=== PATIENT | female | born 1980 | race Caucasian/White ===

== ENCOUNTER → 2018-06-27 14:09 | Outpatient (CLI) | payer OTHER, SELFPAY ==
--- NOTE | 2018-06-27 14:17 | CA_ITS ---
PROCEDURE: 2-D M-mode and color Doppler study. INDICATIONS FOR THE TEST: Chest pain COPD Heart Murmur Tobacco Smoking Palpitations Fatigue Syncope Edema+ Hypertension Diabetes Mellitus Rheumatic Fever SOB GALICIA Obesity+Hyperlipidemia Family History HD Additional History BREAST LIFT 2015 PATIENT INFORMATION HEIGHT: 64 WEIGHT:250 GENDER: Female B/P: 2-D/M-MODE INTERPRETATION: 2-D MEASUREMENTS OBSERVED VALUES IN CMS Right Ventricular Dimension (RVDd) 2.8 Interventricular Septum (Thickness)(IVsd) 1.2 Left Ventricular Posterior Wall (Thickness)(LVPWd) 1.1 Aortic Root 3.1 Aortic Cusp Separation 1.9 Left Atrial Dimensions (LAD) 3.8 2D 1. Left atrium is mildly enlarged, left ventricle is normal size, mild concentric left ventricular hypertrophy, visually estimated ejection fraction 55%. 2. The right atrium and right ventricle is mildly enlarged with normal contractility. 3. The aortic valve is minimally thickened and fibrosed. 4. The mitral and tricuspid valve is normal. 5. Pulmonic valve is poorly visualized. 6. No significant pericardial effusion noted. DOPPLER INTERROGATION: Doppler interrogation of the aortic, mitral and tricuspid valve reveals presence of mild mitral and tricuspid regurgitation, tricuspid regurgitation jet velocity is inadequate for calculation of the right ventricle systolic pressure, Doppler evidence of impaired relaxation seen. CONCLUSION: 1. Mildly enlarged left atrium, normal left ventricular size, mild concentric left ventricular hypertrophy, visually estimated ejection fraction 55% wall motion abnormality. Doppler evidence of impaired relaxation seen. 2. Mildly enlarged right ventricle normal contractility. 3. Mild mitral and tricuspid regurgitation 4. No significant pericardial effusion noted.
== END ==
PROVIDERS: PCP Family Medicine; Visit Provider Family Medicine
DX: R60.0 Localized edema (principal)
CPT/HCPCS: 93306

== ENCOUNTER → 2018-07-24 15:15 | Outpatient (CLI) | payer OTHER, SELFPAY | PROVIDERS: PCP Family Medicine; Visit Provider Internal Medicine Cardiovascular Disease | DX: G47.9 Sleep disorder, unspecified (principal); R06.83 Snoring; R40.0 Somnolence; R93.1 Abnormal findings on diagnostic imaging of heart and coronary circulation | CPT/HCPCS: 95806 ==

== ENCOUNTER → 2018-08-31 11:43 | Outpatient (CLI) | payer OTHER, SELFPAY ==
[2018-08-31 12:14] LABS: Anion Gap 10.7 mEq/L (5-15); Blood Urea Nitrogen 9 mg/dL (7-18); Calcium 8.6 mg/dL (8.5-10.1); Carbon Dioxide 29 mmol/L (21.0-32.0); Chloride 99 mmol/L (98-107); Creatinine,Serum 0.77 mg/dL (0.55-1.02); Estimated Glomerular Filt Rate 83 ml/min (>60); GFR (African American) 101 ML/MIN (>60); Glucose 101 mg/dL (74-106); Potassium 3.7 mmoL/L (3.5-5.1); Sodium 135 mmol/L (136-145)
== END ==
PROVIDERS: Visit Provider Internal Medicine Cardiovascular Disease
DX: R07.9 Chest pain, unspecified (principal); R42 Dizziness and giddiness; R60.9 Edema, unspecified
CPT/HCPCS: 36415; 80048; 83880

== ENCOUNTER → 2018-10-03 11:53 | Outpatient (CLI) | payer OTHER, SELFPAY ==
--- NOTE | 2018-10-03 11:57 | XR_ITS ---
XR ankle wt bearing RT min 3V HISTORY: ITS.REASON: right ankle pain ORDERING PHYSICIAN: Zuly Williamson MD PATIENT AGE: 38 years Comparison: None FINDINGS: No fracture or dislocation. No lytic or blastic change. There is normal mineralization.. The joint spaces are well-preserved. Minimal spurring present involving the anterior distal tibia. IMPRESSION: Minimal spurring of the anterior distal tibia otherwise negative
--- NOTE | 2018-10-03 11:57 | XR_ITS ---
XR ankle wt bearing LT min 3V HISTORY: ITS.REASON: lt ankle pain ORDERING PHYSICIAN: Zuly Williamson MD PATIENT AGE: 38 years Comparison: None FINDINGS: No fracture or dislocation. No lytic or blastic change. There is normal mineralization.. The joint spaces are well-preserved. No significant degenerative/arthritic changes. No erosive changes evident. IMPRESSION: Negative ankle, no acute finding
== END ==
PROVIDERS: PCP Family Medicine; Visit Provider Orthopaedic Surgery
DX: M25.572 Pain in left ankle and joints of left foot (principal); M25.571 Pain in right ankle and joints of right foot
CPT/HCPCS: 73610

== ENCOUNTER 2018-12-31 11:48 | Inpatient (IN) ==
[2018-12-31 12:37] LABS: Microscopic, Urine URINE MICROSCOPIC (MICROSCOPIC)
[2018-12-31 12:42] LABS: Appearance,Urine CLEAR (Clear); Bilirubin,Urine Negative (Negative); Blood, Urine TRACE-I (Negative); Color,Urine YELLOW (Yellow); Glucose,Urine (UA) Negative (Negative); Ketones,Urine Negative (Negative); Leukocyte Esterase,Urine Negative (Negative); Protein,Urine Negative (Negative); Urobilinogen,Urine 0.2 EU/dl (0.2)
[2018-12-31 12:46] LABS: Basophils # 0.1 K/mm3 (0-0.2); Basophils % 0.7 % (0.1-2.0); Eosinophils # 0.3 K/mm3 (0.0-0.4); Hematocrit 41.9 % (37.0-47.0); Hemoglobin 12.9 g/dL (12.2-16.2); Lymphocytes # 1.8 K/mm3 (0.7-4.5); Mean Corpuscular HGB Conc 30.8 g/dL (31.8-35.4); Mean Corpuscular Volume 72.7 fl (81-99); Mean Platelet Volume 6.9 fl (7.4-10.4); Monocytes # 0.5 K/mm3 (0.1-1.0); Monocytes % 4.2 % (1.7-9.3); Neutrophils # 8.6 K/mm3 (1.8-7.8); Platelet Count 335 K/mm3 (142-424); Red Blood Count 5.76 M/mm3 (4.20-5.40); White Blood Count 11.4 K/mm3 (4.8-10.8)
[2018-12-31 12:49] LABS: Amphetamine/Metha Screen,Urine Positive ng/mL (<1000); Barbiturates Screen,Urine Negative ng/mL (<200); Benzodiazepines Screen,Urine Negative ng/mL (<200); Cannabinoid Screen,Urine Negative ng/mL (<50); Cocaine Screen,Urine Negative ng/mL (<300); Methadone Screen,Urine Negative ng/mL (<300); Opiate Screen,Urine Negative ng/mL (<300); Phencyclidine Screen,Urine Negative ng/mL (<25)
[2018-12-31 12:54] LABS: Bacteria,Urine 3+ /lpf; RBC,Urine Occasional #/hpf (0-3)
[2018-12-31 13:23] LABS: Albumin Level 3.8 gm/dL (3.4-5.0); Albumin/Globulin Ratio 0.8 (1.1-1.8); Bilirubin,Total 0.5 mg/dL (0.2-1.0); Calcium 9.9 mg/dL (8.5-10.1); Total Protein,Serum 8.8 gm/dL (6.4-8.2)
--- NOTE | 2018-12-31 13:48 | Emergency Department Note ---
ED Disposition Clinical Impression: Hypokalemia, Prolonged Q-T interval on ECG Disposition: Admitted as Observation Condition on Discharge: Fair Referrals: Alfonso Mai MD [Primary Care Provider] - Time of Disposition: 17:02 - Critical Care Critical Care Time: No Attestation: On 12/31/18, the high probability of a clinically significant, sudden or life threatening deterioration of the following system(s) required my full and direct attention, intervention and personal management. The time I documented below is in addition to time spent performing reported procedures but includes the following listed in this critical care notation. Medical Decision Making - Medical Records Medical records reviewed: Yes: I reviewed the patient's medical records. - Harry Inquiry Pt receiving controlled substance: No Harry was queried for this patient: No Vital Signs: 12/31/18 11:49 12/31/18 12:02 12/31/18 14:19 Temperature 98.3 F 98.5 F Temperature Source Oral Oral Pulse Rate [Right Brachial] 97 H 103 H 93 H Respiratory Rate 14 20 Blood Pressure [Right Arm] 112/62 103/73 L 110/75 Blood Pressure Mean [Right Arm] 78 83 86 Blood Pressure Source [Right Arm] Automatic Cuff Automatic Cuff Blood Pressure Position [Right Arm] Sitting Sitting 02 Sat by Pulse Oximetry 96 92 L 95 Oxygen Delivery Method Room Air 12/31/18 14:30 12/31/18 15:00 12/31/18 16:50 Temperature Temperature Source Pulse Rate [Right Brachial] 65 87 87 Respiratory Rate Blood Pressure [Right Arm] 99/59 L 105/72 L 112/84 Blood Pressure Mean [Right Arm] 72 83 93 Blood Pressure Source [Right Arm] Blood Pressure Position [Right Arm] 02 Sat by Pulse Oximetry 97 92 L 96 Oxygen Delivery Method - Lab Data Lab results reviewed: Yes: I reviewed the patient's lab results. Lab Results 12/31/18 12:24: Urine Color Yellow, Urine Appearance Clear, Urine pH 7.0, Ur Specific [place] 1.010, Urine Protein Negative, Urine Glucose (UA) Negative, Urine Ketones Negative, Urine Blood Trace-i, Urine Nitrate Negative, Urine Bilirubin Negative, Urine Urobilinogen 0.2, Ur Leukocyte Esterase Negative, Urine RBC Occasional, Urine WBC 3-5, Ur Squamous Epith Cells 5-10, Urine Bacteria 3+ 12/31/18 12:24: Urine Opiates Screen Negative, Urine Methadone Screen Negative, Ur Barbituates Screen Negative, Ur Phencyclidine Scrn Negative, Ur Amphetamines Screen Positive H, U Benzodiazepines Scrn Negative, Urine Cocaine Screen Negative, U Marijuana (THC) Screen Negative 12/31/18 12:38: WBC 11.4 H, RBC 5.76 H, Hgb 12.9, Hct 41.9, MCV 72.7 L, MCH 22.4 L, MCHC 30.8 L, RDW 14.0, Plt Count 335, MPV 6.9 L, Neut % (Auto) 76.0, Lymph % (Auto) 16.0, [place] % (Auto) 4.2, Eos % (Auto) 3.0, Baso % (Auto) 0.7, Neut # (A uto) 8.6 H, Lymph # (Auto) 1.8, [place] # (Auto) 0.5, Eos # (Auto) 0.3, Baso # (Auto) 0.1 12/31/18 12:38: Sodium 135 L, Potassium 2.0 L*, Chloride 88 L, Carbon Dioxide 38 H, Anion Gap 11.0, BUN 18, Creatinine 1.00, Estimated Creat Clear 76, Estimated GFR 62, Est GFR ( Amer) 75, Glucose 124 H, Calcium 9.9, Magnesium 2.2, Total Bilirubin 0.5, AST 27, ALT 28, Alkaline Phosphatase 169 H, Total Protein 8.8 H, Albumin 3.8, Globulin 5.0 H, Albumin/Globulin Ratio 0.8 L 12/31/18 12:38: TSH 3.08 D, Free T4 0.96 Result diagrams: 12/31/18 12:38 12/31/18 12:38 Orders (Tests/Meds): ED MEDICATIONS Generic Name Dose Route Start Last Admin Trade Name Freq PRN Reason Stop Dose Admin Potassium Chloride/Water 100 mls @ 50 mls/hr 12/31/18 14:09 12/31/18 16:47 Potassium Chloride 20meq/100ml Ivpb IV 12/31/18 18:08 50 mls/hr Q2H ADAN Administration Discontinued Medications Generic Name Dose Route Start Last Admin Trade Name Freq PRN Reason Stop Dose Admin Potassium Chloride 20 meq 12/31/18 14:40 12/31/18 14:58 Klor-Con 20meq Tablet PO 12/31/18 14:41 20 meq ONCE ONE Administration ORDERS Category Date Time Status Urine Culture Stat Micro 12/31/18 12:24 Received General Adult HPI - General Chief complaint: Altered Mental Status Stated complaint: Headache and vision problems Time Seen by Provider: 12/31/18 13:41 Mode of Arrival: Family Vehicle Source of Information: Patient Limitations: No Limitations Description of Symptoms (Recalled from ER Triage Doc. by RN): C/O JERKING AND TWITCHING X 2 DAYS. HAS PAST HISTORY OF THIS BUT NOT FOR THIS LENGTH OF TIME AND HAS NEVER BEEN TO DR FOR THIS. ALSO C/O HEAD AND NECK PAIN WITH VISUAL PROBLEMS. HISTORY OF PRECRIPTION DRUG DEPENDENCY BUT STATES HAS BEEN CLEAN X 1 YEAR. APPEARS TO BE UNDER INFLUENCE OF SOMETHING BUT DENIES - History of Present Illness HPI narrative: complains of musculalr twitching, headache last night. Is on antipsychotics, has pos urine drug screen for meth, and severe hypokalemia. Is on diuretics for peripheral edema - Related Data Home Medications Medication Instructions Recorded Confirmed Citalopram Hydrobromide [Celexa 40 mg PO DAILY 10/23/17 12/31/18 20mg Tablet] Gabapentin [Gabapentin 800mg Tab] 800 mg PO TID 10/23/17 12/31/18 Levothyroxine Sodium 50 mcg PO DAILY 10/23/17 12/31/18 [Levothyroxine 50mcg (0.05mg) Tab] Potassium Chloride [Pot Chlor 20 20 meq PO DAILY 10/23/17 12/31/18 mEq Tab] Ziprasidone HCl 20 mg PO HS 10/23/17 12/31/18 amitriptyline 25 mg tablet 100 mg PO HS tab 08/31/18 12/31/18 Buprenorphine HCl/Naloxone HCl 1 dose PO HS 12/31/18 12/31/18 [Zubsolv 5.7-1.4 mg Tablet Sl] Furosemide [Furosemide 40MG tAB] 40 mg PO DAILY 12/31/18 12/31/18 Methocarbamol [Methocarbamol 750mg 1 tab PO BID 12/31/18 12/31/18 Tab] Perphenazine 4 mg PO HS 12/31/18 12/31/18 Allergies Allergy/AdvReac Type Severity Reaction Status Date / Time No Known Allergies Allergy Verified 11/30/18 10:42 [facility] History - Hepatitis A Screen Drug use history?: Yes High risk sexual behaviors?: No History of sexually transmitted infection?: No Currently employed?: No Childcare worker?: No Do you have indoor plumbing?: Yes Do you have electricity?: Yes Attestation statement:: This patient has been screened for Hepatitis A risk factors. I have reviewed the patient's past medical history: Yes Medical History: Reports:: Anxiety, Depression Denies:: Cancer, Diabetes Mellitus Type 1, Diabetes Mellitus Type 2, MRSA Other Medical History: Reports: Fibromyalgia, Hypothyroidism Other Surgeries: Yes: Cholecystectomy, Hysterectomy-Total, Tubal Ligation, Other (plastic sx,(Breast, Stomach)) Amputation: No Fractures: No - Social History Smoking Status: Never smoker Alcohol Intake: never Substance Use Type: opiates Occupational Status: unemployed Housing: house Household Members: family - Psychiatric History Expresses thoughts of harming self/others: None Suicide Plan Description: No Plan Pschychiatric History:: Reports:: Anxiety, Depression Family Hx:: Coronary Artery Disease, Diabetes Comment: Maternal Grandmother ROS Obtained: Yes All systems reviewed & no additional complaints - Constitutional Constitutional: Denies chills, Denies fever(s) - Eyes Eyes: Denies blurry vision, Denies change in vision - Cardiovascular Cardiovascular: Denies chest pain, Denies chest pain at rest, Denies diaphoresis, Denies dyspnea - Respiratory Respiratory: No chest congestion, No cough, No dyspnea on exertion - Musculoskeletal Musculoskeletal: Denies joint stiffness, Denies joint swelling, Denies limited range of motion, Reports muscle weakness - Integumentary/Breasts Skin/Breast: Reports wounds - Neurologic Neurologic: Reports tingling/numbness/burning sensations, Reports other (muscular twitching, widespread) - Hematologic/Lymphatic Henatologic/Lymphatic: Denies easy bleeding, Denies easy bruising Physical Exam - General General appearance: alert, in no apparent distress, other (unkempt) - Head Head exam: atraumatic, normocephalic, normal inspection - Eye Eye exam: Present: normal appearance, PERRL, EOMI - ENT ENT exam: Present: normal exam, normal oropharynx, mucous membranes moist, TM's normal bilaterally, normal external ear exam - Neck Neck exam: Present: normal inspection, full ROM, trachea midline. Absent: meningismus, lymphadenopathy - Respiratory Respiratory exam: Present: normal lung sounds bilaterally - Cardiovascular Cardiovascular exam: Present: regular rate, normal rhythm. Absent: JVD - Abdominal Exam Abdominal exam: Present: soft, normal bowel sounds. Absent: distention, tenderness, guarding - Extremities Exam Extremities exam: Present: normal inspection, full ROM, normal capillary refill. Absent: calf tenderness - Neurological Exam Neurological exam: Present: alert, oriented X3, CN II-XII intact, other - Psychiatric Psychiatric exam: Present: normal affect, normal mood - Skin Skin exam: Present: warm, dry, intact, normal color
[2018-12-31 15:33] LABS: Free T4 (Free Thyroxine) 0.96 ng/dl (0.76-1.46); Thyroid Stimulating Hormone 3.08 uIU/ml (0.358-3.740)
[2018-12-31 21:29] LABS: Anion Gap 19.3 mEq/L (5-15); Calcium 9.2 mg/dL (8.5-10.1)
--- NOTE | 2019-01-01 07:34 | Pharmacy Consult Notes ---
[facility] Pharmacy VTE Monitoring - Patient Demographics Admission date: 12/31/18 Report Date: 01/01/19 Time: 07:33 Allergies/Adverse Reactions: Patient Allergies No Known Allergies Allergy (Verified 11/30/18 10:42) Height: 1.65 m Weight: 113.653 kg Patient Problems: Current Active Problems (Updated 12/31/18 @ 17:02 by Joel Rodriguez MD) Hypokalemia (Acute) Prolonged Q-T interval on ECG (Acute) - VTE Risk Labs: VTE Related Lab Results Hgb 12.9 g/dL (12.2-16.2) 12/31/18 12:38 Hct 41.9 % (37.0-47.0) 12/31/18 12:38 Plt Count 335 K/mm3 (142-424) 12/31/18 12:38 BUN 17 mg/dL (7-18) 12/31/18 21:10 Creatinine 1.00 mg/dL (0.55-1.02) 12/31/18 21:10 Estimated Creat Clear 68 mL/min (50-200) 12/31/18 21:10 VTE Score: 1 - Prophylaxis VTE Prophylaxis Ordered?: Yes Types of VTE Prophylaxis: TEDS Knee High Location of Applied Device: Bilateral Lower Extremeties - VTE Diagnosis Confirmed Treatment or plan recommended: Continue Current Treatment
[2019-01-01 08:56] LABS: Anion Gap 6.8 mEq/L (5-15); Calcium 8.9 mg/dL (8.5-10.1)
--- NOTE | 2019-01-01 09:21 | History & Physical Report ---
*Admission Date: 12/31/18 <Eli Smith 01/01/19 09:36> *Chief complaint: Jerking; muscle weakness <Eli Smith 01/01/19 09:36> *History of present illness: Ms. Sutton is a 38-year-old female with a history of irritable bowel syndrome, fibromyalgia, degenerative disc disease of the neck, depression with anxiety, FORD on CPAP, and drug abuse on Suboxone who was brought to the emergency room by her family with 2 days duration of head and neck pain, dizziness, legs wobbling and giving away, with muscle jerking of the arms and the legs. With evaluation in the emergency room she was found to have QT prolongation and was hypokalemic she was started on IV potassium and admitted for further evaluation and treatment. This a.m. patient is not feeling much better. Her daughter is at bedside and did state throughout the night and noticed ongoing muscle jerking. Patient is very lethargic this a.m. She denies chest pain and shortness of breath. She ate this morning without difficulties. <Eli Smith 01/01/19 09:36> [facility] History Medical History: Reports:: Anxiety, Depression Denies:: Cancer, Diabetes Mellitus Type 1, Diabetes Mellitus Type 2, MRSA <Eli Smith 01/01/19 09:36> *Have you ever received a pneumonia vaccine?: No <Eli Smith 01/01/19 09:36> *Have you received a flu vaccine this season?: No <Eli Smith 01/01/19 09:36> Other Medical History: Reports: Arthritis, Fibromyalgia, Hypothyroidism <Eli Smith 01/01/19 09:36> Comment:: Obstructive sleep apnea <Eli Smith 01/01/19 09:36> Other Surgeries: Yes: Cholecystectomy, Hysterectomy-Total, Tubal Ligation, Other (plastic sx,(Breast, Stomach)) <Eli Smith 01/01/19 09:36> Amputation: No <Eli Smith 01/01/19 09:36> Fractures: No <Eli Smith 01/01/19 09:36> Comment: [place] teeth extraction <Eli Smith 01/01/19 09:36> - *Social History Educational Level: Completed High School <Eli Smith 01/01/19 09:36> Smoking Status: Never smoker <Eli Smith 01/01/19 09:36> Alcohol Intake: never <Eli Smith 01/01/19 09:36> Substance Use Type: opiates <Eli Smith 01/01/19 09:36> *Occupational Status:: unemployed <SarahEli 01/01/19 09:36> Housing: house <SarahEli 01/01/19 09:36> Household Members: spouse, children <Eli Smith 01/01/19 09:36> *Travel in the last 8 weeks: None <SarahEli 01/01/19 09:36> - Psychiatric History Expresses thoughts of harming self/others: None <SarahEli 01/01/19 09:36> Suicide Plan Description: No Plan <SarahEli 01/01/19 09:36> Pschychiatric History:: Reports:: Anxiety, Depression <Eli Smith 01/01/19 09:36> Family Hx:: Coronary Artery Disease, Diabetes <Eli Smith 01/01/19 09:36> Review of Systems - Constitutional Denies fever(s) <SarahEli 01/01/19 09:36> - Eyes Denies change in vision <SmithEli 01/01/19 09:36> - ENT Denies ear pain, Denies sore throat <SmithEli 01/01/19 09:36> - *Cardiovascular Denies chest pain <SmithEli 01/01/19 09:36> - *Respiratory Denies shortness of breath <SmithEli 01/01/19 09:36> - *Gastrointestinal Denies abdominal pain, Denies change in bowel habits, Denies change in stools, Denies nausea, Denies vomiting <Smith,Eli 01/01/19 09:36> - *Genitourinary Denies difficulty urinating <Smith,Eli 01/01/19 09:36> - *Musculoskeletal Reports joint pain, Reports muscle weakness <SmithEli 01/01/19 09:36> - *Neurologic Reports abnormal walking, Reports dizziness, Reports lack of coordination, Reports tingling/numbness/burning sensations, Reports weakness, Reports other (muscular twitching, widespread), Denies seizure-like activity <Eli Smith - 01/01/19 09:36> - Psychiatric Reports anxiety, Reports confusion, Reports depression <Eli Smith - 01/01/19 09:36> Meds Home Medications Medication Instructions Recorded Confirmed Type Citalopram Hydrobromide [Celexa 40 mg PO DAILY 10/23/17 12/31/18 History 20mg Tablet] Levothyroxine Sodium 50 mcg PO DAILY 10/23/17 12/31/18 History [Levothyroxine 50mcg (0.05mg) Tab] Ziprasidone HCl 40 mg PO HS 10/23/17 01/01/19 History amitriptyline 25 mg tablet 100 mg PO HS tab 08/31/18 12/31/18 History Buprenorphine HCl/Naloxone HCl 2 each PO DAILY 12/31/18 01/01/19 History [Zubsolv 5.7-1.4 mg Tablet Sl] Furosemide [Furosemide 40MG tAB] 40 mg PO DAILY 12/31/18 12/31/18 History Methocarbamol [Methocarbamol 750mg 750 mg PO BID 12/31/18 01/01/19 History Tab] Perphenazine 4 mg PO TIDP PRN 12/31/18 01/01/19 History Gabapentin 800 mg PO TID 01/01/19 01/01/19 History Potassium Chloride [Klor-con 20 20 meq PO DAILY 01/01/19 01/01/19 History mEq tablet] Spironolactone 25 mg PO DAILY 01/01/19 01/01/19 History <Alfonso Mai - 01/01/19 17:45> Allergies Allergy/AdvReac Type Severity Reaction Status Date / Time No Known Allergies Allergy Verified 11/30/18 10:42 <Alfonso Mai - 01/01/19 17:45> Exam Vital signs and Labs for Last 24 Hours: Temp Pulse Resp BP Pulse Ox 97.9 F 85 18 111/76 99 01/01/19 16:00 01/01/19 16:00 01/01/19 16:00 01/01/19 16:00 01/01/19 16:00 Laboratory Results - last 24 hr 12/31/18 21:10: Sodium 135 L, Potassium 3.3 L D, Chloride 92 L, Carbon Dioxide 27 D, Anion Gap 19.3 H, BUN 17, Creatinine 1.00, Estimated Creat Clear 68, Estimated GFR 62, Est GFR ( Amer) 75, Glucose 143 H, Calcium 9.2 01/01/19 08:40: Sodium 136, Potassium 1.8 L* D, Chloride 92 L, Carbon Dioxide 39 H D, Anion Gap 6.8, BUN 15, Creatinine 0.94, Estimated Creat Clear 72, Estimated GFR 66, Est GFR ( Amer) 80, Glucose 163 H, Calcium 8.9 01/01/19 16:03: Potassium 2.4 L* D <Alfonso Mai - 01/01/19 17:45> Temp Pulse Resp BP Pulse Ox 98.3 F 83 18 103/53 L 99 01/01/19 08:00 01/01/19 08:00 01/01/19 08:00 01/01/19 08:00 01/01/19 08:00 Laboratory Results - last 24 hr 12/31/18 12:24: Urine Color Yellow, Urine Appearance Clear, Urine pH 7.0, Ur Specific [place] 1.010, Urine Protein Negative, Urine Glucose (UA) Negative, Urine Ketones Negative, Urine Blood Trace-i, Urine Nitrate Negative, Urine Bilirubin Negative, Urine Urobilinogen 0.2, Ur Leukocyte Esterase Negative, Urine RBC Occasional, Urine WBC 3-5, Ur Squamous Epith Cells 5-10, Urine Bacteria 3+ 12/31/18 12:24: Urine Opiates Screen Negative, Urine Methadone Screen Negative, Ur Barbituates Screen Negative, Ur Phencyclidine Scrn Negative, Ur Amphetamines Screen Positive H, U Benzodiazepines Scrn Negative, Urine Cocaine Screen Negative, U Marijuana (THC) Screen Negative 12/31/18 12:38: WBC 11.4 H, RBC 5.76 H, Hgb 12.9, Hct 41.9, MCV 72.7 L, MCH 22.4 L, MCHC 30.8 L, RDW 14.0, Plt Count 335, MPV 6.9 L, Neut % (Auto) 76.0, Lymph % (Auto) 16.0, [place] % (Auto) 4.2, Eos % (Auto) 3.0, Baso % (Auto) 0.7, Neut # (Auto) 8.6 H, Lymph # (Auto) 1.8, [place] # (Auto) 0.5, Eos # (Auto) 0.3, Baso # (Auto) 0.1 12/31/18 12:38: Sodium 135 L, Potassium 2.0 L*, Chloride 88 L, Carbon Dioxide 38 H, Anion Gap 11.0, BUN 18, Creatinine 1.00, Estimated Creat Clear 76, Estimated GFR 62, Est GFR ( Amer) 75, Glucose 124 H, Calcium 9.9, Magnesium 2.2, Total Bilirubin 0.5, AST 27, ALT 28, Alkaline Phosphatase 169 H, Total Protein 8.8 H, Albumin 3.8, Globulin 5.0 H, Albumin/Globulin Ratio 0.8 L 12/31/18 12:38: TSH 3.08 D, Free T4 0.96 12/31/18 21:10: Sodium 135 L, Potassium 3.3 L D, Chloride 92 L, Carbon Dioxide 27 D, Anion Gap 19.3 H, BUN 17, Creatinine 1.00, Estimated Creat Clear 68, Estimated GFR 62, Est GFR ( Amer) 75, Glucose 143 H, Calcium 9.2 01/01/19 08:40: Sodium 136, Potassium 1.8 L* D, Chloride 92 L, Carbon Dioxide 39 H D, Anion Gap 6.8, BUN 15, Creatinine 0.94, Estimated Creat Clear 72, Estimated GFR 66, Est GFR ( Amer) 80, Glucose 163 H, Calcium 8.9 <Eli Smith - 01/01/19 09:36> I & O for Last 24 hours: Intake & Output 12/30/18 12/31/18 01/01/19 01/02/19 11:59 11:59 11:59 11:59 Intake Total 791.667 / 791.667 780 / 780 Output Total 950 / 950 Balance 791.667 / 791.667 -170 / -170 Weight 258 lb 250 lb 9 oz 250 lb 8.991 oz <Alfonso Mai - 01/01/19 17:45> Intake & Output 12/29/18 12/30/18 12/31/18 01/01/19 11:59 11:59 11:59 11:59 Intake Total 691.667 / 691.667 Balance 691.667 / 691.667 Weight 258 lb 250 lb 9 oz <Eli Smith 01/01/19 09:36> Microbiology Reports for the Last 24 Hours: Microbiology 12/31/18 12:24 Urine,Clean Catch Urine Culture - Final Multiple organisms, suggests contamination. <SergeiAlfonso Xavier - 01/01/19 17:45> Microbiology 12/31/18 12:24 Urine,Clean Catch Urine Culture - Final Multiple organisms, suggests contamination. <Eli Smith 01/01/19 09:36> Radiology Reports for the Last 24 Hours: 12/31/2018 CT of the cervical spine Is 100 iMPRESSION: Reversal of lordosis which may be due to patient positioning or muscle spasm otherwise negative. 12/31/2018 CT of the head IMPRESSION: No acute intracranial findings <Eli Smith 01/01/19 09:36> - Constitutional no acute distress, cooperative <Eli Smith 01/01/19 09:36> Comments: Lethargic <Eli Smith 01/01/19 09:36> - *Routine HEENT Exam Head: Present: normocephalic, atraumatic <Eli Smith 01/01/19 09:36> Eye: Present: EOMI, PERRL. Absent: conjunctival icterus, scleral injection <Eli Smith 01/01/19 09:36> ENT: Present: mucous membranes moist, oropharynx clear <Eli Smith 01/01 09:36> - *Routine Neck Exam Present: supple, full ROM. Absent: carotid bruit, lymphadenopathy, thyromegaly <Eli Smiht 01/01/19 09:36> - *Routine Respiratory Exam Present: CTA bilaterally (Anteriorly and posteriorly) <Eli Smith 01/01/19 09:36> - *Routine Cardiovascular Exam Present: RRR <Eli Smith 01/01/19 09:36> - *Routine Abdominal Exam Present: soft, normoactive bowel sounds. Absent: tenderness, distended <Eli Smith 01/01/19 09:36> - *Routine Extremities Exam Absent: edema, calf tenderness <Eli Smith - 01/01/19 09:36> - *Routine Skin Exam Comments: Rash for which she was being treated has resolved beneath her breast and her abdominal folds <Eli Smith - 01/01/19 09:36> - *Routine Neurological Exam Present: alert, oriented X3, CN II-XII intact. Absent: tremors <Eli Smith - 01/01/19 09:36> Lethargic <Eli Smith - 01/01/19 09:36> Assessment and Plan (1) Depression Current visit: Yes Status: Chronic Category: Medical Code(s): F32.9 - Major depressive disorder, single episode, unspecified (2) Hypothyroidism Current visit: Yes Status: Acute Category: Medical Code(s): E03.9 - Hypothyroidism, unspecified (3) Fibromyalgia Current visit: Yes Status: Chronic Category: Medical Code(s): M79.7 - Fibromyalgia (4) Hypokalemia Current visit: Yes Status: Acute Category: Medical Code(s): E87.6 - Hypokalemia (5) Prolonged Q-T interval on ECG Current visit: Yes Status: Acute Category: Medical Code(s): R94.31 - Abnormal electrocardiogram [ECG] [EKG] (6) Edema Current visit: No Status: Chronic Qualifiers: Edema type: localized Qualified Code(s): R60.0 - Localized edema Category: Medical Code(s): R60.9 - Edema, unspecified (7) SOB (shortness of breath) Current visit: No Status: Acute Category: Medical Code(s): R06.02 - Shortness of breath (8) FORD (obstructive sleep apnea) Current visit: No Status: Chronic Category: Medical Code(s): G47.33 - Obstructive sleep apnea (adult) (pediatric) <SergeiAlfonso Xavier - 01/01/19 17:45> (1) Depression Current visit: Yes Status: Chronic Category: Medical Code(s): F32.9 - Major depressive disorder, single episode, unspecified (2) Hypothyroidism Current visit: Yes Status: Acute Category: Medical Code(s): E03.9 - Hypothyroidism, unspecified (3) Fibromyalgia Current visit: Yes Status: Chronic Category: Medical Code(s): M79.7 - Fibr omyalgia (4) Hypokalemia Current visit: Yes Status: Acute Category: Medical Code(s): E87.6 - Hypokalemia (5) Prolonged Q-T interval on ECG Current visit: Yes Status: Acute Category: Medical Code(s): R94.31 - Abnormal electrocardiogram [ECG] [EKG] (6) Edema Current visit: No Status: Chronic Qualifiers: Edema type: localized Qualified Code(s): R60.0 - Localized edema Category: Medical Code(s): R60.9 - Edema, unspecified (7) SOB (shortness of breath) Current visit: No Status: Acute Category: Medical Code(s): R06.02 - Shortness of breath (8) FORD (obstructive sleep apnea) Current visit: No Status: Chronic Category: Medical Code(s): G47.33 - Obstructive sleep apnea (adult) (pediatric) <Eli Smith - 01/01/19 09:17> - Assessment and plan all Dx Assessment and Plan for all problems:: Patient seen and examined. SHe is somnolent, ? due to multiple psych meds. Potassium has again dropped to 1.8 after improving to 3.3. Diuretics have been stopped. Will repeat serum K+ this afternoon. <Alfonso Mai - 01/01/19 17:45> Patient has been admitted to acute care for further evaluation and treatment. Potassium did improve after p.o. and IV potassium in the emergency room. Potassium is again low at 1.8 this a.m. and will repeat potassium runs in addition to p.o. potassium. Most of home meds have been reordered and adjusted accordingly. <Eli Smith - 01/01/19 09:36>
[2019-01-02 07:48] VITALS: BP 104/56
[2019-01-02 07:48] LABS: Albumin Level 3.2 gm/dL (3.4-5.0); Anion Gap 6.8 mEq/L (5-15); Bilirubin,Total 0.2 mg/dL (0.2-1.0); Calcium 8.7 mg/dL (8.5-10.1); Total Protein,Serum 7.5 gm/dL (6.4-8.2)
[2019-01-02 07:49] LABS: Albumin/Globulin Ratio 0.7 (1.1-1.8); Globulin 4.3 gm/dl (1.3-3.2)
--- NOTE | 2019-01-02 08:54 | Progress Note ---
<Eli Smith - Last Filed: 01/02/19 08:50> Internal Medicine - PN: Subj *Date: 01/02/19 *Time: 08:50 Interval history: Patient states less jerking this a.m. She did sleep during the night. She denies chest pain and shortness of breath. She is eating without problems. She is taking 40 mEq of p.o. potassium 3 times daily and potassium this morning is 2.8. Exam Vital signs and Labs for Last 24 Hours: Temp Pulse Resp BP Pulse Ox 97.8 F 80 17 104/56 L 100 01/02/19 07:47 01/02/19 07:47 01/02/19 07:47 01/02/19 07:47 01/02/19 07:47 Laboratory Results - last 24 hr 01/01/19 08:40: Sodium 136, Potassium 1.8 L* D, Chloride 92 L, Carbon Dioxide 39 H D, Anion Gap 6.8, BUN 15, Creatinine 0.94, Estimated Creat Clear 72, Estimated GFR 66, Est GFR ( Amer) 80, Glucose 163 H, Calcium 8.9 01/01/19 16:03: Potassium 2.4 L* D 01/02/19 06:31: Sodium 139, Potassium 2.8 L*, Chloride 95 L, Carbon Dioxide 40 H , Anion Gap 6.8, BUN 14, Creatinine 0.76, Estimated Creat Clear 86, Estimated GFR 85, Est GFR ( Amer) 103 D, Glucose 104 D, Calcium 8.7, Total Bilirubin 0.2, AST 15 D, ALT 26, Alkaline Phosphatase 141 H, Total Protein 7.5, Albumin 3.2 L, Globulin 4.3 H, Albumin/Globulin Ratio 0.7 L I & O for Last 24 hours: Intake & Output 12/30/18 12/31/18 01/01/19 01/02/19 11:59 11:59 11:59 11:59 Intake Total 791.667 / 152.289 9285 / 1981 Output Total 950 / 950 Balance 791.667 / 343.198 7842 / 1031 Weight 258 lb 250 lb 9 oz 254 lb 2 oz Microbiology Reports for the Last 24 Hours: Microbiology 12/31/18 12:24 Urine,Clean Catch Urine Culture - Final Multiple organisms, suggests contamination. - Constitutional no acute distress Comments: Sitting up in the bed and seems more alert this morning. - *Routine Respiratory Exam Present: CTA bilaterally (Anteriorly and posteriorly) - *Routine Cardiovascular Exam Present: RRR - *Routine Abdominal Exam Present: soft, normoactive bowel sounds. Absent: tenderness - *Routine Extremities Exam Absent: edema, calf tenderness Assessment and Plan (1) Depression Current visit: Yes Status: Chronic Category: Medical Code(s): F32.9 - Major depressive disorder, single episode, unspecified (2) Hypothyroidism Current visit: Yes Status: Acute Category: Medical Code(s): E03.9 - Hypothyroidism, unspecified (3) Fibromyalgia Current visit: Yes Status: Chronic Category: Medical Code(s): M79.7 - Fibromyalgia (4) Hypokalemia Current visit: Yes Status: Acute Category: Medical Code(s): E87.6 - Hypokalemia (5) Prolonged Q-T interval on ECG Current visit: Yes Status: Acute Category: Medical Code(s): R94.31 - Abnormal electrocardiogram [ECG] [EKG] (6) Edema Current visit: No Status: Chronic Qualifiers: Edema type: localized Qualified Code(s): R60.0 - Localized edema Category: Medical Code(s): R60.9 - Edema, unspecified (7) SOB (shortness of breath) Current visit: No Status: Acute Category: Medical Code(s): R06.02 - Shortness of breath (8) FORD (obstructive sleep apnea) Current visit: No Status: Chronic Category: Medical Code(s): G47.33 - Obstructive sleep apnea (adult) (pediatric) (9) Lethargy Current visit: Yes Status: Acute Category: Medical Code(s): R53.83 - Other fatigue - Assessment and plan all Dx Assessment and Plan for all problems:: Potassium has been increased to 40 mEq 3 times a day. We will recheck potassium at about 12 noon. Possibly home later today. <Alfonso Mai - Last Filed: 01/02/19 12:41> Internal Medicine - PN: Subj *Date: 01/02/19 *Time: 12:39 Exam Vital signs and Labs for Last 24 Hours: Temp Pulse Resp BP Pulse Ox 97.8 F 80 17 104/56 L 97 01/02/19 07:47 01/02/19 07:47 01/02/19 07:47 01/02/19 07:47 01/02/19 08:11 Laboratory Results - last 24 hr 01/01/19 16:03: Potassium 2.4 L* D 01/02/19 06:31: Sodium 139, Potassium 2.8 L*, Chloride 95 L, Carbon Dioxide 40 H , Anion Gap 6.8, BUN 14, Creatinine 0.76, Estimated Creat Clear 86, Estimated GFR 85, Est GFR ( Amer) 103 D, Glucose 104 D, Calcium 8.7, Total Bilirubin 0.2, AST 15 D, ALT 26, Alkaline Phosphatase 141 H, Total Protein 7.5, Albumin 3.2 L, Globulin 4.3 H, Albumin/Globulin Ratio 0.7 L I & O for Last 24 hours: Intake & Output 12/31/18 01/01/19 01/02/19 01/03/19 11:59 11:59 11:59 11:59 Intake Total 791.667 / 567.069 6948 / 1981 Output Total 950 / 950 Balance 791.667 / 055.386 7151 / 1031 Weight 258 lb 250 lb 9 oz 254 lb 2 oz Assessment and Plan (1) Depression Current visit: Yes Status: Chronic Category: Medical Code(s): F32.9 - Major depressive disorder, single episode, unspecified (2) Hypothyroidism Current visit: Yes Status: Acute Category: Medical Code(s): E03.9 - Hypothyroidism, unspecified (3) Fibromyalgia Current visit: Yes Status: Chronic Category: Medical Code(s): M79.7 - Fibromyalgia (4) Hypokalemia Current visit: Yes Status: Acute Category: Medical Code(s): E87.6 - Hypokalemia (5) Prolonged Q-T interval on ECG Current visit: Yes Status: Acute Category: Medical Code(s): R94.31 - Abnormal electrocardiogram [ECG] [EKG] (6) Edema Current visit: No Status: Chronic Qualifiers: Edema type: localized Qualified Code(s): R60.0 - Localized edema Category: Medical Code(s): R60.9 - Edema, unspecified (7) SOB (shortness of breath) Current visit: No Status: Acute Category: Medical Code(s): R06.02 - Shortness of breath (8) FORD (obstructive sleep apnea) Current visit: No Status: Chronic Category: Medical Code(s): G47.33 - Obstructive sleep apnea (adult) (pediatric) (9) Lethargy Current visit: Yes Status: Acute Category: Medical Code(s): R53.83 - Other fatigue - Assessment and plan all Dx Assessment and Plan for all problems:: Patient seen and examined this AM. Note that her leg edema has resolved. She looks and feels better. Will repeat K+ at noon and if still improving, will discharge home.
--- NOTE | 2019-01-02 22:21 | Discharge Summary ---
General - General Admission date:: 12/31/18 <Alfonso Mai - 01/16/19 08:08> 12/31/18 <Fabiana Monet - 01/02/19 22:22> Discharge date: 01/02/19 <Fabiana Monet - 01/02/19 22:22> HPI HPI: Ms. Sutton is a 38-year-old female with a history of irritable bowel syndrome, fibromyalgia, degenerative disc disease of the neck, depression with anxiety, FORD on CPAP, and drug abuse on Suboxone who was brought to the emergency room by her family with 2 days duration of head and neck pain, dizziness, legs wobbling and giving away, with muscle jerking of the arms and the legs. With evaluation in the emergency room she was found to have QT prolongation and was hypokalemic. She was started on IV potassium and admitted for further evaluation and treatment. <Fabiana Monet - 01/02/19 22:22> Hospital Course Hospital Course: The patient's cervical spine CT showed reversal of lordosis due to possible muscle spasm. Her head CT showed nothing acute. She was started on IV potassium as well as p.o. potassium and was admitted. By the next day she was feeling better and her potassium improved from 1.8-3.3. It then dropped again to 1.8, therefore her diuretics were stopped and she was continued on p.o. and IV potassium. She had less jerking and was able to sleep. She was taking 40 mEq of potassium 3 times daily and it improved to 2.8. Her leg edema resolved. Her potassium was repeated again and was stable at 2.8, therefore she was discharged home on p.o. potassium. She will follow-up in the office [facility] to recheck her potassium levels. <Fabiana Monet - 01/02/19 22:22> Objective Vital signs: Temp Pulse Resp BP Pulse Ox 97.8 F 80 17 104/56 L 97 01/02/19 07:47 01/02/19 07:47 01/02/19 07:47 01/02/19 07:47 01/02/19 08:11 <Alfonso Mai - 01/16/19 08:08> Temp Pulse Resp BP Pulse Ox 97.8 F 80 17 104/56 L 97 01/02/19 07:47 01/02/19 07:47 01/02/19 07:47 01/02/19 07:47 01/02/19 08:11 <Fabiana Monet - 01/02/19 22:22> Narrative: - Constitutional no acute distress Comments: Sitting up in the bed and seems more alert this morning. - *Routine Respiratory Exam Present: CTA bilaterally (Anteriorly and posteriorly) - *Routine Cardiovascular Exam Present: RRR - *Routine Abdominal Exam Present: soft, normoactive bowel sounds. Absent: tenderness - *Routine Extremities Exam Absent: edema, calf tenderness <Fabiana Monet - 01/02/19 22:22> Results Labs on day of discharge: Labs from last 24 hours 01/02/19 01/02/19 12:20 06:31 Sodium 139 Potassium 2.8 L* 2.8 L* Chloride 95 L Carbon Dioxide 40 H Anion Gap 6.8 BUN 14 Creatinine 0.76 Estimated Creat Clear 86 Estimated GFR 85 Est GFR ( Amer) 103 D Glucose 104 D Calcium 8.7 Total Bilirubin 0.2 AST 15 D ALT 26 Alkaline Phosphatase 141 H Total Protein 7.5 Albumin 3.2 L Globulin 4.3 H Albumin/Globulin Ratio 0.7 L <Fabiana Monet - 01/02/19 22:22> DS: Diagnosis - Discharge Diagnosis (1) Depression Status: Chronic (2) Hypothyroidism Status: Acute (3) Fibromyalgia Status: Chronic (4) Hypokalemia Status: Acute (5) Prolonged Q-T interval on ECG Status: Acute (6) Edema Status: Chronic (7) SOB (shortness of breath) Status: Acute (8) FORD (obstructive sleep apnea) Status: Chronic (9) Lethargy Status: Acute <Fabiana Monet - 01/02/19 22:17> (1) Depression Status: Chronic (2) Hypothyroidism Status: Acute (3) Fibromyalgia Status: Chronic (4) Hypokalemia Status: Acute (5) Prolonged Q-T interval on ECG Status: Acute (6) Edema Status: Chronic (7) SOB (shortness of breath) Status: Acute (8) FORD (obstructive sleep apnea) Status: Chronic (9) Lethargy Status: Acute <Alfonso Mai - 01/16/19 08:08> Discharge Plan - Patient Discharge Instructions ACTIVITY: Continue current activity <Fabiana Monet 01/02/19 22:22> DIET: low salt diet <Fabiana Monet - 01/02/19 22:22> Patient Instructions: DI for Hypokalemia, High-Potassium Diet <Alfonso Mai - 01/16/19 08:08> Forms: <Alfonso Mai - 01/16/19 08:08> - Follow up Plan Follow up with: Yaneli Javier APRN [Nurse Practitioner] - 01/09/19 10:00 am (in [facility]) <Alfonso Mai - 01/16/19 08:08> Disposition: Home, Self-Care <Alfonso Mai - 01/16/19 08:08> Home Medications: Home Medications Medication Instructions Recorded Confirmed Type Citalopram Hydrobromide [Celexa 40 mg PO DAILY 10/23/17 12/31/18 History 20mg Tablet] Levothyroxine Sodium 50 mcg PO DAILY 10/23/17 12/31/18 History [Levothyroxine 50mcg (0.05mg) Tab] Ziprasidone HCl 40 mg PO HS 10/23/17 01/01/19 History amitriptyline 25 mg tablet 100 mg PO HS tab 08/31/18 12/31/18 History Buprenorphine HCl/Naloxone HCl 2 each PO DAILY 12/31/18 01/01/19 History [Zubsolv 5.7-1.4 mg Tablet Sl] Methocarbamol [Methocarbamol 750mg 750 mg PO BID 12/31/18 01/01/19 History Tab] Perphenazine 4 mg PO TIDP PRN 12/31/18 01/01/19 History Gabapentin 800 mg PO TID 01/01/19 01/01/19 History Spironolactone 25 mg PO DAILY 01/01/19 01/01/19 History Potassium Chloride [Klor-con 20 20 meq PO TID #60 tab 01/02/19 Rx mEq tablet] <Alfonso Mai - 01/16/19 08:08> Prescriptions/Medication Reconciliation: Continued amitriptyline 25 mg tablet 100 mg PO HS tab Ziprasidone HCl 40 mg PO HS Levothyroxine Sodium [Levothyroxine 50mcg (0.05mg) Tab] 50 mcg PO DAILY Citalopram Hydrobromide [Celexa 20mg Tablet] 40 mg PO DAILY Methocarbamol [Methocarbamol 750mg Tab] 750 mg PO BID Perphenazine 4 mg PO TIDP PRN PRN Reason: Anxiety Buprenorphine HCl/Naloxone HCl [Zubsolv 5.7-1.4 mg Tablet Sl] 2 each PO DAILY Gabapentin 800 mg PO TID Spironolactone 25 mg PO DAILY Changed Potassium Chloride [Klor-con 20 mEq tablet] 20 meq PO TID #60 tab Discontinued Furosemide [Furosemide 40MG tAB] 40 mg PO DAILY <Alfonso Mai - 01/16/19 08:08> - Additional Information Additional Information: Concur with plan for discharge as outlined above. <Alfonso Mai - 01/16/19 08:08>
== END 2019-01-02 14:00 | disposition home or self-care (01) | DRG 641 ==
LOC: 2ND 11:48 → ER 11:48 → OBSVTOIN 17:46 → 2ND 17:46
PROVIDERS: ADMIT Emergency Medicine; ATTEND Family Medicine
CPT/HCPCS: 36415; 70450; 72125; 80048; 80053; 80305; 81001; 83735; 84132; 84439; 84443; 85025; 87086; 93005; 99285; J0571

== ENCOUNTER → 2019-02-07 10:28 | Outpatient (CLI) | payer OTHER, SELFPAY ==
--- NOTE | 2019-02-07 10:29 | NVE_ITS ---
Venous Exam Indications: 729.81 Swelling of limb. IMPRESSIONS 1. No evidence of deep or superficial vein thrombosis involving the right lower extremity 2. No evidence of deep or superficial vein thrombosis involving the left lower extremity 3. Reflux seen left GSV, CFV and SFV. History: Risk factors: Obese. Complete lower extremity venous duplex evaluation. Doppler flow study including spectral analysis, color and gomes scale imaging. Location: Vascular laboratory. Patient status: Outpatient. Tables: Venous flow and imaging: + +-------+ + Location Overall Flow properties + +-------+ + Right common femoral Patent Normal phasicity; spontaneous; normal augmentation; compressible + +-------+ + Right saphenofemoral junction Patent Compressible + +-------+ + Right profunda femoral Patent Compressible + +-------+ + Right femoral Patent Normal phasicity; spontaneous; normal augmentation; compressible; no reflux + +-------+ + Right greater saphenous Patent Normal phasicity; spontaneous; normal augmentation; compressible + +-------+ + Right popliteal Patent Normal phasicity; spontaneous; normal augmentation; compressible + +-------+ + Right posterior tibial Patent Compressible + +-------+ + Right peroneal Patent Compressible + +-------+ + Right gastrocnemius Patent Compressible + +-------+ + Right soleal Patent Compressible + +-------+ + Left common femoral Patent Normal phasicity; spontaneous; normal augmentation; compressible + +-------+ + Left saphenofemoral junction Patent Compressible + +-------+ + Left profunda femoral Patent Compressible + +-------+ + Left femoral Patent Normal phasicity; spontaneous; normal augmentation; compressible + +-------+ + Left greater saphenous Patent Normal phasicity; spontaneous; normal augmentation; compressible + +-------+ + Left p
== END ==
PROVIDERS: PCP Family Medicine; Visit Provider Internal Medicine Cardiovascular Disease
DX: R60.9 Edema, unspecified (principal)
CPT/HCPCS: 93970

== ENCOUNTER 2020-04-10 20:00 | Emergency (ER) | payer OTHER, SELFPAY ==
--- NOTE | 2020-04-10 20:07 | XR_ITS ---
PROCEDURE: XR FOOT LT MIN 3V CLINICAL INDICATION: FALL Posttraumatic pain COMPARISON: CR FTL3 FOOT-LT-3 VIEWS from 10/02/2013 CR Foot R from 01/11/2019 FINDINGS: There is a comminuted fracture involving the base of the great toe extending into the proximal articular surface. There is some minimal widening of the 1st intermetatarsal space. The relationship of the 2nd metatarsal tarsal joint however does appear to be intact. Osteoarthritic changes are present at the talonavicular and calcaneal cuneiform joint. IMPRESSION: Comminuted fracture at the base of the 1st metatarsal with intra-articular involvement. There may be some minimal widening of the 1st intermetatarsal space. Consider CT for more for evaluation. Dictated by: Iglesia Mirza MD 04/11/2020 06:32 Iglesia Mirza MD in [place] 04/11/2020 06:32
[2020-04-10 20:30] VITALS: BP 116/64; PULSE 81; RESP 19; TEMP 36.6; O2SAT 98; BMI 46.5
--- NOTE | 2020-04-10 20:46 | HMH.EDUTC ---
[facility] [place] Clinical Impression: Metatarsal fracture Qualifiers: Encounter type: initial encounter Metatarsal bone: first Fracture type: closed Fracture alignment: nondisplaced Laterality: left Qualified Code(s): S92.315A - Nondisplaced fracture of first metatarsal bone, left foot, initial encounter for closed fracture Disposition: Home, Self-Care Condition on Discharge: Good Instructions: How to Choose and Use a Walker, How to Use a Walking Boot Additional Instructions: *Use walker to ambulate to help prevent falls *RICE, Rest the extremity, Ice 15-20 minutes 3-4 times daily, Compress- wear the rob wrap/walking boot as discussed as much as possible to help reduce swelling and pain, Elevate the extremity when at rest *Rob wrap/Walking boot is for support and help control swelling, use it except in the shower. Be sure that is not to tight but not to loose either *Elevate when resting *Ibuprofen every 6-8 hours as needed for pain an inflammation if your doctor has told you that you can take it, If need something more can take Tylenol in between doses of Ibuprofen to help Immediately follow up with your family doctor for new or worsening of symptoms, or no noticeable improvement over the next 3-[address] Wilson office tomorrow for appointment Return if needed Straight to ER if any life threatening symptoms Prescriptions: Walker [Walker, Standard] 1 each MISCELLANEOUS DIRECTED #1 each Prescription Printed Referrals: Alfonso Mai MD [Primary Care Provider] - As needed Rosario Wilson DPM [Staff Physician] - As needed (Call office tomorrow Apr 11 for appoinment) Time of Disposition: 20:55 Medical Decision Making - Harry Inquiry Pt receiving controlled substance: No Harry was queried for this patient: No Vital Signs: 04/10/20 20:30 04/10/20 21:01 Temperature 97.9 F 97.9 F Temperature Source Oral Pulse Rate 81 Pulse Rate [Right Brachial] 81 Respiratory Rate 19 19 Blood Pressure 116/64 Blood Pressure [Right Arm] 116/64 Blood Pressure Mean [Right Arm] 81 Blood Pressure Source [Right Arm] Automatic Cuff Blood Pressure Position [Right Arm] Sitting 02 Sat by Pulse Oximetry 98 Oxygen Delivery Method Room Air Orders (Tests/Meds): ORDERS Category Date Time Status XR foot LT min 3V Stat Exams 04/10/20 20:07 Taken [facility] [place] HPI - General Stated complaint: possible left foot fracture Time Seen by Provider: 04/10/20 20:46 Mode of Arrival: Ambulatory Source of Information: Patient Limitations: No Limitations Description of Symptoms (Recalled from Triage Doc. by RN): PATIENT C/O POSSIBLE LEFT FOOT FRACTURE AFTER FALLING YESTERDAY HEENT Symptoms (Recalled from RN notes): No Resp Symptoms (Recalled from RN notes): No Skin Symptoms (Recalled from RN notes): No MS Symptoms (Recalled from RN notes): Yes Functional Status (Recalled from RN notes): WNL - History of Present Illness Provider Complaint: Patient states that she was walking in the house when her legs give out and she fell and landed on her left foot States that ever since she has been having pain in her left foot on the top of her foot around her great toe States that she has been having swelling and pain ever since - Related Data Home Medications Medication Instructions Recorded Confirmed Citalopram Hydrobromide 40 mg PO DAILY 10/23/17 12/31/18 [Citalopram 20mg Tablet] Levothyroxine Sodium 50 mcg PO DAILY 10/23/17 12/31/18 [Levothyroxine 50mcg (0.05mg) Tab] Ziprasidone HCl 40 mg PO HS 10/23/17 01/01/19 amitriptyline 25 mg tablet 100 mg PO HS tab 08/31/18 12/31/18 Buprenorphine HCl/Naloxone HCl 2 each PO DAILY 12/31/18 01/01/19 [Zubsolv 5.7-1.4 mg Tablet Sl] Perphenazine 4 mg PO TIDP PRN 12/31/18 01/01/19 methocarbamoL [Methocarbamol 750mg 750 mg PO BID 12/31/18 01/01/19 Tab] Gabapentin 800 mg PO TID 01/01/19 01/01/19 Previous Rx's Medication Instructions Recorded Potassium Chloride [Klor-con
[2020-04-10 21:01] VITALS: BP 116/64; PULSE 81; RESP 19; TEMP 36.6; O2SAT 98
== END 2020-04-10 21:02 | disposition home or self-care (01) ==
PROVIDERS: Emergency Provider Nurse Practitioner; PCP Family Medicine
DX: S92.315A Nondisplaced fracture of first metatarsal bone, left foot, initial encounter for closed fracture (principal); W01.0XXA Fall on same level from slipping, tripping and stumbling without subsequent striking against object, initial encounter; Y92.019 Unspecified place in single-family (private) house as the place of occurrence of the external cause; F41.8 Other specified anxiety disorders; M79.7 Fibromyalgia; E03.9 Hypothyroidism, unspecified; Z90.49 Acquired absence of other specified parts of digestive tract; Z90.710 Acquired absence of both cervix and uterus
CPT/HCPCS: 73630; 99201

== ENCOUNTER → 2020-04-15 15:40 | Outpatient (CLI) | payer OTHER, SELFPAY ==
--- NOTE | 2020-04-15 15:53 | CT_ITS ---
PROCEDURE: CT FOOT LT WO CON CLINICAL HISTORY: fracture evaluation, surgical planning FX EVALUATION LEFT FOOT, SURGICAL PLANNING. COMPARISON: CR XR FOOT LT MIN 3V from 04/10/2020 TECHNIQUE: Axial images obtained with sagittal and coronal reformats. All CT scans at the facility use one or more dose reduction, viz: automated exposure control, ma/kV adjustment per patient size (including targeted exams where dose is matched to indication, i.e. head), or iterative reconstruction technique. FINDINGS: There is an avulsion fracture involving the lateral aspect of the distal tibia at the tibiofibular junction. There is a small fracture fragment at this area measuring approximately 6 mm. In addition, there is an avulsion fracture involving the anterior aspect of the distal fibula near the same area. These fractures were not evident on the foot films 04/10/2020. The ankle mortise appears intact. The talar dome has an unremarkable appearance. The calcaneus and subtalar joints and calcaneocuboid joint has an unremarkable appearance. There are mild osteoarthritic changes of the talonavicular joint. Bony fragment is present medial to the talonavicular joint measuring approximately 11 mm consistent with an avulsion injury age indeterminate. Well-circumscribed cystic areas present in the middle cuneiform measuring 12 mm and may be due to a geode. There is an oblique fracture at the base of the lateral aspect of the 1st metatarsal which extends into the articular surface at the tarsometatarsal junction. There is approximately 4 mm medial displacement of the 1st metatarsal. The lateral fragment appears to be in alignment with the medial cuneiform. No acute fractures evident at the base of the 2nd metatarsal. The 2nd metatarsal tarsal junction alignment is maintained. No other fractures are evident. There is overlying soft tissue swelling at the lateral aspect of the ankle, at the dorsal lateral aspect of the foot. IMPRESSION: Multiple foot/ankle fractures as described above including lateral aspect of the distal tibia, anterior aspect of the distal fibula, avulsion fracture of the lateral aspect of the talonavicular joint and intra-articular fracture at the base of the 1st metatarsal. Please see above for detailed description at these areas Dictated by: Iglesia Mirza MD 04/16/2020 08:31 Igleisa Mirza MD in [place] 04/16/2020 08:31
== END ==
PROVIDERS: PCP Family Medicine; Visit Provider Podiatrist
DX: S92.315A Nondisplaced fracture of first metatarsal bone, left foot, initial encounter for closed fracture (principal)
CPT/HCPCS: 73700

== ENCOUNTER 2020-05-09 04:23 | Emergency (ER) | payer OTHER, SELFPAY ==
[2020-05-09 04:35] VITALS: BP 152/94; PULSE 107; RESP 18; TEMP 37; O2SAT 96; BMI 46.5
--- NOTE | 2020-05-09 04:42 | HMH.EDGENADL ---
ED Disposition Clinical Impression: Foot fracture, left Qualifiers: Encounter type: initial encounter Fracture type: closed Qualified Code(s): S92.902A - Unspecified fracture of left foot, initial encounter for closed fracture Disposition: Home, Self-Care Condition on Discharge: Fair Instructions: DI for Foot Fracture Additional Instructions: Very limited weightbearing. DO NOT bear weight without having your orthopedic boot on and ALWAYS use your walker when bearing weight. Tramadol as needed for pain. Call Dr. Wilson's office today to arrange an appointment to be seen as soon as possible for follow-up. Referrals: Alfonso Mai MD [Primary Care Provider] - - Critical Care Critical Care Time: No Attestation: On 05/09/20, the high probability of a clinically significant, sudden or life threatening deterioration of the following system(s) required my full and direct attention, intervention and personal management. The time I documented below is in addition to time spent performing reported procedures but includes the following listed in this critical care notation. Medical Decision Making - Medical Records Medical records reviewed: Yes: I reviewed the patient's medical records. - Harry Inquiry Pt receiving controlled substance: No Harry was queried for this patient: Yes Reference #:: [id number] Comment: 29 rxs. last opiate zubsolv 29 d supply 04/10/20 Vital Signs: 05/09/20 04:35 Temperature 98.6 F Temperature Source Oral Pulse Rate [Right] 107 H Respiratory Rate 18 Blood Pressure [Left Arm] 152/94 H Blood Pressure Mean [Left Arm] 113 Blood Pressure Source [Left Arm] Automatic Cuff Blood Pressure Position [Left Arm] Sitting 02 Sat by Pulse Oximetry 96 Oxygen Delivery Method Room Air - Lab Data Lab results reviewed: Yes: I reviewed the patient's lab results. Lab Results 05/09/20 04:55: Sodium 137, Potassium 4.4, Chloride 95 L, Carbon Dioxide 30, Anion Gap 16.4 H, BUN 8, Creatinine 0.70, Estimated Creat Clear 96, Estimated GFR 93, Est GFR ( Amer) 112, Glucose 133 H, Calcium 9.5 Result diagrams: 05/09/20 04:55 Orders (Tests/Meds): ED MEDICATIONS Discontinued Medications Generic Name Dose Route Start Last Admin Trade Name Freq PRN Reason Stop Dose Admin Ketorolac Tromethamine 60 mg 05/09/20 05:39 05/09/20 05:43 Ketorolac 60mg/2ml Vial IM 05/09/20 05:40 60 mg ONCE ONE Administration - Radiology Data #1 Image(s): Foot/Toes Image Reviewed: Yes I have reviewed radiologist's interpretation PROCEDURE: XR FOOT LT MIN 3V CLINICAL INDICATION: fall with left foot pain Posttraumatic pain COMPARISON: CR FTL3 FOOT-LT-3 VIEWS from 10/02/2013 CR Foot R from 01/11/2019 CR XR FOOT LT MIN 3V from 04/10/[address] FOOT LT WO CON from 04/15/2020 FINDINGS: Comminuted healing fractures present at the base of the 1st metatarsal with developing callus formation. The fracture is nondisplaced. There is mild widening of the 1st intermetatarsal space with suggestion of some minimal lateral displacement of the base of the 2nd metatarsal. Injury to the Lisfranc ligaments is a consideration. Please correlate with physical exam. There may be a nondisplaced fracture involving the lateral and distal aspect of the medial cuneiform which was not evident on the previous CT scan. Follow-up is suggested. IMPRESSION: 1. Healing fracture at the base of the 1st metatarsal. 2. Mild widening of the 1st intermetatarsal space suggesting Lisfranc ligamentous injury. MRI may provide further evaluation. 3. Questionable new area of fracture at the lateral distal aspect of the medial cuneiform. Dictated by: Iglesia Mirza MD 05/09/2020 05:18 Iglesia Mirza MD in [place] 05/09/2020 05:18 - Reevaluation(s) Time: 05:35 Reevaluation #1: Sitting in wheelchair, sleeping with head slumped back, face is facing the ceiling and mouth wide open. I
--- NOTE | 2020-05-09 04:46 | XR_ITS ---
PROCEDURE: XR FOOT LT MIN 3V CLINICAL INDICATION: fall with left foot pain Posttraumatic pain COMPARISON: CR FTL3 FOOT-LT-3 VIEWS from 10/02/2013 CR Foot R from 01/11/2019 CR XR FOOT LT MIN 3V from 04/10/[address] FOOT LT WO CON from 04/15/2020 FINDINGS: Comminuted healing fractures present at the base of the 1st metatarsal with developing callus formation. The fracture is nondisplaced. There is mild widening of the 1st intermetatarsal space with suggestion of some minimal lateral displacement of the base of the 2nd metatarsal. Injury to the Lisfranc ligaments is a consideration. Please correlate with physical exam. There may be a nondisplaced fracture involving the lateral and distal aspect of the medial cuneiform which was not evident on the previous CT scan. Follow-up is suggested. IMPRESSION: 1. Healing fracture at the base of the 1st metatarsal. 2. Mild widening of the 1st intermetatarsal space suggesting Lisfranc ligamentous injury. MRI may provide further evaluation. 3. Questionable new area of fracture at the lateral distal aspect of the medial cuneiform. Dictated by: Iglesia Mirza MD 05/09/2020 05:18 Iglesia Mirza MD in [place] 05/09/2020 05:18
[2020-05-09 05:12] LABS: Chloride 95 mmol/L (98-107); Potassium 4.4 mmoL/L (3.5-5.1); Sodium 137 mmol/L (136-145)
[2020-05-09 05:15] LABS: Anion Gap 16.4 mEq/L (5-15); Blood Urea Nitrogen 8 mg/dl (7-17); Calcium 9.5 mg/dl (8.4-10.2); Carbon Dioxide 30 mmol/L (22.0-30.0); Creatinine Clearance Estimated 96 mL/min (50-200); Estimated Glomerular Filt Rate 93 ml/min (>60); GFR (African American) 112 ML/MIN (>60); Glucose 133 mg/dl (74-100)
[2020-05-09 05:47] VITALS: BP 136/98; PULSE 96; RESP 14; TEMP 37; O2SAT 94
== END 2020-05-09 05:55 | disposition home or self-care (01) ==
PROVIDERS: Emergency Provider Emergency Medicine; PCP Family Medicine
DX: S92.902A Unspecified fracture of left foot, initial encounter for closed fracture (principal); M79.7 Fibromyalgia; E03.9 Hypothyroidism, unspecified; F41.9 Anxiety disorder, unspecified; W01.0XXA Fall on same level from slipping, tripping and stumbling without subsequent striking against object, initial encounter; Y92.019 Unspecified place in single-family (private) house as the place of occurrence of the external cause
CPT/HCPCS: 73630; 80048; 96372; 99282

== ENCOUNTER → 2020-06-13 11:48 | Outpatient (CLI) | payer OTHER, SELFPAY ==
[2020-06-13 12:56] LABS: Basophils # 0.1 K/mm3 (0-0.2); Basophils % 0.6 % (0.1-2.0); Eosinophils # 0.3 K/mm3 (0.0-0.4); Hematocrit 41.1 % (37.0-47.0); Hemoglobin 13.2 g/dL (12.2-16.2); Lymphocytes % 13.7 % (10-50); Mean Corpuscular Hemoglobin 23.5 pg (27.0-31.2); Mean Corpuscular Volume 73.4 fl (81-99); Mean Platelet Volume 9.2 fl (7.4-10.4); Monocytes # 0.5 K/mm3 (0.1-1.0); Monocytes % 3.4 % (1.7-9.3); Neutrophils # 11.6 K/mm3 (1.8-7.8); Neutrophils % 80.3 % (37.0-80.0); Platelet Count 373 K/mm3 (142-424); Red Cell Distribution Width 14.8 % (11.5-17.5); White Blood Count 14.4 K/mm3 (4.8-10.8)
== END ==
PROVIDERS: PCP Nurse Practitioner; Visit Provider Nurse Practitioner
DX: Z03.818 Encounter for observation for suspected exposure to other biological agents ruled out (principal)
CPT/HCPCS: 36415; 85025; 87275; 87276; U0003

== ENCOUNTER → 2020-06-26 13:10 | Outpatient (CLI) | payer OTHER, SELFPAY ==
--- NOTE | 2020-06-26 13:15 | XR_ITS ---
PROCEDURE: XR FOOT WT BEARING RT 3V CLINICAL INDICATION: foot pain COMPARISON: CR FTL3 FOOT-LT-3 VIEWS from 10/02/2013 CR Foot R from 01/11/2019 CR XR FOOT LT MIN 3V from 04/10/2020 CR XR FOOT LT MIN 3V from 05/09/2020 FINDINGS: There are severe osteoarthritic changes which have developed at the 1st metatarsophalangeal joint with bony hypertrophy. Hammertoe deformity involves the 2nd toe. No acute fracture or dislocation. . There is mild pes planus Other findings:None. IMPRESSION: Pes planus with severe osteoarthritis of the 1st MTP joint Dictated by: Iglesia Mirza MD 06/26/2020 15:48 Iglesia Mirza MD in [place] 06/26/2020 15:48
--- NOTE | 2020-06-26 13:15 | XR_ITS ---
PROCEDURE: XR FOOT WT BEARING LT 3V CLINICAL INDICATION: foot pain COMPARISON: CR FTL3 FOOT-LT-3 VIEWS from 10/02/2013 CR Foot R from 01/11/2019 CR XR FOOT LT MIN 3V from 04/10/[address] FOOT LT WO CON from 04/15/2020 CR XR FOOT LT MIN 3V from 05/09/2020 FINDINGS: Healing fractures present involving the proximal aspect of the 1st metatarsal. Osteoarthritic changes are present at the 1st metatarsal tarsal joint. There is widening the 1st intermetatarsal space with lateral subluxation the 2nd metatarsal by approximately 9 mm. There is pes planus. Other findings:None. IMPRESSION: Old 1st metatarsal fracture. Widening of the 1st intermetatarsal space with lateral subluxation the 2nd and possibly 3rd metatarsal consistent with Lisfranc injury. Dictated by: Iglesia Mirza MD 06/26/2020 15:52 Iglesia Mirza MD in [place] 06/26/2020 15:52
== END ==
PROVIDERS: PCP Family Medicine; Visit Provider Podiatrist
DX: M79.673 Pain in unspecified foot (principal); T14.8XXA Other injury of unspecified body region, initial encounter
CPT/HCPCS: 73630

== ENCOUNTER 2020-06-27 11:18 | Emergency (ER) | payer OTHER, SELFPAY ==
--- NOTE | 2020-06-27 11:17 | ECG_ITS ---
APPROVED REPORT Exam: Resting ECG HR:104 bpm ECG Measurements Heart Rate 104 AXES OR 178 P 46 QRSd 74 QRS -2 QT 354 T 17 QTc 465 Conclusion Sinus tachycardia Left atrial abnormality Poor R wave progression, unchanged since 2018 tracing Abnormal ECG Electronically signed by : Jerrell Salmeron, 06/28/2020 10:33:43
[2020-06-27 11:20] VITALS: BP 135/95; PULSE 104; RESP 20; TEMP 36.9; O2SAT 99; BMI 47.5
--- NOTE | 2020-06-27 11:24 | HMH.EDFALL ---
ED Disposition Clinical Impression: Subluxation of tooth Facial contusion Qualifiers: Encounter type: initial encounter Qualified Code(s): S00.83XA - Contusion of other part of head, initial encounter Disposition: Home, Self-Care Condition on Discharge: Good Additional Instructions: Follow soft liquid diet over the next several days and avoid excessive scrubbing of the left central incisor. Please follow-up with dentistry next week. He may return if any recurrent or new issues prior to that time. Referrals: PCP,No [Primary Care Provider] - - Critical Care Critical Care Time: No Attestation: On , the high probability of a clinically significant, sudden or life threatening deterioration of the following system(s) required my full and direct attention, intervention and personal management. The time I documented below is in addition to time spent performing reported procedures but includes the following listed in this critical care notation. Medical Decision Making - Medical Records Medical records reviewed: Yes: I reviewed the patient's medical records. - Harry Inquiry Pt receiving controlled substance: No Vital Signs: 06/27/20 11:20 06/27/20 12:24 06/27/20 12:39 Temperature 98.5 F Temperature Source Oral Pulse Rate [Left Radial] 104 H 108 H 105 H Respiratory Rate 20 18 20 Blood Pressure [Right Arm] 135/95 H 129/71 126/88 Blood Pressure Mean [Right Arm] 108 90 100 Blood Pressure Source [Right Arm] Automatic Cuff Automatic Cuff Automatic Cuff Blood Pressure Position [Right Arm] Sitting Sitting Sitting 02 Sat by Pulse Oximetry 99 96 94 L Oxygen Delivery Method Room Air 06/27/20 13:17 Temperature Temperature Source Pulse Rate [Left Radial] 99 H Respiratory Rate 20 Blood Pressure [Right Arm] 99/63 L Blood Pressure Mean [Right Arm] 75 Blood Pressure Source [Right Arm] Automatic Cuff Blood Pressure Position [Right Arm] Sitting 02 Sat by Pulse Oximetry 99 Oxygen Delivery Method Medical Decision Narrative: Patient 40-year-old female presenting after mechanical fall. She suffered head/facial trauma. Differential diagnosis does include fracture of alveolar ridge versus nasal bone fracture. Patient without any septal hematomas noted on exam. Midface stable. At this time she also does have a mildly subluxed left central incisor which will require dental follow-up with no need for emergent treatment here in the emergency department as no aspiration risk with only mild subluxation. CT head and facial bones without contrast will be obtained patient did have a headache to ensure no acute intracranial abnormality or any facial bone fractures. No pain on palpation of any other long bones in upper or lower extremities or indication for other imaging test at this time. No nasal bone fracture. No alveolar ridge fracture. No acute intracranial abnormality. Patient with normal vital signs and now is alert and oriented x3. Again she has a subluxed tooth but again there is no aspiration risk I do believe is appropriate for patient to follow-up with dentistry within 48 to 72 hours. She agrees. She does have a dentist in town she can see. She will follow-up in the emergency department if any recurrent issues. She will follow a soft liquid diet over the next several days. She will immediate return to our emergency department if any recurrent issues with left central incisor, any other new concerning issues. Assessment: Mechanical fall with facial contusion Subluxed left central incisor Disposition: Home with dentistry follow-up Fall HPI - General Stated Complaint: fall Time Seen by Provider: 06/27/20 11:25 - History of Present Illness HPI Narrative: Patient is a 40-year-old female currently taking amitriptyline and tramadol presenting with mechanical fall. Patient states about 1 to 2 hours prior to her arrival she was getting up to walk and all of a sudden suffered from mechanical fall and fell
--- NOTE | 2020-06-27 11:25 | CT_ITS ---
PROCEDURE: CT FACIAL BONES WO CON CLINICAL HISTORY: fall with L maxilla pain COMPARISON: No exams were available for comparison TECHNIQUE: Axial images obtained with sagittal and coronal reformats. All CT scans at the facility use one or more dose reduction, viz: automated exposure control, ma/kV adjustment per patient size (including targeted exams where dose is matched to indication, i.e. head), or iterative reconstruction technique. FINDINGS: Bones: Unremarkable. No fracture, lytic, or blastic changes evident. Mandible appears intact. The temporomandibular joints appear normal bilaterally. Both zygomatic arches are intact. Extracranial soft tissues: Unremarkable. Sinuses: There is mild mucoperiosteal thickening of floors of the maxillary sinuses laterally. There are mild inflammatory changes of the ethmoid sinuses the frontal sinuses and sphenoid sinuses are clear Orbits: Unremarkable. Other: No other pertinent findings. IMPRESSION: Maxillary and ethmoid sinus disease likely chronic, no acute maxillofacial bony pathology identified Dictated by: Dr. Vaibhav Hanna MD 06/27/2020 12:41 Dr. Vaibhav Hanna MD in [facility] 06/27/2020 12:41
--- NOTE | 2020-06-27 11:31 | CT_ITS ---
PROCEDURE: CT HEAD/BRAIN WO CON CLINICAL INDICATION: head injury with facial trauma COMPARISON: CT HEADWO CT head/brain wo con from 12/31/2018 TECHNIQUE: Axial images obtained. All CT scans at the facility use one or more dose reduction, viz: automated exposure control, ma/kV adjustment per patient size (including targeted exams where dose is matched to indication, i.e. head), or iterative reconstruction technique. FINDINGS: No midline shift, mass effect, intracranial hemorrhage, hydrocephalus, or extra-axial fluid collection is evident. The calvarium has an unremarkable appearance. No mastoid effusion. The internal auditory canals appear normal bilaterally inflammatory changes of the ethmoid sinuses the frontal sinuses and sphenoid sinuses are clear, the visualized portions of the maxillary sinuses are clear. IMPRESSION: No acute intracranial finding mild ethmoid sinusitis as Dictated by: Dr. Vaibhav Hanna MD 06/27/2020 12:37 Dr. Vaibhav Hanna MD in [facility] 06/27/2020 12:37
--- NOTE | 2020-06-27 12:16 | PC.NURSE ---
pt in ct
[2020-06-27 12:24] VITALS: BP 129/71; PULSE 108; RESP 18; O2SAT 96
--- NOTE | 2020-06-27 12:38 | PC.NURSE ---
pt returned from Ct @ approx 12:30
[2020-06-27 12:39] VITALS: BP 126/88; PULSE 105; RESP 20; O2SAT 94
[2020-06-27 13:17] VITALS: BP 99/63; PULSE 99; RESP 20; O2SAT 99
[2020-06-27 13:50] VITALS: BP 114/69; PULSE 60; RESP 20; TEMP 36.9; O2SAT 98
[2020-06-27 13:56] VITALS: BP 114/69; PULSE 60; RESP 20; O2SAT 89
== END 2020-06-27 13:55 | disposition home or self-care (01) ==
PROVIDERS: Emergency Provider Emergency Medicine
DX: S00.83XA Contusion of other part of head, initial encounter (principal); S03.2XXA Dislocation of tooth, initial encounter; W01.0XXA Fall on same level from slipping, tripping and stumbling without subsequent striking against object, initial encounter; Y92.019 Unspecified place in single-family (private) house as the place of occurrence of the external cause; M79.7 Fibromyalgia; E03.9 Hypothyroidism, unspecified; F41.8 Other specified anxiety disorders; Z79.899 Other long term (current) drug therapy; Z90.49 Acquired absence of other specified parts of digestive tract; Z90.710 Acquired absence of both cervix and uterus
CPT/HCPCS: 70450; 70486; 93005; 99283

== ENCOUNTER 2020-07-12 14:17 | Emergency (ER) | payer OTHER, SELFPAY ==
[2020-07-12 14:29] VITALS: BP 117/69; PULSE 75; RESP 16; TEMP 36.3; O2SAT 97; BMI 44.9
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
[2020-07-12 15:08] VITALS: BP 117/69; PULSE 75; RESP 16; TEMP 36.3; O2SAT 97
== END 2020-07-12 15:09 | disposition home or self-care (01) ==
PROVIDERS: Emergency Provider Emergency Medicine; PCP Family Medicine
DX: K00.6 Disturbances in tooth eruption (principal); S09.93XA Unspecified injury of face, initial encounter; W01.0XXA Fall on same level from slipping, tripping and stumbling without subsequent striking against object, initial encounter; Y92.9 Unspecified place or not applicable; F41.8 Other specified anxiety disorders
CPT/HCPCS: 99281

== ENCOUNTER → 2020-10-07 11:25 | Outpatient (CLI) | payer OTHER, SELFPAY ==
--- NOTE | 2020-10-07 11:34 | XR_ITS ---
PROCEDURE: XR CERVICAL SPINE 5V CLINICAL INDICATION: G54.2 Neck pain and arm pain, no trauma COMPARISON: No exams were available for comparison FINDINGS: There is straightening and actually slight reversal of the normal cervical lordosis suggesting muscle spasm. C1 through C7 appear intact. Disc spaces are normal throughout. Oblique films show normal neural foramina bilaterally. The prevertebral soft tissues are normal and the odontoid is normal. IMPRESSION: Findings consistent with muscle spasm, no bony abnormality seen Dictated by: Dr. Vaibhav Hanna MD 10/07/2020 12:20 Dr. Vaibhav Hanna MD in [place] 10/07/2020 12:20
== END ==
PROVIDERS: PCP Family Medicine; Visit Provider Family Medicine
DX: G54.2 Cervical root disorders, not elsewhere classified (principal)
CPT/HCPCS: 72050

== ENCOUNTER 2022-05-22 15:25 | Emergency (ER) | payer OTHER, SELFPAY ==
--- NOTE | 2022-05-22 16:14 | EXP.UTC ---
Discharge Plan Disposition Patient Disposition: Home, Self-Care Condition: Good Prescriptions Prescriptions: New sulfamethoxazole-trimethoprim [Bactrim DS] 800-160 mg Tablet 1 tab PO BID Qty: 20 0RF cephalexin 500 mg capsule 500 mg PO QID Qty: 40 0RF No Action hydroxyzine pamoate 25 mg capsule 25 mg PO DAILY ciclopirox 8 % solution 1 applic TOPICAL DAILY 90 Days Qty: 6.6 3RF Rx Instructions: apply over previous coat; remove with alcohol every 7 days and file down nail spironolactone 25 mg tablet 25 mg PO DAILY Qty: 30 0RF Rx Instructions: Needs to follow up with clinic for additional refills. quetiapine [Seroquel] 50 mg tablet 50 mg PO BID Qty: 30 0RF ondansetron 4 mg tablet,disintegrating 4 mg PO Q6H PRN (Reason: nausea and vomiting) Qty: 30 0RF (DME) Cameron [Cameron, Ayla] 1 EACH Each 1 each miscellaneous DIRECTED Qty: 1 0RF tramadol 50 MG tablet 50 mg PO Q6 PRN (Reason: Moderate Pain) citalopram 20 MG tablet 40 mg PO DAILY Label Comments: TAKE 1 TABLET BY MOUTH EVERY DAY ziprasidone HCl 20 MG capsule 40 mg PO HS Label Comments: TAKE ONE CAPSULE AT BEDTIME levothyroxine 50 MCG tablet 50 mcg PO DAILY Label Comments: TAKE 1 TABLET BY MOUTH EVERY DAY amitriptyline 25 mg tablet 100 mg PO HS Label Comments: TAKE 1 TO 2 TABLETS BY MOUTH AT BEDTIME methocarbamol 750 MG tablet 750 mg PO BID perphenazine 4 MG tablet 4 mg PO TIDP PRN (Reason: Anxiety) Label Comments: TAKE 1 TABLET BY MOUTH THREE TIMES A DAY NEEDED FOR ANXIETY buprenorphine-naloxone 1 EACH tablet, sublingual 2 each PO DAILY Label Comments: PLACE TWO TABLETS UNDER THE TONGUE ONCE DAILY. gabapentin 800 MG tablet 800 mg PO TID Label Comments: TAKE 1 TABLET BY MOUTH THREE TIMES A DAY potassium chloride 20 MEQ tablet 20 meq PO TID Qty: 60 0RF Referrals Follow up/Referrals: Alfonso Mai MD [Primary Care Provider] - See instructions Activity Restrictions/Add. Instructions Additional Instructions/Restrictions: Drink plenty of fluids. Take tylenol or ibuprofen for pain or fever. Take the medications as directed. Follow up with your regular doctor. GO TO THE ER FOR ANY WORSENING SYMPTOMS Clinical Impressions Clinical Impression: Bilateral cellulitis of lower leg Instructions Patient Instructions: Cellulitis Discharge ED Provider: Valente Hodgson [facility] [place] General Stated complaint: swelling and redness in both legs Time Seen by Provider: 05/22/22 16:14 History of Present Illness Provider Complaint: She states that she has bilateral lower leg redness. This started 3 days ago. She has had cellulitis like this before. She denies any fever or chills. She denies being a diabetic. Related Data Home Medications Medication Instructions Recorded Confirmed citalopram 20 mg tablet 40 mg PO DAILY Depression 10/23/17 06/26/20 levothyroxine 50 mcg tablet 50 mcg PO DAILY tyhroid 10/23/17 06/26/20 ziprasidone HCl 20 mg capsule 40 mg PO HS Insomnia 10/23/17 06/26/20 amitriptyline 25 mg tablet 100 mg PO HS sleep 08/31/18 06/26/20 buprenorphine 5.7 mg-naloxone 1.4 2 each PO DAILY addiction 12/31/18 06/26/20 mg sublingual tablet methocarbamol 750 mg tablet 750 mg PO BID MUSCLE RELAXER 12/31/18 06/26/20 perphenazine 4 mg tablet 4 mg PO TIDP PRN Anxiety 12/31/18 06/26/20 gabapentin 800 mg tablet 800 mg PO TID NEUROPATHY 01/01/19 06/26/20 hydroxyzine pamoate 25 mg capsule 25 mg PO DAILY . 04/21/20 06/26/20 tramadol 50 mg tablet 50 mg PO Q6 PRN Moderate Pain 05/09/20 06/26/20 Previous Rx's Medication Instructions Recorded potassium chloride 20 mEq 20 meq PO TID Supplement #60 tabs 01/02/19 tablet,extended release(part/cryst) spironolactone 25 mg tablet 25 mg PO DAILY #30 tabs 03/25/20 Cameron [Cameron, Standard] #1 ea 04/10/20 ciclopirox 8 % topical solution 1
[2022-05-22 16:30] VITALS: BP 149/96; PULSE 79; RESP 19; TEMP 36.6; O2SAT 99; BMI 36.3
[2022-05-22 17:04] VITALS: BP 149/96; PULSE 79; RESP 19; TEMP 36.6
== END 2022-05-22 17:12 | disposition home or self-care (01) ==
PROVIDERS: Emergency Provider Nurse Practitioner Family; PCP Family Medicine
DX: L03.116 Cellulitis of left lower limb (principal); L03.115 Cellulitis of right lower limb
CPT/HCPCS: 96372; 99212; G0463; J0696

== ENCOUNTER 2022-06-09 12:55 | Emergency (ER) | payer OTHER, SELFPAY ==
--- NOTE | 2022-06-09 13:35 | EXP.UTC ---
Discharge Plan Disposition Patient Disposition: Home, Self-Care Condition: Good Prescriptions Prescriptions: New doxycycline hyclate [doxycycline hyclate] 100 mg capsule 100 mg PO Q12 10 Days Qty: 20 0RF methylprednisolone 4 mg Tablets,Dose Pack 4 mg PO DIRECTED Qty: 21 0RF No Action hydroxyzine pamoate 25 mg capsule 25 mg PO DAILY ciclopirox 8 % solution 1 applic TOPICAL DAILY 90 Days Qty: 6.6 3RF Rx Instructions: apply over previous coat; remove with alcohol every 7 days and file down nail spironolactone 25 mg tablet 25 mg PO DAILY Qty: 30 0RF Rx Instructions: Needs to follow up with clinic for additional refills. quetiapine [Seroquel] 50 mg tablet 50 mg PO BID Qty: 30 0RF ondansetron 4 mg tablet,disintegrating 4 mg PO Q6H PRN (Reason: nausea and vomiting) Qty: 30 0RF (DME) Walker [Cameron, Standard] 1 EACH Each 1 each miscellaneous DIRECTED Qty: 1 0RF tramadol 50 MG tablet 50 mg PO Q6 PRN (Reason: Moderate Pain) sulfamethoxazole-trimethoprim [Bactrim DS] 800-160 mg Tablet 1 tab PO BID Qty: 20 0RF cephalexin 500 mg capsule 500 mg PO QID Qty: 40 0RF citalopram 20 MG tablet 40 mg PO DAILY Label Comments: TAKE 1 TABLET BY MOUTH EVERY DAY ziprasidone HCl 20 MG capsule 40 mg PO HS Label Comments: TAKE ONE CAPSULE AT BEDTIME levothyroxine 50 MCG tablet 50 mcg PO DAILY Label Comments: TAKE 1 TABLET BY MOUTH EVERY DAY amitriptyline 25 mg tablet 100 mg PO HS Label Comments: TAKE 1 TO 2 TABLETS BY MOUTH AT BEDTIME methocarbamol 750 MG tablet 750 mg PO BID perphenazine 4 MG tablet 4 mg PO TIDP PRN (Reason: Anxiety) Label Comments: TAKE 1 TABLET BY MOUTH THREE TIMES A DAY NEEDED FOR ANXIETY buprenorphine-naloxone 1 EACH tablet, sublingual 2 each PO DAILY Label Comments: PLACE TWO TABLETS UNDER THE TONGUE ONCE DAILY. gabapentin 800 MG tablet 800 mg PO TID Label Comments: TAKE 1 TABLET BY MOUTH THREE TIMES A DAY potassium chloride 20 MEQ tablet 20 meq PO TID Qty: 60 0RF Referrals Follow up/Referrals: Alfonso Mai MD [Primary Care Provider] - See instructions Activity Restrictions/Add. Instructions Additional Instructions/Restrictions: Drink plenty of fluids. Take tylenol or ibuprofen for pain or fever. Take the medications as directed. Follow up with your regular doctor. GO TO THE ER FOR ANY WORSENING SYMPTOMS Clinical Impressions Clinical Impression: Cellulitis Instructions Patient Instructions: Cellulitis Discharge ED Provider: Valente Hodgson [facility] [place] HPI General Stated complaint: Inflammation both legs w/pain Time Seen by Provider: 06/09/22 13:35 History of Present Illness Provider Complaint: She states that over the past 2 days she has had redness of both her lower legs. She has a history of getting cellulitis in her lower legs. She denies any fever or chills. Related Data Home Medications Medication Instructions Recorded Confirmed citalopram 20 mg tablet 40 mg PO DAILY Depression 10/23/17 06/26/20 levothyroxine 50 mcg tablet 50 mcg PO DAILY tyhroid 10/23/17 06/26/20 ziprasidone HCl 20 mg capsule 40 mg PO HS Insomnia 10/23/17 06/26/20 amitriptyline 25 mg tablet 100 mg PO HS sleep 08/31/18 06/26/20 buprenorphine 5.7 mg-naloxone 1.4 2 each PO DAILY addiction 12/31/18 06/26/20 mg sublingual tablet methocarbamol 750 mg tablet 750 mg PO BID MUSCLE RELAXER 12/31/18 06/26/20 perphenazine 4 mg tablet 4 mg PO TIDP PRN Anxiety 12/31/18 06/26/20 gabapentin 800 mg tablet 800 mg PO TID NEUROPATHY 01/01/19 06/26/20 hydroxyzine pamoate 25 mg capsule 25 mg PO DAILY . 04/21/20 06/26/20 tramadol 50 mg tablet 50 mg PO Q6 PRN Moderate Pain 05/09/20 06/26/20 Previous Rx's Medication Instructions Recorded potassium chloride 20 mEq 20 meq PO TID Supplement #60 tabs 01/02/19 tablet,extended release(par
[2022-06-09 13:40] VITALS: BP 121/67; PULSE 81; RESP 16; TEMP 36.7; O2SAT 96; BMI 49.9
[2022-06-09 14:31] VITALS: BP 121/67; PULSE 81; RESP 16; TEMP 36.7
== END 2022-06-09 14:32 | disposition home or self-care (01) ==
PROVIDERS: Emergency Provider Nurse Practitioner Family; PCP Family Medicine
DX: L03.116 Cellulitis of left lower limb (principal); L03.115 Cellulitis of right lower limb
CPT/HCPCS: 99212; G0463

== ENCOUNTER 2022-07-22 15:24 | Emergency (ER) | payer OTHER, SELFPAY ==
--- NOTE | 2022-07-22 15:54 | ECG_ITS ---
APPROVED REPORT Exam: Resting ECG HR:90 bpm ECG Measurements Heart Rate 90 AXES AZ 189 P 53 QRSd 93 QRS 66 QT 384 T 33 QTc 432 Conclusion SINUS RHYTHM POSSIBLE RIGHT VENTRICULAR CONDUCTION DELAY [RSR (QR) IN V1/V2] BORDERLINE ECG UNCONFIRMED REPORT Electronically signed by : Jerrell Salmeron MD 07/23/2022 21:15:42
--- NOTE | 2022-07-22 15:58 | HMH.EDGENADL ---
Discharge Plan Disposition Patient Disposition: Home, Self-Care Condition: Good Chief Complaint: Chest Pain Prescriptions Prescriptions: No Action hydroxyzine pamoate 25 mg capsule 25 mg PO DAILY ciclopirox 8 % solution 1 applic TOPICAL DAILY 90 Days Qty: 6.6 3RF Rx Instructions: apply over previous coat; remove with alcohol every 7 days and file down nail spironolactone 25 mg tablet 25 mg PO DAILY Qty: 30 0RF Rx Instructions: Needs to follow up with clinic for additional refills. quetiapine [Seroquel] 50 mg tablet 50 mg PO BID Qty: 30 0RF ondansetron 4 mg tablet,disintegrating 4 mg PO Q6H PRN (Reason: nausea and vomiting) Qty: 30 0RF (DME) Walker [Cameron, Ayla] 1 EACH Each 1 each miscellaneous DIRECTED Qty: 1 0RF tramadol 50 MG tablet 50 mg PO Q6 PRN (Reason: Moderate Pain) sulfamethoxazole-trimethoprim [Bactrim DS] 800-160 mg Tablet 1 tab PO BID Qty: 20 0RF cephalexin 500 mg capsule 500 mg PO QID Qty: 40 0RF citalopram 20 MG tablet 40 mg PO DAILY Label Comments: TAKE 1 TABLET BY MOUTH EVERY DAY ziprasidone HCl 20 MG capsule 40 mg PO HS Label Comments: TAKE ONE CAPSULE AT BEDTIME levothyroxine 50 MCG tablet 50 mcg PO DAILY Label Comments: TAKE 1 TABLET BY MOUTH EVERY DAY amitriptyline 25 mg tablet 100 mg PO HS Label Comments: TAKE 1 TO 2 TABLETS BY MOUTH AT BEDTIME methocarbamol 750 MG tablet 750 mg PO BID perphenazine 4 MG tablet 4 mg PO TIDP PRN (Reason: Anxiety) Label Comments: TAKE 1 TABLET BY MOUTH THREE TIMES A DAY NEEDED FOR ANXIETY buprenorphine-naloxone 1 EACH tablet, sublingual 2 each PO DAILY Label Comments: PLACE TWO TABLETS UNDER THE TONGUE ONCE DAILY. gabapentin 800 MG tablet 800 mg PO TID Label Comments: TAKE 1 TABLET BY MOUTH THREE TIMES A DAY potassium chloride 20 MEQ tablet 20 meq PO TID Qty: 60 0RF doxycycline hyclate [doxycycline hyclate] 100 mg capsule 100 mg PO Q12 10 Days Qty: 20 0RF methylprednisolone 4 mg Tablets,Dose Pack 4 mg PO DIRECTED Qty: 21 0RF Referrals Follow up/Referrals: Alfonso Mai MD [Primary Care Provider] - See instructions Clinical Impressions Clinical Impression: Bilateral edema of lower extremity, Acute bilateral venous stasis dermatitis Instructions Patient Instructions: DI for Dependent Edema, DI for Peripheral Edema -- Bilateral, DI for Edema Due to Venous Stasis, How to Use an Elastic Bandage -- Edema Discharge ED Provider: Gunner Mcbride General Adult HPI General Chief complaint: Chest Pain Stated complaint: diagnosed with cellulitis in both legs Time Seen by Provider: 07/22/22 15:34 Mode of Arrival: Ambulatory History of Present Illness HPI narrative: 42-year-old female with past medical history of hypothyroidism, morbid obesity, who had previously been diagnosed and seen twice here for possible cellulitis of bilateral lower extremities. She was seen in the urgent treatment center on 05 20, prescribed Bactrim and Keflex, seen again towards the end of May around the , started on doxycycline and given Solu-Medrol. She presents back today with 2 complaints #1 was central chest pain nonradiating nonexertional which she states has been ongoing for approximately 5 days, not associated with shortness of breath, nonpleuritic in nature, nonpositional reproducible rated as mild to moderate and fairly constant. She has not had any prior known cardiac history. She also is complaining of presumed cellulitis of the lower extremities bilaterally due to swelling and skin discoloration. She denies warmth of the area, denies any fever, nausea vomiting or other symptoms at this time. She has not received any treatments prior to this visit for either of these issues. Related Data Home Medications Medication Instructions Recorded Confirmed citalopram 20 mg
--- NOTE | 2022-07-22 15:59 | XR_ITS ---
FINAL REPORT CLINICAL HISTORY: SOB/CP COMPARISON: 08/22/2019 FINDINGS: A single view of the chest was obtained. The heart is normal in size. The mediastinum is unremarkable. The lungs are clear. There is no pleural effusion. There is no pneumothorax. There is no acute osseous abnormality. IMPRESSION: No acute cardiopulmonary process. Reviewed, Interpreted and Dictated by Annamarie Barbour MD Transcribed by Natty Duncan Authenticated and [facility]
[2022-07-22 16:14] VITALS: BP 152/79; PULSE 99; RESP 16; TEMP 36.7; O2SAT 98; BMI 48.2
[2022-07-22 16:19] VITALS: BMI 48.2
[2022-07-22 16:27] LABS: Chloride 94 mmol/L (98-107)
[2022-07-22 16:28] LABS: Potassium 3.8 mmoL/L (3.5-5.1); Sodium 139 mmol/L (136-145)
[2022-07-22 16:29] LABS: Basophils # 0.1 K/mm3 (0-0.2); Basophils % 1.1 % (0.1-2.0); Eosinophils # 0.6 K/mm3 (0.0-0.4); Eosinophils % 5.5 % (0.1-12.0); Hematocrit 34.6 % (37.0-47.0); Hemoglobin 10.7 g/dL (12.2-16.2); Lymphocytes # 2.4 K/mm3 (0.7-4.5); Lymphocytes % 23.8 % (10-50); Mean Corpuscular HGB Conc 31.1 g/dL (31.8-35.4); Mean Corpuscular Volume 64.4 fl (81-99); Mean Platelet Volume 7.2 fl (7.4-10.4); Monocytes # 0.4 K/mm3 (0.1-1.0); Neutrophils # 6.7 K/mm3 (1.8-7.8); Neutrophils % 65.6 % (37.0-80.0); Platelet Count 336 K/mm3 (142-424); Red Blood Count 5.36 M/mm3 (4.20-5.40); Red Cell Distribution Width 17.9 % (11.5-17.5); White Blood Count 10.2 K/mm3 (4.8-10.8)
[2022-07-22 16:30] VITALS: BP 140/92; PULSE 89; RESP 15; O2SAT 99
[2022-07-22 16:30] LABS: Alanine Aminotransferase 20 U/L (12-78); Alkaline Phosphatase 145 U/L (38-126); Aspartate Amino Transferase 24 U/L (14-36); Bilirubin,Total 0.4 mg/dl (0.2-1.3); Blood Urea Nitrogen 18 mg/dl (7-17); Creatinine Clearance Estimated 82 mL/min (50-200); Estimated Glomerular Filt Rate 78 ml/min (>60); GFR (African American) 95 ML/MIN (>60)
[2022-07-22 16:31] LABS: Albumin Level 4.7 g/dl (3.5-5.0); Albumin/Globulin Ratio 1.2 (1.1-1.8); Anion Gap 11.8 mEq/L (5-15); Calcium 8.6 mg/dl (8.4-10.2); Carbon Dioxide 37 mmol/L (22.0-30.0); Globulin 3.9 g/dL (1.3-3.2); Glucose 128 mg/dl (74-100); Total Protein,Serum 8.6 g/dl (6.3-8.2)
[2022-07-22 16:40] LABS: NT Pro Brain Natriuretic Pep. 181 pg/mL (0-125)
[2022-07-22 16:48] LABS: HCG Qualitative, Serum Negative (Negative); Troponin I < 0.01 ng/ml (0.00-0.034)
[2022-07-22 17:33] VITALS: BP 140/92; PULSE 89; RESP 18; TEMP 36.7
== END 2022-07-22 17:36 | disposition home or self-care (01) ==
PROVIDERS: Emergency Provider Emergency Medicine; PCP Family Medicine
DX: L03.115 Cellulitis of right lower limb (principal); I87.333 Chronic venous hypertension (idiopathic) with ulcer and inflammation of bilateral lower extremity; L03.116 Cellulitis of left lower limb; R60.9 Edema, unspecified; E03.9 Hypothyroidism, unspecified; F41.9 Anxiety disorder, unspecified; F32.A Depression, unspecified; K21.9 Gastro-esophageal reflux disease without esophagitis; M79.7 Fibromyalgia; E55.9 Vitamin D deficiency, unspecified
CPT/HCPCS: 71045; 80053; 83735; 83880; 84484; 84703; 85025; 93005; 99285

== ENCOUNTER → 2022-08-10 13:53 | Outpatient (CLI) | payer OTHER, SELFPAY ==
--- NOTE | 2022-08-10 13:59 | XR_ITS ---
FINAL REPORT CLINICAL HISTORY: RT KNEE PAIN FINDINGS: 4 views of the right knee were obtained. There is no acute fracture or dislocation. Moderate degenerative change of the medial compartment. Moderate patellofemoral joint disease. There is no soft tissue abnormality. IMPRESSION: Moderate degenerative change. Reviewed, Interpreted and Dictated by Annamarie Barbour MD Transcribed by Ben Magaña Authenticated and [facility]
== END ==
LOC: RAD 13:55
PROVIDERS: PCP Family Medicine; Visit Provider Family Medicine
DX: M25.561 Pain in right knee (principal)
CPT/HCPCS: 73562

== ENCOUNTER 2022-08-18 20:02 | Emergency (ER) | payer OTHER, SELFPAY ==
[2022-08-18] VITALS (8 sets, daily range): BP systolic 103–134; BP diastolic 46–72; PULSE 65–117; RESP 20–189; TEMP 36.8–37.5; O2SAT 85–93; BMI 46.5
--- NOTE | 2022-08-18 20:36 | XR_ITS ---
PROCEDURE INFORMATION: Exam: XR Chest Exam date and time: 08/18/2022 8:45 PM Age: 42 years old Clinical indication: Other: Le swelling TECHNIQUE: Imaging protocol: Radiologic exam of the chest. Views: 2 views. COMPARISON: CR XR CHEST PORTABLE 07/22/2022 4:24 PM FINDINGS: Lungs: Unremarkable. No consolidation. Pleural spaces: Unremarkable. No pleural effusion. No pneumothorax. Heart/Mediastinum: Unremarkable. No cardiomegaly. Bones/joints: Unremarkable. IMPRESSION: No acute findings.
[2022-08-18 21:02] LABS: Basophils # 0.1 K/mm3 (0-0.2); Basophils % 0.8 % (0.1-2.0); Eosinophils # 0.3 K/mm3 (0.0-0.4); Eosinophils % 2.2 % (0.1-12.0); Hematocrit 32.9 % (37.0-47.0); Hemoglobin 9.8 g/dL (12.2-16.2); Lymphocytes # 1.6 K/mm3 (0.7-4.5); Lymphocytes % 12.5 % (10-50); Mean Corpuscular HGB Conc 29.9 g/dL (31.8-35.4); Mean Corpuscular Hemoglobin 19.8 pg (27.0-31.2); Mean Corpuscular Volume 66.2 fl (81-99); Mean Platelet Volume 7.4 fl (7.4-10.4); Monocytes # 0.5 K/mm3 (0.1-1.0); Monocytes % 4.1 % (1.7-9.3); Neutrophils # 10.2 K/mm3 (1.8-7.8); Neutrophils % 80.3 % (37.0-80.0); Platelet Count 276 K/mm3 (142-424); Red Blood Count 4.96 M/mm3 (4.20-5.40); Red Cell Distribution Width 17.6 % (11.5-17.5); White Blood Count 12.7 K/mm3 (4.8-10.8)
--- NOTE | 2022-08-18 21:03 | ECG_ITS ---
APPROVED REPORT Exam: Resting ECG HR:100 bpm ECG Measurements Heart Rate 100 AXES ND 185 P 49 QRSd 92 QRS 69 QT 340 T 37 QTc 397 Conclusion SINUS TACHYCARDIA LOW QRS VOLTAGE IN PRECORDIAL LEADS [QRS DEFLECTION < 1.0 mV IN CHEST LEADS] ABNORMAL RHYTHM ECG UNCONFIRMED REPORT Electronically signed by : Jerrell Salmeron MD 08/19/2022 21:51:49
--- NOTE | 2022-08-18 21:04 | HMH.EDEXTP ---
Discharge Plan Disposition Patient Disposition: Home, Self-Care Prescriptions Prescriptions: New levofloxacin 500 mg tablet 500 mg PO DAILY 5 Days Qty: 5 0RF No Action hydroxyzine pamoate 25 mg capsule 25 mg PO DAILY ciclopirox 8 % solution 1 applic TOPICAL DAILY 90 Days Qty: 6.6 3RF Rx Instructions: apply over previous coat; remove with alcohol every 7 days and file down nail spironolactone 25 mg tablet 25 mg PO DAILY Qty: 30 0RF Rx Instructions: Needs to follow up with clinic for additional refills. quetiapine [Seroquel] 50 mg tablet 50 mg PO BID Qty: 30 0RF ondansetron 4 mg tablet,disintegrating 4 mg PO Q6H PRN (Reason: nausea and vomiting) Qty: 30 0RF (DME) Cameron [Cameron, Ayla] 1 EACH Each 1 each miscellaneous DIRECTED Qty: 1 0RF tramadol 50 MG tablet 50 mg PO Q6 PRN (Reason: Moderate Pain) sulfamethoxazole-trimethoprim [Bactrim DS] 800-160 mg Tablet 1 tab PO BID Qty: 20 0RF cephalexin 500 mg capsule 500 mg PO QID Qty: 40 0RF citalopram 20 MG tablet 40 mg PO DAILY Label Comments: TAKE 1 TABLET BY MOUTH EVERY DAY ziprasidone HCl 20 MG capsule 40 mg PO HS Label Comments: TAKE ONE CAPSULE AT BEDTIME levothyroxine 50 MCG tablet 50 mcg PO DAILY Label Comments: TAKE 1 TABLET BY MOUTH EVERY DAY amitriptyline 25 mg tablet 100 mg PO HS Label Comments: TAKE 1 TO 2 TABLETS BY MOUTH AT BEDTIME methocarbamol 750 MG tablet 750 mg PO BID perphenazine 4 MG tablet 4 mg PO TIDP PRN (Reason: Anxiety) Label Comments: TAKE 1 TABLET BY MOUTH THREE TIMES A DAY NEEDED FOR ANXIETY buprenorphine-naloxone 1 EACH tablet, sublingual 2 each PO DAILY Label Comments: PLACE TWO TABLETS UNDER THE TONGUE ONCE DAILY. gabapentin 800 MG tablet 800 mg PO TID Label Comments: TAKE 1 TABLET BY MOUTH THREE TIMES A DAY potassium chloride 20 MEQ tablet 20 meq PO TID Qty: 60 0RF doxycycline hyclate [doxycycline hyclate] 100 mg capsule 100 mg PO Q12 10 Days Qty: 20 0RF methylprednisolone 4 mg Tablets,Dose Pack 4 mg PO DIRECTED Qty: 21 0RF Referrals Follow up/Referrals: Alfonso Mai MD [Primary Care Provider] - See instructions Clinical Impressions Clinical Impression: CHF (congestive heart failure), UTI (urinary tract infection) Instructions Patient Instructions: Heart Failure Discharge ED Provider: Dianne (ED)Joel Extremity Problem HPI General Chief complaint: Extremity Problem,Nontraumatic Stated complaint: swelling im legs, feet, L[place]S nausea Time Seen by Provider: 08/18/22 20:40 Mode of Arrival: Ambulatory Source of Information: Patient and Medical Record Limitations: No Limitations Description of Symptoms (Recalled from ER Triage Doc. by RN): pt states that she has had bilateral swelling in her feet and legs for a couple of months and has missed multiple appts this week then today the cancled on her so she is here to see whats going on. the pt states the swelling had started years ago then went away and is now back. pt also reports headache low grade fever and nausea History of Present Illness HPI Narrative: pt with increased lower ext swelling over the last few days with hx of same - pt with fever and not feeling well- no chest pain Complaint: extremity swelling Onset (ago): day(s) Consistency: constant Location: lower extremity Associated symptoms: fever Related Data Home Medications Medication Instructions Recorded Confirmed citalopram 20 mg tablet 40 mg PO DAILY Depression 10/23/17 06/26/20 levothyroxine 50 mcg tablet 50 mcg PO DAILY tyhroid 10/23/17 06/26/20 ziprasidone HCl 20 mg capsule 40 mg PO HS Insomnia 10/23/17 06/26/20 amitriptyline 25 mg tablet 100 mg PO HS sleep 08/31/18 06/26/20 buprenorphine 5.7 mg-naloxone 1.4 2 each PO DAILY addiction 12/31/18 06/26/20 mg sublingual tablet methocarbamol 750 m
[2022-08-18 21:26] LABS: Alanine Aminotransferase 22 U/L (12-78); Albumin Level 4.4 g/dl (3.5-5.0); Albumin/Globulin Ratio 1.3 (1.1-1.8); Alkaline Phosphatase 147 U/L (38-126); Anion Gap 8.4 mEq/L (5-15); Aspartate Amino Transferase 27 U/L (14-36); Bilirubin,Total 0.4 mg/dl (0.2-1.3); Blood Urea Nitrogen 13 mg/dl (7-17); Calcium 8.3 mg/dl (8.4-10.2); Carbon Dioxide 35 mmol/L (22.0-30.0); Chloride 98 mmol/L (98-107); Creatinine Clearance Estimated 82 mL/min (50-200); Estimated Glomerular Filt Rate 78 ml/min (>60); GFR (African American) 95 ML/MIN (>60); Globulin 3.4 g/dL (1.3-3.2); Glucose 116 mg/dl (74-100); Potassium 4.4 mmoL/L (3.5-5.1); Sodium 137 mmol/L (136-145); Total Protein,Serum 7.8 g/dl (6.3-8.2)
[2022-08-18 21:31] LABS: C-Reactive Protein 41.1 mg/L (0-4)
[2022-08-18 21:37] LABS: Microscopic, Urine URINE MICROSCOPIC (MICROSCOPIC)
[2022-08-18 21:40] LABS: NT Pro Brain Natriuretic Pep. 649 pg/mL (0-125)
[2022-08-18 21:42] LABS: Appearance,Urine CLEAR (Clear); Bilirubin,Urine Negative (Negative); Blood, Urine Negative (Negative); Color,Urine YELLOW (Yellow); Glucose,Urine (UA) Negative (Negative); Ketones,Urine Negative (Negative); Leukocyte Esterase,Urine 1+ (Negative); Nitrate,Urine Negative (Negative); PH,Urine 7.5 (5.0-8.5); Protein,Urine Negative (Negative); Urobilinogen,Urine 0.2 EU/dl (0.2)
[2022-08-18 21:43] LABS: Troponin I < 0.01 ng/ml (0.00-0.034)
[2022-08-18 21:46] LABS: Erythrocyte Sedimentation Rate 20 mm/hr (0-20); Procalcitonin 0.053 ng/mL (0.0-2.0); T4 (Thyroxine) 8.6 ug/dl (5.53-11.0)
[2022-08-18 21:55] LABS: Amphetamine/Metha Screen,Urine Negative ng/ml (<1000)
[2022-08-18 21:56] LABS: Barbiturates Screen,Urine Negative ng/ml (<200)
[2022-08-18 21:57] LABS: Benzodiazepines Screen,Urine Negative ng/ml (<200)
[2022-08-18 21:58] LABS: Cannabinoid Screen,Urine Negative ng/ml (<50); Cocaine Screen,Urine Negative ng/ml (<300)
[2022-08-18 21:59] LABS: Methadone Screen,Urine Negative ng/ml (<300)
[2022-08-18 22:00] LABS: Opiate Screen,Urine Negative ng/ml (<300); Phencyclidine Screen,Urine Negative ng/ml (<25); Thyroid Stimulating Hormone 1.55 uIU/mL (0.465-4.68)
[2022-08-18 22:09] LABS: Bacteria,Urine 1+ /lpf
[2022-08-18 23:11] LABS: Coronavirus 19, PCR Not Detected (NotDetected); Influenza A, PCR Not Detected (NotDetected); Influenza B, PCR Not Detected (NotDetected)
== END 2022-08-18 23:51 | disposition home or self-care (01) ==
PROVIDERS: Emergency Provider Emergency Medicine; PCP Family Medicine
DX: I50.9 Heart failure, unspecified (principal); N39.0 Urinary tract infection, site not specified; E03.9 Hypothyroidism, unspecified; F41.9 Anxiety disorder, unspecified; M79.7 Fibromyalgia; M54.12 Radiculopathy, cervical region; E55.9 Vitamin D deficiency, unspecified; G47.00 Insomnia, unspecified; K58.9 Irritable bowel syndrome, unspecified; Z20.822 Contact with and (suspected) exposure to COVID-19
CPT/HCPCS: 71046; 80053; 80305; 81001; 83880; 84145; 84436; 84443; 84484; 85025; 85651; 86140; 87086; 93005; 96361; 96374; 96375; 99285; C9803; J0131; J2405; U0003; U0005

== ENCOUNTER 2023-06-23 20:25 | Observation (INO) | payer OTHER, SELFPAY ==
[2023-06-23] VITALS (10 sets, daily range): BP systolic 106–139; BP diastolic 63–84; PULSE 87–114; RESP 13–42; TEMP 36.7–36.8; O2SAT 85–97; BMI 45.2
--- NOTE | 2023-06-23 20:26 | PC.NURSE ---
in room talking with patient at this time.
--- NOTE | 2023-06-23 20:28 | PC.NURSE ---
Patient became hypoxic on room air- see vital signs charting. Placed on 2L/NC
--- NOTE | 2023-06-23 20:33 | ECG_ITS ---
APPROVED REPORT Exam: Resting ECG HR:109 bpm ECG Measurements Heart Rate 109 AXES MT 182 P 52 QRSd 102 QRS 43 QT 353 T 23 QTc 417 Conclusion SINUS TACHYCARDIA ABNORMAL RHYTHM ECG UNCONFIRMED REPORT Electronically signed by : Jerrell Salmeron MD 06/24/2023 08:27:24
--- NOTE | 2023-06-23 20:38 | HMH.EDGENADL ---
Discharge Plan Disposition Patient Disposition: Admitted Chief Complaint: Overdose Prescriptions Prescriptions: No Action methocarbamol 750 MG tablet 750 mg PO BID buprenorphine-naloxone 1 EACH tablet, sublingual 2 each PO DAILY Patient Comments: PLACE TWO TABLETS UNDER THE TONGUE ONCE DAILY. gabapentin 800 MG tablet 800 mg PO TID Patient Comments: TAKE 1 TABLET BY MOUTH THREE TIMES A DAY amitriptyline 150 mg tablet 150 mg PO HS Patient Comments: TAKE 1 TABLET BY MOUTH EVERY DAY AT BEDTIME FOR 90 DAYS chlorthalidone 25 mg tablet 25 mg PO DAILY levothyroxine 100 mcg tablet 100 mcg PO DAILY indomethacin 25 mg capsule 25 mg PO TID Patient Comments: TAKE 1 CAPSULE BY MOUTH THREE TIMES A DAY Zubsolv 5.7-1.4 mg tablet, sublingual 1 tab SUBLINGUAL DAILY Patient Comments: DISSOLVE 2 TABLETS SUBLINGUALLY ONCE DAILY ondansetron 4 mg tablet,disintegrating 4 mg PO Q8H PRN (Reason: nausea and vomiting) hydroxyzine pamoate 25 mg capsule 25 mg PO TID Patient Comments: TAKE 1 TO 2 CAPS BY MOUTH 3 TIMES A DAY Referrals Follow up/Referrals: Jerrell Salmeron MD [Primary Care Provider] - See instructions Clinical Impressions Clinical Impression: TCA (tricyclic antidepressant) overdose of undetermined intent, Accidental overdose of gabapentin, Encephalopathy acute Discharge ED Provider: Dom Mancia General Adult HPI General Chief complaint: Overdose Stated complaint: Accidental Overdose Time Seen by Provider: 06/23/23 20:32 History of Present Illness HPI narrative: Is a 43-year-old female here after an accidental overdose of amitriptyline and gabapentin. States she has 150 mg amitriptyline tablets as well as 800 mg gabapentin tablets she was having a headache earlier today and took medications and she states she was not pain attention to what medication she was taking and states she accidentally took 4 of her amitriptyline tablets and 3 of her gabapentin tablets. She denies any symptoms at the moment. Specifically she denies any intentional attempt to harm herself. She has no suicidal ideation this was not a suicide attempt she is adamant about. She states if I would have tried to hurt myself I want to call 911 immediately. No charcoal or any other medications were given around. 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 12/31/18 06/23/23 mg sublingual tablet methocarbamol 750 mg tablet 750 mg PO BID MUSCLE RELAXER 12/31/18 06/23/23 gabapentin 800 mg tablet 800 mg PO TID NEUROPATHY 01/01/19 06/23/23 amitriptyline 150 mg tablet 150 mg PO HS 06/23/23 06/23/23 buprenorphine 5.7 mg-naloxone 1.4 1 tab sublingual DAILY 06/23/23 06/23/23 mg sublingual tablet (Zubsolv) chlorthalidone 25 mg tablet 25 mg PO DAILY 06/23/23 06/23/23 hydroxyzine pamoate 25 mg capsule 25 mg PO TID 06/23/23 06/23/23 indomethacin 25 mg capsule 25 mg PO TID 06/23/23 06/23/23 levothyroxine 100 mcg tablet 100 mcg PO DAILY 06/23/23 06/23/23 ondansetron 4 mg disintegrating 4 mg PO Q8H PRN nausea and vomiting 06/23/23 06/23/23 tablet Allergies Allergy/AdvReac Type Severity Reaction Status Date / Time No Known Allergies Allergy Verified 06/09/22 13:42 [facility] Disclaimer: The information contained in this section may have been updated after the patient was seen, as this information can be updated by other users. Medical History Acquired hypothyroidism Anxiety with depression Cervical neuropathy Fibromyalgia Gastroesophageal reflux disease History of IBS Insomnia FORD on CPAP Vitamin D deficiency Surgical History History of bladder suspension procedure (~2012) History of vaginal hysterectomy (~2012) History of wisdom tooth extraction (~
[2023-06-23 20:40] LABS: Basophils # 0.1 K/mm3 (0-0.2); Basophils % 0.4 % (0.1-2.0); Eosinophils # 0.6 K/mm3 (0.0-0.4); Eosinophils % 4.7 % (0.1-12.0); Hematocrit 32.3 % (37.0-47.0); Hemoglobin 10.3 g/dL (12.2-16.2); Lymphocytes # 2.4 K/mm3 (0.7-4.5); Lymphocytes % 18.3 % (10-50); Mean Corpuscular HGB Conc 31.8 g/dL (31.8-35.4); Mean Corpuscular Hemoglobin 21.2 pg (27.0-31.2); Mean Corpuscular Volume 66.5 fl (81-99); Mean Platelet Volume 7.8 fl (7.4-10.4); Monocytes # 0.5 K/mm3 (0.1-1.0); Neutrophils # 9.4 K/mm3 (1.8-7.8); Neutrophils % 72.6 % (37.0-80.0); Platelet Count 235 K/mm3 (142-424); Red Blood Count 4.86 M/mm3 (4.20-5.40); Red Cell Distribution Width 17.6 % (11.5-17.5)
--- NOTE | 2023-06-23 20:40 | PC.NURSE ---
Spoke to Bria with poison control who advised patient needed 25g-50g PO Charcoal, IV fluids, and serial EKG's to assess for prolonged QT intervals. If her QT interval were to widen then we would need to start NA/HCO3 gtt for the cardiax toxicity.
[2023-06-23 20:46] LABS: Chloride 93 mmol/L (98-107)
[2023-06-23 20:47] LABS: Potassium 3.4 mmoL/L (3.5-5.1); Sodium 135 mmol/L (136-145)
--- OUTSIDE RECORDS SUMMARY | 2023-06-23 20:48 | XMS_ITS | Continuity of Care Document ---
Author Name Unknown Organization [facility] Address [address] [place] [address] Phone Care Team Providers Care Building Trades Instructor Name Role Phone Hari Saenz MD Unavailable Unavailable Allergies, Adverse Reactions, Alerts Substance Reaction Status Criticality No Known Allergies Active No Inform ation Medications Medication Instructions Dosage Effective Dates (start - stop) Status Comments ziprasidone 20 mg capsule take 1 capsule by oral route 2 times every day with food 20 MG - Active Adipex-P 37.5 mg tablet take 1 tablet by oral route every day before breakfast 37.5 MG - Active NAPROXEN 500 MG TABLET TAKE 1 TABLET BY ORAL ROUTE EVERY DAY WITH FOOD 500 MG - Active iron 325 mg (65 mg iron) tablet - Active Lunesta 3 mg tablet take 1 tablet by ora l route every day at bedtime 3 MG - Active Procedures Procedure Date OFFICE/OUTPATIENT VISIT, EST Presumptive EIA INJECTION TREATMENT OF NERVE Definitive, UDS Panel 15-21 Drugs Presumptive EIA Sima TRAVIS IN
[2023-06-23 20:49] LABS: Alanine Aminotransferase 28 U/L (12-78); Albumin Level 4.5 g/dl (3.5-5.0); Albumin/Globulin Ratio 1.1 (1.1-1.8); Alkaline Phosphatase 100 U/L (38-126); Anion Gap 12.4 mEq/L (5-15); Aspartate Amino Transferase 31 U/L (14-36); Bilirubin,Total 0.4 mg/dl (0.2-1.3); Blood Urea Nitrogen 17 mg/dl (7-17); Carbon Dioxide 33 mmol/L (22.0-30.0); Estimated Glomerular Filt Rate 91 ml/min (>60); GFR (African American) 110 ML/MIN (>60); Globulin 4.1 g/dL (1.3-3.2); Total Protein,Serum 8.6 g/dl (6.3-8.2)
[2023-06-23 20:50] LABS: Calcium 8.7 mg/dl (8.4-10.2); Glucose 168 mg/dl (74-100)
[2023-06-23 20:51] LABS: Acetaminophen < 10 ug/ml (10-30); Salicylate < 1.0 mg/dL (2.0-20.0)
[2023-06-23 21:01] LABS: Ethyl Alcohol < 10 mg/dl (0-10)
--- NOTE | 2023-06-23 21:03 | PC.NURSE ---
in room talking with patient at this time.
[2023-06-23 21:05] LABS: Troponin I < 0.01 ng/ml (0.00-0.034)
--- NOTE | 2023-06-23 21:29 | ECG_ITS ---
APPROVED REPORT Exam: Resting ECG HR:102 bpm ECG Measurements Heart Rate 102 AXES AK 189 P 61 QRSd 101 QRS 39 QT 367 T 19 QTc 426 Conclusion SINUS TACHYCARDIA ABNORMAL RHYTHM ECG UNCONFIRMED REPORT Electronically signed by : Jerrell Salmeron MD 06/24/2023 08:27:07
--- NOTE | 2023-06-23 21:55 | EXP.HP ---
History of Present Illness *Admission Date: 06/23/23 *Reason for visit:: accidental overdose *History of present illness: This is a 43-year-old female obese with PMHx of FORD, CHF, fibromyalgia, GERD, anxiety with depression, recently undergone to right toe distal falange amputation due to OM that is here after an accidental overdose of amitriptyline and gabapentin. History obtained from ER documentation since patient mental status underwent to deeply somnolent after arrival Er reported that she took 150 mg of amitriptyline, as well as 800 mg gabapentin she was having a headache earlier today and took medications and she states she was not pain attention to what medication she was taking and states she accidentally took 4 of her amitriptyline tablets and 3 of her gabapentin tablets. She denied any intentional attempt to harm herself. She has no suicidal ideation. Admitted for treatment [facility] Disclaimer: The information contained in this section may have been updated after the patient was seen, as this information can be updated by other users. Medical History Acquired hypothyroidism Anxiety with depression Cervical neuropathy Fibromyalgia Gastroesophageal reflux disease History of IBS Insomnia FORD on CPAP Vitamin D deficiency Surgical History History of bladder suspension procedure (~2012) History of vaginal hysterectomy (~2012) History of wisdom tooth extraction (~2009) Tubal ligation status Social History (Updated 06/23/23 @ 23:20 by Asuncion Rubio RN) Smoking Status: Never smoker alcohol intake: never substance use type: opiates current occupational status: unemployed Travel in the last 8 weeks: None household members: spouse and children housing: house caffeine: Yes Review of Systems Review of Systems Review of systems:: unable to obtain Meds Home Medications and Allergies Home Medications Medication Instructions Recorded Confirmed Type methocarbamol 750 mg tablet 750 mg PO QID Pain 12/31/18 06/24/23 History gabapentin 800 mg tablet 800 mg PO TID Pain 01/01/19 06/24/23 History amitriptyline 150 mg tablet 150 mg PO HS Mood 06/23/23 06/24/23 History chlorthalidone 25 mg tablet 25 mg PO DAILY Fluid 06/23/23 06/24/23 History hydroxyzine pamoate 25 mg capsule 25 mg PO TID Anxiety 06/23/23 06/24/23 History levothyroxine 100 mcg tablet 100 mcg PO DAILY Thyroid 06/23/23 06/24/23 History ondansetron 4 mg disintegrating 4 mg PO Q8HP PRN nausea and 06/23/23 06/24/23 History tablet vomiting buprenorphine 8 mg-naloxone 2 mg 2 tab sublingual DAILY Withdrawal 06/24/23 06/24/23 History sublingual tablet cholecalciferol (vitamin D3) 125 125 mcg PO DAILY Supplement 06/24/23 06/24/23 History mcg (5,000 unit) capsule doxycycline hyclate 100 mg tablet 100 mg PO BID Infection 06/24/23 06/24/23 History folic acid 1 mg tablet 1 mg PO DAILY Supplement 06/24/23 06/24/23 History potassium chloride 20 mEq 20 meq PO DAILY Supplement 06/24/23 06/24/23 History tablet,extended release(part/cryst) (Klor-Con M) New Prescriptions to Start Prescriptions: Allergies Allergy/AdvReac Type Severity Reaction Status Date / Time No Known Allergies Allergy Verified 06/09/22 13:42 Exam Data for Last 24 hours Vital signs and Labs for Last 24 Hours: Temp Pulse Resp BP Pulse Ox O2 Del Method O2 Flow Rate 98.1 F 111 H 20 110/69 95 Nasal Cannula 2 06/23/23 20:25 06/23/23 21:15 06/23/23 21:15 06/23/23 21:00 06/23/23 21:15 06/23/23 21:15 06/23/23 21:15 Laboratory Results - last 24 hr 06/23/23 20:30: WBC 13.0 H, RBC 4.86, Hgb 10.3 L, Hct 32.3 L, MCV 66.5 L, MCH 21.2 L, MCHC 31.8, RDW 17.6 H, Plt Count 235, MPV 7.8, Neut % (Auto) 72.6, Lymph % (Auto) 18.3, [place] % (Auto) 4.0, Eos % (Auto) 4.7, Baso % (Auto) 0.4, Neut # (Auto) 9.4 H, Lymph # (Auto) 2.4, [place] # (Auto) 0.5, Eos # (Aut
--- NOTE | 2023-06-23 21:57 | PC.NURSE ---
House notified for admission
--- NOTE | 2023-06-23 22:01 | PC.NURSE ---
OBSERVATION ADMIT TO 209 WITH DX OF POLYSUBSTANCE OVERDOSE TO SERVICE OF THE HOSPITALIST.
--- NOTE | 2023-06-23 22:14 | PC.NURSE ---
Report called to [facility] Lucio
--- NOTE | 2023-06-23 22:33 | PC.NURSE ---
PT ARRIVED TO FLOOR AT THIS TIME
--- NOTE | 2023-06-23 22:50 | PC.NURSE ---
Patient arrived to unit at 2233 in ED bed. Patient is unresponsive, laying with eyes closed, senior medical writer performed sternum rub with no response. During transfer from ED bed to room bed, patient did open her eyes for a second and then closed them. Patient's daughter arrived and was able to answer questions. Assessment to follow.
[2023-06-24] VITALS (9 sets, daily range): BP systolic 99–127; BP diastolic 59–70; PULSE 83–119; RESP 12–20; TEMP 36.4–37.2; O2SAT 93–100; BMI 45.3
--- NOTE | 2023-06-24 00:15 | PC.NURSE ---
Electronic Industrial Controls Mechanic returned call to Poison Control and gave update on patient.
[2023-06-24 00:22] LABS: Troponin I < 0.01 ng/ml (0.00-0.034)
--- NOTE | 2023-06-24 00:37 | ECG_ITS ---
APPROVED REPORT Exam: Resting ECG HR:107 bpm ECG Measurements Heart Rate 107 AXES MO 218 P 44 QRSd 100 QRS 33 QT 424 T 25 QTc 487 Conclusion SINUS TACHYCARDIA WITH FIRST DEGREE AV BLOCK ABNORMAL ECG UNCONFIRMED REPORT Electronically signed by : Jerrell Salmeron MD 06/24/2023 08:26:47
--- NOTE | 2023-06-24 02:02 | ECG_ITS ---
APPROVED REPORT Exam: Resting ECG HR:110 bpm ECG Measurements Heart Rate 110 AXES DE 231 P 54 QRSd 99 QRS 30 QT 415 T 24 QTc 480 Conclusion SINUS TACHYCARDIA WITH FIRST DEGREE AV BLOCK ABNORMAL ECG UNCONFIRMED REPORT Electronically signed by : Jerrell Salmeron MD 06/24/2023 08:24:20
--- NOTE | 2023-06-24 03:04 | ECG_ITS ---
APPROVED REPORT Exam: Resting ECG HR:108 bpm ECG Measurements Heart Rate 108 AXES UT 209 P 48 QRSd 97 QRS 39 QT 421 T 25 QTc 484 Conclusion SINUS TACHYCARDIA NONSPECIFIC T-WAVE ABNORMALITY ABNORMAL RHYTHM ECG UNCONFIRMED REPORT Electronically signed by : Jerrell Salmeron MD 06/24/2023 08:23:49
--- NOTE | 2023-06-24 03:24 | PC.NURSE ---
Spoke with poison control regarding pt condition. Answered all questions at this time.
[2023-06-24 03:26] LABS: Troponin I < 0.01 ng/ml (0.00-0.034)
--- NOTE | 2023-06-24 04:04 | ECG_ITS ---
APPROVED REPORT Exam: Resting ECG HR:106 bpm ECG Measurements Heart Rate 106 AXES HI 176 P 36 QRSd 93 QRS 25 QT 315 T 14 QTc 377 Conclusion SINUS TACHYCARDIA LOW QRS VOLTAGE IN PRECORDIAL LEADS [QRS DEFLECTION < 1.0 mV IN CHEST LEADS] POSSIBLE ANTERIOR MYOCARDIAL INFARCTION , OF INDETERMINATE AGE [30 ms Q WAVE IN V3/V4, OR R < 0.2 mV IN V4] ABNORMAL ECG UNCONFIRMED REPORT Electronically signed by : Jerrell Salmeron MD 06/24/2023 08:23:16
--- NOTE | 2023-06-24 04:24 | PC.WOUNDNOTE ---
Skin assessment performed: Generalized various sized scabs on bilateral breasts; no open areas at this time. Generalized small scabs on RLE. LLE redness with generalized scratches and scabs. R 2nd toe surgical incision: sutures present, minimal drainage; covered with gauze and VANCE wrap, elevated with pillow. Pt's daughter stated she often scratches to the point of opening up skin and scabbing over. When pt's alert, reminded pt multiple times to stop scratching.
--- NOTE | 2023-06-24 05:07 | ECG_ITS ---
APPROVED REPORT Exam: Resting ECG HR:105 bpm ECG Measurements Heart Rate 105 AXES DE 184 P 40 QRSd 98 QRS 23 QT 336 T 12 QTc 397 Conclusion SINUS TACHYCARDIA POSSIBLE ANTERIOR MYOCARDIAL INFARCTION , PROBABLY OLD [30 ms Q WAVE IN V3/V4, OR R < 0.2 mV IN V4] ABNORMAL RHYTHM ECG UNCONFIRMED REPORT Electronically signed by : Jerrell Salmeron MD 06/24/2023 08:22:40
--- NOTE | 2023-06-24 05:26 | PC.NURSE ---
Shift Summary: Pt transferred to 218, able to wake up to voice. Pt AOx4, drowsy, able to follow commands, only required one dose of PRN tylenol for R foot pain. VSS, slightly tachycardic, tolerating 3 L NC for sleep apnea. Hourly EKGs performed by respiratory: QRS duration 98-100, QTc 377-487. Denies chest pain or SOB at this time. External catheter in place, but pt too drowsy for clean catch UDS. R foot wrapped in gauze and VANCE wrap, elevated on pillow. Poison control in communication with nursing team. No other acute events or issues at this time.
--- NOTE | 2023-06-24 06:18 | ECG_ITS ---
APPROVED REPORT Exam: Resting ECG HR:104 bpm ECG Measurements Heart Rate 104 AXES OK 192 P 41 QRSd 96 QRS 29 QT 345 T 18 QTc 406 Conclusion SINUS TACHYCARDIA POSSIBLE ANTERIOR MYOCARDIAL INFARCTION , OF INDETERMINATE AGE [30 ms Q WAVE IN V3/V4, OR R < 0.2 mV IN V4] ABNORMAL ECG UNCONFIRMED REPORT Electronically signed by : Jerrell Salmeron MD 06/24/2023 08:22:18
--- NOTE | 2023-06-24 07:04 | ECG_ITS ---
APPROVED REPORT Exam: Resting ECG HR:101 bpm ECG Measurements Heart Rate 101 AXES TX 215 P 35 QRSd 107 QRS 47 QT 342 T 19 QTc 400 Conclusion SINUS TACHYCARDIA WITH FIRST DEGREE AV BLOCK NONSPECIFIC T-WAVE ABNORMALITY ABNORMAL ECG UNCONFIRMED REPORT Electronically signed by : Jerrell Salmeron MD 06/25/2023 09:59:16
[2023-06-24 07:32] LABS: Chloride 97 mmol/L (98-107); Potassium 3.3 mmoL/L (3.5-5.1); Sodium 135 mmol/L (136-145)
[2023-06-24 07:35] LABS: Alanine Aminotransferase 20 U/L (12-78); Albumin Level 3.8 g/dl (3.5-5.0); Albumin/Globulin Ratio 1.1 (1.1-1.8); Alkaline Phosphatase 93 U/L (38-126); Anion Gap 5.3 mEq/L (5-15); Aspartate Amino Transferase 26 U/L (14-36); Bilirubin,Total 0.3 mg/dl (0.2-1.3); Blood Urea Nitrogen 13 mg/dl (7-17); Carbon Dioxide 36 mmol/L (22.0-30.0); Cholesterol 159 mg/dl (140-200); Creatinine Clearance Estimated 103 mL/min (50-200); Estimated Glomerular Filt Rate 109 ml/min (>60); GFR (African American) 131 ML/MIN (>60); Globulin 3.5 g/dL (1.3-3.2); Total Protein,Serum 7.3 g/dl (6.3-8.2); Triglycerides 152 mg/dl (30-150); VLDL Cholesterol 30 mg/dL (0-40)
[2023-06-24 07:36] LABS: Chol/HDL Ratio 4.5 (1-3.5); Glucose 100 mg/dl (74-100); HDL Cholesterol 35 mg/dl (40-60)
[2023-06-24 07:44] LABS: Basophils # 0.1 K/mm3 (0-0.2); Basophils % 0.5 % (0.1-2.0); Eosinophils # 0.6 K/mm3 (0.0-0.4); Eosinophils % 5.3 % (0.1-12.0); Hematocrit 32.1 % (37.0-47.0); Hemoglobin 9.8 g/dL (12.2-16.2); Lymphocytes # 2.8 K/mm3 (0.7-4.5); Lymphocytes % 26.9 % (10-50); Mean Corpuscular HGB Conc 30.5 g/dL (31.8-35.4); Mean Corpuscular Hemoglobin 20.3 pg (27.0-31.2); Mean Corpuscular Volume 66.7 fl (81-99); Mean Platelet Volume 7.8 fl (7.4-10.4); Monocytes # 0.5 K/mm3 (0.1-1.0); Monocytes % 5.3 % (1.7-9.3); Neutrophils # 6.4 K/mm3 (1.8-7.8); Platelet Count 219 K/mm3 (142-424); Red Blood Count 4.82 M/mm3 (4.20-5.40); Red Cell Distribution Width 17.5 % (11.5-17.5); White Blood Count 10.3 K/mm3 (4.8-10.8)
[2023-06-24 07:47] LABS: Direct LDL Cholesterol 89.03 mg/dL (100-129)
--- NOTE | 2023-06-24 08:04 | ECG_ITS ---
APPROVED REPORT Exam: Resting ECG HR:104 bpm ECG Measurements Heart Rate 104 AXES SC 227 P 50 QRSd 104 QRS 44 QT 432 T 38 QTc 492 Conclusion SINUS TACHYCARDIA WITH FIRST DEGREE AV BLOCK ABNORMAL ECG UNCONFIRMED REPORT Electronically signed by : Jerrell Salmeron MD 06/25/2023 09:59:13
--- NOTE | 2023-06-24 08:42 | PC.NURSE ---
Spoke with dietary and ordered patient breakfast tray.
--- NOTE | 2023-06-24 08:57 | ECG_ITS ---
APPROVED REPORT Exam: Resting ECG HR:120 bpm ECG Measurements Heart Rate 120 AXES HI 173 P 39 QRSd 81 QRS 57 QT 423 T 30 QTc 494 Conclusion SINUS TACHYCARDIA POSSIBLE ANTERIOR MYOCARDIAL INFARCTION , PROBABLY OLD [30 ms Q WAVE IN V3/V4, OR R < 0.2 mV IN V4] ABNORMAL RHYTHM ECG UNCONFIRMED REPORT Electronically signed by : Jerrell Salmeron MD 06/25/2023 09:59:09
--- NOTE | 2023-06-24 10:07 | ECG_ITS ---
APPROVED REPORT Exam: Resting ECG HR:109 bpm ECG Measurements Heart Rate 109 AXES ND 194 P 42 QRSd 98 QRS 30 QT 395 T 16 QTc 459 Conclusion SINUS TACHYCARDIA NONSPECIFIC T-WAVE ABNORMALITY ABNORMAL RHYTHM ECG UNCONFIRMED REPORT Electronically signed by : Jerrell Salmeron MD 06/25/2023 09:58:40
--- NOTE | 2023-06-24 10:09 | HMH.PHAINT1 ---
Pharmacy Intervention Comments: MEDICATION RECONCILIATION COMPLETED ON PATIENT USING EXTERNAL FILL HISTORY FROM PHARMACY. -ZHENG SEVILLA, GENEVAD
--- NOTE | 2023-06-24 12:46 | PC.NURSE ---
Spoke with Leana at poison control. After providing patient most recent lab work and vitals poison control suggests to dc hourly EKG but to continue fluids. Spoke with Dr. Nathan who still would like one more EKG at this time, and reevaluate after obtaining.
--- NOTE | 2023-06-24 13:06 | ECG_ITS ---
APPROVED REPORT Exam: Resting ECG HR:82 bpm ECG Measurements Heart Rate 82 AXES TN 193 P 24 QRSd 97 QRS 57 QT 404 T 29 QTc 442 Conclusion SINUS RHYTHM NONSPECIFIC T-WAVE ABNORMALITY BORDERLINE ECG UNCONFIRMED REPORT Electronically signed by : Jerrell Salmeron MD 06/25/2023 09:57:09
--- NOTE | 2023-06-24 13:29 | EXP.DC.SUM ---
General Admission date:: 06/23/23 Discharge date: 06/24/23 HPI HPI HPI: This is a 43-year-old female obese with PMHx of FORD, CHF, fibromyalgia, GERD, anxiety with depression, recently undergone to right toe distal falange amputation due to OM that is here after an accidental overdose of amitriptyline and gabapentin. History obtained from ER documentation since patient mental status underwent to deeply somnolent after arrival Er reported that she took 150 mg of amitriptyline, as well as 800 mg gabapentin she was having a headache earlier today and took medications and she states she was not pain attention to what medication she was taking and states she accidentally took 4 of her amitriptyline tablets and 3 of her gabapentin tablets. She denied any intentional attempt to harm herself. She has no suicidal ideation. Admitted for treatment Hospital Course Hospital Course Hospital Course: 43-year-old female obese with PMHx of FORD, CHF, fibromyalgia, GERD, anxiety with depression, recently undergone to right toe distal phalange amputation due to OM that is here after an accidental overdose of amitriptyline and gabapentin.On ER patient underwent IV resuscitation. EKG was obtained. Negative for QT prolongation, or any other sign of sodium channel dejan. Charcoal activated was given. Poison control was contacted. Per recommendation EKG every hour will be monitoring until patient mentation improved. Indication to start sodium bicarb if had any sign of QT prolongation, or QRS widening. Findings discussed with the ER doctor admitted for further treatment and management. Patient remained stable during admission. Serial EKG showed no QRS widening or clinically significant QT prolongation. Stable to discharge home. Counseled on having pill principal planner to decrease risk for accidental overdose/over administration of medication. Problems addressed as follows: Acute encephalopathy secondary to accidental overdose of amitriptyline and gabapentin: Patient admits to taking too much of her amitriptyline and gabapentin accidentally. Was not paying attention while taking her pills per her report and took 4 times her normal dose. Since she realized what she did she called d her daughter for help. Was brought to the ER for evaluation. Poison control contacted in the ER, recommend admission with serial EKGs. Monitored for QT prolongation and QRS widening. Initiated on normal saline maintenance fluids to assist with flushing medication from patient's system. Monitored with serial EKG showing no concerning findings. Stable to discharge home. Counseled on methods to decrease risk for taking too many pills accidentally. Patient states understanding. Follow-up with PCP in the coming weeks for further management. Mentation at baseline on discharge on Room air. Status post recent toe distal phalange secondary to osteomyelitis due to fracture: Surgical wound intact. Dressing changed during admission. Follow-up with podiatry at [place]. Continued home medications for chronic conditions. Held amitriptyline and gabapentin during admission. Exam Data for Last 24 hours Vital signs and Labs for Last 24 Hours: Temp Pulse Resp BP Pulse Ox O2 Del Method O2 Flow Rate 97.9 F 83 16 111/60 94 L Room Air 3 06/24/23 12:00 06/24/23 12:00 06/24/23 12:00 06/24/23 12:00 06/24/23 12:00 06/24/23 13:00 06/24/23 06:46 Laboratory Results - last 24 hr 06/23/23 20:30: WBC 13.0 H, RBC 4.86, Hgb 10.3 L, Hct 32.3 L, MCV 66.5 L, MCH 21.2 L, MCHC 31.8, RDW 17.6 H, Plt Count 235, MPV 7.8, Neut % (Auto) 72.6, Lymph % (Auto) 18.3, [place] % (Auto) 4.0, Eos % (Auto) 4.7, Baso % (Auto) 0.4, Neut # (Auto) 9.4 H, Lymph # (Auto) 2.4, [place] # (Auto) 0.5, Eos # (Auto) 0.6 H, Baso # (Auto) 0.1, Sodium 135 L, Potassium 3.4 L, Chloride 93 L, Carbon Dioxide 33 H, Anion Gap 12.4, BUN 17, Creatinine 0.70, Estimated GFR 91, Est GFR ( Amer) 110, Glucose 168 H, Calcium 8.7, Total
--- NOTE | 2023-06-24 13:59 | HMH.PHAINT1 ---
Pharmacy Intervention Comments: DISCHARGE MEDICATION COUNSELING PROVIDED. DISCUSSED HOLDING THE GABAPENTIN AND AMITRIPTYLINE UNTIL TOMORROW. PATIENT VERBALIZED NO QUESTIONS AT THIS TIME.
--- NOTE | 2023-06-27 16:26 | CARE MANAGER ---
Spoke with patient related to hospital discharge. She states she is doing fine. She did not start any new medications and is aware of follow up appointment. NYASIA Soni
== END 2023-06-24 15:17 | disposition home or self-care (01) ==
LOC: ER 21:58 → 2ND 22:59
PROVIDERS: Nurse Practitioner Family; Admitting Provider Internal Medicine Adolescent Medicine; Emergency Provider Student in an Organized Health Care Education/Training Program; PCP Internal Medicine Adolescent Medicine; Visit Provider Internal Medicine Adolescent Medicine
DX: T43.011A Poisoning by tricyclic antidepressants, accidental (unintentional), initial encounter (principal); T42.6X1A Poisoning by other antiepileptic and sedative-hypnotic drugs, accidental (unintentional), initial encounter; G92.8 Other toxic encephalopathy; G47.33 Obstructive sleep apnea (adult) (pediatric); K21.9 Gastro-esophageal reflux disease without esophagitis; Z79.899 Other long term (current) drug therapy; E66.01 Morbid (severe) obesity due to excess calories; Z68.42 Body mass index [BMI] 45.0-49.9, adult; E55.9 Vitamin D deficiency, unspecified
CPT/HCPCS: 36415; 80053; 80061; 80329; 84484; 85025; 93005; 99291; G0378

== ENCOUNTER 2023-07-30 01:42 | Observation (INO) | payer OTHER, SELFPAY ==
[2023-07-30] VITALS (8 sets, daily range): BP systolic 103–134; BP diastolic 49–97; PULSE 73–91; RESP 16–20; TEMP 36.5–36.9; O2SAT 91–100; BMI 53.2; BMI 44.4
--- NOTE | 2023-07-30 01:59 | ECG_ITS ---
APPROVED REPORT Exam: Resting ECG HR:82 bpm ECG Measurements Heart Rate 82 AXES TN 171 P 49 QRSd 99 QRS 26 QT 390 T 16 QTc 429 Conclusion SINUS RHYTHM Late R wave progression with NSSTTW changes - seen previously ABNORMAL ECG UNCONFIRMED REPORT Electronically signed by : Jerrell Salmeron MD 07/30/2023 08:51:09
[2023-07-30 02:08] LABS: Basophils # 0.1 K/mm3 (0-0.2); Basophils % 0.4 % (0.1-2.0); Eosinophils # 0.1 K/mm3 (0.0-0.4); Eosinophils % 0.3 % (0.1-12.0); Hematocrit 32.9 % (37.0-47.0); Hemoglobin 10.3 g/dL (12.2-16.2); Lymphocytes # 1.9 K/mm3 (0.7-4.5); Lymphocytes % 12.2 % (10-50); Mean Corpuscular HGB Conc 31.4 g/dL (31.8-35.4); Mean Corpuscular Hemoglobin 21.7 pg (27.0-31.2); Mean Corpuscular Volume 69.1 fl (81-99); Mean Platelet Volume 7.9 fl (7.4-10.4); Monocytes # 0.4 K/mm3 (0.1-1.0); Monocytes % 2.4 % (1.7-9.3); Neutrophils # 12.9 K/mm3 (1.8-7.8); Neutrophils % 84.7 % (37.0-80.0); Platelet Count 279 K/mm3 (142-424); Red Blood Count 4.76 M/mm3 (4.20-5.40); Red Cell Distribution Width 18.2 % (11.5-17.5); White Blood Count 15.2 K/mm3 (4.8-10.8)
[2023-07-30 02:11] LABS: VBG Base Excess 2.8 mmol/L (-2.4-2.3); VBG Oxygen Saturation 76.2 % (50-70); VBG PH 7.31 mmol/L (7.31-7.41); VBG PO2 44.5 mmol/L (28-40); VBG Total CO2 30.8 mmol/L (23-27)
--- NOTE | 2023-07-30 02:11 | XR_ITS ---
PROCEDURE INFORMATION: Exam: XR Chest Exam date and time: 07/30/2023 2:40 AM Age: 43 years old Clinical indication: Condition or disease; Lung condition and disease; Hypoxia TECHNIQUE: Imaging protocol: Radiologic exam of the chest. Views: 1 view. COMPARISON: CR XR CHEST 2V 08/18/2022 8:45 PM FINDINGS: Limitations: Radiographic technique - mild. Lungs: No definite consolidation. Pleural spaces: No significant pleural effusion. No pneumothorax. Heart/Mediastinum: Borderline cardiomegaly. Bones/joints: Healed RIGHT rib fracture. Soft tissues: Unremarkable. IMPRESSION: Borderline cardiomegaly.
--- NOTE | 2023-07-30 02:11 | HMH.EDGENADL ---
Discharge Plan Disposition Patient Disposition: Home, Self-Care Condition: Good Prescriptions Prescriptions: No Action methocarbamol 750 MG tablet 750 mg PO QID gabapentin 800 MG tablet 800 mg PO TID Hold Instructions: Resume on 06/25/23. Patient Comments: TAKE 1 TABLET BY MOUTH THREE TIMES A DAY amitriptyline 150 mg tablet 150 mg PO HS Hold Instructions: Resume on 06/25/23. Patient Comments: TAKE 1 TABLET BY MOUTH EVERY DAY AT BEDTIME FOR 90 DAYS chlorthalidone 25 mg tablet 25 mg PO DAILY levothyroxine 100 mcg tablet 100 mcg PO DAILY ondansetron 4 mg tablet,disintegrating 4 mg PO Q8HP PRN (Reason: nausea and vomiting) hydroxyzine pamoate 25 mg capsule 25 mg PO TID Patient Comments: TAKE 1 TO 2 CAPS BY MOUTH 3 TIMES A DAY potassium chloride [Klor-Con M20] 20 mEq tablet,ER particles/crystals 20 meq PO DAILY Patient Comments: TAKE 1 TABLET BY MOUTH EVERY DAY FOR 30 DAYS folic acid 1 mg tablet 1 mg PO DAILY Patient Comments: TAKE 1 TABLET BY MOUTH EVERY DAY cholecalciferol (vitamin D3) 125 mcg (5,000 unit) capsule 125 mcg PO DAILY Patient Comments: TAKE 1 CAPSULE BY MOUTH EVERY DAY doxycycline hyclate 100 mg tablet 100 mg PO BID buprenorphine-naloxone 8-2 mg tablet, sublingual 2 tab sublingual DAILY Patient Comments: PLACE 2 TABLETS UNDER THE TONGUE DAILY Referrals Follow up/Referrals: Alfonso Mai MD [Primary Care Provider] - See instructions Activity Restrictions/Add. Instructions Additional Instructions/Restrictions: You were evaluated in the emergency department today. Please follow-up closely with your primary care provider. Take your medications as prescribed and do not double up on any doses. Return to the emergency department for new or worsening symptoms. Clinical Impressions Clinical Impression: Accidental medication overdose, FORD (obstructive sleep apnea), Somnolence, Respiratory failure Instructions Patient Instructions: DI for Safely Taking and Storing Medications -- Adults, DI for Drug Overdose in Adults Discharge ED Provider: Corie Anderson General Adult HPI General Chief complaint: Headache Stated complaint: NAUSEA/[place]S/NECK,ARM,BACK PAIN Time Seen by Provider: 07/30/23 01:43 Mode of Arrival: EMS Source of Information: Patient and EMS Limitations: No Limitations Description of Symptoms (Recalled from ER Triage Doc. by RN): per EMS, daughter called EMS due to unable to wake mother, when ems arrive, pts O2 sat was in the 50's, here pt reports headache and normal bacj pain, reports taking a extra dose of her muscle relaxer before bed because of her bach and meck pain, pt reports she is suppose to also use cpap at night but is missing parts right now History of Present Illness HPI narrative: This patient is a 43-year-old female with a history of obesity, hypothyroidism, fibromyalgia, FORD with CPAP noncompliance, and chronic pain presenting via EMS for evaluation. According to EMS, daughter called because she was unable to wake her mother. When EMS got there, the patient was noted to be somnolent with an O2 saturation in the 50s. They woke the patient up, and she denies any concerns or complaints. She states that she has chronic neck and back pain for which she took an extra muscle relaxer prior to bed. She also is supposed to be using a CPAP at night, but she has missing parts that she is waiting on. She feels sleepy as a result of the extra muscle relaxer. She denies any intent to harm herself and denies any other concerns or complaints at this time. Related Data Home Medications Medication Instructions Recorded Confirmed methocarbamol 750 mg tablet 750 mg PO QID Pain 12/31/18 06/24/23 gabapentin 800 mg tablet 800 mg PO TID Pain 01/01/19 06/24/23 amitriptyline 150 mg tablet 150 mg PO HS Mood 06/23/23 06/24/23 chlorthalidone 25 mg tablet 25 mg PO DAILY Fluid 06/23/23 06/24/23 hydroxyzine pamoate 25 mg capsule 25 mg PO TID Anxiety 06/23/23 06/24/23 levothyroxine 100 mcg tablet 100 mcg PO DAILY Thyroid 06/23/23 06/24/23 ondansetron 4 mg disintegrating 4 mg PO Q8HP PRN nausea and 06/23/23 06/24/23 tablet vomiting buprenorphine 8 mg-naloxone 2 mg 2 tab sublingual DAILY Withdrawal 06/24/23 06/24/23 sublingual tablet cholecalciferol (vitamin D3) 125 125 mcg PO DAILY Supplement 06/24/23 06/24/23 mcg (5,000 unit) capsule doxycycline hyclate 100 mg tablet 100 mg PO BID Infection 06/24/23 06/24/23 folic acid 1 mg tablet 1 mg PO DAILY Supplement 06/24/23 06/24/23 potassium chloride 20 mEq 20 meq PO DAILY Supplement 06/24/23 06/24/23 tablet,extended release(part/cryst) (Klor-Con M) Allergies Allergy/AdvReac Type Severity Reaction Status Date / Time No Known Allergies Allergy Verified 06/09/22 13:42 [facility] Disclaimer: The information contained in this section may have been updated after the patient was seen, as this information can be updated by other users. Medical History Acquired hypothyroidism Anxiety with depression Cervical neuropathy Fibromyalgia Gastroesophageal reflux disease History of IBS Insomnia FORD on CPAP Prolonged Q-T interval on ECG Vitamin D deficiency Surgical History History of bladder suspension procedure (~2012) History of vaginal hysterectomy (~2012) History of wisdom tooth extraction (~2009) Tubal ligation status Social History Smoking Status: Never smoker alcohol intake: never substance use type: opiates current occupational status: unemployed Travel in the last 8 weeks: None household members: spouse and children housing: house caffeine: Yes ROS Obtained: Yes All systems reviewed & no additional complaints except as documented Physical Exam General General appearance: alert Comment: Falls asleep easily, but arouses easily with verbal stimulation. Head Head exam: atraumatic and normocephalic Eye Eye exam: Present normal appearance, PERRL and EOMI ENT ENT exam: Present normal exam, normal oropharynx, mucous membranes moist and normal external ear exam Neck Neck exam: Present normal inspection, full ROM and trachea midline; Absent tenderness Chest Chest inspection: Present normal inspection and symmetric chest wall rise; Absent tenderness Respiratory Respiratory exam: Present normal lung sounds bilaterally; Absent respiratory distress, wheezes, stridor or accessory muscle use Cardiovascular Cardiovascular exam: Present regular rate and normal rhythm Abdominal Exam Abdominal exam: Present soft; Absent distention, tenderness or guarding Extremities Exam Extremities exam: Present normal inspection, full ROM and normal capillary refill; Absent tenderness or edema Back Exam Back exam: Present normal inspection and full ROM; Absent tenderness Neurological Exam Neurological exam: Present alert, oriented X3, CN II-XII intact and normal gait; Absent motor sensory deficit Psychiatric Psychiatric exam: Present normal affect and normal mood Skin Skin exam: Present warm and dry Medical Decision Making Medical Records Medical records reviewed: Yes I reviewed the patient's medical records. Harry Inquiry Pt receiving controlled substance: No Vital Signs: 07/30/23 01:42 Temperature 97.9 F Temperature Source Oral Pulse Rate [Right] 83 Respiratory Rate 18 Blood Pressure [Right Arm] 130/97 H Blood Pressure Mean [Right Arm] 108 Blood Pressure Source [Right Arm] Automatic Cuff Blood Pressure Position [Right Arm] Sitting 02 Sat by Pulse Oximetry 96 Oxygen Delivery Method Room Air Lab Data Lab results reviewed: Yes I reviewed the patient's lab results. Lab Results 07/30/23 01:44: VBG pH 7.31, VBG pCO2 58.7 H, VBG pO2 44.5 H, VBG HCO3 29.0, VBG Total CO2 30.8 H, VBG O2 Saturation 76.2 H, VBG Base Excess 2.8 H 07/30/23 01:50: WBC 15.2 H, RBC 4.76, Hgb 10.3 L, Hct 32.9 L, MCV 69.1 L, MCH 21.7 L, MCHC 31.4 L, RDW 18.2 H, Plt Count 279, MPV 7.9, Neut % (Auto) 84.7 H, Lymph % (Auto) 12.2, [place] % (Auto) 2.4, Eos % (Auto) 0.3, Baso % (Auto) 0.4, Neut # (Auto) 12.9 H, Lymph # (Auto) 1.9, [place] # (Auto) 0.4, Eos # (Auto) 0.1, Baso # (Auto) 0.1, Total Counted 100, Neutrophils % (Manual) 84 H, Lymphocytes % (Manual) 14, Monocytes % (Manual) 2, Platelet Estimate Normal, Anisocytosis 1+, Microcytosis 1+, Ovalocytes 1+, Stomatocytes 1+, Sodium 136, Potassium 4.2, Chloride 92 L, Carbon Dioxide 34 H, Anion Gap 14.2, BUN 16, Creatinine 0.80, Estimated Creat Clear 81, Estimated GFR 78, Est GFR ( Amer) 94, Glucose 157 H, Calcium 8.7, Total Bilirubin 0.5, AST 33, ALT 32, Alkaline Phosphatase 133 H, Total Protein 8.8 H, Albumin 4.6, Globulin 4.2 H, Albumin/Globulin Ratio 1.1, Salicylates < 1.0 L, Acetaminophen < 10 L 07/30/23 02:55: Urine Color Yellow, Urine Appearance Clear, Urine pH 6.0, Ur Specific [place] 1.025, Urine Protein Negative, Urine Glucose (UA) Negative, Urine Ketones Negative, Urine Blood Negative, Urine Nitrate Positive, Urine Bilirubin Negative, Urine Urobilinogen 0.2, Ur Leukocyte Esterase Negative, Urine RBC None, Urine WBC 5-10, Ur Squamous Epith Cells Occasional, Urine Bacteria 3+, Urine Opiates Screen Negative, Urine Methadone Screen Negative, Ur Barbituates Screen Negative, Ur Phencyclidine Scrn Negative, Ur Amphetamines Screen Negative, U Benzodiazepines Scrn Negative, Urine Cocaine Screen Negative, U Marijuana (THC) Screen Negative 07/30/23 01:50 07/30/23 01:50 Orders (Tests/Meds): ED MEDICATIONS Discontinued Medications Generic Name Dose Route Start Last Admin Trade Name Freq PRN Reason Stop Dose Admin Acetaminophen 1,000 mg 07/30/23 04:29 07/30/23 05:01 Acetaminophen 500mg Tab PO 07/30/23 04:30 1,000 mg ONCE ONE Administration Acetaminophen 650 mg 07/30/23 05:19 Acetaminophen 325mg Tab PO 08/29/23 05:18 Q4HP PRN Fever or Mild Pain (1-3) Enoxaparin Sodium 40 mg 07/30/23 09:00 Enoxaparin 40mg/0.4ml Syringe SQ 08/29/23 08:59 DAILY ADAN Sodium Chloride 1,000 mls @ 50 mls/hr 07/30/23 05:30 Sod Chlor 0.9% 1000ml Bag IV 08/29/23 05:29 .Q20H ADAN Pantoprazole Sodium 40 mg 07/30/23 09:00 Pantoprazole 40mg Tablet PO 08/29/23 08:59 DAILY ADAN ORDERS Category Date Time Status CT head/brain wo con Stat Cat Scan 07/30/23 04:29 Completed XR chest portable Stat Exams 07/30/23 02:11 Completed Acetaminophen Stat Lab 07/30/23 01:50 Completed Complete Blood Count Auto Diff Stat Lab 07/30/23 01:50 Completed Comprehensive Metabolic Panel Stat Lab 07/30/23 01:50 Completed Drug Screen,Urine Stat Lab 07/30/23 02:55 Completed Salicylate Stat Lab 07/30/23 01:50 Completed Urinalysis and Microscopic Stat Lab 07/30/23 02:55 Completed Urine Culture Stat Micro 07/30/23 02:55 Received Venous Blood Gas Stat RT 07/30/23 01:44 Completed ECG initial Besson Routine Y 07/30/23 01:59 Completed ECG Data Tracing #1: I reviewed this ECG and interpreted as documented below: Sinus rhythm with a ventricular rate of [address] changes concerning for ischemia. Normal axis and intervals. ECG initial impression date: 07/30/23 ECG initial impression time: 02:01 Medical Decision Narrative: In summary, this patient is a 43-year-old female presenting to the Emergency Department for evaluation of somnolence after taking an extra muscle relaxer before bed and not wearing her CPAP. Differential diagnoses considered include but are not limited to accidental overdose, intentional overdose, FORD, respiratory failure. Ruling out the most morbid conditions drove assessment. I reviewed patient's past medical records and noted previous evaluation here just over a month ago for similar concern. On exam, the patient is tired and falls asleep easily, but she is easily arousable with no concerns or complaints and no focal deficits on exam. She does have hypoxia, especially when she falls asleep. She is supposed to wear CPAP but is noncompliant. I feel this is as result of her FORD as well as her taking extra muscle relaxers. Workup included CBC, CMP, VBG, chest x-ray, and EKG as well as serum acetaminophen, serum salicylate, urinalysis, urine drug screen. Patient remains on cardiac monitoring at this time.. I independently interpreted x-ray prior to the radiologist read and noted no obvious acute findings. Please see their read for final interpretation. Labs were obtained that demonstrated no acutely concerning abnormalities. On reassessment, patient continues to desaturate when sleeping to the 70s. She improved with supplemental oxygenation. She also improved with stimulation. We were unable to definitively wean her from oxygen given multiple recurrent desaturations, as she still remains somnolent. She does complain of headache at this time. She was given oral Tylenol for this, and CT scan of the head without contrast was obtained. And apparently interpreted CT scan prior to radiology read and noted no acute findings. Please see radiology read for final interpretation. At this time given patient's continued somnolence in the setting of unintentional medication overdose, I feel she would benefit from admission for continued monitoring. I had an interactive discussion with Dr. Betancourt who graciously excepted the patient for admission. She was admitted in stable condition. Critical Care Critical Care Time Critical Care Time: No
--- NOTE | 2023-07-30 02:12 | PC.NURSE ---
Pulse oximeter reading 60% with poor pleth, attempted to readjust pulse oximeter. Placed pulse oximeter on ear. Oxygen saturation reading 70% with good pleth waveform. Notified provider and placed on nasal cannula. Titrated to 3LNC with spo2 reading of 94%
[2023-07-30 02:13] LABS: MANUAL DIFFERENTIAL MANUAL DIFFERENTIAL (MANUAL DIFF)
[2023-07-30 02:13] LABS: VBG PCO2 58.7 mmol/L (35-51)
[2023-07-30 02:14] LABS: Chloride 92 mmol/L (98-107); Potassium 4.2 mmoL/L (3.5-5.1); Sodium 136 mmol/L (136-145)
[2023-07-30 02:16] LABS: Blood Urea Nitrogen 16 mg/dl (7-17); Creatinine Clearance Estimated 81 mL/min (50-200); Estimated Glomerular Filt Rate 78 ml/min (>60); GFR (African American) 94 ML/MIN (>60)
[2023-07-30 02:17] LABS: Alanine Aminotransferase 32 U/L (12-78); Albumin Level 4.6 g/dl (3.5-5.0); Albumin/Globulin Ratio 1.1 (1.1-1.8); Alkaline Phosphatase 133 U/L (38-126); Anion Gap 14.2 mEq/L (5-15); Aspartate Amino Transferase 33 U/L (14-36); Bilirubin,Total 0.5 mg/dl (0.2-1.3); Calcium 8.7 mg/dl (8.4-10.2); Carbon Dioxide 34 mmol/L (22.0-30.0); Globulin 4.2 g/dL (1.3-3.2); Glucose 157 mg/dl (74-100); Total Protein,Serum 8.8 g/dl (6.3-8.2)
[2023-07-30 02:27] LABS: Acetaminophen < 10 ug/ml (10-30); Salicylate < 1.0 mg/dL (2.0-20.0)
[2023-07-30 02:37] LABS: Anisocytosis 1+; Lymphocytes % 14 % (10-50); Microcytosis 1+; Monocytes % 2 % (2-9); Neutrophils % 84 % (42-76); Platelet Estimate Normal; Total Cells Counted 100
[2023-07-30 02:38] LABS: Ovalocytes 1+; Stomatocytes 1+
[2023-07-30 03:03] LABS: Microscopic, Urine URINE MICROSCOPIC (MICROSCOPIC)
[2023-07-30 03:04] LABS: Appearance,Urine CLEAR (Clear); Bilirubin,Urine Negative (Negative); Blood, Urine Negative (Negative); Color,Urine YELLOW (Yellow); Glucose,Urine (UA) Negative (Negative); Ketones,Urine Negative (Negative); Leukocyte Esterase,Urine Negative (Negative); Nitrate,Urine POSITIVE (Negative); Protein,Urine Negative (Negative); Specific Gravity, Urine 1.025 (1.005-1.030); Urobilinogen,Urine 0.2 EU/dl (0.2)
[2023-07-30 03:14] LABS: Amphetamine/Metha Screen,Urine Negative ng/ml (<1000)
[2023-07-30 03:15] LABS: Barbiturates Screen,Urine Negative ng/ml (<200)
[2023-07-30 03:16] LABS: Bacteria,Urine 3+ /lpf; Benzodiazepines Screen,Urine Negative ng/ml (<200); Cannabinoid Screen,Urine Negative ng/ml (<50); Squamous Epithelial Cell,Urine Occasional #/hpf (0-5)
[2023-07-30 03:17] LABS: Cocaine Screen,Urine Negative ng/ml (<300)
[2023-07-30 03:18] LABS: Methadone Screen,Urine Negative ng/ml (<300)
[2023-07-30 03:22] LABS: Phencyclidine Screen,Urine Negative ng/ml (<25)
--- NOTE | 2023-07-30 03:23 | PC.NURSE ---
Titrated o2 to 1LNC at this time. Currently oxygen saturation 97% on 2LNC
[2023-07-30 03:26] LABS: Opiate Screen,Urine Negative ng/ml (<300)
--- NOTE | 2023-07-30 04:23 | PC.NURSE ---
Patient now on room air.
--- NOTE | 2023-07-30 04:29 | CT_ITS ---
PROCEDURE INFORMATION: Exam: CT Head Without Contrast Exam date and time: 07/30/2023 4:42 AM Age: 43 years old Clinical indication: Pain; Headache TECHNIQUE: Imaging protocol: Computed tomography of the head without contrast. Radiation optimization: All CT scans at this facility use at least one of these dose optimization techniques: automated exposure control; mA and/or kV adjustment per patient size (includes targeted exams where dose is matched to clinical indication); or iterative reconstruction. COMPARISON: CT HEAD/BRAIN WO CON 06/27/2020 12:06 PM FINDINGS: Brain: No intracranial hemorrhage. No mass. No definite edema. Cerebral ventricles: No hydrocephalus. Paranasal sinuses: Scattered minimal to mild mucosal thickening. Mastoid air cells: No significant effusion. Orbital cavities: Unremarkable as visualized. Bones/joints: No acute fracture. Soft tissues: Unremarkable. IMPRESSION: No definite acute intracranial abnormality. If symptoms persist, consider MRI.
--- NOTE | 2023-07-30 04:31 | PC.NURSE ---
Patient oxygen saturation trended back into the 70s, patient sleeping. Provider notified, provider to bedside. Placed patient back on 2LNC at this time per provider.
[2023-07-30] MEDS: ACETAMINOPHEN 500MG TAB 1000 MG PO ×3 (05:01→16:05)
--- NOTE | 2023-07-30 06:11 | PC.NURSE ---
PT ARRIVED TO FLOOR AT THIS TIME
[2023-07-30] MEDS: ONDANSETRON 4MG/2ML VIAL 4 MG IV (09:44)
--- NOTE | 2023-07-30 12:23 | P.HPDS_ITS ---
General Admission date:: 07/30/23 Discharge date: 07/30/23 *Admission Date: 07/30/23 *Chief complaint: Somnolence *History of present illness: Patient is a 43 year old female patient of [facility] who see Dr. Mai for her primary care. She was found to be minimally responsive by a family member at home last night. When EMS arrived her oxygen saturation was low and she was very somnolent. Patient was brought to the ER for further evaluation. Upon further questioning of family member and patient, the patient apparently took extra doses of Suboxone, Gabapentin and a muscle relaxer yesterday evening because she thought she missed some doses through out the day.. She also has sleep apnea and has not been using CPAP. [facility] Disclaimer: The information contained in this section may have been updated after the patient was seen, as this information can be updated by other users. Medical History (Updated 07/30/23 @ 12:37 by Galen Betancourt MD) Acquired hypothyroidism Anxiety with depression Cervical neuropathy Fibromyalgia Gastroesophageal reflux disease History of IBS Insomnia Morbid obesity with body mass index (BMI) of 40.0 to 49.9 Narcotic addiction Non compliance w medication regimen FORD on CPAP Prolonged Q-T interval on ECG Vitamin D deficiency Surgical History History of bladder suspension procedure (~2012) History of vaginal hysterectomy (~2012) History of wisdom tooth extraction (~2009) Tubal ligation status Social History Smoking Status: Never smoker alcohol intake: never substance use type: opiates current occupational status: unemployed Travel in the last 8 weeks: None household members: spouse and children housing: house caffeine: Yes Review of Systems Constitutional Constitutional: Denies chills, Denies fever(s) and Reports headache(s) Eyes Eyes: Denies blurry vision ENT Ears, Nose, Mouth, and Throat: Denies epistaxis and Reports headache(s) *Cardiovascular Cardiovascular: Denies chest pain and Denies dyspnea *Respiratory Respiratory: Denies dyspnea *Gastrointestinal Gastrointestinal: Denies abdominal pain *Genitourinary Genitourinary: Denies difficulty voiding *Musculoskeletal Musculoskeletal: Reports back pain Integumentary/Breasts Skin/Breast: Denies rash *Neurologic Neurologic: Reports headache(s) Exam Data for Last 24 hours Vital signs and Labs for Last 24 Hours: Temp Pulse Resp BP Pulse Ox O2 Del Method O2 Flow Rate 98.4 F 76 18 134/74 100 Nasal Cannula 2 07/30/23 08:00 07/30/23 08:00 07/30/23 08:00 07/30/23 08:00 07/30/23 08:00 07/30/23 10:31 07/30/23 10:31 Laboratory Results - last 24 hr 07/30/23 01:44: VBG pH 7.31, VBG pCO2 58.7 H, VBG pO2 44.5 H, VBG HCO3 29.0, VBG Total CO2 30.8 H, VBG O2 Saturation 76.2 H, VBG Base Excess 2.8 H 07/30/23 01:50: WBC 15.2 H, RBC 4.76, Hgb 10.3 L, Hct 32.9 L, MCV 69.1 L, MCH 21.7 L, MCHC 31.4 L, RDW 18.2 H, Plt Count 279, MPV 7.9, Neut % (Auto) 84.7 H, Lymph % (Auto) 12.2, [place] % (Auto) 2.4, Eos % (Auto) 0.3, Baso % (Auto) 0.4, Neut # (Auto) 12.9 H, Lymph # (Auto) 1.9, [place] # (Auto) 0.4, Eos # (Auto) 0.1, Baso # (Auto) 0.1, Total Counted 100, Neutrophils % (Manual) 84 H, Lymphocytes % (Manual) 14, Monocytes % (Manual) 2, Platelet Estimate Normal, Anisocytosis 1+, Microcytosis 1+, Ovalocytes 1+, Stomatocytes 1+, Sodium 136, Potassium 4.2, Chloride 92 L, Carbon Dioxide 34 H, Anion Gap 14.2, BUN 16, Creatinine 0.80, Estimated Creat Clear 81, Estimated GFR 78, Est GFR ( Amer) 94, Glucose 157 H, Calcium 8.7, Total Bilirubin 0.5, AST 33, ALT 32, Alkaline Phosphatase 133 H, Total Protein 8.8 H, Albumin 4.6, Globulin 4.2 H, Albumin/Globulin Ratio 1.1, Salicylates < 1.0 L, Acetaminophen < 10 L 07/30/23 02:55: Urine Color Yellow, Urine Appearance Clear, Urine pH 6.0, Ur Specific [place] 1.025, Urine Protein Negative, Urine Glucose (UA) Negative, Urine Ketones Negative, Urine Blood Negative, Urine Nitrate Positive, Urine Bilirubin Negative, Urine Urobilinogen 0.2, Ur Leukocyte Esterase Negative, U rine RBC None, Urine WBC 5-10, Ur Squamous Epith Cells Occasional, Urine Bacteria 3+, Urine Opiates Screen Negative, Urine Methadone Screen Negative, Ur Barbituates Screen Negative, Ur Phencyclidine Scrn Negative, Ur Amphetamines Screen Negative, U Benzodiazepines Scrn Negative, Urine Cocaine Screen Negative, U Marijuana (THC) Screen Negative I & O for Last 24 hours: Intake & Output 07/27/23 07/28/23 07/29/23 07/30/23 23:59 23:59 23:59 23:59 Output Total 0 / 0 Balance 0 / 0 Weight 267 lb 1.6 oz Constitutional Constitutional: no acute distress *Routine HEENT Exam Head: Present normocephalic Eye: Present EOMI and PERRL ENT: Present mucous membranes moist *Routine Neck Exam Neck: Present supple; Absent lymphadenopathy *Routine Respiratory Exam Respiratory: Present CTA bilaterally *Routine Cardiovascular Exam Cardiovascular: Present RRR *Routine Abdominal Exam Abdominal: Present soft and normoactive bowel sounds; Absent tenderness *Routine Rectal Exam Rectal:: deferred *Routine Genitalia Exam Genitalia:: deferred *Routine Extremities Exam Extremities: Absent cyanosis, clubbing or edema *Routine Skin Exam Skin: Present warm; Absent rash *Routine Neurological Exam Neurological: Present alert and oriented X3 Meds Home Medications and Allergies Home Medications Medication Instructions Recorded Confirmed Type methocarbamol 750 mg tablet 750 mg PO QID Muscle spasms 12/31/18 07/30/23 History gabapentin 800 mg tablet 800 mg PO TID Pain 01/01/19 07/30/23 History amitriptyline 150 mg tablet 150 mg PO HS Mood 06/23/23 07/30/23 History chlorthalidone 25 mg tablet 25 mg PO DAILY Fluid 06/23/23 07/30/23 History hydroxyzine pamoate 25 mg capsule 25 - 50 mg PO TID Anxiety 06/23/23 07/30/23 History levothyroxine 100 mcg tablet 100 mcg PO DAILY Thyroid 06/23/23 07/30/23 History ondansetron 4 mg disintegrating 4 mg PO Q8HP PRN nausea and 06/23/23 07/30/23 History tablet vomiting buprenorphine 8 mg-naloxone 2 mg 2 tab sublingual DAILY Withdrawal 06/24/23 07/30/23 History sublingual tablet cholecalciferol (vitamin D3) 125 125 mcg PO DAILY Supplement 06/24/23 07/30/23 History mcg (5,000 unit) capsule folic acid 1 mg tablet 1 mg PO DAILY Supplement 06/24/23 07/30/23 History potassium chloride 20 mEq 20 meq PO DAILY Supplement 06/24/23 07/30/23 History tablet,extended release(part/cryst) (Klor-Con M) nitrofurantoin 100 mg PO Q12H 5 days #10 caps 07/30/23 Rx monohydrate/macrocrystals 100 mg capsule (Macrobid) quetiapine 50 mg tablet 50 mg PO BID Mood 07/30/23 07/30/23 History New Prescriptions to Start Prescriptions: nitrofurantoin monohyd/m-cryst [Macrobid] VolgaGalen thomas Allergies Allergy/AdvReac Type Severity Reaction Status Date / Time adhesive tape AdvReac Rash Verified 07/30/23 06:26 Hospital Course Hospital Course Hospital Course: Patient was admitted due to hypoxemia and somnolence in the ER. She is currently awake and alert and tolerating a clear liquid diet. She has been weaned off of supplemental oxygen. She is anxious to go home. Plan outpatient treatment of UTI. Stressed importance of compliance with treatment plan. Results Data Completed and Pending Labs on day of discharge: Labs from last 24 hours 07/30/23 07/30/23 07/30/23 02:55 01:50 01:44 WBC 15.2 H RBC 4.76 Hgb 10.3 L Hct 32.9 L MCV 69.1 L MCH 21.7 L MCHC 31.4 L RDW 18.2 H Plt Count 279 MPV 7.9 Neut % (Auto) 84.7 H Lymph % (Auto) 12.2 [place] % (Auto) 2.4 Eos % (Auto) 0.3 Baso % (Auto) 0.4 Neut # (Auto) 12.9 H Lymph # (Auto) 1.9 [place] # (Auto) 0.4 Eos # (Auto) 0.1 Baso # (Auto) 0.1 Total Counted 100 Neutrophils % (Manual) 84 H Lymphocytes % (Manual) 14 Monocytes % (Manual) 2 Platelet Estimate Normal Anisocytosis 1+ Microcytosis 1+ Ovalocytes 1+ Stomatocytes 1+ VBG pH 7.31 VBG pCO2 58.7 H VBG pO2 44.5 H VBG HCO3 29.0 VBG Total CO2 30.8 H VBG O2 Saturation 76.2 H VBG Base Excess 2.8 H Sodium 136 Potassium 4.2 Chloride 92 L Carbon Dioxide 34 H Anion Gap 14.2 BUN 16 Creatinine 0.80 Estimated Creat Clear 81 Estimated GFR 78 Est GFR ( Amer) 94 Glucose 157 H Calcium 8.7 Total Bilirubin 0.5 AST 33 ALT 32 Alkaline Phosphatase 133 H Total Protein 8.8 H Albumin 4.6 Globulin 4.2 H Albumin/Globulin Ratio 1.1 Urine Color Yellow Urine Appearance Clear Urine pH 6.0 Ur Specific [place] 1.025 Urine Protein Negative Urine Glucose (UA) Negative Urine Ketones Negative Urine Blood Negative Urine Nitrate Positive Urine Bilirubin Negative Urine Urobilinogen 0.2 Ur Leukocyte Esterase Negative Urine RBC None Urine WBC 5-10 Ur Squamous Epith Cells Occasional Urine Bacteria 3+ Salicylates < 1.0 L Urine Opiates Screen Negative Urine Methadone Screen Negative Acetaminophen < 10 L Ur Barbituates Screen Negative Ur Phencyclidine Scrn Negative Ur Amphetamines Screen Negative U Benzodiazepines Scrn Negative Urine Cocaine Screen Negative U Marijuana (THC) Screen Negative DS: Diagnosis Discharge Diagnosis (1) Accidental medication overdose: Status: Acute Code(s): T50.901A - Poisoning by unspecified drugs, medicaments and biological substances, accidental (unintentional), initial encounter (2) FORD (obstructive sleep apnea): Status: Acute Code(s): G47.33 - Obstructive sleep apnea (adult) (pediatric) (3) Somnolence: Status: Acute Code(s): R40.0 - Somnolence (4) Respiratory failure: Status: Acute Code(s): J96.90 - Respiratory failure, unspecified, unspecified whether with hypoxia or hypercapnia (5) Morbid obesity with body mass index (BMI) of 40.0 to 49.9: Status: Chronic Code(s): E66.01 - Morbid (severe) obesity due to excess calories (6) Non compliance w medication regimen: Status: Acute Code(s): Z91.148 - Patient's other noncompliance with medication regimen for other reason (7) Hypoxia: Status: Acute Code(s): R09.02 - Hypoxemia (8) UTI (urinary tract infection): Status: Resolved Code(s): N39.0 - Urinary tract infection, site not specified Qualifiers: Hematuria presence: without hematuria Urinary tract infection type: site unspecified Qualified Code(s): N39.0 - Urinary tract infection, site not specified Discharge Plan Disposition Patient Disposition: Home, Self-Care Condition: Fair Follow up Plan Follow up with: Alfonso Mai MD [Primary Care Provider] - 08/04/23 Prescriptions/Medication Reconciliation: New nitrofurantoin monohyd/m-cryst [Macrobid] 100 mg capsule 100 mg PO Q12H 5 Days Qty: 10 0RF Rx Instructions: must administer with a meal/food Continued quetiapine 50 mg tablet 50 mg PO BID Patient Comments: TAKE 1 TABLET BY MOUTH TWICE A DAY methocarbamol 750 MG tablet 750 mg PO QID gabapentin 800 MG tablet 800 mg PO TID Hold Instructions: Resume on 06/25/23. Patient Comments: TAKE 1 TABLET BY MOUTH THREE TIMES A DAY amitriptyline 150 mg tablet 150 mg PO HS Hold Instructions: Resume on 06/25/23. Patient Comments: TAKE 1 TABLET BY MOUTH EVERY DAY AT BEDTIME FOR 90 DAYS chlorthalidone 25 mg tablet 25 mg PO DAILY levothyroxine 100 mcg tablet 100 mcg PO DAILY ondansetron 4 mg tablet,disintegrating 4 mg PO Q8HP PRN (Reason: nausea and vomiting) hydroxyzine pamoate 25 mg capsule 25 - 50 mg PO TID Patient Comments: TAKE 1 TO 2 CAPS BY MOUTH 3 TIMES A DAY potassium chloride [Klor-Con M20] 20 mEq tablet,ER particles/crystals 20 meq PO DAILY Patient Comments: TAKE 1 TABLET BY MOUTH EVERY DAY FOR 30 DAYS folic acid 1 mg tablet 1 mg PO DAILY Patient Comments: TAKE 1 TABLET BY MOUTH EVERY DAY cholecalciferol (vitamin D3) 125 mcg (5,000 unit) capsule 125 mcg PO DAILY Patient Comments: TAKE 1 CAPSULE BY MOUTH EVERY DAY buprenorphine-naloxone 8-2 mg tablet, sublingual 2 tab sublingual DAILY Patient Comments: PLACE 2 TABLETS UNDER THE TONGUE DAILY Problem Reconciliation Problems Reviewed?: Yes Patient Discharge Instructions ACTIVITY: Continue current activity DIET: advance to your usual diet Patient Instructions: DI for Drug Overdose in Adults, Urinary Tract Infection Providers Primary Care Provider: Alfonso Mai Admit Provider: Galen Betancourt Attending Provider: Galen Betancourt
--- NOTE | 2023-07-30 13:00 | PC.NURSE ---
Pt was educated on medication administration and on other techniques for relieving pain such as: heating pads, warm baths & relaxation techniques. Pt verbalized understanding.
[2023-07-30] MEDS: NITROFURANTOIN 100MG CAPSULE 100 MG PO (15:55)
[2023-07-30] MEDS: PHENAZOPYRIDINE 200MG TABLET 200 MG PO (15:55)
--- NOTE | 2023-08-01 14:56 | CARE MANAGER ---
Contacted patient related to hospital discharge. She states that she picked up her antibiotic and has not called to make her follow up appointment, but will. Denies questions or concerns. NYASIA Soni
--- NOTE | 2023-08-04 08:22 | PC.NURSE ---
URINE CULTURE DISCUSSED WITH DR WELLINGTON, PT ADMITTED TO 2ND FLOOR AND TREATED WITH MACROBID, NO NEW ORDERS
== END 2023-07-30 17:41 | disposition home or self-care (01) ==
LOC: ER 03:03 → 2ND 05:36
PROVIDERS: Admitting Provider Family Medicine; Emergency Provider Emergency Medicine; PCP Family Medicine; Visit Provider Family Medicine
DX: T48.201A Poisoning by unspecified drugs acting on muscles, accidental (unintentional), initial encounter (principal); R40.0 Somnolence; G47.33 Obstructive sleep apnea (adult) (pediatric); J96.90 Respiratory failure, unspecified, unspecified whether with hypoxia or hypercapnia; E66.01 Morbid (severe) obesity due to excess calories; Z68.41 Body mass index [BMI] 40.0-44.9, adult; Z91.199 Patient's noncompliance with other medical treatment and regimen due to unspecified reason; F41.9 Anxiety disorder, unspecified; N39.0 Urinary tract infection, site not specified
CPT/HCPCS: 70450; 71045; 80053; 80307; 80329; 81001; 82803; 85007; 85025; 87086; 93005; G0378; J2405

== ENCOUNTER 2025-03-03 07:30 | Emergency (ER) | payer OTHER, SELFPAY ==
--- OUTSIDE RECORDS SUMMARY | 2025-02-12 15:38 | XMS_ITS | Encounter Summary ---
Author Organization [place] [address] Care Team Providers Care Validation Consultant Name Role Phone Mervin Toribio MD Primary Care Provider Reason for Visit * Reason Comments Edema bilateral leg edema, nausea weakness fever off and on 100.0 1300 IBU at that time I also just noticed I am developing a rash Encounter Details Date Type Department Care Team (Late st Contact Info) Description 02/12/2025 3:38 PM EDT - 02/12/2025 5:11 PM EDT [facility] [address] [place] [address] Harriet Quinn MD [address] [place] [id number] Rash (Primary Dx); Acute urinary tract infection; Hypokalemia Discharge Disposition: Home or Self Care Social History Tobacco Use Types Packs/Day Years Used Date Smoking Tobacco: Never Smokeless Tobacco: Never Alcohol Use Standard Drinks/Week Comments Yes 0 (1 standard drink = 0.6 oz pur e alcohol) occasionally C Utilities Answer Date Recorded In the past 12 months has [employer] electric, gas, oil, or water company threatened to shut off services in your home? Patient declined 12/08/2023 Social Connection and Isolation Panel [NHANES] A nswer Date Recorded Frequency of Communication with Friends and Fami ly Not on file 12/13/2023 Frequency of Social Gatherings with Friends and Family Not on file 12/13/2023 Attends [employer] Services Not on file 12/12 Active Member of Clubs or Organizations Not on f ile 12/13/2023 Attends Club or Organization Meetings Not on darien e 12/13/2023 Are you , , di vorced, , never , or living with a partner? 12/13/2023 AUDIT-C Answer Date Recorded Q1: How often do you have a drink containing alc ohol? Never 11/15/2020 Average Number of Drinks Not on file 021 Frequency of Binge Drinking Not on file 07/2020 Overall Financial Resource Strain (CARDIA) Answe r Date Recorded How hard is it for you to pa y for the very basics like food, housing, medical care, and heating? Not hard at all 12/13/2023 PHQ-2 Answer Date Recorded PHQ-2 Total Score 0 11/20/2024 [facility] - Occupational Stress Questionnaire Answer Date Recorded Do you feel stress - tense, restless, nervous, or anxious, or unable to sleep at night because your mind is troubled all the time - these days? Not at all 12/13/2023 Exercise Vital Sign Answer Date Recorde d On average, how many days pe r week do you engage in moderate to strenuous exercise (like a brisk walk)? 0 days 12/13/2023 On average, how many minutes do you engage in exercise at this level? 0 min 12/13/2023 Hunger Vital Sign Answer Date Recorded Within the past 12 months, y ou worried that your food would run out before you got the money to buy more. Never true 12/13/19 24 Within the past 12 months, t he food you bought just didn't last and you didn't have money to get more. Never true 12/13/2023 PRAPARE - Transportation Answer Date Re corded In the past 12 months, has l ack of transportation kept you from medical appointments or from getting medications? No 11/16 In the past 12 months, has l ack of transportation kept you from meetings, work, or from getting things needed for daily living? No 12/13/2023 [facility] IP Transportation Answer D ate Recorded In the past 12 months, has l ack of reliable transportation kept you from medical appointments, meetings, work or from getting things needed for daily living? Patient declined 12/08/2023 Comments No Sex and Gender Information Value Date Recorded Sex Assigned at Not on file Legal Sex Female 5:10 PM EDT Gender Identity Not on file Sexual Orientation Not on file documented as of this encounter Last Filed Vital Signs Vital Sign Reading Time Taken Comments Blood Pressure 127/52 02/12/2025 3:43 PM EDT Pulse 83 02/12/2025 3:22 PM EDT Temperature 36.5 C (97.7 F) 02/12/2025 3:43 PM EDT Respiratory Rate 16 02/12/2025 3:22 PM EDT Oxygen Saturation 95% 02/12/2025 3:22 PM EDT Inhaled Oxygen Concentration - - Weight - - Height - - Body Mass Index - - documented in this encounter Functional Status * Is the person deaf or does he/she have serious difficulty hearing? Answer Date of Assessment Author No 06/22/2023 11:12 AM Rohit Jeong RN * Is the person blind or does he/she have serious difficulty seeing even when wearing glasses? Answer Date of Assessment Author No 06/22/2023 11:12 AM Rohit Jeong RN * Does this person have serious difficulty walking or climbing stairs? Answer Date of Assessment Author No 06/22/2023 11:12 AM Rohit Jeong RN * Does this person have difficulty dressing or bathing? Answer Date of Assessment Author No 06/22/2023 11:12 AM Rohit Jeong RN * Because of a physical, mental or emotional condition, does this person have difficulty doing errands alone such as visiting a doctor's office or shopping? Answer Date of Assessment Author No 06/22/2023 11:12 AM Rohit Jeong RN documented as of this encounter Mental Status * Because of a physical, mental or emotional condition, does this person have serious difficulty concentrating, remembering or making decisions? Answer Entry Date Author No 06/22/2023 11:12 AM Rohit Jeong RN documented in this encounter Discharge Instructions * Discharge Instructions* Harriet Quinn MD - 02/12/2025 4:58 PM EDT Take all of your antibiotics even if you are feeling better Use lotion on your rash, you can also try some topical [id number] hydrocortisone cream Zofran is also called in for you as needed for nausea documented in this encounter Medications at Time of Discharge Cholecalciferol, Vitamin D3, 50 mcg (2,000 unit) Oral Capsule Take 5,000 Units by mouth daily. 1 capsule every day for 30 days folic acid (FOLVITE) 1 mg Oral Tablet Take 1 mg by mouth daily. gabapentin (NEURONTIN) 800 mg Oral TabletIndications:F ibromyalgia TAKE 1 TABLET BY MOUTH THREE TIMES A DAY 90 Tablet 1 12/20/2024 hydroCHLOROthiazide 50 mg Oral TabletIndications:L eg swelling Take 2 Tablets by mouth daily. 180 Tablet 2 09/05/2024 hydrOXYzine (ATARAX) 25 mg Oral TabletIndications:M ood disorder TAKE 1 TO 2 TABLETS EVERY 8 HOURS NEEDED FOR ANXIETY 180 Tablet 02/11/2025 LEVOthyroxine (SYNTHROID) 100 mcg Oral TabletIndications:A cquired hypothyroidism Take 1 Tablet by mouth daily. 30 Tablet 5 11/20/2024 linaCLOtide (LINZESS) 290 mcg Oral Capsule Take 1 Capsule by mouth daily. 60 Capsule 1 11/22/2024 methocarbamoL (ROBAXIN) 750 mg Oral TabletIndications:A rthritis Take 1 Tablet by mouth 3 times daily as needed. 90 Tablet 1 01/30/2025 naloxegoL (MOVANTIK) 25 mg Oral TabletIndications:T herapeutic opioid induced constipation Take 1 Tablet by mouth daily. 30 Tablet 2 09/06/2024 nalOXone (NARCAN) 4 mg/actuation Nasl [place], Non-AerosolIndicati ons:Opioid dependence, continuous (HCC),Opioid dependence on agonist therapy (HCC),At risk for substance overdose 0.1 mL by INTRANASAL route as needed. 1 Each 11/29/2023 ondansetron (ZOFRAN-ODT) 4 mg Oral Tablet, Rapid DissolveIndications :Nausea Take 1 Tablet by mouth every 8 hours as needed for Nausea. 15 Tablet 09/06/2024 [id number]-C (PLENVU) 140-9-5.2 gram Oral Powder in Packet, SequentialIndicatio ns:Iron deficiency anemia, unspecified iron deficiency anemia type,Chronic idiopathic constipation Take 1 'box' by mouth See Admin Instructions. 3 Packet 11/22/2024 propranoloL (INDERAL) 10 mg Oral Tablet Take 1 Tablet by mouth every 12 hours as needed for Other (anxiety). 14 Tablet 10/15/2024 triamcinolone (KENALOG) 0.1 % Top CreamIndications:Ir ritant dermatitis Apply topically 2 times daily. 80 g 2 11/20/2024 triamcinolone (KENALOG) 0.1 % Top CreamIndications:Pe rioral dermatitis Apply topically 2 times daily. 80 g 2 02/28/2024 cephALEXin (KEFLEX) 500 mg Oral Capsule Take 1 Capsule by mouth 2 times daily for 5 days. 10 Capsule 02/13/2025 5 fUROsemide (LASIX) 20 mg Oral TabletIndications:L eg swelling TAKE 1 TABLET BY MOUTH EVERY DAY NEEDED 90 Tablet 12/18/2024 5 potassium chloride (KLOR-CON M) 20 mEq Oral Tab Sust.Rel. Particle/Crystal Take 1 Tablet by mouth daily. 30 Tablet 2 09/12/2024 5 documented as of this encounter Ordered Prescriptions Prescription Sig Dispense Quantity Refills Last Filled Start Date End Date ondansetron (ZOFRAN-ODT) 4 mg Oral Tablet, Rapid Dissolve Dissolve 1 Tablet by mouth every 6 hours as needed for Nausea for up to 30 days. 12 Tablet 02/12/2025 5 cephALEXin (KEFLEX) 500 mg Oral Capsule Take 1 Capsule by mouth 2 times daily for 5 days. 10 Capsule 02/13/2025 5 documented in this encounter Discharge Disposition Disposition Code Departure Means Destination Comment s Home or Self Alf documented in this encounter ED Notes * Harriet Quinn MD - 02/12/2025 3:19 PM EDT Images from the original note were not included. CC: Chief Complaint Patient presents with Edema bilateral leg edema, nausea weakness fever off and on 100.0 1300 IBU at that time I also just noticed I am developing a rash HPI: Keisha Sutton is a 44 y.o. female with a past medical history significant for chronic leg edema who presents to the emergency department for leg edema, fever. Weakness for about 6-7 days Rash on abodmen, chest, arms for a week, itchy, denies new contact with anything Legs are more swollen than they usually are, denies chest pain or soa No abd pain, no vomiting or diarrhea Reports pain in the back of her legs if she sits on something hard Temp off and on this week, has had some nasal congestion but that is better Mild dysuria ROS: All Pertinent ROS Negative Unless otherwise stated within HPI. VITALS: Vitals: 02/12/25 1522 02/12/25 1543 BP: 127/52 Pulse: 83 Resp: 16 Temp: 97.7 ??F (36.5 ??C) SpO2: 95% PHYSICAL EXAM: General: Appears nontoxic HEENT: Atraumatic. EOMI. Neck: ROM normal, supple. Chest: Equal Chest Rise. Cardiovascular: Well-perfused. Lungs: Respiratory effort normal. Abdomen: Nondistended. /Anorectal: Deferred. Musculoskeletal: Moving all four extremities without deformity. Chronic leg edema, no cellulitis, no pitting edema Skin: Warm and dry. Contact dermatitis appearing rash on chest, wrist and hands, abdomen Psych: Appropriate. Neurologic: Awake & Alert, Nonfocal. LABS/IMAGING: Reviewed (See Orders) No orders to display Abnormal Labs Reviewed CBC WITH DIFF - Abnormal; Notable for the following components: Result Value WBC 3.0 (*) Hgb 10.5 (*) MCV 71.2 (*) MCH 20.5 (*) MCHC 28.8 (*) RDW 16.9 (*) Neut # 1.1 (*) All other components within normal limits COMPREHENSIVE METABOLIC PANEL - Abnormal; Notable for the following components: Potassium 3.1 (*) Alk Phos 129 (*) All other components within normal limits URINALYSIS REFLEX - Abnormal; Notable for the following components: UA Protein 30 (*) UA Nitrite Positive (*) UA Leuk Est Moderate (*) UA WBC >100 (*) UA Bacteria 4+ (*) All other components within normal limits MEDICATIONS ADMINISTERED: Medications ondansetron (ZOFRAN-ODT) disintegrating tablet 4 mg (4 mg Oral Given 02/12/25 1607) potassium chloride (KLOR-CON) tablet 40 mEq (40 mEq Oral Given 02/12/25 1639) cephALEXin (KEFLEX) capsule 500 mg (500 mg Oral Given 02/12/25 1711) MEDICAL DECISION MAKING: Keisha Sutton is a 44 y.o. female who presents with the above, Acute. Concerning for possible viral infection, UTI, electrolyte abnormality, dehydration Patient presents as above, I have seen her before, legs appear chronic in nature. They are nonpitting, she is not having chest pain or shortness of breath. Her rash to me looks like a contact dermatitis, she says it is itchy, denies any new contacts. I recommend using a Free and gentle detergent, mild soaps, try to use some lotion Patient's urine is consistent with a UTI, she has no fever now, her white count is actually a little bit suppressed, I think more from a viral infection as she has been having congestion Will start Keflex after review of her previous urine cultures. Her potassium was repleted as it wasmildly low overall however patient is well-appearing, able to tolerate oral medications. Will send her home with Sylvia as well and she can follow-up as an outpatient. Care of patient discussed with nursing team and nursing documentation reviewed. Prescriptions Written: ED Current Prescriptions Medication Dispense Auth. Provider cephALEXin (KEFLEX) 500 mg Oral Capsule 10 Capsule Harriet Quinn MD ondansetron (ZOFRAN-ODT) 4 mg Oral Tablet, Rapid Dissolve 12 Tablet Harriet Quinn MD IMPRESSION: 1. Rash 2. Acute urinary tract infection 3. Hypokalemia DISPOSITION: home Condition at Discharge/Transfer from Department: Stable 02/12/25 Harriet Quinn MD 02/12/25 0228 documented in this encounter Plan of Treatment Upcoming Encounters Date Type Department Care Team (Late st Contact Info) Description 03/11/2025 9:15 AM EDT Office Visit [facility] [place] [facility] [address] [place] [id number] Max Gifford, DPVannesa [address] [facility] [address] [place], [place] [id number] 05/02/2025 1:00 PM EDT Appointment [facility] [address] [place] [phone] Preet Palomares MD [address] [place] [address] documented as of this encounter Goals Goal Patient Goal Type Associated Problems Recent Progress Patient-Stated? Author Blood Pressure < 140/90 Blood Pressure 130/62(02/27 9:54 AM EDT) No Jenna Mckeon RMA Maintain a healthy diet, exercise regularly and maintain an ideal body weight General No Tien Tellez MA BMI (Calculated) < 30 General 45.9( 9:54 AM EDT) No Jenna Mckeon RMA HEMOGLOBIN A1C < 7.0 Result Component 6.1(11/21/19 2:49 PM EDT) No Jenna Mckeon RMA In patient's own words, Keisha states that her goal is: Not having problems with my addiction . Care Plan In patient's own words, Keisha states that her most pressing problem is that: It has ruined my life and I don't recognize who I am anymore . New goal( 9:21 AM EDT) No Magalys Arnold LCSW Note: Strengths: family support, patient Barriers: Transportation, consistency with medication In patient s own words, Keisha's goal for treatment is T o have better coping skills. Care Plan Moderate on C-SSRS assessment. New goal( 9:25 AM EDT) No Magalys Arnold LCSW Note: Current Barriers to Treatment: Transportation List Strengths/Abilities: Supportive Family/Friends, Insight into illness, Seeking Help, Communication Skills, and General fund of knowledge. TCM/ Referrals for additional services: Involved in Services. Medical Concerns: No immediate bio-medical services are needed at this time. Family Involvement: Family involvement was encouraged, and the patient was not interested in family therapeutic services at this time. Patient Preferences Identified: Current Supports: family Legal Requirements: None identified. documented as of this encounter Procedures Procedure Name Priority Date/Time Associated Diagnosis Comments URINALYSIS REFLEX STAT 02/12/2025 4:3 3 PM EDT UA W/REFLEX TO CULTURE STAT 4:33 PM EDT EXTRA HALL URINE CX STAT 02/12/2025 4 :33 PM EDT URINE CULTURE (NO STAIN) STAT 02/12/2025 4:33 PM EDT CBC WITH DIFF STAT 02/12/2025 4:05 PM EDT COMPREHENSIVE METABOLIC PANEL STAT 02/12/2025 4:05 PM EDT documented in this encounter Results * URINE CULTURE (NO STAIN) (02/12/2025 4:33 PM EDT) Culture Multiple bacterial species isolated from urine consistent with urogenital commensal organisms. 02/14/2025 2:05 AM EDT PREFERRED [employer] Urine STRUCTURE OF URINARY TRACT PROPER / Unknown 02/12/2025 4:33 PM EDT 02/12/2025 4:45 PM EDT Harriet Quinn MD MICROBIOLOGY - GENERAL LINDA HALLMAN Final Result Performing Organization Address City/[facility] Co de Phone Number [facility] [email or web address] [address] [place] [address] , [place] [address] * EXTRA HALL URINE CX (02/12/2025 4:33 PM EDT) Urine STRUCTURE OF URINARY TRACT PROPER / Unknown 02/12/2025 4:33 PM EDT 02/12/2025 4:39 PM EDT Harriet Quinn MD MICROBIOLOGY - GENERAL LINDA HALLMAN Final Result Performing Organization Address City/[facility]/ZIP Co de Phone Number [address] [address] * (ABNORMAL) URINALYSIS REFLEX (02/12/2025 4:33 PM EDT) UA Color Yellow 02/12/2025 4:45 PM EDT [facility] UA Appear Clear Clear 02/12/2025 4:45 PM EDT [facility] UA Glucose Negative Negative mg/dL 02/12/2025 4:45 PM EDT [facility] UA Ketones Negative Negative mg/dL 02/12/2025 4:45 PM EDT [facility] UA Blood Negative Negative 02/12/2025 4:45 PM EDT [facility] UA pH 6.5 5.0 - 8.0 pH 02/12/2025 4:45 PM EDT [facility] UA Protein 30(A) Negative mg/dL 02/12/2025 4:45 PM EDT [facility] UA Urobilinogen 0.2 <=1 mg/dL 4:45 PM EDT [facility] UA Bili Negative Negative 02/12/2025 4:45 PM EDT [facility] UA Nitrite Positive(A) Negative 02/12/2025 4:45 PM EDT [facility] UA Leuk Est Moderate(A) Negative 02/12/2025 4:45 PM EDT [facility] UA Spec Grav 1.025 1.001 - 1.035 no units 02/12/2025 4:45 PM T [facility] Comment:Reference range tigre d for random specimens only. UA WBC >100(H) 0 - 4 /HPF 02/12/2025 4:45 PM EDT [facility] UA RBC 2 0 - 3 /HPF 02/12/2025 4:45 PM EDT [facility] UA Squam Epi Rare /LPF 02/12/2025 4:45 PM EDT [facility] UA Mucus 1+ /LPF 02/12/2025 4:45 PM EDT [facility] UA Amorph 2+ /HPF 02/12/2025 4:45 PM EDT [facility] UA Bacteria 4+(A) Negative /HPF 02/12[facility]2025 [facility] Urine STRUCTURE OF URINARY TRACT PROPER / Unknown 02/12/2025 4:33 PM EDT 02/12/2025 4:39 PM EDT us Harriet Quinn MD URINE ORDERABLES Final Resu lt [facility] [address] [place] [address] * (ABNORMAL) COMPREHENSIVE METABOLIC PANEL (02/12/2025 4:05 PM EDT) Sodium 139 136 - 145 mmol/L 02/12/2025 4:22 PM EDT [facility] Potassium 3.1(L) 3.5 - 5.0 mmol/L 02/12/2025 4:22 PM EDT [facility] Chloride 101 98 - 107 mmol/L 02/12/2025 4:22 PM EDT [facility] Total CO2 27 22 - 29 mmol/L 02/12/2025 4:22 PM EDT [facility] Anion Gap 11 7 - 16 mmol/L 02/12/2025 4:22 PM EDT [facility] Calcium 8.6 8.6 - 10.4 mg/dL 02/12/2025 4:22 PM EDT [facility] Glucose Lvl 98 70 - 99 mg/dL 02/12/2025 4:22 PM EDT [facility] BUN 13 6 - 20 mg/dL 02/12/2025 4:22 PM EDT [facility] Creatinine 0.60 0.51 - 1.30 mg/dL 02/12/2025 4:22 PM EDT [facility] Albumin 4.0 3.5 - 5.2 gm/dL 02/12/2025 4:22 PM EDT [facility] Total Protein 7.7 6.4 - 8.3 gm/dL 02/12/2025 4:22 PM EDT [facility] Bili Total 0.2 0.2 - 1.3 mg/dL 02/12/2025 4:22 PM EDT [facility] ALT 22 <=41 U/L 02/12/2025 4:22 PM EDT [facility] AST 25 <=40 U/L 02/12/2025 4:22 PM EDT [facility] Alk Phos 129(H) 36 - 123 U/L 02/12/2025 4:22 PM EDT [facility] eGFR (CKD-EPIcr 2020) 112 >=60 mL/min/1.7 3 m2 02/12/2025 4:22 PM EDT [facility] Comment:Estimated GFR was ca lculated using the CKD-EPIcr (2020) equation refit without race. The equation is recommended by the National Kid[employer] - [place] [employer] Neph[employer] Task Force. Blood VENOUS BLOOD / Unknown Venipuncture / Unknown 02/12/2025 4:05 PM EDT 02/12/2025 4:07 PM EDT us Harriet Quinn MD CHEMISTRY ORDERABLES Final Result [facility] [address] [place] [address] * (ABNORMAL) CBC WITH DIFF (02/12/2025 4:05 PM EDT) WBC 3.0(L) 3.7 - 10.3 x10(3)/mcL 02/12/2025 4:17 PM EDT [facility] RBC 5.13 3.90 - 5.20 x10(6)/mcL 02/12/2025 4:17 PM EDT [facility] Hgb 10.5(L) 11.2 - 15.7 g/dL 02/12/2025 4:17 PM EDT [facility] Hct 36.5 34.0 - 45.0 % 02/12/2025 4:17 PM EDT [facility] MCV 71.2(L) 80.0 - 100.0 fL 02/12/2025 4:17 PM EDT [facility] MCH 20.5(L) 26.0 - 34.0 pg 02/12/2025 4:17 PM EDT [facility] MCHC 28.8(L) 30.7 - 35.5 g/dL 02/12/2025 4:17 PM EDT [facility] RDW 16.9(H) <=14.9 % 02/12/2025 4:17 PM [facility] Platelet 210 155 - 369 x10(3)/Health system 02/12/2025 4:17 PM [facility] MPV 9.9 8.8 - 12.5 fL 02/12/2025 4:17 PM [facility] Neut Percent 35.0 % 02/12/2025 4:17 PM [facility] Comment:Neutrophils equals s egs plus bands Imm Gran% 0.0 % 02/12/2025 4:17 PM [facility] Comment:Automated count of m etamyelocytes, myelocytes and promyelocytes. Lymph Percent 52.3 % 02/12/2025 4:17 PM [facility] [place] Percent 9.7 % 02/12/2025 4:17 PM [facility] Eos Percent 2.7 % 02/12/2025 4:17 PM [facility] Baso Percent 0.3 % 02/12/2025 4:17 PM [facility] Neut # 1.1(L) 1.6 - 6.1 x10(3)/Health system 02/12/2025 4:17 PM [facility] Comment:Neutrophils equals s egs plus bands IMMGRAN# 0.0 0.0 - 0.1 x10(3)/Health system 02/12/2025 4:17 PM [facility] Comment:Automated count of m etamyelocytes, myelocytes and promyelocytes. An absolute IG <0.1 is reported as 0.0. Lymph # 1.6 1.2 - 3.9 x10(3)/Health system 02/12/2025 4:17 PM [facility] [place] # 0.3 0.3 - 0.9 x10(3)/Health system 02/12/2025 4:17 PM [facility] Eos# 0.1 0.0 - 0.5 x10(3)/Health system 02/12/2025 4:17 PM [facility] Baso # 0.0 0.0 - 0.1 x10(3)/Health system 02/12/2025 4:17 PM [facility] Blood VENOUS BLOOD / Unknown Venipuncture / Unknown 02/12/2025 4:05 PM EDT 02/12/2025 4:07 PM EDT us Harriet Quinn MD HEMATOLOGY ORDERABLES Final Result [facility] [address] [id number] documented in this encounter Visit Diagnoses Diagnosis Rash- Primary Rash and other nonspecific skin eruption Acute urinary tract infection Urinary tract infection, site not specified Hypokalemia Hypopotassemia documented in this encounter Administered Medications Inactive Administered Medications - up to 1 most recent administrations Medication Order MAR Action Action Date Dose Rate Site cephALEXin (KEFLEX) capsule 500 mg 500 mg, Oral, ONCE, 1 dose, On Tue02/12/25 at 1700, Reason for Therapy: Infection Documented, Indication: Urinary Tract Infection Given 02/12/2025 5:11 PM EDT 500 mg ondansetron (ZOFRAN-ODT) disintegrating tablet 4 mg 4 mg, Oral, ONCE, 1 dose, On Tue02/12/25 at 1600, Dissolve in mouth Given 02/12/2025 4:07 PM EDT 4 mg potassium chloride (KLOR-CON) tablet 40 mEq 40 mEq, Oral, ONCE, 1 dose, On Tue02/12/25 at 1630 Given 02/12/2025 4:39 PM EDT 40 mEq documented in this encounter Active and Recently Administered Medications Times are shown in EDT. Scheduled Medication Order 02/10/2025 02/11/2025 02/12/2025 cephALEXin (KEFLEX) capsule 500 mg (COMPLETED) 500 mg, Oral, ONCE, 1 dose, On Tue02/12/25 at 1700, Reason for Therapy: Infection Documented, Indication: Urinary Tract Infection 1711 (Given - Provid er: Sydnie Chaudhry RN) ondansetron (ZOFRAN-ODT) disintegrating tablet 4 mg (COMPLETED) 4 mg, Oral, ONCE, 1 dose, On Tue02/12/25 at 1600, Dissolve in mouth 1607 (Given - Provid er: Sydnie Chaudhry RN) potassium chloride (KLOR-CON) tablet 40 mEq (COMPLETED) 40 mEq, Oral, ONCE, 1 dose, On Tue02/12/25 at 1630 1639 (Given - Provid er: Sydnie Chaduhry RN) documented in this encounter Additional Health Concerns Active Problems Noted Date Diagnosed Date In patient's own words, Yeyo feliciano states that her most pressing problem is that: It has ruined my life and I don't recognize who I am anymore . 09/11/2024 Note: Opioid Use Disorder, severe as evidenced by DSM V criteria. *See initial assessment for full criteria. It is medically necessary to begin treatment as Client requires treatment intervention to begin symptom relief and improve functioning. Moderate on C-SSRS assessment. 09/11/2024 Note: It is medically necessary for the patient to continue individual therapy to increase learning of illness, identify triggers, and learn new coping skills to improve the maintenance of optimal functioning. documented as of this encounter Care Teams Validation Consultant Relationship Specialty Start Date End Date Mervin Toribio MD [address] [place] [address] PCP - General Family Medicine 11/24/23 documented as of this encounter
[2025-03-03] VITALS (9 sets, daily range): BP systolic 90–114; BP diastolic 42–89; PULSE 65–78; RESP 16–18; TEMP 36.6; O2SAT 89–98; BMI 45.7
--- OUTSIDE RECORDS SUMMARY | 2025-03-03 07:34 | XMS_ITS | Encounter Summary ---
Author Organization [place] [address] Care Team Providers Care Edge Molder Name Role Phone Mervin Toribio MD Primary Care Provider Reason for Visit * Reason Comments Medication Refill Encounter Details Date Type Department Care Team (Late st Contact Info) Description 02/27/2025 Refill [facility] [address] [place] [address] Mervin Toribio MD [address] [place] [address] Medication Refill Social History Tobacco Use Types Packs/Day Years Used Date Smoking Tobacco: Never Smokeless Tobacco: Never Alcohol Use Standard Drinks/Week Comments Yes 0 (1 standard drink = 0.6 oz pur e alcohol) occasionally [facility] Utilities Answer Date Recorded In the past 12 months has [employer], gas, oil, or water [employer] threatened to shut off services in your home? Patient declined 12/08/2023 Social Connection and Isolation Panel [NHANES] A nswer Date Recorded Frequency of Communication with Friends and Fami ly Not on file 12/13/2023 Frequency of Social Gatherings with Friends and Family Not on file 12/13/2023 Attends Religion Services Not on file 12/12 Active Member [...] Date Recorded PHQ-2 Total Score 0 11/20/2024 [facility] Occup[facility] ional [facility] - Occupational Stress [...] things needed for daily living? No 12/13/2023 [facility] IP Transportation Answer D ate Recorded [...] on file documented as of this encounter Functional Status * Is the [...] Rohit Jeong RN documented in this encounter Ordered Prescriptions Prescription Sig Dispense Quantity Refills Last Filled Start Date End Date fUROsemide (LASIX) 20 mg Oral TabletIndications:L eg swelling TAKE 1 TABLET BY MOUTH EVERY DAY NEEDED 90 Tablet 02/28/2025 documented in this encounter Miscellaneous Notes * Telephone Encounter - Nuvia German CPhT - 02/28/2025 1:12 PM EDT fUROsemide (LASIX) 20 mg Oral Tablet Future Visit: none Last Assessed Visit: 11/20/24 Follow-Up: 11/20/25 This patient requires the following labs/vitals. Routing to the office. Abnormal serum potassium OR potassium not on file within 6 months documented in this encounter Plan of Treatment Upcoming Encounters Date Type Department Care Team (Late st Contact Info) Description 03/11/2025 9:15 AM EDT Office [facility] [address] [place] [address] Max Gifford, DPM [address] [place], [place] [phone] 05/02/2025 1:00 PM EDT Appointment [facility] [address] [place], [place] [phone] Preet Palomares MD [address] [place] [address] documented as of this encounter Goals [...] None identified. documented as of this encounter Visit Diagnoses Diagnosis Leg swelling Swelling of limb documented in this encounter Discontinued Medications Medication Sig Discontinue Reason Start Date End Da te fUROsemide (LASIX) 20 mg Oral TabletIndications:Leg swelling TAKE 1 TABLET BY MOUTH EVERY DAY NEEDED 12/18/2024 02/28/2025 documented as of this encounter Additional Health Concerns Active Problems [...] documented as of this encounter Care Teams Edge Molder Relationship Specialty Start Date End Date Mervin Toribio MD [address] [place] [address] PCP - General Family Medicine 11/24/23 documented as of this encounter
--- OUTSIDE RECORDS SUMMARY | 2025-03-03 07:34 | XMS_ITS | Encounter Summary ---
Author Organization [place] [address] Care Team Providers Care Deck Builder Name Role Phone Magno Zhang MD Primary Care Provider Reason for Visit * Reason Comments Medication Refill Encounter Details Date Type Department Care Team (Late st Contact Info) Description 01/30/2025 Telephone [facility] [address] [place] [address] Magno Zhang MD [address] [place] [address] Medication Refill Social History Tobacco Use Types Packs/Day Years Used Date Smoking Tobacco: Never Smokeless Tobacco: Never Alcohol Use Standard Drinks/Week Comments Yes 0 (1 standard drink = 0.6 oz pur e alcohol) occasionally C Utilities Answer Date Recorded In the past 12 months has [facility] [employer], gas, oil, or water [employer] threatened to shut off services in your home? Patient declined 12/08/2023 Social Connection and Isolation Panel [NHANES] A nswer Date Recorded Frequency of Communication with Friends and Fami ly Not on file 12/13/2023 Frequency of Social Gatherings with Friends and Family Not on file 12/13/2023 Attends Yazidi Services Not on file 12/12 Active Member [...] Date Recorded PHQ-2 Total Score 0 11/20/2024 [facility] Occupat ional Health - Occupational Stress [...] things needed for daily living? No 12/13/2023 [facility] IP Transportation Answer D ate Recorded [...] Refills Last Filled Start Date End Date methocarbamoL (ROBAXIN) 750 mg Oral TabletIndications:A rthritis Take 1 Tablet by mouth 3 times daily as needed. 90 Tablet 1 01/30/2025 documented in this encounter Miscellaneous Notes * Telephone Encounter - Magno Zhang MD - 01/30/2025 5:23 PM EDT Rx sent * Addendum Note - Magno Zhang MD - 01/30/2025 5:23 PM EDTAddended by: MAGNO ZHANG on: 01/30/2025 05:23 PM Modules accepted: Orders * Telephone Encounter - Beata German - 01/30/2025 4:50 PM EDT Select the most appropriate reason for this telephone message: Follow Up Follow Up Who is Calling:Patient What is the caller following up on (make sure to reference any prior documentation/encounter):f/u on refill, pt is out of meds Further follow-up needed?:Yes Return Method of Communication:Phone call Additional Information:N/A documented in this encounter Plan of Treatment Upcoming Encounters Date Type Department Care Team (Late st Contact Info) Description 03/11/2025 9:15 AM EDT Office Visit [facility] [place] [address] [place] [address] Max Gifford DPM [address] [place] [address] 05/02/2025 1:00 PM EDT Appointment [facility] [address] [place], [place] [phone] Preet Palomares MD [address] [place] [address] documented as of this encounter Goals Goal Patient Goal Type Associated Problems Recent Progress Patient-Stated? Author Blood Pressure < 140/90 Blood Pressure 130/62(02/27 9:54 AM EDT) No Jenna Mckeon RMA Maintain a healthy diet, exercise regularly and maintain an ideal body weight General No Tien Tellez MA BMI (Calculated) < 30 General 45.9( 025 9:54 AM EDT) No Jenna Mckeon RMA [...] as of this encounter Visit Diagnoses Diagnosis Arthritis- Primary Arthropathy, unspecified, site unspecified documented in this encounter Discontinued Medications Medication Sig Discontinue Reason Start Date End Da te methocarbamoL (ROBAXIN) 750 mg Oral Tablet TAKE 1 TABLET BY MOUTH 3 TIMES DAILY NEEDED FOR UP TO 30 DAYS. Reorder 11/05/2024 01/30/2025 documented as of this encounter Additional Health [...] documented as of this encounter Care Teams Deck Builder Relationship Specialty Start Date End Date Magno Zhang MD [address] [place] [address] PCP - General Family Medicine 11/24/23 documented as of this encounter
--- OUTSIDE RECORDS SUMMARY | 2025-03-03 07:34 | XMS_ITS | Encounter Summary ---
Author Organization [facility] [place] [address] Care Team Providers Care Machine Washer Name Role Phone Mervin Toribio MD Primary Care Provider Encounter Details Date Type Department Care Team (Latest Contact Info) Description 02/21/2025 Travel Social History Tobacco Use Types Packs/Day Years Used Date Smoking Tobacco: Never Smokeless Tobacco: Never Alcohol Use Standard Drinks/Week Comments Yes 0 (1 standard drink = 0.6 oz pur e alcohol) occasionally [employer] Utilities Answer Date Recorded In the past 12 months has [employer], gas, oil, or water company threatened to shut off services in your home? Patient declined 12/08/2023 Social Connection and Isolation Panel [NHANES] A nswer Date Recorded Frequency of Communication with Friends and Fami ly Not on file 12/13/2023 Frequency of Social Gatherings with Friends and Family Not on file 12/13/2023 Attends Mandaen Services Not on file 12/12 Active Member [...] things needed for daily living? No 12/13/2023 [facility] IP Transportation Answer D ate Recorded [...] Rohit Jeong RN documented in this encounter Plan of Treatment Upcoming Encounters Date Type Department Care Team (Late st Contact Info) Description 03/11/2025 9:15 AM EDT Office Visit [facility] [place] [address] [place] [phone] Max Gifford, DPM [address] [place] [address] 05/02/2025 1:00 PM EDT Appointment [facility] [address] [place], [place] [phone] Preet Palomares MD [address] [place] [address] documented as of this encounter [...] documented as of this encounter Visit Diagnoses Not on filedocumented in this encounter Additional Health Concerns Active [...] documented as of this encounter Care Teams Machine Washer Relationship Specialty Start Date End Date Mervin Toribio MD [address] [place] [address] PCP - General Family Medicine 11/24/23 documented as of this encounter
--- OUTSIDE RECORDS SUMMARY | 2025-03-03 07:34 | XMS_ITS | Clinical Summary ---
Author Organization [facility] Address [facility] [place] [address] Care Team Providers Care Visual Journalist Name Role Phone Unavailable Primary Care Provider Unavailabl e Source Comments This information has been disclosed to you from confidential records protectedfrom disclosure by state law. You shall make no further disclosure of thisinformation without the specific, written, and informed release of theindividual to whom it pertains, or as otherwise permitted by law. A generalauthorization for the release of medical or other information is not sufficientfor the purposes of therelease of HIV test results or diagnoses. [id number] Social History Tobacco Use Types Packs/Day Years Used Date Smoking Tobacco: Never Assessed Comments Unknown Sex and Gender Information Value Date Recorded Sex Assigned at Not on file Legal Sex Female 7:50 PM EST Gender Identity Not on file Sexual Orientation Not on file Plan of Treatment Not on file
--- OUTSIDE RECORDS SUMMARY | 2025-03-03 07:35 | XMS_ITS | Encounter Summary ---
Author Organization [place] [address] Care Team Providers Care Activated Sludge Operator Name Role Phone Mervin Toribio MD Primary Care Provider Encounter Details Date Type Department Care Team (Late st Contact Info) Description 02/13/2025 Results Follow-Up [facility] [address] [place] [address] Mervin Toribio MD [address] [place] [address] URINALYSIS REFLEX, EXTRA HALL URINE CX, URINE CULTURE (NO STAIN) Social History Tobacco Use Types Packs/Day Years Used Date Smoking Tobacco: Never Smokeless Tobacco: Never Alcohol Use Standard Drinks/Week Comments Yes 0 (1 standard drink = 0.6 oz pur e alcohol) occasionally C Utilities Answer Date Recorded In the past 12 months has [employer], gas, oil, or water [employer] threatened to shut off services in your home? Patient declined 12/08/2023 Social Connection and Isolation Panel [NHANES] A nswer Date Recorded Frequency of Communication with Friends and Fami ly Not on file 12/13/2023 Frequency of Social Gatherings with Friends and Family Not on file 12/13/2023 Attends Buddhism Services Not on file 12/12 Active Member [...] Date Recorded PHQ-2 Total Score 0 11/20/2024 [facility] of Occupat ional Health - Occupational [...] things needed for daily living? No 12/13/2023 [facility] IP Transportation Answer D ate Recorded In [...] 9:15 AM EDT Office Visit [facility] [place] 525 [facility] [address] [place] [phone] Max Gifford, DPM 525 [facility] [address] [place], [place] [phone] 05/02/2025 1:00 PM EDT Appointment [facility] [address] [place], [place] [phone] Preet Palomares MD [address] [place] [address] documented as of this encounter [...] documented as of this encounter Care Teams Activated Sludge Operator Relationship Specialty Start Date End Date Mervin Toribio MD [address] [place] [address] PCP - General Family Medicine 11/24/23 documented as of this encounter
--- OUTSIDE RECORDS SUMMARY | 2025-03-03 07:35 | XMS_ITS | Encounter Summary ---
Author Organization [place] [address] Care Team Providers Care Cold Water Machine Operator Name Role Phone Mervin Toribio MD Primary Care Provider Reason for Visit * Reason Comments Medication Refill Encounter Details Date Type Department Care Team (Late st Contact Info) Description 02/28/2025 Refill [facility] 100 [place] [address] Mervin Toribio MD [address] [place] [address] Medication Refill Social History Tobacco Use Types Packs/Day Years Used Date Smoking Tobacco: Never Smokeless Tobacco: Never Alcohol Use Standard Drinks/Week Comments Yes 0 (1 standard drink = 0.6 oz pur e alcohol) occasionally [facility] Utilities Answer Date Recorded In the past 12 months has [employer], gas, oil, or water [employer] threatened to shut off services in your home? Patient declined 12/08/2023 Social Connection and Isolation Panel [NHANES] A nswer Date Recorded Frequency of Communication with Friends and Fami ly Not on file 12/13/2023 Frequency of Social Gatherings with Friends and Family Not on file 12/13/2023 Attends Mandaeism Services Not on file 12/12 Active Member [...] Date Recorded PHQ-2 Total Score 0 11/20/2024 [facility] of Occupat ional Health - Occupational [...] things needed for daily living? No 12/13/2023 [facility] IP Transportation Answer D ate Recorded In [...] Refills Last Filled Start Date End Date potassium chloride (KLOR-CON M) 20 mEq Oral Tab Sust.Rel. Particle/Crystal TAKE 1 TABLET BY MOUTH EVERY DAY 90 Tablet 2 02/28/2025 documented in this encounter Plan of Treatment Upcoming Encounters Date Type Department Care Team (Late st Contact Info) Description 03/11/2025 9:15 AM EDT Office Visit [facility] [place] [address] [place] [phone] Max Gifford, DPVannesa [address] [place] [address] 05/02/2025 1:00 PM EDT Appointment [facility] [address] [place] [address] Preet Palomares MD [address] [place] [address] documented as of this encounter [...] Diagnoses Not on filedocumented in this encounter Discontinued Medications Medication Sig Discontinue Reason Start Date End Da te potassium chloride (KLOR-CON M) 20 mEq Oral Tab Sust.Rel. Particle/Crystal Take 1 Tablet by mouth daily. 09/12/2024 02/28/2025 documented as of this encounter Additional [...] documented as of this encounter Care Teams Cold Water Machine Operator Relationship Specialty Start Date End Date Mervin Toribio MD [address] [place] [address] PCP - General Family Medicine 11/24/23 documented as of this encounter
--- OUTSIDE RECORDS SUMMARY | 2025-03-03 07:35 | XMS_ITS | Encounter Summary ---
Author [place] [address] Care Team Providers Care Ibm Bpm Architect Name Role Phone Mervin Toribio MD Primary Care Provider Reason for Visit * Reason Onset Date Comments Reschedule 02/18/2025 Encounter Details Date Type Department Care Team (Late Contact Info) Description 02/18/2025 Telephone [facility] [address] 3RD [place] [address] Preet Palomares MD [address] [place] [address] Reschedule Social History Tobacco Use Types Packs/Day Years Used Date Smoking Tobacco: Never Smokeless Tobacco: Never Alcohol Use Standard Drinks/Week Comments Yes 0 (1 standard drink = 0.6 oz pur e alcohol) occasionally [facility] Utilities Answer Date Recorded In the past 12 months has [employer], gas, oil, or water [employer] threatened to shut off services in your home? Patient declined 12/08/2023 Social Connection and Isolation Panel [NHANES] A nswer Date Recorded Frequency of Communication with Friends and Fami ly Not on file 12/13/2023 Frequency of Social Gatherings with Friends and Family Not on file 12/13/2023 Attends Anabaptism Services Not on file 12/12 Active Member [...] Date Recorded PHQ-2 Total Score 0 11/20/2024 [facility] of Occupat ional Health - Occupational Stress [...] things needed for daily living? No 12/13/2023 [facility] IP Transportation Answer D ate Recorded In [...] as needed for Nausea for up to 3 days. 12 Tablet 02/18/2025 5 polyethylene glycol (GOLYTELY) 236-22.74-6.74 -5.86 gram Oral Recon SolnIndications:Ir on deficiency anemia, unspecified iron deficiency anemia type,Chronic idiopathic constipation Take 4,000 mL by mouth once for 1 dose. Take as directed by office 4000 mL 02/18/2025 5 documented in this encounter Miscellaneous Notes * Telephone Encounter - Peter Meyers MA - 02/18/2025 2:44 PM EDT judith sent for prep * Telephone Encounter - Clarita De Santiago MA - 02/18/2025 2:08 PM EDT Please send pt in something for nausea to take with her prep. * Telephone Encounter - Clarita De Santiago MA - 02/18/2025 2:04 PM EDT Pt called to r/s egd/colon, she is scheduled on 05/02/25 @ 1:00 [facility] [place]. Colyte sent to [facility], instructions sent to my chart. documented in this encounter Plan of Treatment Upcoming Encounters Date Type Department Care Team (Late st Contact Info) Description 03/11/2025 9:15 AM EDT Office Visit [facility] [place] [address] [place] [phone] Max Gifford, DPM [address] [place], [place] [phone] 05/02/2025 1:00 PM EDT Appointment [facility] [address] [facility] [place], [place] [phone] Preet Palomares MD [address] [place] [address] documented as of this encounter [...] . New goal( 9:21 AM EDT) No Magalsy Arnold LCSW Note: Strengths: family support, patient [...] as of this encounter Visit Diagnoses Diagnosis Iron deficiency anemia, unspecified iron deficiency anemia type- Primary Chronic idiopathic constipation Unspecified constipation documented in this encounter Discontinued Medications Medication Sig Discontinue Reason Start Date End Da te ondansetron (ZOFRAN-ODT) 4 mg Oral Tablet, Rapid Dissolve Dissolve 1 Tablet by mouth every 6 hours as needed for Nausea for up to 30 days. Reorder 02/12/2025 02/18/2025 documented as of this encounter Additional Health [...] documented as of this encounter Care Teams Ibm Bpm Architect Relationship Specialty Start Date End Date Mervin Toribio MD [address] [place] [address] PCP - General Family Medicine 11/24/23 documented as of this encounter
--- OUTSIDE RECORDS SUMMARY | 2025-03-03 07:35 | XMS_ITS | Encounter Summary ---
Author Organization [facility] [address] Care Team Providers Care Seed Buyer Name Role Phone Mervin Toribio MD Primary Care Provider Encounter Details Date Type Department Care Team (Latest Contact Info) Description 01/24/2025 Travel Social History Tobacco Use Types Packs/Day Years Used Date Smoking Tobacco: Never Smokeless Tobacco: Never Alcohol Use Standard Drinks/Week Comments Yes 0 (1 standard drink = 0.6 oz pur e alcohol) occasionally [employer] Utilities Answer Date Recorded In the past 12 months has [employer], gas, oil, or water company threatened to shut off services in your home? Patient declined 12/08/2023 Social Connection and Isolation Panel [NHANES] A nswer Date Recorded Frequency of Communication with Friends and Fami ly Not on file 12/13/2023 Frequency of Social Gatherings with Friends and Family Not on file 12/13/2023 Attends Adventism Services Not on file 12/12 Active Member [...] Date Recorded PHQ-2 Total Score 0 11/20/2024 [facility] Occupat ional Health - [...] things needed for daily living? No 12/13/2023 [facility] IP Transportation Answer D ate Recorded In [...] 9:15 AM EDT Office Visit [facility] [place] [address] [place] [phone] Max Gifford, DPM [address] [place] [address] 05/02/2025 1:00 PM EDT Appointment [facility] [address] [place], [place] [phone] Preet Palomares MD [address] [place] [address] documented as of this encounter [...] documented as of this encounter Care Teams Seed Buyer Relationship Specialty Start Date End Date Mervin Toribio MD [address] [place] [address] PCP - General Family Medicine 11/24/23 documented as of this encounter
--- OUTSIDE RECORDS SUMMARY | 2025-03-03 07:35 | XMS_ITS | Encounter Summary ---
Author Organization [facility] [place] [address] Care Team Providers Care Supervisor Scrap Preparation Name Role Phone Mervin Toribio MD Primary Care Provider Encounter Details Date Type Department Care Team (Latest Contact Info) Description 01/29/2025 Travel Social History Tobacco Use Types Packs/Day Years Used Date Smoking Tobacco: Never Smokeless Tobacco: Never Alcohol Use Standard Drinks/Week Comments Yes 0 (1 standard drink = 0.6 oz pur e alcohol) occasionally [employer] Utilities Answer Date Recorded In the past 12 months has [employer] electric, gas, oil, or water company threatened to shut off services in your home? Patient declined 12/08/2023 Social Connection and Isolation Panel [NHANES] A nswer Date Recorded Frequency of Communication with Friends and Fami ly Not on file 12/13/2023 Frequency of Social Gatherings with Friends and Family Not on file 12/13/2023 Attends Rastafari Services Not on file 12/12 Active Member [...] Date Recorded PHQ-2 Total Score 0 11/20/2024 [facility] of Occupat ional Health - Occupational Stress [...] things needed for daily living? No 12/13/2023 [facility] IP Transportation Answer D ate Recorded [...] 9:15 AM EDT Office Visit [facility] [place] [address] [place] [phone] Max Gifford, DPM [address] [place] [address] 05/02/2025 1:00 PM EDT Appointment [facility] [address] [place], [place] [phone] Preet Palomares MD [address] [place] [address] documented as of this encounter [...] documented as of this encounter Care Teams Supervisor Scrap Preparation Relationship Specialty Start Date End Date Mervin Toribio MD 100 [place] [address] PCP - General Family Medicine 11/24/23 documented as of this encounter
--- OUTSIDE RECORDS SUMMARY | 2025-03-03 07:35 | XMS_ITS | Continuity of Care Document ---
Author Organization [facility] OD Address [address] [facility] [place] 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 Role Phone Mervin Toribio MD Primary Care Provider Encounters Date Type Department Care Team Description 02/28/2025 Refill [facility] [address] [place] [address] Mervin Toribio MD Medication Refill 02/27/2025 Refill [facility] [address] [place] [address] Mervin Toribio MD Medication Refill 02/21/2025 Travel 02/18/2025 Telephone [facility] [address], [address] [address] Preet Palomares MD Reschedule 02/13/2025 Results Follow-Up [facility] [address] [place] [address] Mervin Toriboi MD URINALYSIS REFLEX, EXTRA HALL URINE CX, URINE CULTURE (NO STAIN) 02/12/2025 3:38 PM EDT - 02/12/2025 5:11 PM EDT [facility] [address] [facility] [place] [address] Harriet Quinn MD Rash (Primary Dx); Acute urinary tract infection; Hypokalemia Discharge Disposition: Home or Self Care 01/30/2025 Telephone [facility] [address] [facility] [place] [address] Mervin Toribio MD Medication Refill 01/29/2025 Travel 01/24/2025 Travel 01/09/[address] [place] [address] Preet Palomares MD Other (Infusions - no shows/) 12/31/2024 Telephone [facility] [address], [address] [place] [address] Preet Palomares MD Other 12/28/2024 11:59 PM EDT Anesthesia Event [facility] [address], [address] [place] [address] Ramila Vera APRN 12/20/2024 Orders Only [facility] [address] [place] [address] Blaine Padilla MD Obstructive sleep apnea (Primary Dx) 12/20/2024 Refill [facility] [address] [place] [address] Mervin Toirbio MD Medication Refill 12/20/2024 Travel 12/19/[address] [place], [place] [id number] Sagrario Carter MA 12/17/2024 Refill [facility] [address] [place] [address] Mervin Toribio MD Medication Refill 12/06/2024 Telephone [facility] [address], [address] [place] [address] Almaz Forbes LPN Prior Authorization 11/27/2024 Orders Only [place] [address] Ghislaine Adams, PharmD Iron malabsorption (Primary Dx) 11/23/2024 Telephone [facility] [address], 3[place] [address] Almaz Forbes LPN Other (Iron infusions) 11/23/2024 Refill [facility] [address] [facility] [place] [address] Mervin Toribio MD Medication Refill 11/22/2024 Results Follow-Up [facility] [address], [address] [place] [address] Preet Palomares MD IRON+TIBC, FERRITIN 11/22/2024 Telephone [facility] [address], [address] [place] [address] Preet Palomares MD Medication Management (Colyte ) 11/22/2024 Results Follow-Up [facility] [address] [facility] [place] [address] Mervin Toribio MD HEMOGLOBIN A1C, COMPREHENSIVE METABOLIC PANEL, CBC WITH DIFF, Additional followed-up results: 4 11/22/2024 11:00 AM EDT Office Visit [facility] [address], [address] [place] [address] Preet Palomares MD Iron deficiency anemia, unspecified iron deficiency anemia type (Primary Dx); Chronic idiopathic constipation 11/21/2024 11:00 AM EDT Office Visit [facility] Sleep Medicine [address] [place] [address] Blaine Padilla MD Metabolic syndrome (Primary Dx); Morbid obesity with body mass index (BMI) of 40.0 to 49.9 (HCC); Acquired hypothyroidism; Opioid use disorder, severe, on maintenance therapy (HCC); Gastroesophageal reflux disease, unspecified whether esophagitis present; Tired; Excessive sleepiness; Obstructive sleep apnea; Opioid use disorder; Obesity hypoventilation syndrome (HCC); Hypercarbia; RLS (restless legs syndrome) 11/20/2024 1:45 PM EDT Office Visit [facility] [address] [facility] [place] [address] Mervin Toribio MD Annual physical exam (Primary Dx); Fibromyalgia; Acquired hypothyroidism; Type 2 diabetes mellitus without complication, unspecified whether chcf insulin use (HCC); Right foot pain; Irritant dermatitis; Leg swelling; Iron deficiency anemia, unspecified iron deficiency anemia type 10/31/2024 Travel 10/28/2024 1:44 PM EDT - 10/28/2024 4:12 PM EDT [facility] [address] [place] [address] Ghislaine Crouch MD Strep pharyngitis (Primary Dx); Hypokalemia; Anemia, unspecified type; Dependent edema Discharge Disposition: Home or Self Care 10/15/2024 Travel 10/05/2024 Telephone [facility] [address] [facility] [place] [address] Mervin Toribio MD Refill (Methocarbamol) 10/03/2024 Travel 09/25/2024 Telephone [facility] [address] [facility] [place] [address] Mervin Toribio MD Refill (multi) 09/12/2024 Orders Only [facility] [address] [facility] [place] [address] Mervin Toribio MD 09/10/2024 Travel 09/06/2024 Refill [facility] [address] [facility] [place] [address] Mervin Toribio MD Refill (naloxegoL (MOVANTIK) 25 mg Oral Tablet 30 Tablet 2 02/13/2024 - /Sig - Route: Take 1 Tablet by mouth daily. - Oral // Disp Refills Start End /ondansetron (ZOFRAN-ODT) 4 mg Oral Tablet, Rapid Dissolve 15 Tablet 0 06/21/2024 - /Sig - Route: Take 1 Tablet by mouth every 8 hours as needed //) 09/05/2024 Travel 09/05/2024 11:45 AM EST Telemedicine [facility] [address] [facility] [place] [address] Mervin Toribio MD Fibromyalgia (Primary Dx); Leg swelling; Arthritis 08/27/2024 Travel 08/17/2024 Travel 08/16/2024 Refill [facility] [address] [place] [address] Mervin Toribio MD Refill ( Disp Refills Start End /methocarbamoL (ROBAXIN) 750 mg Oral Tablet 90 Tablet 0 07/20/2024 08/19/2024 /Sig - Route: Take 1 Tablet by mouth 3 times daily as needed for up to 30 days. - Oral //) 07/31/2024 Refill [facility] [place] [address] Mervin Toribio MD Medication Refill 07/31/2024 Telephone [facility] [address] [facility] [place] [address] Mervin Toribio MD Refill (Gabapentin); Other (GABAPENTIN REFILL) 07/27/2024 Travel 07/26/2024 Refill [facility] [address] [facility] [place] [address] Mervin Toribio MD Medication Refill 07/20/2024 Telephone [facility] [address] [facility] [place] [address] Mervin Toribio MD Refill 07/13/2024 Refill [facility] [address] [facility] [place] [address] Mervin Toribio MD Medication Refill 06/22/2024 Travel 06/21/2024 Telephone [facility] [address] [facility] [place] [address] Mervin Toribio MD Refill ( Disp Refills Start End /ondansetron (ZOFRAN-ODT) 4 mg Oral Tablet, Rapid Dissolve 15 Tablet 0 01/10/2024 - /Sig - Route: Take 1 Tablet by mouth every 8 hours as needed for Nausea. - Oral /Sent to pharmacy as: ondansetron 4 mg disintegrating tablet (ZOFRAN-ODT) //) 06/17/2024 Refill [facility] [address] [facility] [place] [address] Mervin Toribio MD Medication Refill 05/21/2024 Telephone [facility] [address] [facility] [place] [address] Mervin Toribio MD Refill ( Disp Refills Start End /methocarbamoL (ROBAXIN) 750 mg Oral Tablet 90 Tablet 0 04/23/2024 05/23/2024 /Sig - Route: TAKE 1 TABLET BY MOUTH 3 TIMES DAILY NEEDED FOR UP TO 30 DAYS. - Oral /Sent to pharmacy as: methocarbamoL 750 mg tablet (ROBAXIN) //) 05/20/2024 Refill [facility] [address] [facility] [place] [address] Mervin Toribio MD Medication Refill 05/20/2024 Travel 05/20/2024 4:57 AM EST - 05/20/2024 7:15 AM EST [facility] [address] [facility]. [place], [place] [id number] Harriet Quinn MD Bilateral lower extremity edema (Primary Dx) Discharge Disposition: Home or Self Care 05/20/2024 Nurse Triage [facility] Nurse Now [address] [place] [phone] Elicia Allen RN 05/18/2024 Refill [facility] [address] [place] [address] Mervin Toribio MD Medication Refill 05/18/2024 Telephone [facility] Nurse Now [facility] [place] [address] Kimberly Man, [place] Leg Swelling 05/18/2024 Travel 05/18/2024 9:30 AM EDT Telemedicine [facility] [address] [facility] [place] [address] Galen Bernard APRN Bilateral lower extremity edema (Primary Dx); Insomnia, persistent; Anxiety 05/17/2024 Travel 05/15/2024 Telephone [facility] [address] [place] [address] Mervin Toribio MD Refill ( Disp Refills Start End /amitriptyline (ELAVIL) 150 mg Oral Tablet 30 Tablet 2 11/24/2023 - /Sig - Route: Take 1 Tablet by mouth nightly. at bedtime - Oral /Sent to pharmacy as: amitriptyline 150 mg tablet (ELAVIL) //) 05/06/2024 Refill [facility] [address] [place] [address] Mervin Toribio MD Medication Refill 05/05/2024 Refill [facility] [address] [place] [address] Mervin Toribio MD Medication Refill 04/23/2024 Refill [facility] [address] [place] [address] Mervin Toribio MD Medication Refill 04/19/2024 Telephone [facility] [address] [place] [address] Mervin Toribio MD Medication Management 04/10/2024 Travel 04/10/2024 2:00 PM EDT Office Visit [facility] [address] [place] [address] Mervin Toribio MD Leg swelling (Primary Dx); Fibromyalgia 04/09/2024 Refill [facility] [address] [facility] [facility] [place] [address] Mervin Toribio MD Refill ( Disp Refills Start End /gabapentin (NEURONTIN) 800 mg Oral Tablet 90 Tablet 1 02/13/2024 - /Sig - Route: Take 1 Tablet by mouth 3 times daily. - Oral //) 04/04/2024 Travel 04/04/2024 12:20 PM EDT - 04/04/2024 5:21 PM EDT Emergency [facility] [address] [facility] [place] [address] Adelfo Hicks MD Generalized abdominal pain (Primary Dx); Constipation, unspecified constipation type; Hypokalemia Discharge Disposition: Home or Self Care 03/31/2024 12:46 PM EDT - 03/31/2024 2:49 PM EDT [facility] [address] [facility]. [place], [place] [id number] Blaine Washington MD Viral URI with cough (Primary Dx) Discharge Disposition: Home or Self Care 03/29/2024 Telephone [facility] [address] [facility] [place] [address] Mervin Toribio MD Refill (ondansetron (ZOFRAN-ODT) 4 mg Oral Tablet, Rapid Dissolve) 03/28/2024 Refill [facility] [address] [facility] [place] [address] Mervin Toribio MD Medication Refill 03/28/2024 Telephone [facility] [address] [facility] [place] [address] Mervin Toribio MD Refill 03/14/2024 Refill [facility] [address] [facility] [place] [address] Mervin Toribio MD Medication Refill 03/07/2024 Telephone [facility] [address] [facility] 1D ENTRANCE, 3[place] [address] Preet Palomares MD Other 02/29/2024 Telephone [facility] [address] [place] [address] Mervin Toribio MD Other (lice shampoo) 02/29/2024 Telephone [facility] [address] [place] [address] Mervin Toribio MD Refill (methocarbamoL (ROBAXIN) 750 mg Oral Tablet) 02/28/2024 1:45 PM EDT Office Visit [facility] [address] [place] [address] Mervin Toribio MD Perioral dermatitis (Primary Dx); Leg swelling 02/13/[address] [facility] [address] [place] [address] Mervin Toribio MD Refill (multi meds) 01/29/2024 Refill [facility] [address] [place] [address] Mervin Toribio MD Medication Refill 01/14/[address] [facility] [address] [place] [address] Mervin Toribio MD Refill 01/10/2024 Telephone [facility] [address] [place] [address] Mervin Toribio MD Other 01/10/2024 1:00 PM EDT Telemedicine [facility] [address] [place] [address] Mervin Toribio MD Therapeutic opioid induced constipation (Primary Dx); Constipation, chronic; Nausea 01/03/[address] [facility] [address] [place] [address] Mervin Toribio MD Refill 12/20/2023 Patient Outreach [facility] Shawna Aaron [address] [place] [address] Monie Stephen, BS, COS Transportation 12/15/2023 2:00 PM EDT Office Visit [facility] [address] [place] [address] Mervin Toribio MD Type 2 diabetes mellitus without complication, unspecified whether intermodal customer service insulin use (HCC) (Primary Dx); Hypokalemia; Anemia due to acute blood loss; Fibromyalgia; Type 2 diabetes mellitus without complication, without long-term current use of insulin (HCC) 12/14/2023 Travel 12/13/2023 Patient Outreach [facility] Shawna Aaron [address] [place] [address] Monie Stephen, BS, COS Transportation 12/13/2023 Orders Only [facility] [address] [place] [address] Mervin Toribio MD 12/13/2023 Patient Outreach [facility] [address] [place] [address] Heather Garrison, MAGNET MAKER Referral 12/13/2023 Patient Outreach [facility] [address] [place] [address] Soila Rosas, [place] Hospital Follow Up; Care Transition; CM - Medication Reconciliation; CM-SDOH; CM- Consultation 12/07/2023 2:02 PM EDT - 12/09/2023 2:35 PM EDT Hospital Encounter [facility] [place] [address] Valente Guo, Discharge Disposition: Home or Self Care 12/07/2023 Travel 12/06/2023 6:48 PM EDT - 12/07/2023 1:22 PM EDT [facility] [address] [facility] [place] [address] Farhad Grove MD Watson, James Brandon, Altered mental status, unspecified altered mental status type (Primary Dx); Hypokalemia Discharge Disposition: Short Term Hospital 11/29/[address] [place] [address] Tien Griffiths MA New Patient 11/24/2023 2:30 PM EDT Office Visit [facility] [address] [place] [address] Mervin Toribio MD Annual physical exam (Primary Dx); Continuous opioid dependence (HCC); Insomnia, persistent; Leg swelling; Acquired hypothyroidism 09/20/2023 2:15 PM EST Office Visit [facility] [address] [place] [address] [place] [address] Max Gifford, DPM Type 2 diabetes mellitus with diabetic polyneuropathy, unspecified whether intermodal customer service insulin use (HCC) (Primary Dx); Skin ulcer of right great toe with fat layer exposed (HCC); Open wound of fourth toe of left foot, subsequent encounter; Cellulitis of fourth toe of left foot 09/13/[address] [facility] Podiatry [address] [place] [address] Max Gifford, DPM Schedule Appointment 09/06/2023 11:30 AM EST Office Visit [facility] Podiatry [place] [address] [address] Max Gifford, DPM Type 2 diabetes mellitus with diabetic polyneuropathy, unspecified whether chcf insulin use (HCC) (Primary Dx); Cellulitis of great toe of right foot; Skin ulcer of right great toe with fat layer exposed (HCC); Open wound of fourth toe of left foot, initial encounter; Diabetic polyneuropathy associated with type 2 diabetes mellitus (HCC); History of partial amputation of toe of right foot; Ingrown nail of great toe of right foot 07/19/[address] [facility] Podiatry [address] [address] Sagrario Hernandez MA Other (Appointment) 06/28/2023 10:00 AM EST Office Visit [facility] Podiatry [place] [address] [address] Max Gifford, DPM History of partial amputation of toe of right foot (Primary Dx); Diabetic polyneuropathy associated with type 2 diabetes mellitus (HCC) 06/18/2023 9:48 PM EST - 06/22/2023 12:55 PM EST Hospital Encounter [facility] [address] [place] [address] [facility] [place] [address] Zelalem Kraus MD Osteomyelitis of second toe of right foot (HCC) Discharge Disposition: Home or Self Care 06/20/2023 5:20 PM EST Anesthesia Event [facility] [address] [place] [address] Gunner Saenz MD 06/20/2023 5:15 PM EST - 06/20/2023 6:03 PM EST Surgery [facility] [address] [place] [address] Max Gifford, DPM TOE/METATARSAL OR HALLUX AMPUTATION 06/18/2023 Travel 06/18/2023 12:11 PM EST - 06/18/2023 9:18 PM EST Emergency [facility] [address] [place] [address] Jack Muhammad MD Motiani, Karan, MD Osteomyelitis of right foot, unspecified type (HCC) (Primary Dx); Cellulitis of right lower extremity Discharge Disposition: Short [facility] 04/28/2021 Orders [place] [address] Pito Gonzales [facility] COVID 04/28/2021 1:31 PM EDT - 04/28/2021 1:55 PM EDT Emergency [facility] [address] [place] [address] Merrick Palomares MD COVID-19 virus infection (Primary Dx) Discharge Disposition: Home or Self Care 11/15/2020 Travel 11/15/2020 6:44 PM EDT - 11/15/2020 8:49 PM EDT Emergency [facility] [place] [address] Kameron Fields MD Bilateral lower extremity edema (Primary Dx); Cellulitis of leg, right Discharge Disposition: Home or Self Care 07/20/2020 Travel 07/20/2020 1:06 PM EST - 07/20/2020 3:43 PM EST Emergency [facility] [place] [address] Yarelis Hdz DO Chronic nausea (Primary Dx); Chronic abdominal pain; Anxiety Discharge Disposition: Home or Self Care 07/14/2020 Travel 07/14/2020 10:14 AM EST - 07/14/2020 11:54 AM EST Emergency [facility] [address] [place] [address] Farhad Grove MD Palpitations (Primary Dx); Anxiety; Nausea; Diarrhea, unspecified type Discharge Disposition: Home or Self Care 06/17/2020 Travel 06/17/2020 9:54 AM EST - 06/17/2020 3:01 PM EST Emergency [facility] [address] [place] [address] Asael Yan MD Diarrhea, unspecified type (Primary Dx); Pleuritic chest pain Discharge Disposition: Home or Self Care 01/23/2020 Telephone [facility] NICOLLE [address] [place] [address] HenryOctober DOMINGA Lopez Other (ins verification ) 12/31/2019 Telephone [facility] [address] [facility] [address] [place] [address] Jermaine Eubanks MD Other (joanne ) 12/07/2019 Travel 12/06/2019 Telephone [facility] [address] [place] [address] Leann Pham RN Other (weight management) 12/04/2019 Travel 12/04/2019 7:30 AM EDT Telemedicine [facility] [place] [address] [place] [address] Jermaine Eubanks MD Class 3 severe obesity due to excess calories without serious comorbidity in adult, unspecified BMI (HCC) (Primary Dx); Bilateral leg edema; Fibromyalgia; Deep vein thrombosis (DVT) of both lower extremities, unspecified chronicity, unspecified vein (HCC); Depression, unspecified depression type 10/24/2019 Travel 10/04/2019 Travel 10/03/2019 Travel 10/02/2019 Travel 09/27/2019 Travel 09/27/2019 2:00 PM EDT Office Visit [facility] Nephrology [place] [address] [place] [address] Javad Degroot MD Essential hypertension (Primary Dx); Hypokalemia; Other iron deficiency anemia 09/19/2019 10:30 AM EST - 09/19/2019 11:59 PM EST Hospital Encounter [facility] [address] [facility] [address] [place] [address] Jermaine Eubanks MD Leg swelling Discharge Disposition: Home or Self Care 09/12/2019 1:20 PM EST - 09/12/2019 11:59 PM EST Hospital Encounter [facility] [place] [address] Leg swelling Discharge Disposition: Home or Self Care 09/12/2019 Travel 08/30/2019 Travel 08/30/2019 1:00 PM EST Office Visit [facility] [place] [address] [place] [address] Jermaine Eubanks MD Leg swelling (Primary Dx); Mood change 09/02/2017 10:45 AM EST - 09/02/2017 11:59 PM EST Hospital Encounter [facility] D-WING X[facility] [place] [address] Acute pain of right knee Discharge Disposition: Home or Self Care 01/25/2017 Refill [facility] [address] [place] [address] Anne Rowe MD Medication Refill 03/29/2016 5:07 PM EDT - 03/29/2016 6:39 PM EDT Emergency [facility] [address] [place] [address] Gay Villa MD Favier, Benjamin, MD Lumbar strain, initial encounter (Primary Dx) Discharge Disposition: Home or Self Care 01/12/2016 8:45 AM EDT - 01/12/2016 11:59 PM EDT Hospital Encounter [facility] [address] [place] [address] Chin Mai Acid phosphatase elevated Discharge Disposition: Home or Self Care 09/26/2015 12:30 PM EST Office Visit [facility] [address] [facility] 101 [place] [address] Kashif Pollock MD Headache, unspecified headache type (Primary Dx); Nasal turbinate hypertrophy; Nasal septal spur; Rhinorrhea; Other seasonal allergic rhinitis 09/15/2015 [facility] [address] [place] [address] Heather Villaseñor, [place] Results 09/15/2015 [facility] [address] [place] [address] Heather Villaseñor, RN Results 09/08/2015 1:00 PM EST [facility] [address] [facility] [address] [place] [address] Nasal turbinate hypertrophy (Primary Dx) 09/03/2015 7:57 PM EST - 09/03/2015 8:33 PM EST Emergency [facility] [address] [place] [address] Naseem Hicks MD Cystitis (Primary Dx) Discharge Disposition: Home or Self Care 08/28/2015 3:00 PM EST Office Visit [facility] [address] [place] [address] Anne Rowe MD Post-operative state (Primary Dx) 08/25/2015 Telephone [facility] [address] [place] [place] [address] Anne Rowe MD Advice Only 08/22/2015 Telephone [facility] [address] [place] [address] Anne Rowe MD Advice Only 08/19/2015 1:00 PM EST - 08/19/2015 2:15 PM EST Surgery [facility] [address] [place] [address] Cox MD LAPAROSCOPIC CHOLECYSTECTOMY POSSIBLE OPEN 08/19/2015 1:12 PM EST Anesthesia Event [facility] [address] [place] [address] Cory Steele MD Merkle Serey, Jennifer L, NP 08/19/2015 10:55 AM EST - 08/19/2015 4:32 PM EST Hospital Encounter [facility] SAME DAY SURGERY [address] [place] [address] Anne Rowe MD Discharge Disposition: Home or Self Care 08/14/2015 Telephone [facility] Surg [facility] [address] [place] [address] Anne Rowe MD Surgery 08/14/2015 12:45 PM EST Office Visit [facility] [place] [address] [facility] 101 [place] [address] Kashif Pollock MD Nasal turbinate hypertrophy (Primary Dx); Nasal septal spur; Rhinorrhea; Headache, unspecified headache type 08/14/2015 10:50 AM EST Office Visit [facility] [address] [place] [address] Anne Rowe MD Symptomatic cholelithiasis (Primary Dx) 07/25/2015 9:45 AM EST - 07/25/2015 10:30 AM EST Surgery [facility] ENDOS[facility] [place] [address] Leda Theodore MD COLONOSCOPY 07/25/2015 8:38 AM EST - 07/25/2015 1:13 PM EST Hospital Encounter [facility] ENDOSCOPY [facility] [place] [address] Leda Theodore MD Discharge Disposition: Home or Self Care 07/07/2015 Telephone [facility] [address] [facility] [address] [place] [address] Leda Theodore MD Other 07/04/2015 4:29 PM EST - 07/04/2015 11:59 PM EST Hospital Encounter [facility] LAB PRESTON PROCESSING [facility] [place] [address] Irritable bowel syndrome without diarrhea Discharge Disposition: Home or Self Care 07/04/2015 11:00 AM EST - 07/04/2015 4:28 PM EST Hospital Encounter [place] [facility] [place] [address] Chin [place] Abdominal pain, right upper quadrant Discharge Disposition: Home or Self Care 07/04/2015 12:00 PM EST Office Visit [facility] [place] [address] [place] [id number] Leda Theodore MD Constipation, chronic (Primary Dx); Hematochezia; Irritable bowel syndrome with diarrhea; Irritable bowel syndrome without diarrhea; Epigastric abdominal pain 06/15/2015 9:59 AM EST - 06/15/2015 1:53 PM EST Emergency [facility] [address] [address] Redd Padilla MD Right lower quadrant abdominal pain (Primary Dx); Chronic pain syndrome Discharge Disposition: Home or Self Care 09/06/2014 10:35 AM EST - 09/06/2014 11:59 PM EST Hospital Encounter [facility] [address] [place] [id number] Screening for unspecified disorder of blood and blood-forming organs (Primary Dx); Screening for iron deficiency anemia Discharge Disposition: Home or Self Care 03/08/2014 10:30 AM EDT - 03/08/2014 11:59 PM EDT Hospital Encounter [facility] [address] [place] [address] Michael Rubio MD Abdominal pain, other specified site Discharge Disposition: Home or Self Care 11/22/2012 11:00 AM EDT - 11/22/2012 11:59 PM EDT Hospital Encounter [facility] MRI [address] [place] [address] Michael Rubio MD Chronic neck pain; Myalgia and myositis, unspecified Discharge Disposition: Home or Self Care 08/09/2012 8:20 AM EST - 08/10/2012 11:36 AM EST Hospital Encounter [facility] [address] [place] [address] Joel Gramajo MD Jackson, John R, MD Discharge Disposition: Home or Self Care 08/09/2012 10:15 AM EST - 08/09/2012 1:30 PM EST Surgery [facility]IOP [facility] [place] [address] Michael Washington MD VAGINAL HYSTERECTOMY 08/01/2012 8:21 AM EST - 08/01/2012 11:59 PM EST Hospital Encounter [facility] PRE-ADMIT TESTING [facility] [address] [place] [id number] Discharge Disposition: Home or Self Care 08/31/2011 Refill [facility] [address] [facility], [phone] Redd Wynn MD Medication Refill 04/06/2011 Telephone [facility] 100 [facility], [phone] Redd Wynn MD Medication Refill 03/25/2011 9:00 AM EDT Office Visit [facility] 100 [facility], [place] [phone] Redd Wynn MD Fibromyalgia (Primary Dx); Insomnia; Metabolic syndrome 03/12/2011 Refill [facility] 100 [facility], [phone] Kylee Denney MA Medication Refill 03/08/2011 Refill [facility] 100 [facility], [place] [phone] Kylee Denney MA Medication Refill 03/05/2011 Telephone [facility] 100 [facility], [place] [phone] Redd Wynn MD Medication Problem (PA denied) 03/03/2011 Telephone [facility] 100 [facility], [phone] Anupama Saxena CMA Medication Refill 03/03/2011 Telephone [facility] 100 [facility], [phone] Redd Wynn MD Medication Refill 02/25/2011 9:00 AM EDT Office Visit [facility] 100 [facility], [phone] Redd Wynn MD Fibromyalgia; DDD (degenerative disc disease); Metabolic syndrome; Arthritis; Migraine; Insomnia 02/22/2011 Refill [facility] 100 [facility], [phone] [facility] 02/16/2011 Refill [facility] 100 [facility] [place] [address] Kylee Denney MA Medication Refill 02/12/2011 Refill [facility] 100 [facility] [place] [address] Redd Wynn MD Medication Refill 02/08/[address] [place] [address] Efrem Amato MA Medication Refill 02/08/2011 Refill [facility] 100 [facility] [place] [address] Redd Wynn MD Medication Refill 01/28/2011 2:45 PM EDT Office Visit [address] [place] [address] Redd Wynn MD Fibromyalgia; Arthritis; DDD (degenerative disc disease); RLS (restless legs syndrome) 01/20/2011 9:30 AM EDT Office Visit [address] [phone] Redd Wynn MD Fibromyalgia; DDD (degenerative disc disease); Metabolic syndrome; Vitamin D deficiency; Anemia 01/19/[address] [phone] Beata Boo RMA Results 01/14/2011 8:06 PM EDT - 01/14/2011 11:59 PM EDT Hospital Encounter [facility] [place] [address] Fibromyalgia; Arthritis; Migraine; RLS (restless legs syndrome); DDD (degenerative disc disease); Insomnia Discharge Disposition: Home or Self Care 01/14/2011 10:00 AM EDT Office Visit [address] [phone] Redd Wynn MD Fibromyalgia (Primary Dx); Arthritis; Migraine; RLS (restless legs syndrome); DDD (degenerative disc disease); Insomnia 01/07/2011 10:00 AM EDT Office Visit [address] [phone] Redd Wynn MD Fibromyalgia; RLS (restless legs syndrome); DDD (degenerative disc disease); Migraine; Routine health maintenance; Fatigue; Weight gain 12/23/2010 10:30 AM EDT Office Visit [facility] [address] [place] [address] Redd Wynn MD Fibromyalgia; DDD (degenerative disc disease); Migraine; Bruises easily; Weight gain; Fatigue 12/17/2010 10:15 AM EDT Office Visit [facility] [address] [place] [address] Redd Wynn MD Fibromyalgia; Arthritis; Migraine; DDD (degenerative disc disease) 12/10/2010 10:15 AM EDT Office Visit [facility] [address] [place] [address] Redd Wynn MD Fibromyalgia; Neck pain; DDD (degenerative disc disease); Migraine 03/27/2010 10:00 AM EDT - 03/27/2010 11:59 PM EDT Hospital Encounter [facility] MRI [address] [place] [address] Vitaly Gama MD Displacement of cervical intervertebral disc without myelopathy Discharge Disposition: Home or Self Care 05/14/2009 - 05/14/2009 11:59 PM EDT Hospital Encounter [facility] Discharge Disposition: Home or Self Care 05/08/2009 10:12 AM EDT - 05/08/2009 11:59 PM EDT Hospital Encounter [facility] EPIC CON UNK EDRiya Phillips 05/02/2009 9:46 AM EDT - 05/02/2009 11:59 PM EDT Hospital Encounter [facility] EPIC CON UNK [facility] Riya Hewitt 01/02/2009 12:02 AM EDT - 01/04/2009 11:34 AM EDT Hospital Encounter [facility] EBC [facility] Generic, Historical Provider 12/31/2008 Hospital Encounter [facility] OBSTETR[facility] Generic, Historical Provider 12/30/2008 6:40 PM EDT - 12/30/2008 9:05 PM EDT Hospital Encounter [facility] EBC [facility] Generic, Historical Provider 12/26/2008 8:20 PM EDT - 12/26/2008 11:59 PM EDT Hospital Encounter [facility] LAB [facility] Sophie Desir MD 12/12/2008 9:17 PM EDT - 12/12/2008 11:59 PM EDT Hospital Encounter [facility] Sophie Desir MD 12/03/2008 Hospital Encounter [facility] OBSTETR[facility] Generic, Historical Provider 10/31/2008 10:11 PM EDT - 10/31/2008 11:59 PM EDT Hospital Encounter [facility] LAB [facility] Sophie Desir MD 10/17/2008 8:13 PM EDT - 10/17/2008 11:59 PM EDT Hospital Encounter [facility] LAB [facility] Sophie Desir MD 09/18/2008 Hospital Encounter [facility] GYNECOLOGY [facility] Generic, Historical Provider 08/21/2008 Hospital Encounter [facility] MEDICINE [facility] Generic, Historical Provider 06/24/2008 11:03 AM EST - 06/24/2008 1:46 PM EST Emergency [facility]GENCY [facility] Generic, Historical Provider 06/18/2008 Hospital Encounter [facility] OBSTETRICS [facility] Generic, Historical Provider 06/18/2006 Hospital Encounter [facility]IC[facility] Generic, Historical Provider 04/12/2006 Hospital Encounter [facility] Generic, Historical Provider 02/04/2005 10:58 AM EDT - 02/06/2005 4:45 PM EDT Hospital Encounter [facility] EBC [facility] Generic, Historical Provider 01/26/2005 2:52 PM EDT - 01/26/2005 5:55 PM EDT Hospital Encounter [facility] EBC [facility] Generic, Historical Provider 01/22/2005 9:50 AM EDT - 01/22/2005 12:30 PM EDT Hospital Encounter [facility] EBC [facility] Generic, Historical Provider 07/18/2004 - 10/15/2004 Hospital Encounter [facility] OBSTETRICS [facility] Generic, Historical Provider 07/05/2003 Hospital Encounter [facility] MEDICINE [facility] Generic, Historical Provider 06/08/2003 6:15 PM EST - 06/08/2003 8:20 PM EST Emergency [facility] EMERGENCY [facility] Generic, Historical Provider 06/06/2002 8:04 PM EST - 06/09/2002 2:32 PM EST Hospital Encounter [facility] EBC [facility] Generic, Historical Provider 06/03/2002 12:02 AM EST - 06/03/2002 2:30 AM EST Hospital Encounter [facility] EBC [facility] Generic, Historical Provider 05/24/2002 5:16 PM EST - 05/24/2002 6:30 PM EST Hospital Encounter [facility] EBC [facility] Generic, Historical Provider 05/23/2002 11:41 AM EST - 05/23/2002 2:30 PM EST Hospital Encounter [facility] EBC [facility] Generic, Historical Provider 05/13/2002 5:49 PM EST - 05/13/2002 8:15 PM EST Hospital Encounter [facility] EBC [facility] Generic, Historical Provider 01/15/2002 - 02/14/2002 Hospital Encounter [facility] UNKNFTT Generic, Historical Provider 05/16/2001 6:22 PM EST - 05/19/2001 2:24 PM EST Hospital Encounter [facility] EBC [facility] Generic, Historical Provider 12/16/2000 - 05/17/2001 Hospital Encounter [facility] UNKNFTT Generic, Historical Provider 04/12/2001 5:03 PM EDT - 04/12/2001 5:05 PM EDT Hospital Encounter [facility] EBC [facility] Generic, Historical Provider 04/13/2000 9:24 PM EDT - 04/14/2000 1:24 AM EDT Emergency [facility] UNKNFTT Generic, Historical Provider Allergies Active Allergy Reactions Criticality Noted Date Comments Adhesive Hives,Rash Medium 08/28/2015 Skin Cleanser Rash 08/28/2015 duraprep Medications Cholecalciferol, Vitamin D3, 50 mcg (2,000 unit) Oral Capsule Take 5,000 Units by mouth daily. 1 capsule every day for 30 days Active folic acid (FOLVITE) 1 mg Oral Tablet Take 1 mg by mouth daily. Active nalOXone (NARCAN) 4 mg/actuation Nasl [place], Non-AerosolIndica tions:Opioid dependence, continuous (HCC),Opioid dependence on agonist therapy (HCC),At risk for substance overdose 0.1 mL by INTRANASAL route as needed. 1 Each 024 Active triamcinolone (KENALOG) 0.1 % Top CreamIndications: Perioral dermatitis Apply topically 2 times daily. 80 g 2 024 Active hydroCHLOROthiazi de 50 mg Oral TabletIndications :Leg swelling Take 2 Tablets by mouth daily. 180 Tablet 2 025 Active ondansetron (ZOFRAN-ODT) 4 mg Oral Tablet, Rapid DissolveIndicatio ns:Nausea Take 1 Tablet by mouth every 8 hours as needed for Nausea. 15 Tablet 025 Active naloxegoL (MOVANTIK) 25 mg Oral TabletIndications :Therapeutic opioid induced constipation Take 1 Tablet by mouth daily. 30 Tablet 2 025 Active propranoloL (INDERAL) 10 mg Oral Tablet Take 1 Tablet by mouth every 12 hours as needed for Other (anxiety). 14 Tablet 025 Active LEVOthyroxine (SYNTHROID) 100 mcg Oral TabletIndications :Acquired hypothyroidism Take 1 Tablet by mouth daily. 30 Tablet 5 025 Active triamcinolone (KENALOG) 0.1 % Top CreamIndications: Irritant dermatitis Apply topically 2 times daily. 80 g 2 025 Active linaCLOtide (LINZESS) 290 mcg Oral Capsule Take 1 Capsule by mouth daily. 60 Capsule 1 Active [id number] [id number]-[id number]-FYc-asb- C (PLENVU) 140-9-5.2 gram Oral Powder in Packet, SequentialIndicat ions:Iron deficiency anemia, unspecified iron deficiency anemia type,Chronic idiopathic constipation Take 1 'box' by mouth See Admin Instructions. 3 Packet Active Additional Information Patient not taking.Reported on 02/27/2025 gabapentin (NEURONTIN) 800 mg Oral TabletIndications :Fibromyalgia TAKE 1 TABLET BY MOUTH THREE TIMES A DAY 90 Tablet 1 025 Active methocarbamoL (ROBAXIN) 750 mg Oral TabletIndications :Arthritis Take 1 Tablet by mouth 3 times daily as needed. 90 Tablet 1 025 Active hydrOXYzine (ATARAX) 25 mg Oral TabletIndications :Mood disorder TAKE 1 TO 2 TABLETS EVERY 8 HOURS NEEDED FOR ANXIETY 180 Tablet 025 Active buprenorphine-nal oxone (SUBOXONE) 8-2 mg SL Tablet, SublingualIndicat ions:opioid use disorder Place 1 1/2 tablets under the tongue daily. Please fill today. Indications: opioid use disorder 42 Tablet 025 Active fUROsemide (LASIX) 20 mg Oral TabletIndications :Leg swelling TAKE 1 TABLET BY MOUTH EVERY DAY NEEDED 90 Tablet 025 Active potassium chloride (KLOR-CON M) 20 mEq Oral Tab Sust.Rel. Particle/Crystal TAKE 1 TABLET BY MOUTH EVERY DAY 90 Tablet 2 Active amitriptyline (ELAVIL) 100 mg Oral TabletIndications :Insomnia, persistent Take 2 Tablets by mouth nightly. at bedtime 60 Tablet 2 Active DULoxetine (CYMBALTA) 20 mg Oral Capsule, Delayed Release(E.C.) Take 1 Capsule by mouth daily. 30 Capsule 2 025 Active potassium chloride (KLOR-CON M) 20 mEq Oral Tab Sust.Rel. Particle/Crystal Take 1 Tablet by mouth daily. 30 Tablet 2 025 2024 Discontinued fUROsemide (LASIX) 20 mg Oral TabletIndications :Leg swelling TAKE 1 TABLET BY MOUTH EVERY DAY NEEDED 90 Tablet 025 2024 Discontinued hydrOXYzine (ATARAX) 25 mg Oral TabletIndications :Mood disorder TAKE 1 TO 2 TABLETS EVERY 8 HOURS NEEDED FOR ANXIETY 180 Tablet 025 2024 Discontinued cephALEXin (KEFLEX) 500 mg Oral Capsule Take 1 Capsule by mouth 2 times daily for 5 days. 10 Capsule 025 2024 polyethylene glycol (GOLYTELY) 236-22.74-6.74 -5.86 gram Oral Recon SolnIndications:I rosibel deficiency anemia, unspecified iron deficiency anemia type,Chronic idiopathic constipation Take 4,000 mL by mouth once for 1 dose. Take as directed by office 4000 mL 025 2024 ondansetron (ZOFRAN-ODT) 4 mg Oral Tablet, Rapid Dissolve Dissolve 1 Tablet by mouth every 6 hours as needed for Nausea for up to 3 days. 12 Tablet 025 2024 Active Problems Patient Care Coordination No te Formatting of this note migh t be different from the original. [facility] Press-Ganey Survey-Letter- 05/31/2024 LW Problem Noted Date Diagnosed Date Iron malabsorption 11/27/2024 Insomnia, persistent 10/15/2024 Chronic post-traumatic stress disorder (PTSD) Social anxiety disorder 09/10/2024 SCOT (generalized anxiety disorder) 07/27/2024 Panic disorder 07/27/2024 OCD (obsessive compulsive disorder) 07/27/2024 Iron deficiency anemia 12/09/2023 Metabolic encephalopathy 12/07/2023 Cellulitis of right leg 12/07/2023 Acute cystitis 12/07/2023 Acute hyponatremia 12/07/2023 Hypokalemia 12/07/2023 Altered mental status, unspe cified altered mental status type 12/06/2023 Acquired hypothyroidism 06/19/2023 Assessment & Plan (11/20/2024 3:30 PM EDT): Orders: LEVOthyroxine (SYNTHROID) 100 mcg Oral Tablet; Take 1 Tablet by mouth daily. THYROID STIMULATING HORMONE; Future T4, FREE (THYROXINE); Future Anxiety with depression 06/19/2023 Gastroesophageal reflux disease 06/19/2023 Morbid obesity with body mass index (BMI) of 40. 0 to 49.9 06/19/2023 FORD on CPAP 06/19/2023 Opioid use disorder, severe, on maintenance ther apy 06/19/2023 Neuropathy 06/19/2023 Diabetic polyneuropathy asso ciated with type 2 diabetes mellitus 06/19/2023 Fissure in skin of foot 06/19/2023 COVID 04/28/2021 Metabolic syndrome 01/20/2011 Vitamin D deficiency 01/20/2011 Microcytic anemia 01/20/2011 RLS (restless legs syndrome) 01/07/2011 Fibromyalgia 12/10/2010 Assessment & Plan (11/20/2024 3:30 PM EDT): Orders: gabapentin (NEURONTIN) 800 mg Oral Tablet; Take 1 Tablet by mouth 3 times daily. Arthritis 12/10/2010 Migraine 12/10/2010 DDD (degenerative disc disease) 12/10/2010 Resolved Problems Problem Noted Date Diagnosed Date Resolved Date OCD (obsessive compulsive disorder) 07/27/2024 07/27/2024 Joint infection 06/19/2023 12/08/2023 Cellulitis of second toe of right foot 06/19/2023 12/08/2023 Osteomyelitis of second toe of right foot 06/19/2023 12/08/2023 Osteomyelitis of right foot, unspecified type 06/18/2012/08/2023 Osteomyelitis 06/18/2023 12/08/2023 Symptomatic cholelithiasis 08/14/2015 0 08/28/2015 Epigastric pain 07/25/2015 12/08/2023 Lower abdominal pain 07/25/2015 024 Immunizations Immunization Administration Dates Next Due Tdap 06/18/2023 Family History Medical History Relation Name Comments Unknown Father DENVER Cowart Unknown Mother Chari Franz Anesth Problems Neg Hx Relation Name Status Comments Father DENVER Cowart Alive Mother Chari Franz Alive Social History Smoking Status as of 03/03/2025 Tobacco Use Types Packs/Day Years Used Date Smoking Tobacco: Never Assessed [facility] Utilities Answer Date Recorded In the past 12 months has e electric, gas, oil, or water company threatened to shut off services in your home? Patient declined 12/08/2023 Social Connection and Isolation Panel [NHANES] A nswer Date Recorded Frequency of Communication with Friends and Fami ly Not on file 12/13/2023 Frequency of Social Gatherings with Friends and Family Not on file 12/13/2023 Attends Islam Services Not on file 12/12 Active Member [...] Date Recorded PHQ-2 Total Score 0 11/20/2024 [facility] [place] of Occupat ional Health - Occupational Stress [...] things needed for daily living? No 12/13/2023 [facility] IP Transportation Answer D ate Recorded In the past 12 months, has l ack of reliable transportation kept you from medical appointments, meetings, work or from getting things needed for daily living? Patient declined 12/08/2023 Sex and Gender Information Value Date Recorded Sex Assigned at Not on file Legal Sex Female 5:10 PM EDT Gender Identity Not on file Sexual Orientation Not on file Last Filed Vital Signs Vital Sign Reading Time Taken Comments Blood Pressure 130/62 02/27/2025 9:54 AM EDT Pulse 100 02/27/2025 9:54 AM EDT Temperature 36.5 C (97.7 F) 02/12/2025 3:43 PM EDT Respiratory Rate 16 02/12/2025 3:22 PM EDT Oxygen Saturation 94% 02/27/2025 9:54 AM EDT Inhaled Oxygen Concentration - - Weight 124.7 kg (275 lb) 02/27/2025 9:54 AM EDT Height 165.1 cm (5' 5 ) 02/27/2025 9:54 AM EDT Body Mass Index 45.76 02/27/2025 9:54 AM EDT Plan of Treatment Upcoming Encounters Date Type Department Care Team (Late st Contact Info) Description 03/11/2025 9:15 AM EDT Office Visit [facility] [place] [address] [place] [address] Max Gifford, DPM [address] [place], [place] [id number] 05/02/2025 1:00 PM EDT Appointment [facility] [address] 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[employer] Operator Device Identifier Shelf Expiration Date Model / Serial / Lot System Sling Transobturator Halo O[employer] - [id number] Implanted:Qty: 1 on 08/09/2012 by Joel Gramajo MD at [facility] N/A: Bladder [employer]:MICROVASIVE: UROLOGY 06/09/2015 [id number] / / [id number] Procedures Procedure Name Priority Date/Time Associated Diagnosis Comments DRUG CONFIRMATION, BUPRENORPHINE AND METAB - URINE Routine 02/27/2025 10:00 AM EDT Opioid dependence, continuous (HCC) Opioid dependence on agonist therapy (HCC) Encounter for monitoring of patient compliance in drug treatment program GABAPENTIN, URINE Routine 02/27/2025 10:00 AM EDT Opioid dependence, continuous (HCC) Opioid dependence on agonist therapy ([facility]) Encounter for monitoring of patient compliance in drug treatment program ETHYL GLUCURONIDE SCREEN W/ REFLEX, URINE-REF LAB Routine 02/27/2025 10:00 AM EDT Opioid dependence, continuous (HCC) Opioid dependence on agonist therapy (HCC) Encounter for monitoring of patient compliance in drug treatment program DRUGS OF ABUSE WITH REFLEX TO CONFIRMATION, URINE Routine 02/27/2025 10:00 AM EDT Opioid dependence, continuous (HCC) Opioid dependence on agonist therapy ([facility]) Encounter for monitoring of patient compliance in drug treatment program URINALYSIS REFLEX STAT 02/12/2025 4:33 PM EDT UA W/REFLEX TO CULTURE STAT 4:33 PM EDT URINE CULTURE (NO STAIN) STAT 025 4:33 PM EDT EXTRA HALL URINE CX STAT 02/12/2025 4:33 PM EDT COMPREHENSIVE METABOLIC PANEL STAT 02/12/2025 4:05 PM EDT CBC WITH DIFF STAT 02/12/2025 4:05 PM EDT DRUG CONFIRMATION, BUPRENORPHINE AND METAB - URINE Routine 01/29/2025 3:56 PM EDT Opioid use disorder, severe, dependence (HCC) ETHYL GLUCURONIDE SCREEN W/ REFLEX, URINE-REF LAB Routine 01/29/2025 3:56 PM EDT Opioid use disorder, severe, dependence (HCC) DRUGS OF ABUSE WITH REFLEX TO CONFIRMATION, URINE Routine 01/29/2025 3:56 PM EDT Opioid use disorder, severe, dependence (HCC) DRUG CONFIRMATION, BUPRENORPHINE AND METAB - URINE Routine 12/27/2024 12:51 PM EDT Opioid dependence, continuous (HCC) Opioid dependence on agonist therapy (HCC) Encounter for monitoring of patient compliance in drug treatment program GABAPENTIN, URINE Routine 12/27/2024 12:51 PM EDT Opioid dependence, continuous (HCC) Opioid dependence on agonist therapy (HCC) Encounter for monitoring of patient compliance in drug treatment program ETHYL GLUCURONIDE SCREEN W/ REFLEX, URINE-REF LAB Routine 12/27/2024 12:51 PM EDT Opioid dependence, continuous (HCC) Opioid dependence on agonist therapy (HCC) Encounter for monitoring of patient compliance in drug treatment program DRUGS OF ABUSE WITH REFLEX TO CONFIRMATION, URINE Routine 12/27/2024 12:51 PM EDT Opioid dependence, continuous (HCC) Opioid dependence on agonist therapy (HCC) Encounter for monitoring of patient compliance in drug treatment program DRUG CONFIRMATION, BUPRENORPHINE AND METAB - URINE Routine 11/22/2024 10:23 AM EDT Opioid dependence, continuous (HCC) Opioid dependence on agonist therapy (HCC) Encounter for monitoring of patient compliance in drug treatment program ETHYL GLUCURONIDE SCREEN W/ REFLEX, URINE-REF LAB Routine 11/22/2024 10:23 AM EDT Opioid dependence, continuous (HCC) Opioid dependence on agonist therapy (HCC) Encounter for monitoring of patient compliance in drug treatment program DRUGS OF ABUSE WITH REFLEX TO CONFIRMATION, URINE Routine 11/22/2024 10:23 AM EDT Opioid dependence, continuous (HCC) Opioid dependence on agonist therapy (HCC) Encounter for monitoring of patient compliance in drug treatment program FERRITIN Routine 11/20/2024 2:49 PM EDT Iron deficiency anemia, unspecified iron deficiency anemia type IRON+TIBC Routine 11/20/2024 2:49 PM EDT Iron deficiency anemia, unspecified iron deficiency anemia type T4, FREE (THYROXINE) Routine 11/20/2024 2:49 PM EDT Acquired hypothyroidism THYROID STIMULATING HORMONE Routine 11/20/2024 2:49 PM EDT Acquired hypothyroidism NT PROBNP Routine 11/20/2024 2:49 PM EDT Leg swelling LIPID SCREEN Routine 11/20/2024 2:49 PM EDT Type 2 diabetes mellitus without complication, unspecified whether chcf insulin use (HCC) CBC WITH DIFF Routine 11/20/2024 2:49 PM EDT Type 2 diabetes mellitus without complication, unspecified whether chcf insulin use (HCC) COMPREHENSIVE METABOLIC PANEL Routine 11/20/2024 2:49 PM EDT Type 2 diabetes mellitus without complication, unspecified whether chcf insulin use (HCC) Leg swelling HEMOGLOBIN A1C Routine 11/20/2024 2:49 PM EDT Type 2 diabetes mellitus without complication, unspecified whether intermodal customer service insulin use (HCC) DRUG CONFIRMATION, BUPRENORPHINE AND METAB - URINE Routine 10/31/2024 9:28 AM EDT Opioid dependence, continuous (HCC) Opioid dependence on agonist therapy (HCC) Encounter for monitoring of patient compliance in drug treatment program GABAPENTIN, URINE Routine 10/31/2024 9:28 AM EDT Opioid dependence, continuous (HCC) Opioid dependence on agonist therapy (HCC) Encounter for monitoring of patient compliance in drug treatment program ETHYL GLUCURONIDE SCREEN W/ REFLEX, URINE-REF LAB Routine 10/31/2024 9:28 AM EDT Opioid dependence, continuous (HCC) Opioid dependence on agonist therapy (HCC) Encounter for monitoring of patient compliance in drug treatment program DRUGS OF ABUSE WITH REFLEX TO CONFIRMATION, URINE Routine 10/31/2024 9:28 AM EDT Opioid dependence, continuous (HCC) Opioid dependence on agonist therapy (HCC) Encounter for monitoring of patient compliance in drug treatment program BASIC METABOLIC PANEL STAT 10/28/2024 2:52 PM EDT CBC WITH DIFF STAT 10/28/2024 2:52 PM EDT XR CHEST PA AND LATERAL PIPE 10/29/19 25 2:46 PM EDT [id number] Routine 10/28/2024 2:29 PM EDT STREP A DNA Routine 10/28/2024 2:29 PM EDT DRUG CONFIRMATION, BUPRENORPHINE AND METAB - URINE Routine 10/04/2024 12:56 PM EDT Opioid dependence, continuous (HCC) DRUGS OF ABUSE WITH REFLEX TO CONFIRMATION, URINE Routine 10/04/2024 12:56 PM EDT Opioid dependence, continuous (HCC) ETHYL GLUCURONIDE SCREEN W/ REFLEX, URINE-REF LAB Routine 10/04/2024 12:56 PM EDT Opioid dependence, continuous (HCC) COMPREHENSIVE METABOLIC PANEL Routine 09/11/2024 11:28 AM EST Medication management CBC WITH DIFF Routine 09/11/2024 11:28 AM EST Medication management DRUG CONFIRMATION, BUPRENORPHINE AND METAB - URINE Routine 09/11/2024 11:02 AM EST Opioid dependence, continuous (HCC) Opioid dependence on agonist therapy (HCC) Encounter for monitoring of patient compliance in drug treatment program GABAPENTIN, URINE Routine 09/11/2024 11:02 AM EST Opioid dependence, continuous (HCC) Opioid dependence on agonist therapy (HCC) Encounter for monitoring of patient compliance in drug treatment program ETHYL GLUCURONIDE SCREEN W/ REFLEX, URINE-REF LAB Routine 09/11/2024 11:02 AM EST Opioid dependence, continuous (HCC) Opioid dependence on agonist therapy (HCC) Encounter for monitoring of patient compliance in drug treatment program DRUGS OF ABUSE WITH REFLEX TO CONFIRMATION, URINE Routine 09/11/2024 11:02 AM EST Opioid dependence, continuous (HCC) Opioid dependence on agonist therapy (HCC) Encounter for monitoring of patient compliance in drug treatment program GABAPENTIN, URINE Routine 08/22/2024 9:50 AM EST Opioid dependence, continuous (HCC) Opioid dependence on agonist therapy (HCC) Encounter for monitoring of patient compliance in drug treatment program Medication management DRUG CONFIRMATION, BUPRENORPHINE AND METAB - URINE Routine 08/22/2024 8:44 AM EST Opioid dependence, continuous (HCC) Opioid dependence on agonist therapy (HCC) Encounter for monitoring of patient compliance in drug treatment program ETHYL GLUCURONIDE SCREEN W/ REFLEX, URINE-REF LAB Routine 08/22/2024 8:44 AM EST Opioid dependence, continuous (HCC) Opioid dependence on agonist therapy (HCC) Encounter for monitoring of patient compliance in drug treatment program DRUGS OF ABUSE WITH REFLEX TO CONFIRMATION, URINE Routine 08/22/2024 8:44 AM EST Opioid dependence, continuous (HCC) Opioid dependence on agonist therapy (HCC) Encounter for monitoring of patient compliance in drug treatment program DRUG CONFIRMATION, BUPRENORPHINE AND METAB - URINE Routine 07/30/2024 4:34 PM EST Opioid dependence, continuous (HCC) Encounter for monitoring of patient compliance in drug treatment program ETHYL GLUCURONIDE SCREEN W/ REFLEX, URINE-REF LAB Routine 07/30/2024 4:34 PM EST Opioid dependence, continuous (HCC) Encounter for monitoring of patient compliance in drug treatment program DRUGS OF ABUSE WITH REFLEX TO CONFIRMATION, URINE Routine 07/30/2024 4:34 PM EST Opioid dependence, continuous (HCC) Encounter for monitoring of patient compliance in drug treatment program DRUG CONFIRMATION, BUPRENORPHINE AND METAB - URINE Routine 06/29/2024 8:55 AM EST Opioid dependence, continuous (HCC) Opioid dependence on agonist therapy (HCC) Encounter for monitoring of patient compliance in drug treatment program ETHYL GLUCURONIDE SCREEN W/ REFLEX, URINE-REF LAB Routine 06/29/2024 8:55 AM EST Opioid dependence, continuous (HCC) Opioid dependence on agonist therapy (HCC) Encounter for monitoring of patient compliance in drug treatment program DRUGS OF ABUSE WITH REFLEX TO CONFIRMATION, URINE Routine 06/29/2024 8:55 AM EST Opioid dependence, continuous (HCC) Opioid dependence on agonist therapy (HCC) Encounter for monitoring of patient compliance in drug treatment program DRUG CONFIRMATION, BUPRENORPHINE AND METAB - URINE Routine 05/31/2024 10:04 AM EST Opioid dependence, continuous (HCC) Opioid dependence on agonist therapy (HCC) Mood disorder Encounter for monitoring of patient compliance in drug treatment program DRUGS OF ABUSE WITH REFLEX TO CONFIRMATION, URINE Routine 05/31/2024 10:04 AM EST Opioid dependence, continuous (HCC) Opioid dependence on agonist therapy (HCC) Mood disorder Encounter for monitoring of patient compliance in drug treatment program ETHYL GLUCURONIDE SCREEN W/ REFLEX, URINE-REF LAB Routine 05/31/2024 10:04 AM EST Opioid dependence, continuous (HCC) Opioid dependence on agonist therapy (HCC) Mood disorder Encounter for monitoring of patient compliance in drug treatment program NT PROBNP STAT 05/20/2024 5:19 AM EST COMPREHENSIVE METABOLIC PANEL STAT 05/20/2024 5:19 AM EST CBC WITH DIFF STAT 05/20/2024 5:19 AM EST XR CHEST AP PORTABLE STAT 05/20/2024 5:13 AM EST DRUG CONFIRMATION, BUPRENORPHINE AND METAB - URINE Routine 04/26/2024 11:35 AM EDT Opioid dependence, continuous (HCC) Opioid dependence on agonist therapy (HCC) Encounter for patient compliance monitoring in drug treatment program DRUGS OF ABUSE WITH REFLEX TO CONFIRMATION, URINE Routine 04/26/2024 11:35 AM EDT Opioid dependence, continuous (HCC) Opioid dependence on agonist therapy (HCC) Encounter for patient compliance monitoring in drug treatment program DRUG CONFIRMATION, BUPRENORPHINE AND METAB - URINE Routine 04/06/2024 11:43 AM EDT Opioid dependence, continuous (HCC) ETHYL GLUCURONIDE SCREEN W/ REFLEX, URINE-REF LAB Routine 04/06/2024 11:43 AM EDT Opioid dependence, continuous (HCC) DRUGS OF ABUSE WITH REFLEX TO CONFIRMATION, URINE Routine 04/06/2024 11:43 AM EDT Opioid dependence, continuous (HCC) CT ABD PEL ED FAST W CONTRAST STAT 04/04/2024 3:32 PM EDT LIPASE LEVEL STAT 04/04/2024 2:37 PM EDT COMPREHENSIVE METABOLIC PANEL STAT 04/04/2024 2:37 PM EDT CBC WITH DIFF STAT 04/04/2024 2:37 PM EDT [id number] A/B Routine 03/31/2024 2:05 PM EDT DRUG CONFIRMATION, BUPRENORPHINE AND METAB - URINE Routine 03/22/2024 11:47 AM EDT Opioid dependence, continuous (HCC) Opioid dependence on agonist therapy (HCC) Encounter for patient compliance monitoring in drug treatment program DRUGS OF ABUSE WITH REFLEX TO CONFIRMATION, URINE Routine 03/22/2024 11:47 AM EDT Opioid dependence, continuous (HCC) Opioid dependence on agonist therapy (HCC) Encounter for patient compliance monitoring in drug treatment program DRUG CONFIRMATION, BUPRENORPHINE AND METAB - URINE Routine 03/08/2024 12:49 PM EDT Opioid dependence, continuous (HCC) Opioid dependence on agonist therapy (HCC) Encounter for patient compliance monitoring in drug treatment program GABAPENTIN, URINE Routine 03/08/2024 12:49 PM EDT Opioid dependence, continuous (HCC) Opioid dependence on agonist therapy (HCC) Encounter for patient compliance monitoring in drug treatment program ETHYL GLUCURONIDE SCREEN W/ REFLEX, URINE-REF LAB Routine 03/08/2024 12:49 PM EDT Opioid dependence, continuous (HCC) Opioid dependence on agonist therapy (HCC) Encounter for patient compliance monitoring in drug treatment program DRUGS OF ABUSE WITH REFLEX TO CONFIRMATION, URINE Routine 03/08/2024 12:49 PM EDT Opioid dependence, continuous (HCC) Opioid dependence on agonist therapy (HCC) Encounter for patient compliance monitoring in drug treatment program CBC WITH DIFF Routine 02/23/2024 10:38 AM EDT Anemia, unspecified type DRUG CONFIRMATION, BUPRENORPHINE AND METAB - URINE Routine 02/23/2024 10:22 AM EDT Opioid dependence, continuous (HCC) Opioid dependence on agonist therapy (HCC) Encounter for patient compliance monitoring in drug treatment program DRUGS OF ABUSE WITH REFLEX TO CONFIRMATION, URINE Routine 02/23/2024 10:22 AM EDT Opioid dependence, continuous (HCC) Opioid dependence on agonist therapy (HCC) Encounter for patient compliance monitoring in drug treatment program DRUG CONFIRMATION, BUPRENORPHINE AND METAB - URINE Routine 02/09/2024 8:32 AM EDT Opioid dependence, continuous (HCC) Opioid dependence on agonist therapy (HCC) Encounter for patient compliance monitoring in drug treatment program GABAPENTIN, URINE Routine 02/09/2024 8:32 AM EDT Opioid dependence, continuous (HCC) Opioid dependence on agonist therapy (HCC) Encounter for patient compliance monitoring in drug treatment program DRUGS OF ABUSE WITH REFLEX TO CONFIRMATION, URINE Routine 02/09/2024 8:32 AM EDT Opioid dependence, continuous (HCC) Opioid dependence on agonist therapy (HCC) Encounter for patient compliance monitoring in drug treatment program DRUG CONFIRMATION, BUPRENORPHINE AND METAB - URINE Routine 01/26/2024 12:25 PM EDT Opioid dependence, continuous (HCC) Opioid dependence on agonist therapy (HCC) Encounter for patient compliance monitoring in drug treatment program ETHYL GLUCURONIDE SCREEN W/ REFLEX, URINE-REF LAB Routine 01/26/2024 12:25 PM EDT Opioid dependence, continuous (HCC) Opioid dependence on agonist therapy (HCC) Encounter for patient compliance monitoring in drug treatment program DRUGS OF ABUSE WITH REFLEX TO CONFIRMATION, URINE Routine 01/26/2024 12:25 PM EDT Opioid dependence, continuous (HCC) Opioid dependence on agonist therapy (HCC) Encounter for patient compliance monitoring in drug treatment program GABAPENTIN, URINE Routine 01/12/2024 2:46 PM EDT Encounter for patient compliance monitoring in drug treatment program DRUG CONFIRMATION, BUPRENORPHINE AND METAB - URINE Routine 01/12/2024 2:46 PM EDT Opioid dependence, continuous (HCC) Opioid dependence on agonist therapy (HCC) Encounter for patient compliance monitoring in drug treatment program DRUGS OF ABUSE WITH REFLEX TO CONFIRMATION, URINE Routine 01/12/2024 2:46 PM EDT Opioid dependence, continuous (HCC) Opioid dependence on agonist therapy (HCC) Encounter for patient compliance monitoring in drug treatment program ETHYL GLUCURONIDE SCREEN W/ REFLEX, URINE-REF LAB Routine 01/12/2024 2:46 PM EDT Opioid dependence, continuous (HCC) Opioid dependence on agonist therapy (HCC) Encounter for patient compliance monitoring in drug treatment program DRUG CONFIRMATION, BUPRENORPHINE AND METAB - URINE Routine 12/28/2023 10:42 AM EDT Opioid dependence, continuous (HCC) Opioid dependence on agonist therapy (HCC) Encounter for patient compliance monitoring in drug treatment program DRUGS OF ABUSE WITH REFLEX TO CONFIRMATION, URINE Routine 12/28/2023 10:42 AM EDT Opioid dependence, continuous (HCC) Opioid dependence on agonist therapy (HCC) Encounter for patient compliance monitoring in drug treatment program DRUG CONFIRMATION, BUPRENORPHINE AND METAB - URINE Routine 12/21/2023 2:16 PM EDT Opioid dependence, continuous (HCC) Opioid dependence on agonist therapy (HCC) Encounter for patient compliance monitoring in drug treatment program GABAPENTIN, URINE Routine 12/21/2023 2:16 PM EDT Opioid dependence, continuous (HCC) Opioid dependence on agonist therapy (HCC) Encounter for patient compliance monitoring in drug treatment program DRUGS OF ABUSE WITH REFLEX TO CONFIRMATION, URINE Routine 12/21/2023 2:16 PM EDT Opioid dependence, continuous (HCC) Opioid dependence on agonist therapy (HCC) Encounter for patient compliance monitoring in drug treatment program DRUG CONFIRMATION, BUPRENORPHINE AND METAB - URINE Routine 12/15/2023 4:50 PM EDT Opioid dependence, continuous (HCC) ETHYL GLUCURONIDE SCREEN W/ REFLEX, URINE-REF LAB Routine 12/15/2023 4:50 PM EDT Opioid dependence, continuous (HCC) DRUGS OF ABUSE WITH REFLEX TO CONFIRMATION, URINE Routine 12/15/2023 4:50 PM EDT Opioid dependence, continuous (HCC) CBC WITH DIFF Routine 12/15/2023 3:05 PM EDT Anemia due to acute blood loss BASIC METABOLIC PANEL Routine 12/15/2023 3:05 PM EDT Hypokalemia MICROALBUMIN/CREATININE RATIO URINE Routine 12/15/2023 3:05 PM EDT Type 2 diabetes mellitus without complication, unspecified whether chcf insulin use (HCC) IRIS DIABETIC RETINOPATHY EXAM Routine 12/15/2023 3:04 PM EDT Type 2 diabetes mellitus without complication, unspecified whether chcf insulin use (HCC) GLUCOSE METER POC Routine 12/09/2023 1:24 PM EDT GLUCOSE METER POC Routine 12/09/2023 7:52 AM EDT ECG AND WAVEFORMS - TELEMETRY Routine 12/09/2023 7:00 AM EDT BASIC METABOLIC PANEL Early AM 12/09/2023 6:05 AM EDT CBC WITH DIFF Early AM 12/09/2023 6:05 AM EDT GLUCOSE METER POC Routine 12/09/2023 5:19 AM EDT [id number] Routine 12/09/2023 1:14 AM EDT GLUCOSE METER POC Routine 12/09/2023 12:07 AM EDT GLUCOSE METER POC Routine 12/08/2023 11:56 PM EDT GLUCOSE METER POC Routine 12/08/2023 10:41 PM EDT ECG AND WAVEFORMS - TELEMETRY Routine 12/08/2023 7:00 PM EDT GLUCOSE METER POC Routine 12/08/2023 5:52 PM EDT ECG AND WAVEFORMS - TELEMETRY Routine 12/08/2023 7:00 AM EDT ECG AND WAVEFORMS - TELEMETRY Routine 12/08/2023 5:11 AM EDT MONONUCLEOSIS SCREEN Add-On 12/08/2023 4:39 AM EDT TRANSFERRIN Add-On 12/08/2023 4:39 AM EDT IRON+TIBC Add-On 12/08/2023 4:39 AM EDT FERRITIN Add-On 12/08/2023 4:39 AM EDT BASIC METABOLIC PANEL Early AM 12/08/2023 4:39 AM EDT CBC WITH DIFF Early AM 12/08/2023 4:39 AM EDT ECG AND WAVEFORMS - TELEMETRY Routine 12/07/2023 7:00 PM EDT ECG AND WAVEFORMS - TELEMETRY Routine 12/07/2023 3:32 PM EDT ADMIT Routine 12/07/2023 2:41 PM EDT BASIC METABOLIC PANEL Routine 12/07/2023 11:56 AM EDT SCANNED EKG 12/07/2023 10:37 AM EDT URINALYSIS REFLEX STAT 12/06/2023 8:54 PM EDT DRUG SCREEN RAPID PANEL, URINE (GRT,COV ONLY) STAT 12/06/2023 8:54 PM EDT UA W/REFLEX TO CULTURE STAT 8:54 PM EDT URINE CULTURE (NO STAIN) STAT 024 8:54 PM EDT EXTRA HALL URINE CX STAT 12/06/2023 8:54 PM EDT ADMIT Routine 12/06/2023 7:53 PM EDT ACETAMINOPHEN LEVEL STAT 12/06/2023 7:40 PM EDT SALICYLATE LEVEL STAT 12/06/2023 7:40 PM EDT BLOOD GAS, VENOUS STAT 12/06/2023 7:[address] HEAD WO CONTRAST STAT 12/06/2023 7:24 PM EDT XR CHEST AP PORTABLE STAT 12/06/2023 7:22 PM EDT ALCOHOL MEDICAL STAT 12/06/2023 7:10 PM EDT LACTIC ACID STAT 12/06/2023 7:10 PM EDT COMPREHENSIVE METABOLIC PANEL STAT 12/06/2023 7:10 PM EDT CBC WITH DIFF STAT 12/06/2023 7:10 PM EDT SALINE LOCK IV STAT 12/06/2023 6:52 PM EDT EK EKG 12 LEAD STAT 12/06/2023 6:52 PM EDT GAMMA GLUTAMYL TRANSFERASE Routine 11/29/2023 4:27 PM EDT Elevated alkaline phosphatase level HUMAN CHORIONIC GONADOTROPIN QUANTITATIVE Routine 11/29/2023 4:27 PM EDT Opioid dependence, continuous (HCC) Opioid dependence on agonist therapy (HCC) Problem related to lifestyle, unspecified HIV AG/AB Routine 11/29/2023 4:27 PM EDT Opioid dependence, continuous (HCC) Opioid dependence on agonist therapy (HCC) Encounter for screening for infections with predominantly sexual mode of transmission Screening for human immunodeficiency virus SYPHILIS SCREEN WITH REFLEX RPR QUANT Routine 11/29/2023 4:27 PM EDT Opioid dependence, continuous (HCC) Opioid dependence on agonist therapy (HCC) Problem related to lifestyle, unspecified Encounter for screening for infections with predominantly sexual mode of transmission ACUTE HEPATITIS PANEL Routine 11/29/2023 4:27 PM EDT Opioid dependence, continuous (HCC) Opioid dependence on agonist therapy (HCC) Problem related to lifestyle, unspecified Encounter for screening for infections with predominantly sexual mode of transmission HEPATITIS B SURFACE ANTIBODY Routine 11/29/2023 4:27 PM EDT Opioid dependence, continuous (HCC) Opioid dependence on agonist therapy (HCC) Problem related to lifestyle, unspecified Encounter for screening for infections with predominantly sexual mode of transmission CREATININE Routine 11/29/2023 4:27 PM EDT Opioid dependence, continuous (HCC) Opioid dependence on agonist therapy (HCC) HEPATIC FUNCTION PANEL Routine 4:27 PM EDT Opioid dependence, continuous (HCC) Opioid dependence on agonist therapy (HCC) CBC WITH DIFF Routine 11/29/2023 4:27 PM EDT Opioid dependence, continuous (HCC) Opioid dependence on agonist therapy (HCC) Problem related to lifestyle, unspecified Encounter for screening for infections with predominantly sexual mode of transmission DRUG CONFIRMATION, BUPRENORPHINE AND METAB - URINE Routine 11/29/2023 3:08 PM EDT Opioid dependence, continuous (HCC) Opioid dependence on agonist therapy (HCC) Encounter for patient compliance monitoring in drug treatment program KRATOM SCREEN WITH CONFIRMATION, URINE-REF LAB Routine 11/29/2023 3:08 PM EDT Opioid dependence, continuous (HCC) Opioid dependence on agonist therapy (HCC) Encounter for patient compliance monitoring in drug treatment program Problem related to lifestyle, unspecified Encounter for screening for infections with predominantly sexual mode of transmission Screening for human immunodeficiency virus At risk for substance overdose Chronic pain syndrome Fibromyalgia Sleep apnea, unspecified type Mood disorder Medication management Opiate withdrawal (HCC) Physical exam, routine Transportation insecurity due to lack of access to vehicle Unemployed Relationship problem between partners Needs assistance with community resources Swelling of lower extremity GABAPENTIN, URINE Routine 11/29/2023 3:08 PM EDT Opioid dependence, continuous (HCC) Opioid dependence on agonist therapy (HCC) Encounter for patient compliance monitoring in drug treatment program ETHYL GLUCURONIDE SCREEN W/ REFLEX, URINE-REF LAB Routine 11/29/2023 3:08 PM EDT Opioid dependence, continuous (HCC) Opioid dependence on agonist therapy (HCC) Encounter for patient compliance monitoring in drug treatment program DRUGS OF ABUSE WITH REFLEX TO CONFIRMATION, URINE Routine 11/29/2023 3:08 PM EDT Opioid dependence, continuous (HCC) Opioid dependence on agonist therapy (HCC) Encounter for patient compliance monitoring in drug treatment program HEMOGLOBIN A1C Routine 11/24/2023 4:20 PM EDT Annual physical exam T4, FREE (THYROXINE) Routine 11/24/2023 4:20 PM EDT Acquired hypothyroidism THYROID STIMULATING HORMONE Routine 11/24/2023 4:20 PM EDT Acquired hypothyroidism LIPID SCREEN Routine 11/24/2023 4:20 PM EDT Annual physical exam COMPREHENSIVE METABOLIC PANEL Routine 11/24/2023 4:20 PM EDT Annual physical exam CBC WITH DIFF Routine 11/24/2023 4:20 PM EDT Annual physical exam SCANNED RHYTHM STRIPS 2023 10:01 AM EST BASIC METABOLIC PANEL Early AM 06/22/2023 5:50 AM EST CBC WITH DIFF Early AM 06/21/2023 5:55 AM EST BASIC METABOLIC PANEL Early AM 06/21/2023 5:55 AM EST GLUCOSE METER POC Routine 06/20/2023 6:14 PM EST PATHOLOGY TISSUE REQUEST Routine 023 5:35 PM EST Osteomyelitis of second toe of right foot (HCC) WOUND CULTURE (STAIN INCLUDED) Routine 06/20/2023 5:35 PM EST Osteomyelitis of second toe of right foot (HCC) ANAEROBIC CULTURE (NO STAIN) Routine 06/20/2023 5:35 PM EST Osteomyelitis of second toe of right foot (HCC) INTRAOP AIRWAY PLACEMENT Routine 023 5:22 PM EST TOE/METATARSAL OR HALLUX AMPUTATION 06/20/2023 5:19 PM EST Osteomyelitis of second toe of right foot (HCC) Special Needs sk VANCOMYCIN LEVEL AUC2 Timed 06/20/2023 1:42 PM EST VANCOMYCIN LEVEL AUC1 Timed 06/20/2023 8:53 AM EST BASIC METABOLIC PANEL Early AM 06/20/2023 8:53 AM EST HEMOGLOBIN A1C Routine 06/19/2023 11:23 AM EST BASIC METABOLIC PANEL Early AM 06/19/2023 11:23 AM EST VITAMIN B12/ FOLIC ACID Routine 06/19/20 11:20 AM EST IP CONSULT TO PODIATRY Routine 10:52 AM EST Procedure Note - Max Gifford DPM - 06/19/2023 4:39 PM ESTThis note is in progress. Name: Keisha Sutton Inpatient consult to Podiatry Consult performed by: Max Gifford DPM Consult ordered by: Cody Blair MD Reason for consult: Right second toe infection. Assessment/Recommendations: Diabetic with history of peripheral neuropathynow with open wound distal right second toe with underlying osteomyelitis.Will require I&D procedure with distal toe amputation. I reviewed theprocedure with the patient. Reviewed the postprocedural course. Reviewedrisk and benefit. She is amenable to the procedure. Will plan to addprocedure on within the next 24 to 48 hours. Thank you for the consultation. 39-year-old female seen at bedside for evaluation of right foot infection.Patient relates she has noticed increased swelling and redness over thelast few weeks. Has history of diabetes with peripheral neuropathy.Cannot recall any trauma. No other complaints. PCP:Chin Mai Past Medical History: Diagnosis Date Anemia 01/20/2011 Anxiety disorder Arthritis Depression Fibromyalgia 08/18/2015 Gallstones 08/18/2015 H/O total hysterectomy Headache(784.0) Irritable bowel syndrome Metabolic syndrome 08/18/2015 states in the past thought was borderline diabetic but I wasn't. Neuromuscular disorder (HCC) Post-operative nausea and vomiting 08/18/2015 Restless leg syndrome 08/18/2015 Sleep apnea Urinary incontinence Vitamin D deficiency 08/18/2015 Past Surgical History: Procedure Laterality Date CHOLECYSTECTOMY, LAPAROSCOPIC N/A 08/19/2015 LAPAROSCOPIC CHOLECYSTECTOMY ; Surgeon: Anne Rowe MD; Location:[facility]; Service: General COLONOSCOPY N/A 07/25/2015 COLONOSCOPY & ESOPHAGOGASTRODUODENOSCOPY with biposy; Surgeon: Leda Theodore MD; Location: [facility]; Service: Endoscopy CYSTOSCOPY 08/09/2012 Surgeon: Joel Gramajo MD; Location: [facility]; Service:Gynecology DENTAL SURGERY HYSTERECTOMY, VAGINAL 08/09/2012 TOTAL VAGINAL HYSTERECTOMY POSTERIOR REPAIR TRANSPOBTURATOR TAPEURETHROPEXY; Surgeon: Michael Washington MD; Location: [facility];Service: Gynecology TUBAL LIGATION UPPER GASTROINTESTINAL ENDOSCOPY N/A 07/25/2015 Surgeon: Leda Theodore MD; Location: [facility]; Service:Endoscopy URETHROPEXY 08/09/2012 TRANSOBTURATOR TAPE URETHROPEXY CYSTOSCOPY; Surgeon: Catia Gramajo MD; Location: [facility]; Service: Gynecology Family History Problem Relation Age of Onset Unknown Mother Unknown Father Anesth Problems Neg Hx Social History Socioeconomic History Marital status: Spouse name: None Number of children: None Years of education: None Highest education level: None Tobacco Use Smoking status: Never Smokeless tobacco: Never Vaping Use Vaping Use: Never used Substance and Sexual Activity Alcohol use: Yes Comment: occasionally Drug use: No Review of Systems Constitutional: Negative for chills and fever. Respiratory: Negative for shortness of breath. Cardiovascular: Positive for leg swelling. Negative for claudication. Gastrointestinal: Negative for abdominal pain, nausea and vomiting. Skin: Negative for itching and rash. Vitals: 06/18/23 2238 06/18/23 2254 06/19/23 0842 BP: 126/60 136/74 BP Location: Left arm Left arm Patient Position: Semi Fowlers Semi Fowlers Pulse: 87 90 Resp: 20 18 Temp: 98.3 F (36.8 C) 97.7 F (36.5 C) TempSrc: Oral Oral SpO2: 94% 91% Weight: 272 lb 8 oz (123.6 kg) Height: 5' 5 (1.651 m) Physical Exam PE- gen a/o x 3, NAD LE- Vascular- pulses DP + PT are palpable 2/4 bilateral, temperature is warmto warm proximal to distal, plycor operator <3 secs. Neuro- protective and vibratory sensations are abnormal. Noted loss ofprotective sensation distally in toes. Derm-noted distal wound right second toe with local with edema erythema.No gross fluctuance noted. Thickened skin lesions noted distal aspect ofmultiple toes with fissuring. M/S-noted long second toe right, muscle strength 5/5 all groups tested,joint ROM is within normal limits. No pain is noted with musclestrength testing or ROM. Reviewed three-view x-ray of the right foot with noted distalosteolysis/osteopenia right second toe. Results for orders placed or performed during the hospital encounter of06/18/23 PROCALCITONIN Result Value Ref Range Procalcitonin <0.05 <=0.49 ng/mL VITAMIN B12/ FOLIC ACID Result Value Ref Range Vitamin B12 374 232 - 1,245 pg/mL Folate >16.00 >=4.80 ng/mL IRON+TIBC Result Value Ref Range Iron 32 30 - 160 mcg/dL Transferrin 351 200 - 360 mg/dL Transferrin Saturation 7 (L) 20 - 50 % TIBC 491 (H) 250 - 400 mcg/dL BASIC METABOLIC PANEL Result Value Ref Range Sodium 138 136 - 145 mmol/L Potassium 3.2 (L) 3.5 - 5.0 mmol/L Chloride 97 (L) 98 - 107 mmol/L Total CO2 34 (H) 22 - 29 mmol/L Anion Gap 7 7 - 16 mmol/L Calcium 8.9 8.6 - 10.4 mg/dL Glucose Lvl 107 (H) 74 - 100 mg/dL BUN 10 6 - 20 mg/dL Creatinine 0.68 0.51 - 1.30 mg/dL eGFR (CKD-EPIcr 2020) 110 >=60 mL/min/1.73 m2 HEMOGLOBIN A1C Result Value Ref Range Hgb A1C 5.9 (H) 4.2 - 5.6 % Est. Avg Glucose 123 mg/dL Max Gifford DPM 06/19/2023 IP CONSULT TO SOCIAL WORK Routine 06/19/2023 5:20 AM EST ADMIT Routine 06/18/2023 10:08 PM EST BLOOD CULTURE (NO STAIN) STAT 023 3:12 PM EST BLOOD CULTURE (NO STAIN) STAT 023 3:12 PM EST ADMIT Routine 06/18/2023 2:59 PM EST DRUG SCREEN RAPID PANEL, URINE (GRT,COV ONLY) STAT 06/18/2023 2:59 PM EST IP CONSULT TO PHARMACY Routine 2:03 PM EST XR FOOT RIGHT AP LATERAL AND OBLIQUE PIPE 06/18/2023 1:31 PM EST IRON+TIBC Add-On 06/18/2023 1:26 PM EST PROCALCITONIN Add-On 06/18/2023 1:26 PM EST COMPREHENSIVE METABOLIC PANEL STAT 06/18/2023 1:26 PM EST CBC WITH DIFF STAT 06/18/2023 1:26 PM EST C-REACTIVE PROTEIN STAT 06/18/2023 1:26 PM EST SEDIMENTATION RATE AUTOMATED STAT 06/18/2023 1:26 PM EST LACTIC ACID STAT 06/18/2023 1:26 PM EST SALINE LOCK IV STAT 06/18/2023 1:11 PM EST CORONAVIRUS 2019 POCT Routine 04/28/2021 12:57 PM EDT TROPONIN-T HIGH SENSITIVITY BASELINE W/ REFLEX STAT 11/15/2020 7:42 PM EDT NT PROBNP STAT 11/15/2020 7:42 PM EDT CBC WITH DIFF STAT 11/15/2020 7:42 PM EDT BASIC METABOLIC PANEL STAT 11/15/2020 7:42 PM EDT XR CHEST PA AND LATERAL PIPE 11/16/19 7:18 PM EDT EK EKG 12 LEAD STAT 11/15/2020 6:58 PM EDT URINALYSIS STAT 07/20/2020 2:56 PM EST EXTRA HALL URINE CX STAT 07/20/2020 2:56 PM EST LIPASE LEVEL STAT 07/20/2020 1:53 PM EST COMPREHENSIVE METABOLIC PANEL STAT 07/20/2020 1:53 PM EST CBC STAT 07/20/2020 1:53 PM EST URINALYSIS STAT 07/14/2020 10:44 AM EST EXTRA HALL URINE CX STAT 07/14/2020 10:44 AM EST TROPONIN-T HIGH SENSITIVITY BASELINE W/ REFLEX STAT 07/14/2020 10:37 AM EST BASIC METABOLIC PANEL STAT 07/14/2020 10:37 AM EST CBC WITH DIFF STAT 07/14/2020 10:37 AM EST XR CHEST AP PORTABLE PIPE 07/14/2020 10:33 AM EST SALINE LOCK IV STAT 07/14/2020 10:19 AM EST EK EKG 12 LEAD STAT 07/14/2020 9:59 AM EST SCANNED EKG 06/20/2020 6:[address] CHEST ABDOMEN PELVIS W CONTRAST STAT 06/17/2020 1:48 PM EST D-DIMER STAT 06/17/2020 12:01 PM EST TROPONIN-T HIGH SENSITIVITY BASELINE W/ REFLEX STAT 06/17/2020 11:17 AM EST LIPASE LEVEL STAT 06/17/2020 11:17 AM EST HEPATIC FUNCTION PANEL STAT 0 11:17 AM EST BASIC METABOLIC PANEL STAT 06/17/2020 11:17 AM EST [id number] Routine 06/17/2020 11:11 AM EST CBC WITH DIFF STAT 06/17/2020 10:36 AM EST EK EKG 12 LEAD STAT 06/17/2020 10:04 AM EST EC ECHOCARDIOGRAM COMPLETE W DOPPLER AND COLOR FLOW MAPPING Routine 09/19/2019 11:49 AM EST Leg swelling CBC Routine 09/12/2019 1:41 PM EST Leg swelling T4, FREE (THYROXINE) Routine 09/12/2019 1:30 PM EST Leg swelling TSH REFLEX TO FT4 Routine 09/12/2019 1:30 PM EST Leg swelling MAGNESIUM LEVEL Routine 09/12/2019 1:30 PM EST Leg swelling HEPATIC FUNCTION PANEL Routine 0 1:30 PM EST Leg swelling LIPID PANEL REFLEX Routine 09/12/2019 1:30 PM EST Leg swelling BASIC METABOLIC PANEL Routine 09/12/2019 1:30 PM EST Leg swelling POCT EKG Routine 08/30/2019 1:02 PM EST Leg swelling SCANNED RADIOLOGY REPORT 020 2:41 PM EST SCANNED EKG 08/28/2019 2:38 PM EST SCANNED RADIOLOGY REPORT 020 2:35 PM EST XR KNEE RIGHT AP LAT INT EXT OBLIQUES AND SUNRISE Routine 09/02/2017 11:05 AM EST Acute pain of right knee XR LUMBAR SPINE AP AND LATERAL PIPE 03/29/2016 5:56 PM EDT US RIGHT UPPER QUADRANT Routine 01/12/20 16 9:05 AM EDT Acid phosphatase elevated ENTAS POCT FULL CT SINUS Routine 016 1:20 PM EST Nasal turbinate hypertrophy URINALYSIS STAT 09/03/2015 6:45 PM EST URINE CULTURE (NO STAIN) STAT 016 6:40 PM EST SCANNED RHYTHM STRIPS 08/21/2015 1:25 AM EST PATHOLOGY TISSUE REPORT Routine 08/19/19 16 1:53 PM EST LAPAROSCOPIC CHOLECYSTECTOMY POSSIBLE OPEN 08/19/2015 1:18 PM EST Symptomatic cholelithiasis Special Needs SOILA 08/15/15 @ 830 Left message for pre-op appointment VIC PATHOLOGY TISSUE REPORT Routine 07/25/19 16 12:04 PM EST ESOPHAGOGASTRODUODENOSCO PY 07/25/2015 11:19 AM EST Hematochezia Epigastric abdominal pain Special Needs JUAN LUIS COLONOSCOPY 07/25/2015 11:19 AM EST Hematochezia Epigastric abdominal pain Special Needs JUAN LUIS GMED COLONOSCOPY Routine 07/25/2015 9:45 AM EST GMED EGD Routine 07/25/2015 9:45 AM EST THYROID STIMULATING HORMONE Routine 07/04/2015 12:48 PM EST Irritable bowel syndrome without diarrhea US RIGHT UPPER QUADRANT Routine 07/04/20 15 11:48 AM EST Abdominal pain, right upper quadrant CT ABD PEL ED FAST W CONTRAST STAT 06/15/2015 11:39 AM EST DIFFERENTIAL STAT 06/15/2015 10:37 AM EST HEPATIC FUNCTION PANEL STAT 5 10:37 AM EST AMYLASE LEVEL STAT 06/15/2015 10:37 AM EST LIPASE LEVEL STAT 06/15/2015 10:37 AM EST BASIC METABOLIC PANEL STAT 06/15/2015 10:37 AM EST CBC WITH DIFF STAT 06/15/2015 10:37 AM EST DIFFERENTIAL Callback 09/06/2014 10:43 AM EST IRON LEVEL Callback 09/06/2014 10:43 AM EST Screening for unspecified disorder of blood and blood-forming organs Screening for iron deficiency anemia BASIC METABOLIC PANEL Callback 09/06/2014 10:43 AM EST Screening for unspecified disorder of blood and blood-forming organs Screening for iron deficiency anemia CBC WITH DIFF Callback 09/06/2014 10:43 AM EST Screening for unspecified disorder of blood and blood-forming organs Screening for iron deficiency anemia CT ABDOMEN PELVIS WO CONTRAST Routine 03/08/2014 12:17 PM EDT Abdominal pain, other specified site MRI CERVICAL SPINE WO CONTRAST Routine 11/22/2012 12:03 PM EDT Chronic neck pain Myalgia and myositis, unspecified SCANNED PRE/POST PROCEDURES 08/12/2012 4:59 PM EST SCANNED ANESTHESIA FORMS 013 4:59 PM EST SCANNED RHYTHM STRIPS 08/12/2012 4:58 PM EST CBC Timed 08/10/2012 5:39 AM EST CBC Routine 08/09/2012 8:10 PM EST PATHOLOGY TISSUE REPORT Routine 08/09/19 13 3:24 PM EST CYSTOSCOPY 08/09/2012 11:27 AM EST Cystocele, midline Unspecified urinary incontinence Special Needs [place] CPT 97302 [id number] 07/31 PKREV SUR[address]ANGE FR DR FRANCIS PRIMARY TO DR WASHINGTON & DR GRAMAJO TO DO THE TOT CYSTO PER [facility]1/16 ANTERIOR AND POSTERIOR REPAIR (CYSTOCELE AND RECTOCELE REPAIR) 08/09/2012 11:27 AM EST Cystocele, midline Unspecified urinary incontinence Special Needs [place] CPT 43473 [id number] 07/31 PKREV SUR[address]ANGE FR DR FRANCIS PRIMARY TO DR WASHINGTON & DR GRAMAJO TO DO THE TOT [place]ST[place] PER [place] [place] RM1/16 TRANSOBTURATOR TAPE URETHROPEXY-TOT- SUBURETHRAL WITH CYSTOSCOPY 08/09/2012 11:27 AM EST Cystocele, midline Unspecified urinary incontinence Special Needs [facility] CPT 18106 [id number] 07/31 PKREV SURG CHANGE FR DR FRANCIS PRIMARY TO DR WASHINGTON & DR GRAMAJO TO DO THE TOT CYSTO PER [place] RM1/16 VAGINAL HYSTERECTOMY 08/09/2012 11:27 AM EST Cystocele, midline Unspecified urinary incontinence Special Needs [place] CPT 24289 [id number] 07/31 PKREV SUR[address] CHANGE FR DR FRANCIS PRIMARY TO DR WASHINGTON & DR GRAMAJO TO DO THE TOT [place]ST[place] PER [place] [place] RM1/16 PAT UPDATED SPECIMEN STAT 08/09/2012 9:48 AM EST POCT URINE Routine 08/09/2012 9:11 AM EST PREADMISSION TYPE AND SCREEN Routine 08/01/2012 10:10 AM EST ANTIBODY SCREEN IGG Routine 08/01/2012 9:30 AM EST ABORH Routine 08/01/2012 9:30 AM EST DIFFERENTIAL Routine 08/01/2012 9:30 AM EST BASIC METABOLIC PANEL Routine 08/01/2012 9:30 AM EST CBC WITH DIFF Routine 08/01/2012 9:30 AM EST VITAMIN D, [id number] Routine 01/14/2011 11:32 AM EDT Fibromyalgia Arthritis Migraine RLS (restless legs syndrome) DDD (degenerative disc disease) Insomnia VITAMIN B12 LEVEL Routine 01/14/2011 11:32 AM EDT Fibromyalgia Arthritis Migraine RLS (restless legs syndrome) DDD (degenerative disc disease) Insomnia THYROID STIMULATING HORMONE Routine 01/14/2011 11:32 AM EDT Fibromyalgia Arthritis Migraine RLS (restless legs syndrome) DDD (degenerative disc disease) Insomnia T4, FREE (THYROXINE) Routine 01/14/2011 11:32 AM EDT Fibromyalgia Arthritis Migraine RLS (restless legs syndrome) DDD (degenerative disc disease) Insomnia T3 FREE Routine 01/14/2011 11:32 AM EDT Fibromyalgia Arthritis Migraine RLS (restless legs syndrome) DDD (degenerative disc disease) Insomnia LIPID SCREEN Routine 01/14/2011 11:32 AM EDT Fibromyalgia Arthritis Migraine RLS (restless legs syndrome) DDD (degenerative disc disease) Insomnia HEPATIC FUNCTION PANEL Routine 1 11:32 AM EDT Fibromyalgia Arthritis Migraine RLS (restless legs syndrome) DDD (degenerative disc disease) Insomnia HEMOGLOBIN A1C Routine 01/14/2011 11:32 AM EDT Fibromyalgia Arthritis Migraine RLS (restless legs syndrome) DDD (degenerative disc disease) Insomnia CBC Routine 01/14/2011 11:32 AM EDT Fibromyalgia Arthritis Migraine RLS (restless legs syndrome) DDD (degenerative disc disease) Insomnia BASIC METABOLIC PANEL Routine 01/14/2011 11:32 AM EDT Fibromyalgia Arthritis Migraine RLS (restless legs syndrome) DDD (degenerative disc disease) Insomnia MRI CERVICAL SPINE WO CONTRAST Routine 03/27/2010 11:37 AM EDT Displacement of cervical intervertebral disc without myelopathy LIPASE LEVEL Routine 05/14/2009 6:[address] ABDOMEN W CONTRAST Routine 06/18/2006 12:[address] PELVIS W CONTRAST Routine 06/18/2006 12:00 AM EST US PELVIS NON-OB COMPLETE Routine 04/12/2006 12:00 AM EDT Results * (ABNORMAL) GABAPENTIN, URINE (02/27/2025 10:00 AM EDT) Only the most recent of10 resultswithin the time period is included. Gabapentin >2,000(H) Cutoff 50 ng/mL ng/mL 03/01/2025 8:59 AM EDT [employer] Comment:e.g, Neurontin Urine Creatinine 66.3 mg/dL 03/01/20 25 8:59 AM EDT [facility] Comment: Greater than 20: Consistent with valid sample Greater than 2 but less than 20: Possible dilution Less than 2: Questionable valid sample Greater than 20: Consistent with valid sample Greater than 2 but less than 20: Possible dilution Less than 2: Questionable valid sample Urine STRUCTURE OF URINARY TRACT PROPER / Unknown 02/27/2025 10:00 AM EDT 02/27/2025 10:00 AM EDT Narrative [facility] - 03/01/2025 8:59 AM EDT The absence of expected drug(s), and/or drug metabolite(s), may indicate non-compliance, diluted or adulterated urine, poor drug absorption, concentration of drug below the cut-off, timing of specimen collection relative to administration of drug, or limitations of testing. Specimens are held for 7 days. This test was developed, and its performance characteristics determined by [facility] ([facility] It has not been cleared or approved by the FDA. This test is used for clinical purposes. It should not be regarded as investigational or for research. [facility] is certified under the Clinical Laboratory Improvement Amendments (CLIA) as qualified to perform high complexity clinical laboratory testing. Sandra Blanco APRN URINE ORDERABLES Final Res ult Performing Organization Address [facility]/ZIP Co de Phone Number [facility] [address] [place] [id number] [facility], [address] , [place] [address] * (ABNORMAL) DRUG CONFIRMATION, BUPRENORPHINE AND METAB - URINE (02/27/2025 10:00 AM EDT) Only the most recent of23 resultswithin the time period is included. Buprenorphine <5 Cutoff 5 ng/mL ng/mL 03/01/2025 8:59 AM EDT [facility], [facility] Buprenorphine Glucuronide 116(H) Cutoff 10 ng/mL ng/mL 03/01/2025 8:59 AM EDT [facility], [facility] Norbuprenorphine 87(H) Cutoff 5 ng/mL ng/mL 03/01/2025 8:59 AM EDT [facility] Norbuprenorphine Glucuronide >400(H) Cutoff 10 ng/mL ng/mL 03/01/2025 8:59 AM EDT [facility] Naloxone <25 Cutoff 25 ng/mL ng/mL 03/01/2025 8:59 AM EDT [facility] Urine STRUCTURE OF URINARY TRACT PROPER / Unknown 02/27/2025 10:00 AM EDT 02/27/2025 10:00 AM EDT Sandra Blanco APRN URINE ORDERABLES Final Res ult Performing Organization Address [facility] Co de Phone Number [facility], [address] , [place] [address] * ETHYL GLUCURONIDE SCREEN W/ REFLEX, URINE-REF LAB (02/27/2025 10:00 AM EDT) Only the most recent of17 resultswithin the time period is included. U Ethyl Glucuronide Screen w/R Negative ng/mL 03/01/2025 1:42 AM EDT [employer] Comment: Presumptively Negative by immunoassay. Testing by mass spectrometry is available on request. INTERPRETIVE INFORMATION: Ethyl Glucuronide Screen, Urine Methodology: Immunoassay Positive Cutoff: 500 ng/mL Performed By: [facility] [address] [place] [address] [employer] Operator: Mervin King MD, PhD CLIA Number: [id number] Urine STRUCTURE OF URINARY TRACT PROPER / Unknown 02/27/2025 10:00 AM EDT 02/27/2025 10:00 AM EDT us Sandra Blanco RECRUITING SPECIALIST URINE ORDERABLES Final Res ult [facility] [address] [place] [address] * (ABNORMAL) DRUGS OF ABUSE WITH REFLEX TO CONFIRMATION, URINE (02/27/2025 10:00 AM EDT) Only the most recent of23 resultswithin the time period is included. Pathologist [facility] 6 AM (Heroin) Absent Cutoff 10 ng/mL 02/27/2025 9:49 PM EDT [facility] Amphetamines Absent Cutoff 500 ng/mL 02/27/2025 9:49 PM EDT [facility] Barbiturates Absent Cutoff 200 ng/mL 02/27/2025 9:49 PM EDT [facility] Benzodiazepines Absent Cutoff 200 ng/mL 02/27/2025 9:49 PM EDT [facility] Buprenorphine Presumptive Pos(A) Cutoff 5 ng/mL 02/27/2025 9:49 PM EDT [facility] Cannabinoid Metabolite Absent Cutoff 50 ng/mL 02/27/2025 9:49 PM EDT [facility] Cocaine Metabolite Absent Cutoff 150 ng/mL 02/27/2025 9:49 PM EDT [facility] Fentanyl Absent Cutoff 5 ng/mL 02/27/2025 9:49 PM EDT [facility] Methadone and Metabolite Absent Cutoff 300 ng/mL 02/27/2025 9:49 PM EDT [facility] Opiate Absent Cutoff 300 ng/mL 02/27/2025 9:49 PM EDT [facility] Oxycodone Lvl Absent Cutoff 100 ng/mL 02/27/2025 9:49 PM EDT [facility] Urine Creatinine 66.3 mg/dL 02/28/20 9:49 PM EDT [facility] Comment: Greater than 20: Consistent with valid sample Greater than 2 but less than 20: Possible dilution Less than 2: Questionable valid sample Urine STRUCTURE OF URINARY TRACT PROPER / Unknown 02/27/2025 10:00 AM EDT 02/27/2025 10:00 AM EDT Narrative [facility] - 02/27/2025 9:49 PM EDT These drug classes have been qualitatively screened by immunoassay and are for medical purposes only. Results should not be used for non-medical purposes. Results reported as presumptive positive will be sent for confirmation. Due to possible factors, such as, dilute/adulterated urine, concentration of drug/metabolite being below the cut-off, or antibody specificity of test reagent, a negative result does not rule out drug use. These results are only valid for urine specimens. Any contamination with vaginal pool/amniotic fluid could cause erroneous results. us Sandra Blanco RECRUITING SPECIALIST URINE ORDERABLES Final Res ult [facility] [address] [facility] , [address] [place] [id number] * (ABNORMAL) URINALYSIS REFLEX (02/12/2025 4:33 PM EDT) Only the most recent of2 resultswithin the time period is included. UA Color Yellow 02/12/2025 4:45 PM EDT [facility] UA Appear Clear Clear 02/12/2025 4:45 PM EDT [facility] UA Glucose Negative Negative mg/dL 02/12/2025 4:45 PM EDT [facility] UA Ketones Negative Negative mg/dL 02/12/2025 4:45 PM EDT [facility] UA Blood Negative Negative 02/12/2025 4:45 PM EDT [facility] UA pH 6.5 5.0 - 8.0 pH 02/12/2025 4:45 PM EDT [facility] UA Protein 30(A) Negative mg/dL 02/12/2025 4:45 PM EDT [facility] UA Urobilinogen 0.2 <=1 mg/dL 4:45 PM EDT [facility] UA Bili Negative Negative 02/12/2025 4:45 PM EDT [facility] UA Nitrite Positive(A) Negative 02/12/2025 4:45 PM EDT [facility] UA Leuk Est Moderate(A) Negative 02/12/2025 4:45 PM EDT [facility] UA Spec Grav 1.025 1.001 - 1.035 no units 02/12/2025 4:45 PM EDT [facility] Comment:Reference range tigre d for random specimens only. UA WBC >100(H) 0 - 4 /HPF 02/12/2025 4:45 PM EDT [facility] UA RBC 2 0 - 3 /HPF 02/12/2025 4:45 PM EDT [facility] UA Squam Epi Rare /LPF 02/12/2025 4:45 PM EDT [facility] UA Mucus 1+ /LPF 02/12/2025 4:45 PM EDT [facility] UA Amorph 2+ /HPF 02/12/2025 4:45 PM EDT [facility] UA Bacteria 4+(A) Negative /HPF 02/12/2025 4:45 PM EDT [facility] Urine STRUCTURE OF URINARY TRACT PROPER / Unknown 02/12/2025 4:33 PM EDT 02/12/2025 4:39 PM EDT us Harriet Quinn MD URINE ORDERABLES Final Resu lt [facility] [address] [place] [address] * EXTRA HALL URINE CX (02/12/2025 4:33 PM EDT) Only the most recent of4 resultswithin the time period is included. Urine STRUCTURE OF URINARY TRACT PROPER / Unknown 02/12/2025 4:33 PM EDT 02/12/2025 4:39 PM EDT Harriet Quinn MD MICROBIOLOGY [facility] Final Result Performing Organization Address City/[facility]/ZIP Co de Phone Number [facility] [address] [place] [address] * URINE CULTURE (NO STAIN) (02/12/2025 4:33 PM EDT) Only the most recent of3 resultswithin the time period is included. [facility] Culture Multiple bacterial species isolated from urine consistent with urogenital commensal organisms. 02/14/2025 2:05 AM EDT [employer] Urine STRUCTURE OF URINARY TRACT PROPER / Unknown 02/12/2025 4:33 PM EDT 02/12/2025 4:45 PM EDT Harriet Quinn MD MICROBIOLOGY [facility] Final Result Performing Organization Address City/[facility] Co de Phone Number [employer] [address] [place] [address], [facility] [place] [address] * (ABNORMAL) CBC WITH DIFF (02/12/2025 4:05 PM EDT) Only the most recent of21 resultswithin the time period is included. WBC 3.0(L) 3.7 - 10.3 x10(3)/mcL 02/12/2025 4:17 PM EDT [facility] RBC 5.13 3.90 - 5.20 x10(6)/[facility] 02/12/2025 4:17 PM EDT [facility] Hgb 10.5(L) 11.2 - 15.7 g/dL 02/12/2025 4:17 PM EDT [facility] Hct 36.5 34.0 - 45.0 % 02/12/2025 4:17 PM EDT [facility] MCV 71.2(L) 80.0 - 100.0 fL 02/12/2025 4:17 PM [facility] MCH 20.5(L) 26.0 - 34.0 pg 02/12/2025 4:17 PM [facility] MCHC 28.8(L) 30.7 - 35.5 g/dL 02/12/2025 4:17 PM [facility] RDW 16.9(H) <=14.9 % 02/12/2025 4:17 PM [facility] Platelet 210 155 - 369 x10(3)/mcL 02/12/2025 4:17 PM [facility] MPV 9.9 8.8 - 12.5 fL 02/12/2025 4:17 PM [facility] Neut Percent 35.0 % 02/12/2025 4:17 PM [facility] Comment:Neutrophils equals s egs plus bands Imm Gran% 0.0 % 02/12/2025 4:17 PM [facility] Comment:Automated count of m etamyelocytes, myelocytes and promyelocytes. Lymph Percent 52.3 % 02/12/2025 4:17 PM [facility] [place] Percent 9.7 % 02/12/2025 4:17 PM [facility] Eos Percent 2.7 % 02/12/2025 4:17 PM [facility] Baso Percent 0.3 % 02/12/2025 4:17 PM [facility] Neut # 1.1(L) 1.6 - 6.1 x10(3)/mcL 02/12/2025 4:17 PM [facility] Comment:Neutrophils equals s egs plus bands IMMGRAN# 0.0 0.0 - 0.1 x10(3)/mcL 02/12/2025 4:17 PM [facility] Comment:Automated count of m etamyelocytes, myelocytes and promyelocytes. An absolute IG <0.1 is reported as 0.0. Lymph # 1.6 1.2 - 3.9 x10(3)/mcL 02/12/2025 4:17 PM [facility] [place] # 0.3 0.3 - 0.9 x10(3)/mcL 02/12/2025 4:17 PM EDT [facility] Eos# 0.1 0.0 - 0.5 x10(3)/mcL 02/12/2025 4:17 PM EDT [facility] Baso # 0.0 0.0 - 0.1 x10(3)/mcL 02/12/2025 4:17 PM EDT [facility] Blood VENOUS BLOOD / Unknown Venipuncture / Unknown 02/12/2025 4:05 PM EDT 02/12/2025 4:07 PM EDT us Harriet Quinn MD HEMATOLOGY ORDERABLES Final Result [facility] [address] [place] [address] * (ABNORMAL) COMPREHENSIVE METABOLIC PANEL (02/12/2025 4:05 PM EDT) Only the most recent of9 resultswithin the time period is included. Sodium 139 136 - 145 mmol/L 02/12/2025 4:22 PM EDT [facility] Potassium 3.1(L) 3.5 - 5.0 mmol/L 02/12/2025 4:22 PM T [facility] Chloride 101 98 - 107 mmol/L 02/12/2025 4:22 PM T [facility] Total CO2 27 22 - 29 mmol/L 02/12/2025 4:22 PM T [facility] Anion Gap 11 7 - 16 mmol/L 02/12/2025 4:22 PM T [facility] Calcium 8.6 8.6 - 10.4 mg/dL 02/12/2025 4:22 PM T [facility] Glucose Lvl 98 70 - 99 mg/dL 02/12/2025 4:22 PM T [facility] BUN 13 6 - 20 mg/dL 02/12/2025 4:22 PM EDT [facility] Creatinine 0.60 0.51 - 1.30 mg/dL 02/12/2025 4:22 PM T [facility] Albumin 4.0 3.5 - 5.2 gm/dL 02/12/2025 4:22 PM EDT [facility] Total Protein 7.7 6.4 - 8.3 gm/dL 02/12/2025 4:22 PM EDT [facility] Bili Total 0.2 0.2 - 1.3 mg/dL 02/12/2025 4:22 PM EDT [facility] ALT 22 <=41 U/L 02/12/2025 4:22 PM EDT [facility] AST 25 <=40 U/L 02/12/2025 4:22 PM EDT [facility] Alk Phos 129(H) 36 - 123 U/L 02/12/2025 4:22 PM EDT [facility] eGFR (CKD-EPIcr 2020) 112 >=60 mL/min/1.7 3 m2 02/12/2025 4:22 PM EDT [facility] Comment:Estimated GFR was ca lculated using the CKD-EPIcr (2020) equation refit without race. The equation is recommended by the National [employer] - [place] [employer] Neph[employer] Task Force. Blood VENOUS BLOOD / Unknown Venipuncture / Unknown 02/12/2025 4:05 PM EDT 02/12/2025 4:07 PM EDT us Harriet Quinn MD CHEMISTRY ORDERABLES Final Result [facility] [address] [place] [address] * (ABNORMAL) IRON+TIBC (11/20/2024 2:49 PM EDT) Only the most recent of3 resultswithin the time period is included. Iron 36 30 - 160 mcg/dL 11/22/2024 12:18 PM EDT [facility] Transferrin 434(H) 200 - 360 mg/dL 11/22/2024 12:18 PM EDT [facility], [facility] Transferrin Saturation 6(L) 20 - 50 % 11/22/2024 12:18 PM EDT [facility] TIBC 608(H) 250 - 400 mcg/dL 11/22/2024 12:18 PM EDT [facility] Blood VENOUS BLOOD / Unknown Venipuncture / Unknown 11/20/2024 2:49 PM EDT 11/20/2024 2:49 PM EDT Preet Palomares MD CHEMISTRY ORDERABLES Final R esult Performing Organization Address [facility] de Phone Number [facility] [employer] , [place] [address] * (ABNORMAL) THYROID STIMULATING HORMONE (11/20/2024 2:49 PM EDT) Only the most recent of4 resultswithin the time period is included. TSH 5.010(H) 0.270 - 4.200 mcIU/mL 11/20/2024 8:57 PM EDT [facility] Blood VENOUS BLOOD / Unknown Venipuncture / Unknown 11/20/2024 2:49 PM EDT 11/20/2024 2:49 PM EDT Narrative [facility] - 11/20/2024 8:57 PM EDT Ingestion of kwasi doses of biotin (>5 mg/day) taken within 8 hours of drawing blood sample can interfere with this immunoassay test. Mervin Toribio MD CHEMISTRY ORDERABLES Fi nal Result Performing Organization Address [facility] de Phone Number [facility] [employer] , [address] [place] [id number] * T4, FREE (THYROXINE) (11/20/2024 2:49 PM EDT) Only the most recent of4 resultswithin the time period is included. Free T4 1.04 0.80 - 1.80 ng/dL 11/20/2024 8:57 PM EDT [employer] Blood VENOUS BLOOD / Unknown Venipuncture / Unknown 11/20/2024 2:49 PM EDT 11/20/2024 2:49 PM EDT Narrative [facility]Cast - 11/20/2024 8:57 PM EDT Ingestion of kwasi doses of biotin (>5 mg/day) taken within 8 hours of drawing blood sample can interfere with this immunoassay test. Mervin Toribio MD CHEMISTRY ORDERABLES Fi nal Result Performing Organization Address [facility] Phone Number [employer] [address] [place] [address] , [place] [phone] * (ABNORMAL) NT PROBNP (11/20/2024 2:49 PM EDT) Only the most recent of3 resultswithin the time period is included. NT Pro-BNP 339(H) <=192 pg/mL 11/20/2024 8:47 PM EDT [employer] Blood VENOUS BLOOD / Unknown Venipuncture / Unknown 11/20/2024 2:49 PM EDT 11/20/2024 2:49 PM EDT Narrative [facility] - 11/20/2024 8:47 PM EDT An NT pro-BNP level less than 300 pg/mL in any patient, regardless of age, effectively rules out acute CHF with a 99% negative predictive value. Ingestion of kwasi doses of biotin (>5 mg/day) taken within 8 hours of drawing blood sample can interfere with this immunoassay test. Mervin Toribio MD CHEMISTRY ORDERABLES Fi nal Result Performing Organization Address [facility] Phone Number [facility] [employer] [address] , [place] [address] * (ABNORMAL) HEMOGLOBIN A1C (11/20/2024 2:49 PM EDT) Only the most recent of4 resultswithin the time period is included. Hgb A1C 6.1(H) 4.2 - 5.6 % 11/20/2024 9:21 PM EDT [employer] Est. Avg Glucose 128 mg/dL 11/20/2024 9:21 PM EDT [employer] Blood VENOUS BLOOD / Unknown Venipuncture / Unknown 11/20/2024 2:49 PM EDT 11/20/2024 2:49 PM EDT Narrative [employer] - 11/20/2024 9:21 PM EDT REFERENCE RANGE: Normal: 4.0-5.6% Pre-diabetes: 5.7-6.4% Provisional diagnosis of diabetes: >6.4% Hgb F>10% and anything which shortens red cell survival, such as hemolytic anemia, or unstable hemoglobin variants such as HbSS, HbSC, or HbCC, will lower the HbA1c value associated with a given level of glycemic control. Mervin Toribio MD CHEMISTRY ORDERABLES Fi nal Result Performing Organization Address [facility] de Phone Number [employer] [address] [place] [address] , [place] [address] * (ABNORMAL) FERRITIN (11/20/2024 2:49 PM EDT) Only the most recent of2 resultswithin the time period is included. Ferritin 14(L) 30 - 150 ng/mL 11/22/2024 12:18 PM EDT [employer] Comment:The lower threshold of 30 is not statistically defined, nor internally validated. The threshold has been updated to more closely reflect a physiologic basis. Niki Z, et al. Physiologically based serum ferritin thresholds for iron deficiency in children and non- women: a [place] National Health and Nutrition Examination Surveys (NHANES) serial cross-sectional study. Lancet Haematol 2021;8:e572-82. Blood VENOUS BLOOD / Unknown Venipuncture / Unknown 11/20/2024 2:49 PM EDT 11/20/2024 2:49 PM EDT Narrative [employer] - 11/22/2024 12:18 PM EDT Ingestion of kwasi doses of biotin (>5 mg/day) taken within 8 hours of drawing blood sample can interfere with this immunoassay test. Preet Palomares MD CHEMISTRY ORDERABLES Final R esult Performing Organization Address [facility] Co de Phone Number [employer] [address] [place] [address] , [place] [address] * (ABNORMAL) LIPID SCREEN (11/20/2024 2:49 PM EDT) Only the most recent of3 resultswithin the time period is included. Cholesterol 186 <200 mg/dL 11/20/2024 8:57 PM EDT [facility] 1Cast Comment: < 200 Desirable 200 - 239 Borderline High >= 240 High Triglyceride 86 <150 mg/dL 11/20/2024 8:57 PM EDT [facility] 1Cast Comment: < 150 Normal 150 - 199 Borderline High 200 - 499 High >= 500 Very High HDL 66 >=40 mg/dL 11/20/2024 8:57 PM EDT [facility] 1Cast Comment: > 60 Optimal 40 - 60 Acceptable < 40 Low LDL Calculated 104(H) <100 mg/dL 11/20/2024 8:57 PM EDT [facility] 1Cast Comment: < 100 Optimal 100 - 129 Near or above optimal 130 - 159 Borderline High 160 - 189 High >= 190 Very High The National Institutes of Health (NIH) equation is used for all lipid panels that report calculated LDL (LDL-C). Non-HDL-C Calculated 120 <=129 mg/dL 11/20/2024 8:57 PM EDT [facility] 1Cast Comment: <130 Desirable 130-159 Above Desirable 160-189 Borderline High 190-219 High >= 220 Very High Fasting Specimen? Unknown None 025 8:57 PM EDT [facility] Blood VENOUS BLOOD / Unknown Venipuncture / Unknown 11/20/2024 2:49 PM EDT 11/20/2024 2:49 PM EDT Mervin Toribio MD CHEMISTRY ORDERABLES Fi nal Result [facility] [address] [facility] , [place] [address] * (ABNORMAL) BASIC METABOLIC PANEL (10/28/2024 2:52 PM EDT) Only the most recent of17 resultswithin the time period is included. Sodium 134(L) 136 - 145 mmol/L 10/28/2024 3:29 PM EDT [facility] Potassium 2.9(LL) 3.5 - 5.0 mmol/L 10/28/2024 3:29 PM EDT [facility] Chloride 91(L) 98 - 107 mmol/L 10/28/2024 3:29 PM EDT [facility] Total CO2 30(H) 22 - 29 mmol/L 10/28/2024 3:29 PM EDT [facility] Anion Gap 13 7 - 16 mmol/L 10/28/2024 3:29 PM EDT [facility] Calcium 9.3 8.6 - 10.4 mg/dL 10/28/2024 3:29 PM EDT [facility] Glucose Lvl 93 70 - 99 mg/dL 10/28/2024 3:29 PM EDT [facility] BUN 13 6 - 20 mg/dL 10/28/2024 3:29 PM EDT [facility] Creatinine 0.69 0.51 - 1.30 mg/dL 10/28/2024 3:29 PM EDT [facility] eGFR (CKD-EPIcr 2020) 108 >=60 mL/min/1.7 3 m2 10/28/2024 3:29 PM EDT [facility] Comment:Estimated GFR was ca lculated using the CKD-EPIcr (2020) equation refit without race. The equation is recommended by the National Kidney Foundation - [place] [employer] of Nephrology Task Force. Blood VENOUS BLOOD / Unknown Venipuncture / Unknown 10/28/2024 2:52 PM EDT 10/28/2024 3:02 PM EDT us Shaye Gibson RECRUITING SPECIALIST CHEMISTRY ORDERABLES Final Result [facility] [address] [place], [place] [id number] * XR CHEST PA AND LATERAL (10/28/2024 2:46 PM EDT) Only the most recent of2 resultswithin the time period is included. Anatomical Region Laterality Modality Chest Radiographic Evonne ging 10/28/2024 2:46 PM EDT Impressions 10/28/2024 2:51 PM EDT No acute finding. - Note: Radiology results need to be interpreted within a comprehensive clinical context. If you have questions about the radiology report, please contact the office of the ordering clinician. Narrative 10/28/2024 2:51 PM EDT PA AND LATERAL CHEST X-RAY, 10/28/2024 2:46 PM CLINICAL HISTORY: -cough COMPARISON: 05/20/2024. PROCEDURE COMMENTS: Frontal and lateral views of the chest. FINDINGS: Heart and mediastinal contours within normal limits for technique. No active failure, pneumonia, or visible effusion. No visible pneumothorax. Procedure Note Quita Bautista MD - 10/28/2024 PA AND LATERAL CHEST X-RAY, 10/28/2024 2:46 PM CLINICAL HISTORY: -cough COMPARISON: 05/20/2024. PROCEDURE COMMENTS: Frontal and lateral views of the chest. FINDINGS: Heart and mediastinal contours within normal limits for technique. Noactive failure, pneumonia, or visible effusion. No visible pneumothorax. IMPRESSION: No acute finding. - Note: Radiology results need to be interpreted within a comprehensiveclinical context. If you have questions about the radiology report, please contactthe office of the ordering clinician. us Shaye Gibson RECRUITING SPECIALIST IMG DIAGNOSTIC [facility]ING [facility] Final Result * [id number] (10/28/2024 2:29 PM EDT) Only the most recent of3 resultswithin the time period is included. CORONAVIRUS [id number] Not Detected Not Detected 10/28/2024 2:59 PM EDT [facility] Influenza A DNA Not Detected Not Detected 10/28/2024 2:59 PM EDT [facility] Influenza B DNA Not Detected Not Detected 10/28/2024 2:59 PM EDT [facility] RSV DNA Not Detected Not Detected 10/28/2024 2:59 PM EDT [facility] Swab BOTH ANTERIOR NARES / Unknown 10/28/2024 2:29 PM EDT 10/28/2024 2:38 PM EDT Narrative [facility] - 10/28/2024 2:59 PM EDT This test is performed using the Chichi christine gerardo system and is for use under the FDA s Emergency Use Authorization. Shaye Gibson APRN MICROBIOLOGY - GENERAL ORDE RABLES Final Result Performing Organization Address City/[facility]/ZIP Co de Phone Number [facility] [address] [place] [address] * (ABNORMAL) STREP A DNA (10/28/2024 2:29 PM EDT) Strep A DNA Detected(A ) Not Detected 10/28/2024 2:58 PM EDT [facility] Swab STRUCTURE OF ANTERIOR PORTION OF NECK / Unknown 10/28/2024 2:29 PM EDT 10/28/2024 2:38 PM EDT Narrative [facility] - 10/28/2024 2:58 PM EDT The Chichi GERARDO Strep A assay utilizes nucleic acid purification and polymerase chain reaction (PCR) technology to detect Streptococcus pyogenes by targeting a segment of the Streptococcus pyogenes genome. Shaye Gibson APRN MICROBIOLOGY [facility] ORDRohit HALLMAN Final Result Performing Organization Address [facility] Co de Phone Number [facility] [address] [place] [address] * XR CHEST AP PORTABLE (05/20/2024 5:13 AM EST) Only the most recent of3 resultswithin the time period is included. Anatomical Region Laterality Modality Chest Radiographic Evonne ging 05/20/2024 5:13 AM EST Impressions 05/20/2024 5:16 AM EST No acute cardiopulmonary process. - Note: Radiology results need to be interpreted within a comprehensive clinical context. If you have questions about the radiology report, please contact the office of the ordering clinician. Narrative 05/20/2024 5:16 AM EST XR CHEST AP PORTABLE, 05/20/2024 5:13 AM CLINICAL HISTORY: Wheezing. Leg swelling. COMPARISON: December 06, 2023 PROCEDURE COMMENTS: AP portable technique. FINDINGS: Stable cardiac and aortic configuration. No acute failure, pneumonia, or effusion. Grossly stable appearance of the lungs. Procedure Note Valente Lechuga MD - 11/03/2024 XR CHEST AP PORTABLE, 05/20/2024 5:13 AM CLINICAL HISTORY: Wheezing. Leg swelling. COMPARISON: December 06, 2023 PROCEDURE COMMENTS: AP portable technique. FINDINGS: Stable cardiac and aortic configuration. No acute failure,pneumonia, or effusion. Grossly stable appearance of the lungs. IMPRESSION: No acute cardiopulmonary process. - Note: Radiology results need to be interpreted within a comprehensiveclinical context. If you have questions about the radiology report, please contactthe office of the ordering clinician. Harriet Quinn MD IM DIAGNOSTIC IMAGING ORDE [facility] Final Result * CT ABD PEL ED FAST W CONTRAST (04/04/2024 3:32 PM EDT) Only the most recent of2 resultswithin the time period is included. Anatomical Region Laterality Modality Abdomen, Pelvis Computed Tomogra phy 04/04/2024 3:32 PM EDT Impressions 04/04/2024 3:38 PM EDT 1. No acute findings within the abdomen or pelvis. 2. Prominent retained fecal colonic burden suggesting constipation. 3. Nonspecific prominent bilateral inguinal lymph nodes. 4. Additional chronic and incidental findings as described. - Note: Radiology results need to be interpreted within a comprehensive clinical context. If you have questions about the radiology report, please contact the office of the ordering clinician. Narrative 04/04/2024 3:[address] ABDOMEN AND PELVIS WITH CONTRAST (FAST), 04/04/2024 3:32 PM CLINICAL HISTORY: -abd pain. COMPARISON: CT chest, abdomen, and pelvis with IV contrast 06/17/2020 PROCEDURE COMMENTS: Multi-detector CT scanning of the abdomen and pelvis with multiplanar reformatting per expedited protocol. Isovue 370 IV contrast given as recorded in EPIC. Dose 1 : CT DLP Total : 1381.2 mGycm DLP Spiral Max : 1376.73 mGycm Maximum CTDI Vol : 24.99 mGy SSDE : 18.4926 mGy SSDE Diameter : 43.7 cm SSDE Source : Lat FINDINGS: LUNG BASES: Lung bases are clear. Cardiac size is normal. LIVER: No focal lesion. SPLEEN: Normal in size and without focal lesion. BILIARY TREE: Gallbladder is absent. No biliary ductal dilatation. PANCREAS: Enhances homogeneously and is without focal lesion or ductal dilatation. ADRENAL GLANDS: Unremarkable. KIDNEYS: Enhance symmetrically. No hydronephrosis or suspicious renal lesion. LYMPH NODES: Nonspecific prominent bilateral inguinal lymph nodes measuring up to 1.3 cm short axis on the right and up to 2.1 cm on the left. Otherwise, no pelvic or abdominal lymphadenopathy. VASCULATURE: Abdominal aorta and iliac arteries are normal in caliber. PERITONEUM/MESENTERY/OMENTUM: No free fluid, fluid collection, or extraluminal gas. GI TRACT: No bowel obstruction. No acute bowel inflammatory changes or abnormal bowel wall thickening. Prominent retained fecal colonic burden. UROGENITAL STRUCTURES: Urinary bladder is mildly distended and otherwise unremarkable. Status post hysterectomy. BODY WALL: No aggressive osseous lesions. Mild diffuse subcutaneous edema. Procedure Note Ralf Simons MD - 04/04/2024 CT ABDOMEN AND PELVIS WITH CONTRAST (FAST), 04/04/2024 3:32 PM CLINICAL HISTORY: -abd pain. COMPARISON: CT chest, abdomen, and pelvis with IV contrast 06/17/2020 PROCEDURE COMMENTS: Multi-detector CT scanning of the abdomen and pelviswith multiplanar reformatting per expedited protocol. Isovue 370 IV contrastgiven as recorded in EPIC. Dose 1 : CT DLP Total : 1381.2 mGycm DLP Spiral Max : 1376.73 mGycm Maximum CTDI Vol : 24.99 mGy SSDE : 18.4926 mGy SSDE Diameter : 43.7 cm SSDE Source : Lat FINDINGS: LUNG BASES: Lung bases are clear. Cardiac size is normal. LIVER: No focal lesion. SPLEEN: Normal in size and without focal lesion. BILIARY TREE: Gallbladder is absent. No biliary ductal dilatation. PANCREAS: Enhances homogeneously and is without focal lesion or ductal dilatation. ADRENAL GLANDS: Unremarkable. KIDNEYS: Enhance symmetrically. No hydronephrosis or suspicious renallesion. LYMPH NODES: Nonspecific prominent bilateral inguinal lymph nodesmeasuring up to 1.3 cm short axis on the right and up to 2.1 cm on the left. Otherwise,no pelvic or abdominal lymphadenopathy. VASCULATURE: Abdominal aorta and iliac arteries are normal in caliber. PERITONEUM/MESENTERY/OMENTUM: No free fluid, fluid collection, orextraluminal gas. GI TRACT: No bowel obstruction. No acute bowel inflammatory changes orabnormal bowel wall thickening. Prominent retained fecal colonic burden. UROGENITAL STRUCTURES: Urinary bladder is mildly distended and otherwise unremarkable. Status post hysterectomy. BODY WALL: No aggressive osseous lesions. Mild diffuse subcutaneousedema. IMPRESSION: 1. No acute findings within the abdomen or pelvis. 2. Prominent retained fecal colonic burden suggesting constipation. 3. Nonspecific prominent bilateral inguinal lymph nodes. 4. Additional chronic and incidental findings as described. - Note: Radiology results need to be interpreted within a comprehensiveclinical context. If you have questions about the radiology report, please contactthe office of the ordering clinician. [employer] [facility] PA-C IMG CT ORDERABLES Final Resul t * LIPASE LEVEL (04/04/2024 2:37 PM EDT) Only the most recent of5 resultswithin the time period is included. [facility] Lipase Lvl 18 13 - 60 U/L 04/04/2024 2:56 PM EDT [facility] Blood VENOUS BLOOD / Unknown Venipuncture / Unknown 04/04/2024 2:37 PM EDT 04/04/2024 2:40 PM EDT Sophiekelsy Richardson PA-C CHEMISTRY ORDERABLES Final Re sult [facility] [address] [place] [address] * [id number] A/B (03/31/2024 2:05 PM EDT) [facility] CORONAVIRUS [id number] Not Detected Not Detected 03/31/2024 2:33 PM EDT [facility] Influenza A DNA Not Detected Not Detected 03/31/2024 2:33 PM EDT [facility] Influenza B DNA Not Detected Not Detected 03/31/2024 2:33 PM EDT [facility] Swab BOTH ANTERIOR NARES / Unknown 03/31/2024 2:05 PM EDT 03/31/2024 2:08 PM EDT Narrative [facility] - 03/31/2024 2:33 PM EDT This test is a real-time RT-PCR test that simultaneously detects and differentiates nucleic acids from SARS-CoV-2, influenza A and influenza B in individuals suspected of a respiratory viral infection. Not Detected results do not preclude COVID-19 or influenza virus infection or other respiratory viruses and should not be used as the sole basis for treatment or other patient management decisions. Test is performed on the [employer] GER[employer]O platform. Beata Zambrano APRN MICROBIOLOGY - GENERAL ORDE LEXX Final Result Performing Organization Address City/[facility]/ZIP Co de Phone Number [facility] [address] [place] [address] * MICROALBUMIN/CREATININE RATIO URINE (12/15/2023 3:05 PM EDT) [facility] Urine Microalb <12.0 mg/L 12/15/2023 10:36 PM EDT [facility] [employer] Urine Creatinine 63.3 mg/dL 12/15/19 24 10:36 PM EDT [facility] Ur Microalb/Creat 024 10:36 PM EDT [facility] Comment: Because the albumin level is below the level of detection in this urine specimen, the laboratory is unable to calculate a reliable albumin/creatinine ratio. Microalbuminuria is unlikely if the urine albumin concentration is less than 20- 30 mg/L in a random specimen. Urine URINE SPECIMEN COLLECTION / Unknown 12/15/2023 3:05 PM EDT 12/15/2023 3:05 PM EDT Mervin Toribio MD URINE ORDERABLES Final Result Performing Organization Address City/[facility]/ZIP Co de Phone Number PREFERRED [facility] [address] [facility] , [place] [address] * IRIS DIABETIC RETINOPATHY EXAM (12/15/2023 3:04 PM EDT) [facility] Retinopathy Exam Severity NORMAL SE LAB Right Diabetic Retinopathy None SE LAB Right Macular Edema None [facility] Right Other Retina None [facility] Right Eye Image Quality Gradable Image [facility] Left Diabetic Retinopathy None [facility] Left Macular Edema None [facility] Left Other Retina None [facility] Left Eye Image Quality Gradable Image [facility] 12/15/2023 3:04 PM EDT 12/15/2023 3:04 PM EDT Impressions [facility] - 12/15/2023 9:36 PM EDT Retinal Study Result for derek OLSON 43 y/o, F (: 1980, ) presented to [facility] on 12-15-2023 for a retinal imaging study of the left and right eyes. Based on the findings of the study, the following is recommended for KEISHA SUTTON Normal Study: Return for follow up exam in 12 months or next calendar year. Interpreting Provider's Comments: No comments provided Diagnoses Present: E119 - Type 2 diabetes mellitus without complications Right eye findings: Negative for Diabetic Retinopathy Negative for Macular Edema Left eye findings: Negative for Diabetic Retinopathy Negative for Macular Edema This result was electronically signed by Sagrario Lopez MD, , Taxonomy: [id number] on 12-16-2023 01:36 [facility]. NOTE: Any pathology noted on this diabetic retinal evaluation should be confirmed by an appropriate ophthalmic examination. Mervin Toribio MD OPHTHALMOLOGY SERVICES ORDERABLES Final Result [facility] [address] [place] [id number] * GLUCOSE METER POC (12/09/2023 1:24 PM EDT) Only the most recent of8 resultswithin the time period is included. [facility] Glucose Meter POC 98 70 - 100 mg/dL 12/09/2023 1:25 PM EDT [facility] Sample Type Capillary 12/09/2023 1:25 PM EDT [facility] Patient Status Non-Critical Patient 12/09/2023 1:25 PM EDT [facility] Blood BLOOD SPECIMEN / Unknown 12/09/2023 1:24 PM EDT 12/09/2023 1:25 PM EDT us Valente Guo DO POINT OF CARE TEST ORDER KEYANNA Final Result Performing Organization Address [facility] de Phone Number [facility] [address] [place] [address] * ECG AND WAVEFORMS - TELEMETRY (12/08/2023 7:00 PM EDT) Only the most recent of5 resultswithin the time period is included. [facility] ECG INTERPRET NSR with PVCs [facility] 12/08/2023 7:00 PM EDT Narrative [facility] - 12/08/2023 9:38 PM EDT /AC/HICUITY ROUTINE TX 0.20 QRS 0.08 QT 0.39 See Clinical Report link for waveform capture us Unknown Provider POINT OF CARE CARDIOLOGY Final Result Performing Organization Address [facility] [place] [address] * (ABNORMAL) TRANSFERRIN (12/08/2023 4:39 AM EDT) [facility] Transferrin 366(H) 200 - 360 mg/dL 12/08/2023 9:52 AM EDT [employer] Blood VENOUS BLOOD / Unknown Venipuncture / Unknown 12/08/2023 4:39 AM EDT 12/08/2023 6:04 AM EDT us Vitaly Marsh Jr., MD IMMUNOLOGY ORDERABLES Final Result Performing Organization Address City/[facility] Co de Phone Number [employer] [address] [place] [address] DR, [address] [place] [phone] * MONONUCLEOSIS SCREEN (12/08/2023 4:39 AM EDT) [facility] [place] Screen Negative Negative 12/09/2023 8:51 AM EDT [employer] Blood VENOUS BLOOD / Unknown Venipuncture / Unknown 12/08/2023 4:39 AM EDT 12/08/2023 6:04 AM EDT us Susan Radic RECRUITING SPECIALIST CHEMISTRY ORDERABLES Final Re sult [facility] [employer] [address] [facility] , [address] [place] [phone] * SCANNED EKG (12/07/2023 10:37 AM EDT) Only the most recent of3 resultswithin the time period is included. Anatomical Region Laterality Modality Other 12/07/2023 10:3 7 AM EDT us Unknown Provider IMG ECG ORDERABLES Final Result * (ABNORMAL) DRUG SCREEN RAPID PANEL, URINE (GRT,COV ONLY) (12/06/2023 8:54 PM EDT) Only the most recent of2 resultswithin the time period is included. Cannabinoid Rapid Absent Absent 024 9:13 PM EDT [facility] Cocaine Rapid Absent Absent 12/06/2023 9:13 PM EDT [facility] Methamphetamine Rapid Absent Absent 12/06/2023 9:13 PM EDT [facility] Opiate Rapid Absent Absent 12/06/2023 9:13 PM EDT [facility] Amphetamine Rapid Absent Absent 024 9:13 PM EDT [facility] Benzodiazepines Rapid Absent Absent 12/06/2023 9:13 PM EDT [facility] Tricyclic Rapid Presumptive Pos(A) Absent 12/06/2023 9:13 PM EDT [facility] Methadone Rapid Absent Absent 4 9:13 PM EDT [facility] Barbiturate Rapid Absent Absent 024 9:13 PM EDT [facility] Oxycodone Rapid Absent Absent 4 9:13 PM EDT [facility] Urine URINE SPECIMEN COLLECTION / Unknown 12/06/2023 8:54 PM EDT 12/06/2023 9:00 PM EDT Narrative [facility] - 12/06/2023 9:13 PM EDT These drug classes have been qualitatively screened by immunoassay and are for medical purposes only. Results reported as presumptive positive have not been confirmed. If results don t reflect the clinical picture, the prescribed medication, or the discussion with the patient, confirmation testing is recommended on the ORIGINAL urine. All urine specimens for drug testing are held for 7 days. If confirmation testing is desired, call the Lab PIPE. Due to possible factors, such as, dilute/adulterated urine, concentration of drug/metabolite being below the cut-off, or antibody specificity of test reagent, a negative result does not rule out drug use. These results are only valid for urine specimens. Any contamination with vaginal pool/amniotic fluid could cause erroneous results. us Cirilo Canseco RECRUITING SPECIALIST URINE ORDERABLES Final R esult [facility] [address] [place] [address] * (ABNORMAL) BLOOD GAS, VENOUS (12/06/2023 7:40 PM EDT) pH Venous 7.34 7.32 - 7.42 pH 12/06/2023 7:46 PM EDT [facility] pCO2 Venous 67(H) 41 - 51 mmHg 12/06/2023 7:46 PM EDT [facility] pO2 Venous <30 25 - 40 mmHg 12/06/2023 7:46 PM T [facility] Comment:Interpret with cauti on. Not recommended to evaluate patient's oxygenation status. Base Excess Nicolas 9.0 mmol/L 7:46 PM T [facility] Hco3 Venous 36.6(H) 24.0 - 28.0 mmol/L 12/06/2023 7:46 PM EDT [facility] CO2 Total Nicolas 79(H) 25 - 29 mmol/L 12/06/2023 7:46 PM T [facility] O2 Sat. Venous 30.2(L) 40.0 - 70.0 % 12/06/2023 7:46 PM EDT [facility] Inspired O2 Room Air 12/06/2023 7:46 PM EDT [facility] Blood VENOUS BLOOD / Unknown Venipuncture / Unknown 12/06/2023 7:40 PM EDT 12/06/2023 7:44 PM EDT Cirilo Canseco APRN CHEMISTRY ORDERABLES Fin al Result Performing Organization Address [facility] de Phone Number [facility] [address] [place] [address] * (ABNORMAL) ACETAMINOPHEN LEVEL (12/06/2023 7:40 PM EDT) Acetaminophen Lvl <5.0(L) 10.0 - 30.0 mcg/mL 12/06/2023 8:24 PM EDT [facility] Blood VENOUS BLOOD / Unknown Venipuncture / Unknown 12/06/2023 7:40 PM EDT 12/06/2023 8:13 PM EDT Narrative [facility] - 12/06/2023 8:24 PM EDT Supratherapeutic: > 35 mcg/ml Toxic: > 200 mcg/ml (4h post ingestion) > 100 mcg/ml (8h post ingestion) > 50 mcg/ml (12h post ingestion) Cirilo Canseco APRN CHEMISTRY ORDERABLES Fin al Result Performing Organization Address [facility] de Phone Number [facility] [address] [place] [address] * SALICYLATE LEVEL (12/06/2023 7:40 PM EDT) Salicylate <0.5 <=30.0 mg/dL 12/06/2023 8:24 PM EDT [facility] Comment: Therapeutic range for anti-pyretic/analgesic conditions 3-10 mg/dL Therapeutic range for anti-inflammatory/rheumatic fever conditions 15-30 mg/dL Toxic range >30 mg/dL Blood VENOUS BLOOD / Unknown Venipuncture / Unknown 12/06/2023 7:40 PM EDT 12/06/2023 8:13 PM EDT Cirilo Canseco APRN CHEMISTRY ORDERABLES Fin al Result Performing Organization Address [facility] Co de Phone Number [facility] [address] [place] [address] * CT HEAD WO CONTRAST (12/06/2023 7:24 PM EDT) Anatomical Region Laterality Modality Head Computed Tomogra phy 12/06/2023 7:24 PM EDT Impressions 12/06/2023 7:29 PM EDT No intracranial abnormality. Right maxillary sinusitis. Narrative 12/06/2023 7:[address] HEAD WO CONTRAST 12/06/2023 7:24 PM CLINICAL HISTORY: -ams. Altered mental status. COMPARISON: None. PROCEDURE COMMENTS: Routine noncontrast head CT with multiplanar reconstructions. Dose 1 : CT DLP Total : 754.91 mGycm DLP Spiral Max : 751.36 mGycm Maximum CTDI Vol : 47.67 mGy FINDINGS: Ventricular size and configuration are normal. No abnormal brain parenchymal attenuation. No evidence of acute stroke, mass, or hemorrhage. No evidence of fracture or extra-axial fluid collection. Moderate size fluid level in the included upper aspect of the right maxillary sinus suggesting acute sinusitis. Mild bilateral ethmoid sinus mucosal thickening. Included paranasal sinuses otherwise are clear as are the included tympanomastoid cavities. Normal variant pneumatization of the anterior clinoid processes. Orbits are unremarkable. Procedure Note Romeo Saab MD - 12/06/2023 CT HEAD WO CONTRAST 12/06/2023 7:24 PM CLINICAL HISTORY: -ams. Altered mental status. COMPARISON: None. PROCEDURE COMMENTS: Routine noncontrast head CT with multiplanar reconstructions. Dose 1 : CT DLP Total : 754.91 mGycm DLP Spiral Max : 751.36 mGycm Maximum CTDI Vol : 47.67 mGy FINDINGS: Ventricular size and configuration are normal. No abnormal brainparenchymal attenuation. No evidence of acute stroke, mass, or hemorrhage. No evidenceof fracture or extra-axial fluid collection. Moderate size fluid level in the included upper aspect of the rightmaxillary sinus suggesting acute sinusitis. Mild bilateral ethmoid sinus mucosal thickening. Included paranasal sinuses otherwise are clear as are theincluded tympanomastoid cavities. Normal variant pneumatization of the anteriorclinoid processes. Orbits are unremarkable. IMPRESSION: No intracranial abnormality. Right maxillary sinusitis. Cirilo Canseco APRN IMG CT ORDERABLES Final Result * LACTIC ACID (12/06/2023 7:10 PM EDT) Only the most recent of2 resultswithin the time period is included. Lactic Acid 1.1 0.5 - 1.9 mmol/L 12/06/2023 7:32 PM EDT [facility] Blood VENOUS BLOOD / Unknown Venipuncture / Unknown 12/06/2023 7:10 PM EDT 12/06/2023 7:23 PM EDT Cirilo Canseco APRN CHEMISTRY ORDERABLES Fin al Result Performing Organization Address [facility] de Phone Number [facility] [address] [place] [address] * ALCOHOL MEDICAL (12/06/2023 7:10 PM EDT) Alcohol Medical <10 <=10 mg/dL 7:36 PM EDT [facility] Comment: 50-100 mg/dL - [place], slowing of reflexes, impaired visual acuity > 100 mg/dL - Depression of DIRECTOR OF MANUFACTURING > 400 mg/dL - Fatalities reported Blood VENOUS BLOOD / Unknown Venipuncture / Unknown 12/06/2023 7:10 PM EDT 12/06/2023 7:23 PM EDT Cirilo Canseco APRN CHEMISTRY ORDERABLES Fin al Result Performing Organization Address City/[facility] Co de Phone Number [facility] [address], [place] [id number] * EK EKG 12 LEAD (12/06/2023 6:52 PM EDT) Only the most recent of4 resultswithin the time period is included. 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1980 Requested By: FARHAD Bee Order Number: [id number] [place] : Jerrell Strickland Measurements Intervals [place] Rate: 96 P: 30 TX: 172 QRS: 17 QRSD: 104 T: 21 QT: 286 QTc: 361 Interpretive Statements SINUS RHYTHM WITH OCCASIONAL VENTRICULAR PREMATURE COMPLEXES NONSPECIFIC T-WAVE ABNORMALITY Electronically Signed On 12-06-2023 21:43:46 EDT by Jerrell Strickland Narrative Procedure Note Jerrell Strickland MD - 12/06/2023 IMPRESSION [facility] Test Date: 2023-12-06 Pat Name: KEISHA SUTTON Department: DEPID Room: 01 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1980 Requested By: FARHAD Bee Order Number: [id number] [place] MD: Jerrell Strickland Measurements Intervals [place] Rate: 96 P: 30 TX: 172 QRS: 17 QRSD: 104 T: 21 QT: 286 QTc: 361 Interpretive Statements SINUS RHYTHM WITH OCCASIONAL VENTRICULAR PREMATURE COMPLEXES NONSPECIFIC T-WAVE ABNORMALITY Electronically Signed On 12-06-2023 21:43:46 EDT by Jerrell Strickland us Farhad Grove MD IMG ECG ORDERABLES Final Resu lt * HIV AG/AB (11/29/2023 4:27 PM EDT) HIV Ag/AB Non-Reactiv e Non-Reacti ve 11/29/2023 9:47 PM EDT [facility] Blood VENOUS BLOOD / Unknown Venipuncture / Unknown 11/29/2023 4:27 PM EDT 11/29/2023 4:27 PM EDT us Sandra Blanco RECRUITING SPECIALIST IMMUNOLOGY ORDERABLES Barbara l Result [facility], [facility] [address] [facility] , [address] [place] [id number] * SYPHILIS SCREEN WITH REFLEX RPR QUANT (11/29/2023 4:27 PM EDT) Pathologist [facility] Trep Ab Index 0.13 <=0.99 Index Value 11/29/2023 9:46 PM EDT [facility], [facility] Comment: < 1.00 - Non-Reactive >=1.00 - Reactive NOTE: All reactive results will be reflexed to Quantitative Non-Treponemal(RPR)test. Blood VENOUS BLOOD / Unknown Venipuncture / Unknown 11/29/2023 4:27 PM EDT 11/29/2023 4:27 PM EDT Sandra Blanco RECRUITING SPECIALIST CHEMISTRY ORDERABLES Final Result Performing Organization Address [facility] de Phone Number [facility] LAB [facility], [facility] [address] [facility] , [place] [address] * ACUTE HEPATITIS PANEL (11/29/2023 4:27 PM EDT) [facility] Hep Bs Ag Non-Reacti ve Non-Reacti ve 11/29/2023 11:39 PM EDT [facility], [facility] Hep B Core IgM Non-Reacti ve Non-Reacti ve 11/29/2023 11:39 PM EDT [facility], [facility] Hep A IgM Non-Reacti ve Non-Reacti ve 11/29/2023 11:39 PM EDT [facility], [facility] Hep C Ab Non-Reacti ve Non-Reacti ve 11/29/2023 11:39 PM EDT [facility], [facility] Blood VENOUS BLOOD / Unknown Venipuncture / Unknown 11/29/2023 4:27 PM EDT 11/29/2023 4:27 PM EDT Sandra Blanco RECRUITING SPECIALIST CHEMISTRY ORDERABLES Final Result Performing Organization Address [facility] Co de Phone Number [facility]ED [facility], [facility] [address] [facility] , [place] [address] * HEPATITIS B SURFACE ANTIBODY (11/29/2023 4:27 PM EDT) Pathologist [facility] Hep Bs Ab <3.08 mIU/mL 11/29/2023 9:47 PM EDT [facility] Comment: < 8.00 mIU/mL - NON REACTIVE (Not immune to HBV infection) 8.0 - 11.99 mIU/mL - GRAYZONE (Immune status should be further assessed by considering other factors such as clinical status, follow up testing, associated risk factors, and the use of additional diagnostic information.) >= 12.00 mIU/mL - REACTIVE (Immune to HBV infection.) Blood VENOUS BLOOD / Unknown Venipuncture / Unknown 11/29/2023 4:27 PM EDT 11/29/2023 4:27 PM EDT us Sandra Blanco RECRUITING SPECIALIST IMMUNOLOGY ORDERABLES Barbara melgoza Result [facility] [employer] [facility] [address] [facility] , [place] [address] * HUMAN CHORIONIC GONADOTROPIN QUANTITATIVE (11/29/2023 4:27 PM EDT) [facility] Hcg Quant <1 <5 mIU/mL 11/29/2023 9:4 3 PM EDT [facility] Blood VENOUS BLOOD / Unknown Venipuncture / Unknown 11/29/2023 4:27 PM EDT 11/29/2023 4:27 PM EDT Narrative [facility] - 11/29/2023 9:43 PM EDT Ingestion of kwasi doses of biotin (>5 mg/day) taken within 8 hours of drawing blood sample can interfere with this immunoassay test. Female (non-): 0-4.9 mIU/mL Female (postmenopausal): 0-8.1 mIU/mL Indeterminate values for (e.g., 5-25 mIU/mL) may be confirmed with a repeat test in 48-72 hours. Values in should double every 2-3 days for the first six weeks. us Sandra Blanco RECRUITING SPECIALIST CHEMISTRY ORDERABLES Final Result Performing Organization Address City/[facility]/ZIP Co de Phone Number [facility] [employer] [facility] [address] [place] [address] * GAMMA GLUTAMYL TRANSFERASE (11/29/2023 4:27 PM EDT) GGT 33 5 - 36 U/L 11/30/2023 9:30 AM EDT [facility] [employer] [facility] Blood VENOUS BLOOD / Unknown Venipuncture / Unknown 11/29/2023 4:27 PM EDT 11/29/2023 4:27 PM EDT Sandra Blanco RECRUITING SPECIALIST CHEMISTRY ORDERABLES Final Result Performing Organization Address [facility] Co de Phone Number [facility] [employer] [facility] [address] [place] [address] * CREATININE (11/29/2023 4:27 PM EDT) Creatinine 0.75 0.51 - 1.30 mg/dL 11/29/2023 9:05 PM EDT [facility] [employer] [facility] eGFR (CKD-EPIcr 2020) 100 >=60 mL/min/1.7 3 m2 11/29/2023 9:05 PM EDT [facility] Comment:Estimated GFR was ca lculated using the CKD-EPIcr (2020) equation refit without race. The equation is recommended by the National Kidney Foundation - [place] [employer] of Nephrology Task Force. Blood VENOUS BLOOD / Unknown Venipuncture / Unknown 11/29/2023 4:27 PM EDT 11/29/2023 4:27 PM EDT Sandra Blanco RECRUITING SPECIALIST CHEMISTRY ORDERABLES Final Result Performing Organization Address City/[facility] Co de Phone Number [facility] [employer] [facility] [address] [place] [address] [facility] [address] [place] [address] * (ABNORMAL) HEPATIC FUNCTION PANEL (11/29/2023 4:27 PM EDT) Only the most recent of5 resultswithin the time period is included. Pathologist [facility] Total Protein 8.2 6.4 - 8.3 gm/dL 11/29/2023 9:05 PM EDT [facility], [facility] Albumin 4.5 3.5 - 5.2 gm/dL 11/29/2023 9:05 PM EDT [facility] Bili Direct <0.2 0.0 - 0.3 mg/dL 11/29/2023 9:05 PM EDT [facility] Bili Total 0.2 0.2 - 1.3 mg/dL 11/29/2023 9:05 PM EDT [facility] AST 12 <=40 U/L 11/29/2023 9:05 PM EDT [facility] ALT 14 <=41 U/L 11/29/2023 9:05 PM EDT [facility] Alk Phos 129(H) 36 - 123 U/L 11/29/2023 9:05 PM EDT [facility] Blood VENOUS BLOOD / Unknown Venipuncture / Unknown 11/29/2023 4:27 PM EDT 11/29/2023 4:27 PM EDT Sandra Blanco RECRUITING SPECIALIST CHEMISTRY ORDERABLES Final Result [facility], [facility] [address] [facility] , [place] [address] * KRATOM SCREEN WITH CONFIRMATION, URINE-REF LAB (11/29/2023 3:08 PM EDT) Pathologist [facility], Screen NEGATIVE NEGATIVE 12/04/2023 1:29 PM EDT [employer] Comment: Screening Threshold: 5.0 ng/mL Analysis performed by immunoassay. This test was developed and its performance characteristics determined by [facility]. It has not been cleared or approved by the Food and Drug Administration. Performed by: [employer] [address] [place] [id number] Odalys Barnes Urine URINE SPECIMEN COLLECTION / Unknown 11/29/2023 3:08 PM EDT 11/29/2023 7:56 PM EDT us Sandra K Blanco RECRUITING SPECIALIST CHEMISTRY ORDERABLES Final Result [employer] [address] [place] [address] * SCANNED RHYTHM STRIPS (2023 10:01 AM EST) Only the most recent of3 resultswithin the time period is included. Anatomical Region Laterality Modality Other 2023 10:0 1 AM EST us Unknown Provider IMG ECG ORDERABLES Final Result * PATHOLOGY TISSUE REQUEST (06/20/2023 5:35 PM EST) CASE REPORT Surgical Pathology Case: [id number] Authorizing Provider: Max Gifford DPM Collected: 06/20/2023 1735 Ordering Location: [facility] Received: 06/20/20231957 Pathologist: Gayla Ray MD Specimen: Toe, Right, partial right second toe 06/25/2023 2:55 PM EST [facility] FINAL DIAGNOSIS A. Partial right second toe amputation: - Skin with ulceration and underlying bone showing areas of acute and chronic osteomyelitis. - Acute inflammation and focal acute osteomyelitis at inked bone and soft tissue margin. 06/25/2023 2:55 PM EST [facility] at 1455 EST COMMENT At the blue inked margin there is definitive acute inflammation noted 06/25/2023 2:55 PM EST [facility] GROSS DESCRIPTION Received in formalin, in a container labeled with the patient's name, hospital number, and partial right second toe , is a 2.0 cm in length x 2.1 cm wide x 1.6 cm dorsal to plantar toe disarticulation with yellow thickened nail present. The plantar surface of the toe has been transected The bone disarticulation surface, and skin and soft tissue margins are inked blue. A 1.4 x 1.5 x 0.1 cm hidalgo-brown, irregular, and crusted lesion is present immediately distal to the thickened nail, and is 0.5 cm from the skin and soft tissue margin. The underlying bone is hidalgo-yellow. The underlying soft tissue is hidalgo-yellow to pink. Dog Control Officer sections are submitted as follows: A1-A2: Disarticulation surface to distal toe to include lesion, skin and soft tissue margin, and underlying bone (perpendicular) and following decalcification WALTER Wset PA (ASCP) 06/21/2023 9:19 AM 06/25/2023 2:55 PM EST [facility] MICROSCOPIC DESCRIPTION Microscopic examination is performed and the findings corroborate the diagnosis. 06/25/2023 2:[address] [facility] EMBEDDED IMAGES 06/25/2023 2:[address] [facility] Tissue TOE STRUCTURE / Unknown 06/20/2023 5:35 PM EST 06/20/2023 7:58 PM EST Max Gifford DP PATHOLOGY ORDERABLES Final Result [facility] [address] [phone] [place] [address] * (ABNORMAL) WOUND CULTURE (STAIN INCLUDED) (06/20/2023 5:35 PM EST) Culture Positive Growth(A) 06/25/2023 8:49 AM EST [facility], [facility] Culture Sparse growth of Streptococcus agalactiae (Group B) SUSCEPTIB ILITY RESULT 06/25/2023 8:49 AM EST [employer], [facility] Comment: Penicillin and Ampicillin are antibiotics of choice for treatment of beta- hemolytic streptococcal infections. No further workup. Stain Abundant WBCs(A) 06/25/20 8:49 AM EST [facility], [employer] Stain Rare Gram positive cocci(A) 06/25/2023 8:49 AM EST [facility], [facility] Swab TOE STRUCTURE / Unknown 06/20/2023 5:35 PM EST 06/20/2023 5:56 PM EST Max ELIZABETHM MICROBIOLOGY - GENERAL ORDE RABLES Final Result Performing Organization Address City/[facility]/ZIP Co de Phone Number [facility] [employer] [facility] [address] [facility] , [place] [address] * ANAEROBIC CULTURE (NO STAIN) (06/20/2023 5:35 PM EST) Culture No anaerobic growth at 5 days. 06/25/2023 8:11 PM EST [facility] [employer] [facility] Swab TOE STRUCTURE / Unknown 06/20/2023 5:35 PM EST 06/20/2023 5:56 PM EST Max Gifford DPM MICROBIOLOGY - GENERAL ORDE LEXX Final Result Performing Organization Address [facility]/ZIP Co de Phone Number [facility] [employer] [facility] [address] [facility] , [place] [address] * INTRAOP AIRWAY PLACEMENT (06/20/2023 5:22 PM EST) Narrative [facility] - 06/20/2023 5:22 PM EST Jenna Gonzales CRNA 06/20/2023 5:27 PM Intraop Airway Placement: Date/Time: 06/20/2023 5:22 PM Airway type: Nasal cannula salter Gunner Saenz MD [place] ANESTHESIA Final Res ult Performing Organization Address City/[facility]/ZIP Co de Phone Number [facility] [address] [place] [address] * VANCOMYCIN LEVEL AUC2 (06/20/2023 1:42 PM EST) Vancomycin AUC2 26.8 mcg/mL 2:05 PM EST [facility] Blood VENOUS BLOOD / Unknown Venipuncture / Unknown 06/20/2023 1:42 PM EST 06/20/2023 1:47 PM EST Max P Diiulio DPM CHEMISTRY ORDERABLES Final Result Performing Organization Address [facility] Co de Phone Number [facility] [address] [place] [address] * VANCOMYCIN LEVEL AUC1 (06/20/2023 8:53 AM EST) [facility] Vancomycin AUC1 39.4 mcg/mL 9:55 AM EST [facility] Blood VENOUS BLOOD / Unknown Venipuncture / Unknown 06/20/2023 8:53 AM EST 06/20/2023 9:37 AM EST Max Gifford DPM CHEMISTRY ORDERABLES Final Result Performing Organization Address [facility] de Phone Number [facility] [address] [place] [address] * VITAMIN B12/ FOLIC ACID (06/19/2023 11:20 AM EST) [facility] Vitamin B12 374 232 - 1,245 pg/mL 06/19/2023 2:35 PM EST [facility] Folate >16.00 >=4.80 ng/mL 06/19/2023 2:35 PM EST [facility] Blood VENOUS BLOOD / Unknown Venipuncture / Unknown 06/19/2023 11:20 AM EST 06/19/2023 11:29 AM EST Narrative [facility] - 06/19/2023 2:35 PM EST Ingestion of kwasi doses of biotin (>5 mg/day) taken within 8 hours of drawing blood sample can interfere with this immunoassay test. us Charity Aguilar MD CHEMISTRY ORDERABLES Final Resu lt Performing Organization Address [facility] Co de Phone Number [employer] [address] [facility] , [place] [address] * BLOOD CULTURE (NO STAIN) (06/18/2023 3:12 PM EST) Only the most recent of2 resultswithin the time period is included. [facility] Culture Result No Growth at 120 hours. BLOOD CULTURE (NO STAIN) 06/24/2023 12:01 AM EST [facility] Blood VENOUS BLOOD / Unknown Venipuncture / Unknown 06/18/2023 3:12 PM EST 06/18/2023 3:14 PM EST us Joel Becerra RECRUITING SPECIALIST MICROBIOLOGY - GENERAL ORDRohit HALLMAN Final Result [facility] [address] [facility] , [place] [address] * XR FOOT RIGHT AP LATERAL AND OBLIQUE (06/18/2023 1:31 PM EST) Anatomical Region Laterality Modality Foot Radiographic Evonne ging 06/18/2023 1:31 PM EST Impressions 06/18/2023 1:53 PM EST Marked degenerative changes first metatarsophalangeal joint. More aggressive areas of subchondral erosion involving the distal phalanx and proximal phalanx great toe and the interphalangeal joint region. This suggest a more aggressive process including joint space infection or Charcot joint of the great toe. Soft tissue swelling second toe. Questionable cortical erosion tuft of the second toe raising the possibility of osteomyelitis. - Note: Radiology results need to be interpreted within a comprehensive clinical context. If you have questions about the radiology report, please contact the office of the ordering clinician. Narrative 06/18/2023 1:53 PM EST XR FOOT RIGHT AP LATERAL AND OBLIQUE, 06/18/2023 1:31 PM CLINICAL HISTORY: -TOE PAIN COMPARISON: None. PROCEDURE COMMENTS: XR FOOT RIGHT AP LATERAL AND OBLIQUE FINDINGS: There is no definite fracture or malalignment. There are very prominent degenerative changes of the first metatarsophalangeal joint. There are subchondral erosive changes in the interphalangeal joint of the great toe. These are unusual appearance suggest a more aggressive process including infected joint or Charcot joint. There is prominent soft tissue swelling about the distal second toe. This could be secondary to inflammation or infection. The DIP joint of the second toe is flexed making difficult to evaluate on the PA examination. There are some questionable subtle cortical erosion of the tuft. Procedure Note Charles Davison III, MD - 12/02/2023 XR FOOT RIGHT AP LATERAL AND OBLIQUE, 06/18/2023 1:31 PM CLINICAL HISTORY: -TOE PAIN COMPARISON: None. PROCEDURE COMMENTS: XR FOOT RIGHT AP LATERAL AND OBLIQUE FINDINGS: There is no definite fracture or malalignment. There are very prominent degenerative changes of the first metatarsophalangeal joint.There are subchondral erosive changes in the interphalangeal joint of the great toe.These are unusual appearance suggest a more aggressive process includinginfected joint or Charcot joint. There is prominent soft tissue swelling about the distal second toe. Thiscould be secondary to inflammation or infection. The DIP joint of the second toeis flexed making difficult to evaluate on the PA examination. There aresome questionable subtle cortical erosion of the tuft. IMPRESSION: Marked degenerative changes first metatarsophalangeal joint. More aggressive areas of subchondral erosion involving the distal phalanx and proximal phalanx great toe and the interphalangeal joint region. Thissuggest a more aggressive process including joint space infection or Charcot jointof the great toe. Soft tissue swelling second toe. Questionable cortical erosion tuft ofthe second toe raising the possibility of osteomyelitis. - Note: Radiology results need to be interpreted within a comprehensiveclinical context. If you have questions about the radiology report, please contactthe office of the ordering clinician. Joel Becerra APRN IM DIAGNOSTIC IMAGING ORDRohit HALLMAN Final Result * PROCALCITONIN (06/18/2023 1:26 PM EST) Procalcitonin <0.05 <=0.49 ng/mL 06/19/2023 4:39 AM EST [facility] Blood VENOUS BLOOD / Unknown Venipuncture / Unknown 06/18/2023 1:26 PM EST 06/18/2023 1:28 PM EST Narrative [facility] - 06/19/2023 4:39 AM EST Procalcitonin <0.50 ng/mL: Procalcitonin levels below 0.50 ng/mL on the first day of ICU admission represent a low risk for progression to severe sepsis and/or septic shock Procalcitonin >=0.50 ng/mL and <=2.00 ng/mL: If the procalcitonin measurement is performed shortly after the systemic infection process has started (usually less than 6 hours), this value may still be low. As various non-infectious conditions are known to induce procalcitonin as well, procalcitonin levels between 0.50 ng/mL and 2.00 ng/mL should be reviewed carefully to take into account the specific clinical background and condition(s) of the patient. Procalcitonin >2.00 ng/mL: Procalcitonin levels above 2.00 ng/mL on the first day of ICU admission represent a high risk for progression to severe sepsis and/or septic shock. Charity Aguilar MD CHEMISTRY ORDERABLES Final Resu lt Performing Organization Address [facility] Co de Phone Number [facility] [address] [facility] , [address] [place], [place] [id number] * (ABNORMAL) SEDIMENTATION RATE AUTOMATED (06/18/2023 1:26 PM EST) Sed Rate 76(H) 0 - 20 mm/hr 06/18/2023 2:07 PM EST [facility] [employer] [facility] Blood VENOUS BLOOD / Unknown Venipuncture / Unknown 06/18/2023 1:26 PM EST 06/18/2023 1:28 PM EST Joel Becerra APRN HEMATOLOGY ORDERABLES Final Result Performing Organization Address [facility] de Phone Number [facility] [address] [place], [place] [id number] * (ABNORMAL) C-REACTIVE PROTEIN (06/18/2023 1:26 PM EST) CRP 17.26(H) <=5.00 mg/L 06/18/2023 7:11 PM EST [employer] Blood VENOUS BLOOD / Unknown Venipuncture / Unknown 06/18/2023 1:26 PM EST 06/18/2023 1:28 PM EST Joel Becerra APRN CHEMISTRY ORDERABLES Final Result Performing Organization Address City/[facility] Co de Phone Number [facility] [employer] [address] [facility] , [address] [place], [place] [id number] * (ABNORMAL) CORONAVIRUS 2019 POCT (04/28/2021 12:57 PM EDT) [facility] COV19 RNA POCT Positive(A A) Negative 04/28/2021 1:16 PM EDT [facility] Swab NASAL / Unknown 04/28/2021 1 2:57 PM EDT 04/28/2021 1:02 PM EDT [facility] - 04/28/2021 1:16 PM EDT The ID NOW is an isothermal nucleic acid amplification assay used to detect nucleic acid from SARS-CoV-2 viral RNA and is intended for use under FDA Emergency Use Authorization only. Negative results do not preclude SARS-CoV-2 infection and should not be used as the sole basis for patient management decisions. Negative results must be combined with clinical observations, patient history, and epidemiological information. Recommend confirmation using alternate method if a negative result is inconsistent with clinical signs and symptoms or if necessary for patient management. Fu ID NOW Provider Fact Sheet: https://www.fda.gov/media/310224/download Fu ID NOW Patient Fact Sheet: https://www.fda.gov/media/376619/download Merrick Palomares MD MICROBIOLOGY - GENERAL ORDERABLE S Final Result Performing Organization Address [facility]/ZIP Co de Phone Number [address] [address] * TROPONIN-T HIGH SENSITIVITY BASELINE W/ REFLEX (11/15/2020 7:42 PM EDT) Only the most recent of3 resultswithin the time period is included. Pathologist [facility] [id number] <6 <14 ng/L 11/15/2020 8:05 PM EDT [facility] Comment:See the website belo w for rule out NM care pathway, conditions other than AMI that can cause elevated hs cTnT, and comparison of values from the 4th and 5th generation Fely tests. [email or web address]/clinical-answers/[email or web address]/[email or web address] Blood VENOUS BLOOD / Unknown Venipuncture / Unknown 11/15/2020 7:42 PM EDT 11/15/2020 7:45 PM EDT Narrative [facility] - 11/15/2020 8:05 PM EDT Ingestion of kwasi doses of biotin (>5 mg/day) taken within 8 hours of drawing blood sample can interfere with this immunoassay test. us Kameron Fields MD CHEMISTRY ORDERABLES Final Result [facility] [address] [place] [id number] * URINALYSIS (07/20/2020 2:56 PM EST) Only the most recent of3 resultswithin the time period is included. UA Color Colorless 07/20/2020 3:13 PM EST [facility] UA Appear Clear Clear 07/20/2020 3:13 PM EST [facility] UA Glucose Negative Negative mg/dL 07/20/2020 3:13 PM EST [facility] UA Ketones Negative Negative mg/dL 07/20/2020 3:13 PM EST [facility] UA Blood Negative Negative 07/20/2020 3:13 PM EST [facility] UA pH 7.5 5.0 - 8.0 pH 07/20/2020 3:13 PM EST [facility] UA Protein Negative Negative mg/dL 07/20/2020 3:13 PM EST [facility] UA Urobilinogen Normal <=1 mg/dL 3:13 PM EST [facility] UA Bili Negative Negative 07/20/2020 3:13 PM EST [facility] UA Nitrite Negative Negative 07/20/2020 3:13 PM EST [facility] UA Leuk Est Negative Negative 07/20/2020 3:13 PM EST [facility] UA Spec Grav 1.009 1.001 - 1.035 no units 07/20/2020 3:13 PM EST [facility] Comment:Reference range tigre d for random specimens only. Urine URINE SPECIMEN COLLECTION, CLEAN CATCH / Unknown 07/20/2020 2:56 PM EST 07/20/2020 3:05 PM EST us Vitaly Neff RECRUITING SPECIALIST URINE ORDERABLES Final Res ult [facility] [employer] [address] [facility] , [place] [address] * (ABNORMAL) CBC (07/20/2020 1:53 PM EST) Only the most recent of5 resultswithin the time period is included. WBC 10.0 3.7 - 10.3 x10(3)/mcL 07/20/2020 2:05 PM [facility] RBC 5.57(H) 3.90 - 5.20 x10(6)/mcL 07/20/2020 2:05 PM [facility] Hgb 12.4 11.2 - 15.7 g/dL 07/20/2020 2:05 PM [facility] Hct 40.6 34.0 - 45.0 % 07/20/2020 2:05 PM [facility] MCV 72.9(L) 80.0 - 100.0 fL 07/20/2020 2:05 PM [facility] MCH 22.3(L) 26.0 - 34.0 pg 07/20/2020 2:05 PM [facility] MCHC 30.5(L) 30.7 - 35.5 g/dL 07/20/2020 2:05 PM [facility] RDW 15.2(H) <=14.9 % 07/20/2020 2:05 PM [facility] Platelet 307 155 - 369 x10(3)/mcL 07/20/2020 2:05 PM [facility] MPV 9.4 8.8 - 12.5 fL 07/20/2020 2:05 PM [facility] Blood VENOUS BLOOD / Unknown Venipuncture / Unknown 07/20/2020 1:53 PM EST 07/20/2020 2:03 PM EST us Vitaly Morganrashi RECRUITING SPECIALIST HEMATOLOGY ORDERABLES Barbara melgoza Result [facility] [address] [place] [address] * CT CHEST ABDOMEN PELVIS W CONTRAST (06/17/2020 1:48 PM EST) Anatomical Region Laterality Modality Abdomen, Chest, Pelvis Computed Tomography 06/17/2020 1:48 PM EST Impressions 06/17/2020 2:09 PM EST CHEST: No acute findings. ABDOMEN/PELVIS: No acute findings. - Narrative 06/17/2020 2:[address] CHEST, ABDOMEN, AND PELVIS WITH CONTRAST, 06/17/2020 1:48 PM CLINICAL HISTORY: -Right pleuritic chest pain, COVID-19 exposure and negative d-dimer COMPARISON: 2014 PROCEDURE COMMENTS: Multidetector volumetric CT with multiplanar reconstructions from the thoracic inlet through the lung bases and from the lung bases through the pubic symphysis with IV administration of 100 ml Isovue 370. Automated exposure control for dose reduction was used. CTDIvol: 18.5 - 31.0 mGy. DLP: 2371 mGy-cm. FINDINGS: Central airways are patent. The central airways are patent. The lungs are clear. No suspicious mediastinal or hilar lymphadenopathy. Heart size is within normal limits. The gallbladder is absent. The liver, pancreas, spleen and adrenals are unremarkable. Kidneys enhance symmetrically without obstruction bilaterally. Bladder is largely collapsed, grossly normal. The small and large bowel are normal in caliber without obstruction or wall thickening. Appendix is normal in the right pelvis. No free fluid or suspicious lymphadenopathy. Vasculature is unremarkable. No suspicious osseous lesion. Procedure Note Naseem Garrison MD - 06/17/2020 CT CHEST, ABDOMEN, AND PELVIS WITH CONTRAST, 06/17/2020 1:48 PM CLINICAL HISTORY: -Right pleuritic chest pain, COVID-19 exposure andnegative d-dimer COMPARISON: 2014 PROCEDURE COMMENTS: Multidetector volumetric CT with multiplanarreconstructions from the thoracic inlet through the lung bases and from the lung basesthrough the pubic symphysis with IV administration of 100 ml Isovue 370.Automated exposure control for dose reduction was used. CTDIvol: 18.5 - 31.0 mGy.DLP: 2371 mGy-cm. FINDINGS: Central airways are patent. The central airways are patent. The lungs are clear. No suspicious mediastinal or hilar lymphadenopathy. Heart size is withinnormal limits. The gallbladder is absent. The liver, pancreas, spleen and adrenals are unremarkable. Kidneys enhance symmetrically without obstruction bilaterally. Bladderis largely collapsed, grossly normal. The small and large bowel are normal in caliber without obstruction orwall thickening. Appendix is normal in the right pelvis. No free fluid or suspicious lymphadenopathy. Vasculature is unremarkable. No suspicious osseous lesion. IMPRESSION: CHEST: No acute findings. ABDOMEN/PELVIS: No acute findings. - us Asael Yan MD IMG CT ORDERABLES Final Result * D-DIMER (06/17/2020 12:01 PM EST) D-Dimer <230 <=230 ng/mL D-DU 06/17/2020 12:21 PM EST [facility] Comment: This test has been clinically validated by the property and casualty insurance agent and approved by the FDA for exclusion of pulmonary embolism (PE) or deep vein thrombosis (DVT) in patients with a low clinical risk assessment. The cutoff for exclusion of PE and DVT is < 230 ng/mL D-Dimer Units. Increased levels of D-dimer are associated with PE, DVT, disseminated intravascular coagulation, malignancies, inflammation, sepsis, surgery, trauma, , and advanced patient age. Blood VENOUS BLOOD / Unknown Venipuncture / Unknown 06/17/2020 12:01 PM EST 06/17/2020 12:04 PM EST us Asael Yan MD HEMATOLOGY ORDERABLES Final Res ult [facility] [address] [place] [address] * EC ECHOCARDIOGRAM COMPLETE W DOPPLER AND COLOR FLOW MAPPING (09/19/2019 11:49 AM EST) Pathologist [facility] Ejection Fraction 65-70 % PYRAMIS Anatomical Region Laterality Modality Electrocardiogra phy 09/19/2019 10:5 6 AM EST Impressions 09/20/2019 11:43 AM EST CONCLUSIONS Left ventricular ejection fraction is in the normal range. Narrative Procedure Note Jermaine Eubanks MD - 09/20/2019 IMPRESSION CONCLUSIONS Left ventricular ejection fraction is in the normal range. Jermaine Eubanks MD IMG ECHO ORDERABLES Final Result * (ABNORMAL) LIPID PANEL REFLEX (09/12/2019 1:30 PM EST) Cholesterol 197 <200 mg/dL 09/12/2019 3:22 PM EST [facility] [employer] Comment: < 200 Desirable 200 - 239 Borderline High >= 240 High Triglyceride 167(H) <150 mg/dL 09/12/2019 3:22 PM EST [employer] Comment: < 150 Normal 150 - 199 Borderline High 200 - 499 High >= 500 Very High HDL 46 >=40 mg/dL 09/12/2019 3:22 PM EST [employer] Comment: > 60 Optimal 40 - 60 Acceptable < 40 Low LDL Calculated 118(H) <100 mg/dL 09/12/2019 3:22 PM EST [facility] Non-HDL-C Calculated 151(H) <=129 mg/dL 09/12/2019 3:22 PM EST [employer] Comment: <130 Desirable 130-159 Above Desirable 160-189 Borderline High 190-219 High >= 220 Very High Fasting Specimen? No None 020 3:22 PM EST [facility] Blood Venipuncture / Unknown 09/12/2019 1:30 PM EST 09/12/2019 1:41 PM EST Jermaine Eubanks MD CHEMISTRY ORDERABLES Final Resul t [facility] [address] [facility] , [place] [address] * (ABNORMAL) TSH REFLEX (09/12/2019 1:30 PM EST) TSH Reflex 6.940(H) 0.270 - 4.200 mcIU/mL 09/12/2019 3:22 PM EST [facility] Blood Venipuncture / Unknown 09/12/2019 1:30 PM EST 09/12/2019 1:41 PM EST Narrative [facility] [employer] [facility] - 09/12/2019 3:22 PM EST Ingestion of kwasi doses of biotin (>5 mg/day) taken within 8 hours of drawing blood sample can interfere with this immunoassay test. us Jermaine Eubanks MD CHEMISTRY ORDERABLES Final Resul t Performing Organization Address [facility] de Phone Number [facility] [employer] [facility] [address] [facility] , [place] [address] * MAGNESIUM LEVEL (09/12/2019 1:30 PM EST) Pathologist [facility] Magnesium 2.2 1.6 - 2.4 mg/dL 09/12/2019 3:22 PM EST [facility] Blood Venipuncture / Unknown 09/12/2019 1:30 PM EST 09/12/2019 1:41 PM EST us Jermaine Eubanks MD CHEMISTRY ORDERABLES Final Resul t Performing Organization Address [facility] Phone Number [facility] [employer] [facility] [address] [facility] , [place] [address] * (ABNORMAL) POCT EKG (08/30/2019 1:02 PM EST) 08/30/2019 1:02 PM EST Impressions [facility] - 08/30/2019 1:02 PM EST NSR, no dynamic ST changes. us Jermaine Eubanks MD POINT OF CARE CARDIOLOGY Final R esult Performing Organization Address [facility] de Phone Number [facility] * SCANNED RADIOLOGY REPORT (08/28/2019 2:41 PM EST) Only the most recent of2 resultswithin the time period is included. Anatomical Region Laterality Modality Other 08/28/2019 2:41 PM EST us Unknown Unknown IMG DIAGNOSTIC IMAGING ORDERABLE S Final Result * XR KNEE RIGHT AP LAT INT EXT OBLIQUES AND SUNRISE (09/02/2017 11:05 AM EST) Anatomical Region Laterality Modality Knee Radiographic Evonne ging 09/02/2017 11:0 5 AM EST Impressions 09/02/2017 12:47 PM EST Small joint effusion without fracture or dislocation. Narrative 09/02/2017 12:47 PM EST CLINICAL HISTORY: M25.561-Pain in right pdva-TVR-28-CM. COMPARISON: None. TECHNIQUE: XR KNEE RIGHT AP LAT INT EXT OBLIQUES AND SUNRISE on 09/02/2017 11:05 AM FINDINGS: The bone mineralization is normal. There is no fracture. The joint spaces are well maintained with normal alignment. There are no degenerative changes. There is a small joint effusion. Procedure Note Michael Vaughn MD - 09/02/2017 CLINICAL HISTORY: M25.561-Pain in right arra-AVF-86-CM. COMPARISON: None. TECHNIQUE: XR KNEE RIGHT AP LAT INT EXT OBLIQUES AND SUNRISE on 09/02/201711:05 AM FINDINGS: The bone mineralization is normal. There is no fracture. Thejoint spaces are well maintained with normal alignment. There are nodegenerative changes. There is a small joint effusion. IMPRESSION: Small joint effusion without fracture or dislocation. us Chin Mai G DIAGNOSTIC IMAGING ORDERABL ES Final Result * XR LUMBAR SPINE AP AND LATERAL (03/29/2016 5:56 PM EDT) Anatomical Region Laterality Modality L-spine Radiographic Evonne ging 03/29/2016 5:56 PM EDT Impressions 03/29/2016 6:15 PM EDT Normal radiographs of the lumbar spine. Narrative 03/29/2016 6:15 PM EDT XR LUMBAR SPINE AP AND LATERAL 03/29/2016 5:56 PM Clinical: -BACK PAIN COMPARISONS: None. FINDINGS: There is normal alignment of the lumbar spine. The vertebral body heights and intervertebral disc space heights are normal. There is no acute fracture. The pedicles are intact. The sacroiliac joints are normal. There is no evidence for pars defect. Procedure Note Quita Bautista MD - 03/29/2016 XR LUMBAR SPINE AP AND LATERAL 03/29/2016 5:56 PM Clinical: -BACK PAIN COMPARISONS: None. FINDINGS: There is normal alignment of the lumbar spine. The vertebral body heightsand intervertebral disc space heights are normal. There is no acute fracture.The pedicles are intact. The sacroiliac joints are normal. There is noevidence for pars defect. IMPRESSION Normal radiographs of the lumbar spine. Roel Mcadams MD IMG DIAGNOSTIC IMAGING ORDERA BLES Final Result * US RIGHT UPPER QUADRANT (01/12/2016 9:05 AM EDT) Only the most recent of2 resultswithin the time period is included. Anatomical Region Laterality Modality Abdomen Ultrasound 01/12/2016 9:05 AM EDT Impressions 01/12/2016 9:12 AM EDT IMPRESSION: Previous cholecystectomy. Borderline hepatomegaly. Right upper quadrant ultrasound is otherwise negative. Narrative 01/12/2016 9:12 AM EDT PROCEDURE: RIGHT UPPER QUADRANT ULTRASOUND, 01/12/2016 9:05 AM INDICATIONS: Elevated LFTs. FINDINGS: Right upper quadrant ultrasound. Comparison 07/04/2015 The gallbladder is surgically absent. There is borderline hepatomegaly. No focal hepatic lesions. There is no intra or extrahepatic biliary dilatation. The common duct measures 3 mm. Limited views of the pancreas are unremarkable. The right kidney shows no hydronephrosis 12.1 x 5.6 x 4.6. Procedure Note Cody Loomis MD - 01/12/2016 PROCEDURE: RIGHT UPPER QUADRANT ULTRASOUND, 01/12/2016 9:05 AM INDICATIONS: Elevated LFTs. FINDINGS: Right upper quadrant ultrasound. Comparison 07/04/2015 The gallbladder is surgically absent. There is borderline hepatomegaly. Nofocal hepatic lesions. There is no intra or extrahepatic biliary dilatation. The common duct measures 3 mm. Limited views of the pancreas are unremarkable. The right kidney showsno hydronephrosis 12.1 x 5.6 x 4.6. IMPRESSION: Previous cholecystectomy. Borderline hepatomegaly. Rightupper quadrant ultrasound is otherwise negative. [place] [facility] [place]LES Final Result * ENTAS POCT FULL CT SINUS (09/08/2015 1:20 PM EST) 09/08/2015 1:20 PM EST Impressions ENTAS - 09/09/2015 1:57 PM EST FULL SINUS Technical factors: 3 millimeter prone coronal images obtained through the sinuses. History: Nasal turbinate hypertrophy. FINDINGS: Sinuses are free of fluid and inflammatory soft tissue structures. 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 There is no available measuring tool on this software for exact measurement. Osteoma appears to arise just above left vidian canal. Left vidian canal appears hypoplastic or malformed. Bilateral ostiomeatal unit complexes are patent. The inferior turbinate is larger than contralateral side. Lower right nasal septum is mildly bowed towards the right in has a moderate-sized bony spur. No bony sinus wall hypertrophy. IMPRESSION: 1. No acute sinus disease. Asymmetrically enlarged inferior left middle turbinate. 2. 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 Kashif Pollock MD POINT OF CARE IMAGING Final Re sult [facility] * PATHOLOGY TISSUE REPORT (08/19/2015 1:53 PM EST) Only the most recent of3 resultswithin the time period is included. Surgical Pathology Report PATIENT NAME:KEISHA SUTTON Surgical Pathology Report Accession Number Collected Date/Time Received Date/Time [id number] 08/19/15 13:53 EST 08/20/15 09:17 EST Diagnosis Gallbladder, cholecystectomy: - Cholelithiasis. Olivia Bonner (Electronically signed by) Verified: 08/21/2015 [facility] Clinical Information Cholelithiasis. Gross Description Received in formalin labeled with the patient's name and gallbladder is a 9.5 x 4 x 3 cm gallbladder. The serosal surface is smooth and the hepatic surface is roughened. The cystic duct is closed by a single staple. The gallbladder is opened to reveal tenacious green fluid and a single 0.8 cm brown stone. The mucosal surface of the gallbladder is smooth without masses. Dog Control Officer sections are submitted in one cassette. /MR MR /BR Microscopic Description Microscopic examination is performed and the findings corroborate the diagnosis. [facility] 08/19/2015 1:53 PM EST us Anne Rowe MD PATHOLOGY ORDERABLES Final Resul t Performing Organization Address [facility] [place] [address] * GMED EGD (07/25/2015 9:45 AM EST) 07/25/2015 9:45 AM EST Impressions [facility] - 07/25/2015 12:08 PM EST Normal mucosa in the whole examined duodenum. Erythema and granularity in the antrum and pre-pyloric region compatible with non-erosive gastritis. (Biopsy). Normal mucosa in the whole esophagus. Plan: Await pathology results Follow-up office visit in 3-4 weeks This section is an excerpt of the full report. Leda Theodore MD GI PROCEDURE ORDERABLES Final Result Performing Organization Address [facility] Co de Phone Number [facility] [address] [place] [address] * GMED COLONOSCOPY (07/25/2015 9:45 AM EST) 07/25/2015 9:45 AM EST Impressions [facility] - 07/25/2015 12:10 PM EST Normal mucosa in the whole colon. Plan: Colonoscopy at age 49 for screening or otherwise different if change in personal or family history. This section is an excerpt of the full report. Leda Theodore MD GI PROCEDURE ORDERABLES Final Result Performing Organization Address [facility] Co de Phone Number [facility] [address] [place] [address] * (ABNORMAL) DIFFERENTIAL (06/15/2015 10:37 AM EST) Only the most recent of3 resultswithin the time period is included. Neut Percent 56.5 % [facility] Lymph Percent 25.8 % [facility] [place] Percent 9.9 % [facility] Eos Percent 7.0 % [facility] Baso Percent 0.8 % [facility] Neut# 4.9 1.8 - 7.7 x10(3)/mcL [facility] Lymph# 2.2 0.6 - 4.8 x10(3)/[facility] [place]# 0.9 0.0 - 1.3 x10(3)/[facility] Eos# 0.6(H) 0.0 - 0.5 x10(3)/[facility] Baso# 0.1 0.0 - 0.2 x10(3)/[facility] Blood specimen (specimen) 06/15/2015 10:37 AM EST 06/15/2015 10:42 AM EST us Redd Padilla MD HEMATOLOGY ORDERABLES Final Result [facility] [address] [place] [address] * AMYLASE LEVEL (06/15/2015 10:37 AM EST) Pathologist [facility] Amylase Lvl 28 28 - 100 IU/L [facility] Blood specimen (specimen) UPPER LIMB STRUCTURE / Unknown 06/15/2015 10:37 AM EST 06/15/2015 10:42 AM EST us Redd Padilla MD CHEMISTRY ORDERABLES Final Result [facility] [address] [place] [address] * IRON LEVEL (09/06/2014 10:43 AM EST) Iron 122 30 - 160 mcg/dL [facility] Blood specimen (specimen) UPPER LIMB STRUCTURE / Unknown 09/06/2014 10:43 AM EST 09/06/2014 10:43 AM EST Narrative [facility] - 09/06/2014 11:41 AM EST FAX [phone] us Hollis Martinez MD CHEMISTRY ORDERABLES Final Result [facility] [address] [place] [address] * CT ABDOMEN PELVIS WO CONTRAST (03/08/2014 12:17 PM EDT) Anatomical Region Laterality Modality Abdomen, Chest, Pelvis, Hip Comp uted Tomography 03/08/2014 11:0 0 AM EDT Impressions 03/08/2014 1:02 PM EDT IMPRESSION: Essentially normal examination. No acute intra-abdominal abnormality. Narrative 03/08/2014 1:[address] ABDOMEN and PELVIS, 03/08/2014 HISTORY: Right lower quadrant pain. FINDINGS: Scanning performed from the lung bases through the pubic symphysis. Intravenous contrast was not administered due to inability to obtain access. Oral contrast was given. Comparison 06/18/2006. The lung bases are clear. Liver, spleen and pancreas are normal. The gallbladder is unremarkable. Adrenals are normal. There is mild dilatation of pelvicalyceal systems bilaterally similar in appearance the prior study. No stones or evidence of acute obstructive change. Aorta is normal in course and caliber. No aneurysm. Gastrointestinal structures are unremarkable. The appendix is not visualized with certainty but there is no right lower quadrant inflammatory process. Uterus is absent. Bladder is normal. No pelvic mass or fluid. Procedure Note Devan Hall MD - 03/08/[address] ABDOMEN and PELVIS, 03/08/2014 HISTORY: Right lower quadrant pain. FINDINGS: Scanning performed from the lung bases through the pubic symphysis.Intravenous contrast was not administered due to inability to obtain access. Oral contrast wasgiven. Comparison 06/18/2006. The lung bases are clear. Liver, spleen and pancreas are normal. The gallbladder is unremarkable.Adrenals are normal. There is mild dilatation of pelvicalyceal systems bilaterally similar inappearance the prior study. No stones or evidence of acute obstructive change. Aorta is normalin course and caliber. No aneurysm. Gastrointestinal structures are unremarkable. The appendix is notvisualized with certainty but there is no right lower quadrant inflammatory process. Uterus is absent.Bladder is normal. No pelvic mass or fluid. IMPRESSION: Essentially normal examination. No acute intra-abdominalabnormality. us Chin Mai IMG CT ORDERABLES Final Result * MRI CERVICAL SPINE WO CONTRAST (11/22/2012 12:03 PM EDT) Only the most recent of2 resultswithin the time period is included. Anatomical Region Laterality Modality C-spine Magnetic Resonan ce 11/22/2012 Impressions 11/23/2012 7:48 AM EDT IMPRESSION: Focal protrusions C5-6 and C6-7, more prominent at C5-6. There is mild mass effect on the thecal sac. There is no canal stenosis or foraminal narrowing. Straightening of the spine may indicate spasm. Narrative 11/23/2012 7:48 AM EDT MRI CERVICAL SPINE, 11/22/2012: HISTORY: Neck pain and hip pain. Straightening of the spine noted. This may indicate spasm. There is no fracture, subluxation, or destructive lesion. The cord and cerebellar tonsils are normal. C1-2, C2-3, C3-4 levels are normal. C4-5 is also normal. At C5-6, there is a focal central protrusion, with mild mass effect on the thecal sac and cord. There is no canal stenosis or foraminal narrowing. At C6-7, there is also a shallow central protrusion, with minimal mass effect on the thecal sac. There is no canal stenosis or foraminal narrowing. C7-T1 is normal. Procedure Note Saira Vaca MD - 11/23/2012 MRI CERVICAL SPINE, 11/22/2012: HISTORY: Neck pain and hip pain. Straightening of the spine noted. This may indicate spasm. There is nofracture, subluxation, or destructive lesion. The cord and cerebellar tonsils are normal. C1-2,C2-3, C3-4 levels are normal. C4-5 is also normal. At C5-6, there is a focal central protrusion, with mild mass effect on thethecal sac and cord. There is no canal stenosis or foraminal narrowing. At C6-7, there is alsoa shallow central protrusion, with minimal mass effect on the thecal sac. There is no canalstenosis or foraminal narrowing. C7-T1 is normal. IMPRESSION: Focal protrusions C5-6 and C6-7, more prominent at C5-6. Thereis mild mass effect on the thecal sac. There is no canal stenosis or foraminal narrowing.Straightening of the spine may indicate spasm. us Michael Rubio MD IMG MRI ORDERABLES Final Result * SCANNED PRE/POST PROCEDURES (08/12/2012 4:59 PM EST) Narrative Procedure Note Unknown, Unknown - 08/12/2012 4:59 PM EST us Unknown Unknown PROCEDURE/MINOR SURGICAL ORDERAB LES Final Result * SCANNED ANESTHESIA FORMS (08/12/2012 4:59 PM EST) Narrative Procedure Note Unknown, Unknown - 08/12/2012 4:58 PM EST Unknown Unknown PROCEDURE/MINOR SURGICAL ORDERAB LES Final Result * POCT URINE (08/09/2012 9:11 AM EST) Preg Test, Ur negative Pos/Neg [facility] Lot Number [id number] [facility] Expiration Date [facility] SeriAl # [facility] Control Line yes Yes/No [facility] Urine specimen (specimen) 08/09/2012 9:11 AM EST Ramila Vera RECRUITING SPECIALIST POINT OF CARE TEST ORDERABLE S Final Result [facility] [address] [place] [address] * ABORH (08/01/2012 9:30 AM EST) Pathologist [facility] ABOR Int A POS [facility] Blood specimen (specimen) 08/01/2012 9:30 AM EST 08/01/2012 9:42 AM EST Ramila Vera RECRUITING SPECIALIST BLOOD BANK ORDERABLES Final Result Performing Organization Address City/[facility] Co de Phone Number [facility] [address] [place] [address] * ANTIBODY SCREEN IGG (08/01/2012 9:30 AM EST) Pathologist [facility] ABSC IgG Int Negative [facility] Blood specimen (specimen) 08/01/2012 9:30 AM EST 08/01/2012 9:42 AM EST Ramiladerek Vera RECRUITING SPECIALIST BLOOD BANK ORDERABLES Final Result Performing Organization Address [facility] de Phone Number [facility] [address] [place] [address] * (ABNORMAL) VITAMIN D, [id number] (01/14/2011 11:32 AM EDT) [facility] Vit D 25 OH 21(L) 30 - 80 ng/mL [facility] Comment: REFERENCE INTERVAL: Vitamin D, 25-Hydroxy This assay accurately quantifies the sum of vitamin D3, 25-hydroxy and vitamin D2, 25-hydroxy. 0-17 years: Deficiency: less than 20 ng/mL Optimum level: greater than or equal to 20 ng/mL* *(Ladd CL et al. Pediatrics 2008; 122: 1142-52.) 18 years and older: Deficiency: Less than 20 ng/mL Insufficiency: 20-29 ng/mL Optimum Level: 30-80 ng/mL Possible Toxicity: Greater than 150 ng/mL Blood specimen (specimen) UPPER LIMB STRUCTURE / Unknown 01/14/2011 11:32 AM EDT 01/14/2011 10:40 PM EDT Redd Wynn MD CHEMISTRY ORDERABLES Final Resu lt Performing Organization Address City/[facility] Co de Phone Number [facility] [address] [place] [address] * T3 FREE (01/14/2011 11:32 AM EDT) Pathologist [facility] T3 Free 3.59 2.77 - 5.27 pg/mL [facility] Blood specimen (specimen) UPPER LIMB STRUCTURE / Unknown 01/14/2011 11:32 AM EDT 01/14/2011 8:17 PM EDT us Redd Wynn MD CHEMISTRY ORDERABLES Final Resu lt Performing Organization Address City/[facility]/ZIP Co de Phone Number [facility] [address] [place] [address] * (ABNORMAL) VITAMIN B12 LEVEL (01/14/2011 11:32 AM EDT) Vitamin B12 946(H) 239 - 931 pg/mL [facility] Blood specimen (specimen) UPPER LIMB STRUCTURE / Unknown 01/14/2011 11:32 AM EDT 01/14/2011 8:17 PM EDT Redd Wynn MD CHEMISTRY ORDERABLES Final Resu lt Performing Organization Address [facility] Co de Phone Number [facility] [address] [place] [address] * CT PELVIS W CONTRAST (06/18/2006 12:00 AM EST) Anatomical Region Laterality Modality Other 06/18/2006 06/18/2006 Narrative 06/18/2006 12:[address] [facility] Reason: RLQ PAIN Dict.Staff: MARISA PINEDA Verified By: MARISA PINDEA Mick: 06/18/06 3:40 pm Exams: CT-ABDOMEN WITH CONTRAST CT-PELVIS WITH CONTRAST ABDOMEN AND PELVIC CT WITH CONTRAST CLINICAL HISTORY: 26 YEAR OLD FEMALE WITH RIGHT LOWER QUADRANT PAIN. IRRITABLE BOWEL. EVALUATE. FINDINGS: 5mm images were obtained through the abdomen and pelvis following the uneventful administration of oral and intravenous contrast. 100cc Isovue 370 were administered without immediate reported complications. No comparisons. Abdomen: Lung bases are clear. Liver, spleen, pancreas, adrenal glands, and kidneys within normal limits. Gallbladder has an unremarkable CT appearance. Depending on clinical concern, gallbladder is best evaluated by ultrasound. Oral contrast material partially opacifies the stomach and small bowel. Proximal small bowel not well visualized since the oral contrast is predominantly within the distal small bowel. Given this small bowel is unremarkable. Pelvis: High attenuation T shaped device within the endometrial cavity is consistent with the patient's known intrauterine device. Uterus and right ovary otherwise have an unremarkable CT appearance. Within the left adnexa is a large oval 4.8 by 3.3cm fluid attenuation mass likely representing a large left ovarian cyst. By report, left ovary was normal on prior pelvic ultrasound dated 04-12-06 and therefore, this large 4.8cm. left adnexal cystic mass likely represents a large physiological cyst. However, follow up imaging is warranted. Oral contrast material partially opacifies the colon which is unremarkable. Appendix is seen and is normal in appearance. No CT evidence of appendicitis. As mentioned on the patient's previous pelvic ultrasound report dated 04-12-06, there is prominent pelvic veins bilaterally and once again if the patient has clinical symptoms suggestive of pelvic congestion syndrome, consultation with the vascular interventional service may be beneficial. IMPRESSION: 1. NORMAL APPENDIX. NO CT EVIDENCE OF APPENDICITIS. 2. 4.8 BY 3.3CM LEFT OVARIAN CYST LIKELY REPRESENTS A LARGE LEFT OVARIAN PHYSIOLOGIC CYST; HOWEVER, THE DIFFERENTIAL INCLUDES BOTH BENIGN AND MALIGNANT ETIOLOGIES AND THEREFORE, A CONSERVATIVE MEASURE, A SHORT TERM FOLLOW UP PELVIC ULTRASOUND IN SIX WEEKS IS RECOMMENDED TO ENSURE RESOLUTION. 3. ONCE AGAIN, NOTE IS MADE OF PROMINENCE OF THE PELVIC VEINS BILATERALLY. IF THE PATIENT HAS CLINICAL SYMPTOMS SUGGESTIVE OF PELVIC CONGESTION SYNDROME, CONSULTATION WITH THE VASCULAR INTERVENTIONAL SERVICE MAY BE BENEFICIAL. MIRIAM/madelyn end of result Procedure Note Unknown, U - 10/30/[address] [facility] Reason: RLQ PAIN Dict.Staff: MARISA PINEDA Verified By: MARISA PINEDA Mick: 06/18/06 3:40 pm Exams: CT-ABDOMEN WITH CONTRAST CT-PELVIS WITH CONTRAST ABDOMEN AND PELVIC CT WITH CONTRAST CLINICAL HISTORY: 26 YEAR OLD FEMALE WITH RIGHT LOWER QUADRANT PAIN. IRRITABLE BOWEL. EVALUATE. FINDINGS: 5mm images were obtained through the abdomen and pelvis following the uneventful administration of oral and intravenous contrast. 100cc Isovue 370 were administered without immediate reported complications. No comparisons. Abdomen: Lung bases are clear. Liver, spleen, pancreas, adrenal glands, and kidneys within normal limits. Gallbladder has an unremarkable CT appearance. Depending on clinical concern, gallbladder is best evaluated by ultrasound. Oral contrast material partially opacifies the stomach and small bowel. Proximal small bowel not well visualized since the oral contrast is predominantly within the distal small bowel. Given this small bowel is unremarkable. Pelvis: High attenuation T shaped device within the endometrial cavity is consistent with the patient's known intrauterine device. Uterus and right ovary otherwise have an unremarkable CT appearance. Within the left adnexa is a large oval 4.8 by 3.3cm fluid attenuation mass likely representing a large left ovarian cyst. By report, left ovary was normal on prior pelvic ultrasound dated 04-12-06 and therefore, this large 4.8cm. left adnexal cystic mass likely represents a large physiological cyst. However, follow up imaging is warranted. Oral contrast material partially opacifies the colon which is unremarkable. Appendix is seen and is normal in appearance. No CT evidence of appendicitis. As mentioned on the patient's previous pelvic ultrasound report dated 04-12-06, there is prominent pelvic veins bilaterally and once again if the patient has clinical symptoms suggestive of pelvic congestion syndrome, consultation with the vascular interventional service may be beneficial. IMPRESSION: 1. NORMAL APPENDIX. NO CT EVIDENCE OF APPENDICITIS. 2. 4.8 BY 3.3CM LEFT OVARIAN CYST LIKELY REPRESENTS A LARGE LEFT OVARIAN PHYSIOLOGIC CYST; HOWEVER, THE DIFFERENTIAL INCLUDES BOTH BENIGN AND MALIGNANT ETIOLOGIES AND THEREFORE, A CONSERVATIVE MEASURE, A SHORT TERM FOLLOW UP PELVIC ULTRASOUND IN SIX WEEKS IS RECOMMENDED TO ENSURE RESOLUTION. 3. ONCE AGAIN, NOTE IS MADE OF PROMINENCE OF THE PELVIC VEINS BILATERALLY. IF THE PATIENT HAS CLINICAL SYMPTOMS SUGGESTIVE OF PELVIC CONGESTION SYNDROME, CONSULTATION WITH THE VASCULAR INTERVENTIONAL SERVICE MAY BE BENEFICIAL. MIRIAM/madelyn end of result us U Unknown [facility] Final Result * CT ABDOMEN W CONTRAST (06/18/2006 12:00 AM EST) Anatomical Region Laterality Modality Other 06/18/2006 06/18/2006 Narrative 06/18/2006 12:[address] [facility] Reason: RLQ PAIN Dict.Staff: MARISA PINEDA Verified By: MARISA PINEDA Mick: 06/18/06 3:40 pm Exams: CT-ABDOMEN WITH CONTRAST CT-PELVIS WITH CONTRAST ABDOMEN AND PELVIC CT WITH CONTRAST CLINICAL HISTORY: 26 YEAR OLD FEMALE WITH RIGHT LOWER QUADRANT PAIN. IRRITABLE BOWEL. EVALUATE. FINDINGS: 5mm images were obtained through the abdomen and pelvis following the uneventful administration of oral and intravenous contrast. 100cc Isovue 370 were administered without immediate reported complications. No comparisons. Abdomen: Lung bases are clear. Liver, spleen, pancreas, adrenal glands, and kidneys within normal limits. Gallbladder has an unremarkable CT appearance. Depending on clinical concern, gallbladder is best evaluated by ultrasound. Oral contrast material partially opacifies the stomach and small bowel. Proximal small bowel not well visualized since the oral contrast is predominantly within the distal small bowel. Given this small bowel is unremarkable. Pelvis: High attenuation T shaped device within the endometrial cavity is consistent with the patient's known intrauterine device. Uterus and right ovary otherwise have an unremarkable CT appearance. Within the left adnexa is a large oval 4.8 by 3.3cm fluid attenuation mass likely representing a large left ovarian cyst. By report, left ovary was normal on prior pelvic ultrasound dated 04-12-06 and therefore, this large 4.8cm. left adnexal cystic mass likely represents a large physiological cyst. However, follow up imaging is warranted. Oral contrast material partially opacifies the colon which is unremarkable. Appendix is seen and is normal in appearance. No CT evidence of appendicitis. As mentioned on the patient's previous pelvic ultrasound report dated 04-12-06, there is prominent pelvic veins bilaterally and once again if the patient has clinical symptoms suggestive of pelvic congestion syndrome, consultation with the vascular interventional service may be beneficial. IMPRESSION: 1. NORMAL APPENDIX. NO CT EVIDENCE OF APPENDICITIS. 2. 4.8 BY 3.3CM LEFT OVARIAN CYST LIKELY REPRESENTS A LARGE LEFT OVARIAN PHYSIOLOGIC CYST; HOWEVER, THE DIFFERENTIAL INCLUDES BOTH BENIGN AND MALIGNANT ETIOLOGIES AND THEREFORE, A CONSERVATIVE MEASURE, A SHORT TERM FOLLOW UP PELVIC ULTRASOUND IN SIX WEEKS IS RECOMMENDED TO ENSURE RESOLUTION. 3. ONCE AGAIN, NOTE IS MADE OF PROMINENCE OF THE PELVIC VEINS BILATERALLY. IF THE PATIENT HAS CLINICAL SYMPTOMS SUGGESTIVE OF PELVIC CONGESTION SYNDROME, CONSULTATION WITH THE VASCULAR INTERVENTIONAL SERVICE MAY BE BENEFICIAL. MIRIAM/madelyn end of result Procedure Note Unknown, U - 10/30/[address] [facility] Reason: RLQ PAIN Dict.Staff: MARISA PINEDA Verified By: MARISA PINEDA Mick: 06/18/06 3:40 pm Exams: CT-ABDOMEN WITH CONTRAST CT-PELVIS WITH CONTRAST ABDOMEN AND PELVIC CT WITH CONTRAST CLINICAL HISTORY: 26 YEAR OLD FEMALE WITH RIGHT LOWER QUADRANT PAIN. IRRITABLE BOWEL. EVALUATE. FINDINGS: 5mm images were obtained through the abdomen and pelvis following the uneventful administration of oral and intravenous contrast. 100cc Isovue 370 were administered without immediate reported complications. No comparisons. Abdomen: Lung bases are clear. Liver, spleen, pancreas, adrenal glands, and kidneys within normal limits. Gallbladder has an unremarkable CT appearance. Depending on clinical concern, gallbladder is best evaluated by ultrasound. Oral contrast material partially opacifies the stomach and small bowel. Proximal small bowel not well visualized since the oral contrast is predominantly within the distal small bowel. Given this small bowel is unremarkable. Pelvis: High attenuation T shaped device within the endometrial cavity is consistent with the patient's known intrauterine device. Uterus and right ovary otherwise have an unremarkable CT appearance. Within the left adnexa is a large oval 4.8 by 3.3cm fluid attenuation mass likely representing a large left ovarian cyst. By report, left ovary was normal on prior pelvic ultrasound dated 04-12-06 and therefore, this large 4.8cm. left adnexal cystic mass likely represents a large physiological cyst. However, follow up imaging is warranted. Oral contrast material partially opacifies the colon which is unremarkable. Appendix is seen and is normal in appearance. No CT evidence of appendicitis. As mentioned on the patient's previous pelvic ultrasound report dated 04-12-06, there is prominent pelvic veins bilaterally and once again if the patient has clinical symptoms suggestive of pelvic congestion syndrome, consultation with the vascular interventional service may be beneficial. IMPRESSION: 1. NORMAL APPENDIX. NO CT EVIDENCE OF APPENDICITIS. 2. 4.8 BY 3.3CM LEFT OVARIAN CYST LIKELY REPRESENTS A LARGE LEFT OVARIAN PHYSIOLOGIC CYST; HOWEVER, THE DIFFERENTIAL INCLUDES BOTH BENIGN AND MALIGNANT ETIOLOGIES AND THEREFORE, A CONSERVATIVE MEASURE, A SHORT TERM FOLLOW UP PELVIC ULTRASOUND IN SIX WEEKS IS RECOMMENDED TO ENSURE RESOLUTION. 3. ONCE AGAIN, NOTE IS MADE OF PROMINENCE OF THE PELVIC VEINS BILATERALLY. IF THE PATIENT HAS CLINICAL SYMPTOMS SUGGESTIVE OF PELVIC CONGESTION SYNDROME, CONSULTATION WITH THE VASCULAR INTERVENTIONAL SERVICE MAY BE BENEFICIAL. MIRIAM/pp end of result us U Unknown [facility] Final Result * US PELVIS NON-OB COMPLETE (04/12/2006 12:00 AM EDT) Anatomical Region Laterality Modality Other 04/12/2006 04/12/2006 Narrative 04/12/2006 12:[address] [facility] Reason: PELVIC PAIN / PELVIC US Dict.Staff: SAIRA VACA Verified By: MARISA PINEDA Mick: 04/12/06 6:43 pm Exams: US-PELVIS NON-OB COMPLETE PELVIC ULTRASOUND HISTORY: PELVIC PAIN Uterus is normal in size measuring 7.6 x 4.1 x 5.6cm and contains an intrauterine conceptive device. Endometrium is normal in thickness at approximately 7mm. IUD appears to be properly positioned. There are dilated pelvic veins present. These are present both on the right than on the left. In a proper clinical setting this may indicate pelvic congestive syndrome. This syndrome is typically related to dilated or varicose ovarian veins. Symptoms typically include chronic pelvic pain especially with standing. Dyspareunia is also a common symptom. These could also be asymptomatic and correlation with a clinical and gynecological history is critical. The right ovary is not clearly seen probably obscured by adjacent vessels. It probably is seen transabdominally and normal at 2.4 x 1.4 x 1.4cm. The left ovary is normal in size. There is free fluid in the cul-de-sac. The uterus is retroverted. IMPRESSION: RETROVERTED NORMAL APPEARING UTERUS CONTAINING IUD. NORMAL OVARIES. BILATERAL DILATED PELVIC VEINS SUGGEST THE POSSIBILITY OF PELVIC CONGESTION SYNDROME. SEE REPORT FOR DETAILS. THIS CAN BE TREATED WITH OVARIAN VENOGRAPHY AND EMBOLIZATION IF THE PATIENT HAS CLASSIC SYMPTOMS OF PELVIC CONGESTION SYNDROME (CHRONIC PELVIC PAIN THAT DOES NOT HAVE ANY OTHER IDENTIFIABLE CAUSE). SEE REPORT FOR DETAILS. AM/pp end of result Procedure Note Unknown, U - 10/30/[address] [facility] Reason: PELVIC PAIN / PELVIC US Dict.Staff: SAIRA VACA Verified By: MARISA PINEDA Mick: 04/12/06 6:43 pm Exams: US-PELVIS NON-OB COMPLETE PELVIC ULTRASOUND HISTORY: PELVIC PAIN Uterus is normal in size measuring 7.6 x 4.1 x 5.6cm and contains an intrauterine conceptive device. Endometrium is normal in thickness at approximately 7mm. IUD appears to be properly positioned. There are dilated pelvic veins present. These are present both on the right than on the left. In a proper clinical setting this may indicate pelvic congestive syndrome. This syndrome is typically related to dilated or varicose ovarian veins. Symptoms typically include chronic pelvic pain especially with standing. Dyspareunia is also a common symptom. These could also be asymptomatic and correlation with a clinical and gynecological history is critical. The right ovary is not clearly seen probably obscured by adjacent vessels. It probably is seen transabdominally and normal at 2.4 x 1.4 x 1.4cm. The left ovary is normal in size. There is free fluid in the cul-de-sac. The uterus is retroverted. IMPRESSION: RETROVERTED NORMAL APPEARING UTERUS CONTAINING IUD. NORMAL OVARIES. BILATERAL DILATED PELVIC VEINS SUGGEST THE POSSIBILITY OF PELVIC CONGESTION SYNDROME. SEE REPORT FOR DETAILS. THIS CAN BE TREATED WITH OVARIAN VENOGRAPHY AND EMBOLIZATION IF THE PATIENT HAS CLASSIC SYMPTOMS OF PELVIC CONGESTION SYNDROME (CHRONIC PELVIC PAIN THAT DOES NOT HAVE ANY OTHER IDENTIFIABLE CAUSE). SEE REPORT FOR DETAILS. AM/pp end of result us U Unknown [facility] HISTORICAL Final Result Visit Diagnoses Diagnosis Start Date Displacement of cervical intervertebral disc without myelopathy 03/27/2010 Fibromyalgia Mylagia and myositis, unspecified 12/10/2010 Neck pain Cervicalgia 12/10/2010 DDD (degenerative disc disease) Degeneration of intervertebral disc, site unspecified 12/10/2010 Migraine Migraine, unspecified, without mention of intractable migraine without mention of status migrainosus 12/10/2010 Fibromyalgia Mylagia and myositis, unspecified 12/17/2010 Arthritis Arthropathy, unspecified, site unspecified 12/17/2010 Migraine Migraine, unspecified, without mention of intractable migraine without mention of status migrainosus 12/17/2010 DDD (degenerative disc disease) Degeneration of intervertebral disc, site unspecified 12/17/2010 Fibromyalgia Mylagia and myositis, unspecified 12/23/2010 DDD (degenerative disc disease) Degeneration of intervertebral disc, site unspecified 12/23/2010 Migraine Migraine, unspecified, without mention of intractable migraine without mention of status migrainosus 12/23/2010 Bruises easily Other symptoms involving skin and integumentary tissues 12/23/2010 Weight gain Other symptoms concerning nutrition, metabolism, and development 12/23/2010 Fatigue Other malaise and fatigue 12/23/2010 Fibromyalgia Mylagia and myositis, unspecified 01/07/2011 RLS (restless legs syndrome) Restless legs syndrome (RLS) 01/07/2011 DDD (degenerative disc disease) Degeneration of intervertebral disc, site unspecified 01/07/2011 Migraine Migraine, unspecified, without mention of intractable migraine without mention of status migrainosus 01/07/2011 Routine health maintenance Unspecified examination 01/07/2011 Fatigue Other malaise and fatigue 01/07/2011 Weight gain Other symptoms concerning nutrition, metabolism, and development 01/07/2011 Fibromyalgia Mylagia and myositis, unspecified 01/14/2011 Arthritis Arthropathy, unspecified, site unspecified 01/14/2011 Migraine Migraine, unspecified, without mention of intractable migraine without mention of status migrainosus 01/14/2011 RLS (restless legs syndrome) Restless legs syndrome (RLS) 01/14/2011 DDD (degenerative disc disease) Degeneration of intervertebral disc, site unspecified 01/14/2011 Insomnia Insomnia, unspecified 01/14/2011 Fibromyalgia Mylagia and myositis, unspecified 01/14/2011 Arthritis Arthropathy, unspecified, site unspecified 01/14/2011 Migraine Migraine, unspecified, without mention of intractable migraine without mention of status migrainosus 01/14/2011 RLS (restless legs syndrome) Restless legs syndrome (RLS) 01/14/2011 DDD (degenerative disc disease) Degeneration of intervertebral disc, site unspecified 01/14/2011 Insomnia Insomnia, unspecified 01/14/2011 Fibromyalgia Mylagia and myositis, unspecified 01/20/2011 DDD (degenerative disc disease) Degeneration of intervertebral disc, site unspecified 01/20/2011 Metabolic syndrome Dysmetabolic Syndrome X 01/20/2011 Vitamin D deficiency Unspecified vitamin D deficiency 01/20/2011 Anemia Anemia, unspecified 01/20/2011 Fibromyalgia Mylagia and myositis, unspecified 01/28/2011 Arthritis Arthropathy, unspecified, site unspecified 01/28/2011 DDD (degenerative disc disease) Degeneration of intervertebral disc, site unspecified 01/28/2011 RLS (restless legs syndrome) Restless legs syndrome (RLS) 01/28/2011 Fibromyalgia Mylagia and myositis, unspecified 02/08/2011 Fibromyalgia Mylagia and myositis, unspecified 02/16/2011 Fibromyalgia Mylagia and myositis, unspecified 02/22/2011 Fibromyalgia Mylagia and myositis, unspecified 02/25/2011 DDD (degenerative disc disease) Degeneration of intervertebral disc, site unspecified 02/25/2011 Metabolic syndrome Dysmetabolic Syndrome X 02/25/2011 Arthritis Arthropathy, unspecified, site unspecified 02/25/2011 Migraine Migraine, unspecified, without mention of intractable migraine without mention of status migrainosus 02/25/2011 Insomnia Insomnia, unspecified 02/25/2011 Insomnia Insomnia, unspecified 03/03/2011 Fibromyalgia Mylagia and myositis, unspecified 03/05/2011 DDD (degenerative disc disease) Degeneration of intervertebral disc, site unspecified 03/05/2011 Insomnia Insomnia, unspecified 03/08/2011 Fibromyalgia Mylagia and myositis, unspecified 03/12/2011 DDD (degenerative disc disease) Degeneration of intervertebral disc, site unspecified 03/12/2011 Fibromyalgia Mylagia and myositis, unspecified 03/25/2011 Insomnia Insomnia, unspecified 03/25/2011 Metabolic syndrome Dysmetabolic Syndrome X 03/25/2011 Fibromyalgia Mylagia and myositis, unspecified 04/06/2011 Cystocele, midline 08/09/2012 Unspecified urinary incontinence 08/09/2012 Chronic neck pain Cervicalgia 11/22/2012 Myalgia and myositis, unspecified Mylagia and myositis, unspecified 11/22/2012 Abdominal pain, other specified site 03/08/2014 Screening for unspecified disorder of blood and blood-forming organs 09/06/2014 Screening for iron deficiency anemia 09/06/2014 Right lower quadrant abdominal pain Abdominal pain, right lower quadrant 06/15/2015 Chronic pain syndrome 06/15/2015 Irritable bowel syndrome without diarrhea Irritable bowel syndrome 07/04/2015 Abdominal pain, right upper quadrant 07/04/2015 Constipation, chronic Unspecified constipation 07/04/2015 Hematochezia Blood in stool 07/04/2015 Irritable bowel syndrome with diarrhea Irritable bowel syndrome 07/04/2015 Irritable bowel syndrome without diarrhea Irritable bowel syndrome 07/04/2015 Epigastric abdominal pain Abdominal pain, epigastric 07/04/2015 Irritable bowel syndrome without diarrhea Irritable bowel syndrome 07/07/2015 Hematochezia Blood in stool 07/25/2015 Epigastric abdominal pain Abdominal pain, epigastric 07/25/2015 Nasal turbinate hypertrophy Hypertrophy of nasal turbinates 08/14/2015 Nasal septal spur Other diseases of nasal cavity and sinuses 08/14/2015 Rhinorrhea Other diseases of nasal cavity and sinuses 08/14/2015 Headache, unspecified headache type 08/14/2015 Symptomatic cholelithiasis Calculus of gallbladder without mention of cholecystitis or obstruction 08/14/2015 Symptomatic cholelithiasis Calculus of gallbladder without mention of cholecystitis or obstruction 08/19/2015 Post-operative state Other postprocedural status 08/28/2015 Cystitis Cystitis, unspecified 09/03/2015 Nasal turbinate hypertrophy Hypertrophy of nasal turbinates 09/08/2015 Headache, unspecified headache type 09/26/2015 Nasal turbinate hypertrophy Hypertrophy of nasal turbinates 09/26/2015 Nasal septal spur Other diseases of nasal cavity and sinuses 09/26/2015 Rhinorrhea Other diseases of nasal cavity and sinuses 09/26/2015 Other seasonal allergic rhinitis 09/26/2015 Acid phosphatase elevated Other nonspecific abnormal serum enzyme levels 01/12/2016 Lumbar strain, initial encounter 03/29/2016 Acute pain of right knee 09/02/2017 Leg swelling Swelling of limb 08/30/2019 Mood change Unspecified episodic mood disorder 08/30/2019 Leg swelling Swelling of limb 09/12/2019 Leg swelling Swelling of limb 09/19/2019 Essential hypertension Unspecified essential hypertension 09/27/2019 Hypokalemia Hypopotassemia 09/27/2019 Other iron deficiency anemia 09/27/2019 Bilateral leg edema Edema 12/04/2019 Fibromyalgia Mylagia and myositis, unspecified 12/04/2019 Class 3 severe obesity due to excess calories without serious comorbidity in adult, unspecified BMI 12/04/2019 Deep vein thrombosis (DVT) of both lower extremities, unspecified chronicity, unspecified vein (HCC) 12/04/2019 Depression, unspecified depression type 12/04/2019 Diarrhea, unspecified type 06/17/2020 Pleuritic chest pain Painful respiration 06/17/2020 Palpitations 07/14/2020 Anxiety Anxiety state, unspecified 07/14/2020 Nausea Nausea alone 07/14/2020 Diarrhea, unspecified type 07/14/2020 Chronic nausea Nausea alone 07/20/2020 Chronic abdominal pain Abdominal pain, unspecified site 07/20/2020 Anxiety Anxiety state, unspecified 07/20/2020 Bilateral lower extremity edema Edema 11/15/2020 Cellulitis of leg, right Cellulitis and abscess of leg, except foot 11/15/2020 COVID 04/28/2021 COVID-19 virus infection 04/28/2021 Osteomyelitis of right foot, unspecified type (HCC) 06/18/2023 Cellulitis of right lower extremity Cellulitis and abscess of leg, except foot 06/18/2023 Osteomyelitis of second toe of right foot (HCC) 06/20/2023 Osteomyelitis of second toe of right foot (HCC) 06/18/2023 History of partial amputation of toe of right foot 06/28/2023 Diabetic polyneuropathy associated with type 2 diabetes mellitus (HCC) 06/28/2023 Type 2 diabetes mellitus with diabetic polyneuropathy, unspecified whether chcf insulin use (HCC) 09/06/2023 Cellulitis of great toe of right foot Cellulitis and abscess of toe, unspecified 09/06/2023 Skin ulcer of right great toe with fat layer exposed (HCC) 09/06/2023 Open wound of fourth toe of left foot, initial encounter 09/06/2023 History of partial amputation of toe of right foot 09/06/2023 Ingrown nail of great toe of right foot 09/06/2023 Type 2 diabetes mellitus with diabetic polyneuropathy, unspecified whether chcf insulin use (HCC) 09/20/2023 Skin ulcer of right great toe with fat layer exposed (HCC) 09/20/2023 Open wound of fourth toe of left foot, subsequent encounter 09/20/2023 Cellulitis of fourth toe of left foot Cellulitis and abscess of toe, unspecified 09/20/2023 Continuous opioid dependence (HCC) Opioid type dependence, continuous 11/24/2023 Insomnia, persistent Persistent disorder of initiating or maintaining sleep 11/24/2023 Annual physical exam Routine general medical examination at a health care facility 11/24/2023 Leg swelling Swelling of limb 11/24/2023 Acquired hypothyroidism Unspecified hypothyroidism 11/24/2023 Altered mental status, unspecified altered mental status type 12/06/2023 Hypokalemia Hypopotassemia 12/06/2023 Metabolic encephalopathy 12/13/2023 Type 2 diabetes mellitus without complication, unspecified whether chcf insulin use (HCC) 12/15/2023 Hypokalemia Hypopotassemia 12/15/2023 Anemia due to acute blood loss Acute posthemorrhagic anemia 12/15/2023 Fibromyalgia Mylagia and myositis, unspecified 12/15/2023 Therapeutic opioid induced constipation 01/10/2024 Constipation, chronic Unspecified constipation 01/10/2024 Nausea Nausea alone 01/10/2024 Fibromyalgia Mylagia and myositis, unspecified 01/14/2024 Fibromyalgia Mylagia and myositis, unspecified 02/13/2024 Leg swelling Swelling of limb 02/13/2024 Therapeutic opioid induced constipation 02/13/2024 Leg swelling Swelling of limb 02/28/2024 Perioral dermatitis Rosacea 02/28/2024 Nausea Nausea alone 03/29/2024 Viral URI with cough Acute upper respiratory infections of unspecified site 03/31/2024 Generalized abdominal pain Abdominal pain, generalized 04/04/2024 Constipation, unspecified constipation type 04/04/2024 Hypokalemia Hypopotassemia 04/04/2024 Fibromyalgia Mylagia and myositis, unspecified 04/09/2024 Leg swelling Swelling of limb 04/10/2024 Fibromyalgia Mylagia and myositis, unspecified 04/10/2024 Leg swelling Swelling of limb 04/19/2024 Fibromyalgia Mylagia and myositis, unspecified 05/05/2024 Leg swelling Swelling of limb 05/06/2024 Insomnia, persistent Persistent disorder of initiating or maintaining sleep 05/15/2024 Leg swelling Swelling of limb 05/18/2024 Bilateral lower extremity edema Edema 05/18/2024 Insomnia, persistent Persistent disorder of initiating or maintaining sleep 05/18/2024 Anxiety Anxiety state, unspecified 05/18/2024 Leg swelling Swelling of limb 05/20/2024 Bilateral lower extremity edema Edema 05/20/2024 Nausea Nausea alone 06/21/2024 Leg swelling Swelling of limb 06/21/2024 Leg swelling Swelling of limb 07/13/2024 Leg swelling Swelling of limb 07/26/2024 Fibromyalgia Mylagia and myositis, unspecified 07/31/2024 Fibromyalgia Mylagia and myositis, unspecified 07/31/2024 Leg swelling Swelling of limb 09/05/2024 Fibromyalgia Mylagia and myositis, unspecified 09/05/2024 Arthritis Arthropathy, unspecified, site unspecified 09/05/2024 Nausea Nausea alone 09/06/2024 Therapeutic opioid induced constipation 09/06/2024 Fibromyalgia Mylagia and myositis, unspecified 09/25/2024 Leg swelling Swelling of limb 09/25/2024 Strep pharyngitis Streptococcal sore throat 10/28/2024 Hypokalemia Hypopotassemia 10/28/2024 Anemia, unspecified type 10/28/2024 Dependent edema Edema 10/28/2024 Fibromyalgia Mylagia and myositis, unspecified 11/20/2024 Acquired hypothyroidism Unspecified hypothyroidism 11/20/2024 Type 2 diabetes mellitus without complication, unspecified whether chcf insulin use (HCC) 11/20/2024 Right foot pain Pain in limb 11/20/2024 Irritant dermatitis Contact dermatitis and other eczema, due to unspecified cause 11/20/2024 Leg swelling Swelling of limb 11/20/2024 Annual physical exam Routine general medical examination at a health care facility 11/20/2024 Iron deficiency anemia, unspecified iron deficiency anemia type 11/20/2024 Metabolic syndrome Dysmetabolic Syndrome X 11/21/2024 Morbid obesity with body mass index (BMI) of 40.0 to 49.9 (HCC) 11/21/2024 Acquired hypothyroidism Unspecified hypothyroidism 11/21/2024 Opioid use disorder, severe, on maintenance therapy (HCC) 11/21/2024 Gastroesophageal reflux disease, unspecified whether esophagitis present 11/21/2024 Tired Other malaise and fatigue 11/21/2024 Excessive sleepiness Hypersomnia, unspecified 11/21/2024 Obstructive sleep apnea Obstructive sleep apnea (adult) (pediatric) 11/21/2024 Opioid use disorder 11/21/2024 Obesity hypoventilation syndrome (HCC) Obesity hypoventilation syndrome 11/21/2024 Hypercarbia Other dyspnea and respiratory abnormality 11/21/2024 RLS (restless legs syndrome) Restless legs syndrome (RLS) 11/21/2024 Iron deficiency anemia, unspecified iron deficiency anemia type 11/22/2024 Chronic idiopathic constipation Unspecified constipation 11/22/2024 Iron deficiency anemia, unspecified iron deficiency anemia type 11/22/2024 Chronic idiopathic constipation Unspecified constipation 11/22/2024 Insomnia, persistent Persistent disorder of initiating or maintaining sleep 11/23/2024 Iron malabsorption Other specified intestinal malabsorption 11/27/2024 Leg swelling Swelling of limb 12/17/2024 Obstructive sleep apnea Obstructive sleep apnea (adult) (pediatric) 12/20/2024 Fibromyalgia Mylagia and myositis, unspecified 12/20/2024 Arthritis Arthropathy, unspecified, site unspecified 01/30/2025 Rash Rash and other nonspecific skin eruption 02/12/2025 Acute urinary tract infection Urinary tract infection, site not specified 02/12/2025 Hypokalemia Hypopotassemia 02/12/2025 Iron deficiency anemia, unspecified iron deficiency anemia type 02/18/2025 Chronic idiopathic constipation Unspecified constipation 02/18/2025 Leg swelling Swelling of limb 02/27/2025 Epigastric pain Abdominal pain, epigastric 07/25/2015 Lower abdominal pain Abdominal pain, other specified site 07/25/2015 Symptomatic cholelithiasis Calculus of gallbladder without mention of cholecystitis or obstruction 08/19/2015 Osteomyelitis of right foot, unspecified type (HCC) 06/18/2023 Osteomyelitis (HCC) Unspecified osteomyelitis, site unspecified 06/18/2023 FORD on CPAP Obstructive sleep apnea (adult) (pediatric) 06/18/2023 Morbid obesity with body mass index (BMI) of 40.0 to 49.9 (HCC) 06/18/2023 Gastroesophageal reflux disease Esophageal reflux 06/18/2023 Anxiety with depression 06/18/2023 Acquired hypothyroidism Unspecified hypothyroidism 06/18/2023 Joint infection (HCC) Unspecified infective arthritis, multiple sites 06/18/2023 Continuous opioid dependence (HCC) Opioid type dependence, continuous 06/18/2023 Neuropathy Mononeuritis of unspecified site 06/18/2023 Microcytic anemia Iron deficiency anemia, unspecified 06/18/2023 Diabetic polyneuropathy associated with type 2 diabetes mellitus (HCC) 06/18/2023 Fissure in skin of foot Other specified disorder of skin 06/18/2023 Cellulitis of second toe of right foot Cellulitis and abscess of toe, unspecified 06/18/2023 Altered mental status, unspecified altered mental status type 12/06/2023 Metabolic encephalopathy 12/07/2023 Acquired hypothyroidism Unspecified hypothyroidism 12/07/2023 Anxiety with depression 12/07/2023 Diabetic polyneuropathy associated with type 2 diabetes mellitus ([facility]) 12/07/2023 Fibromyalgia Mylagia and myositis, unspecified 12/07/2023 Gastroesophageal reflux disease Esophageal reflux 12/07/2023 Morbid obesity with body mass index (BMI) of 40.0 to 49.9 ([facility]) 12/07/2023 Neuropathy Mononeuritis of unspecified site 12/07/2023 Opioid use disorder, severe, on maintenance therapy ([facility]) 12/07/2023 FORD on CPAP Obstructive sleep apnea (adult) (pediatric) 12/07/2023 RLS (restless legs syndrome) Restless legs syndrome (RLS) 12/07/2023 Cellulitis of right leg Cellulitis and abscess of leg, except foot 12/07/2023 Acute cystitis 12/07/2023 Acute hyponatremia Hyposmolality and/or hyponatremia 12/07/2023 Hypokalemia Hypopotassemia 12/07/2023 Microcytic anemia Iron deficiency anemia, unspecified 12/07/2023 Iron deficiency anemia secondary to inadequate dietary iron intake 12/07/2023 Goals Goal Patient Goal Type Associated Problems Recent Progress Patient-Stated? Author Blood Pressure < 140/90 Blood Pressure 130/62(02/27 9:54 AM EDT) No Jenna Mckeon RMA Maintain a healthy diet, exercise regularly and maintain an ideal body weight General No Tien Tellez MA BMI (Calculated) < 30 General 45.9( 025 9:54 AM EDT) No Jenna Mckeon RMA HEMOGLOBIN A1C < 7.0 Result Component 6.1(11/21/19 25 2:49 PM EDT) No Jenna Mckeon RMA In patient's own words, Keisha states that her goal is: Not having problems with my addiction . Care Plan In patient's own words, Keisha states that her most pressing problem is that: It has ruined my life and I don't recognize who I am anymore . New goal( 024 9:21 AM EDT) No Magalys Arnold LCSW Note: Strengths: family support, patient Barriers: Transportation, consistency with medication In patient s own words, Keisha's goal for treatment is T o have better coping skills. Care Plan Moderate on C-SSRS assessment. New goal( 024 9:25 AM EDT) No Magalys Arnold LCSW [...] Current Supports: family Legal Requirements: None identified. Additional Health Concerns Active Problems Noted Date [...] to improve the maintenance of optimal functioning. 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
--- OUTSIDE RECORDS SUMMARY | 2025-03-03 07:36 | XMS_ITS | Encounter Summary ---
[place] [address] Care Team Providers Care Salad Bar Clerk Name Role Phone Mervin Toribio MD Primary Care Provider Encounter Details Date Type Department Care Team (Late st Contact Info) Description 11/22/2024 Results [facility] [address] [place] [address] Mervin Toribio MD [address] [place] [address] HEMOGLOBIN A1C, COMPREHENSIVE METABOLIC PANEL, CBC WITH DIFF, Additional followed-up results: 4 Social History Tobacco Use Types Packs/Day Years Used Date Smoking Tobacco: Never Smokeless Tobacco: Never Alcohol Use Standard Drinks/Week Comments Yes 0 (1 standard drink = 0.6 oz pur e alcohol) occasionally [facility] Utilities Answer Date Recorded In the past 12 months has [employer], gas, oil, or water [employer] threatened to shut off services in your home? Patient declined 12/08/2023 Social Connection and Isolation Panel [NHANES] A nswer Date Recorded Frequency of Communication with Friends and Fami ly Not on file 12/13/2023 Frequency of Social Gatherings with Friends and Family Not on file 12/13/2023 Attends [employer] Not on file 12/12 Active Member [...] Date Recorded PHQ-2 Total Score 0 11/20/2024 [facility] - Occupational Stress [...] things needed for daily living? No 12/13/2023 [facility] IP Transportation Answer D ate Recorded [...] 9:15 AM EDT Office Visit [facility] [place] [address] [facility] [address] [place] [id number] Max Gifford, DPM [address] [facility] [address] [place], [place] [id number] 05/02/2025 1:00 PM EDT Appointment [facility] [address] [place], [place] [phone] Preet Palomares MD [address] [place] [address] documented as of this encounter [...] documented as of this encounter Care Teams Salad Bar Clerk Relationship Specialty Start Date End Date Mervin Toribio MD [address] [place] [address] PCP - General Family Medicine 11/24/23 documented as of this encounter
--- OUTSIDE RECORDS SUMMARY | 2025-03-03 07:36 | XMS_ITS | Encounter Summary ---
Author Organization [place] [address] Care Team Providers Care Healthcare Project Manager Name Role Phone Mervin Toribio MD Primary Care Provider Encounter Details Date Type Department Care Team (Late st Contact Info) Description 11/22/2024 Results Follow-Up [facility] [address] [place] [address] Preet Palomares MD [address] [place], [place] [id number] [employer] Social History Tobacco Use Types Packs/Day Years Used Date Smoking Tobacco: Never Smokeless Tobacco: Never Alcohol Use Standard Drinks/Week Comments Yes 0 (1 standard drink = 0.6 oz pur e alcohol) occasionally [facility] Utilities Answer Date Recorded In the past 12 months has [employer], gas, oil, or water [employer] threatened to shut off services in your home? Patient declined 12/08/2023 Social Connection and Isolation Panel [NHANES] A nswer Date Recorded Frequency of Communication with Friends and Fami ly Not on file 12/13/2023 Frequency of Social Gatherings with Friends and Family Not on file 12/13/2023 Attends [employer] Not on file 12/12 Active Member [...] things needed for daily living? No 12/13/2023 [facility] IP Transportation Answer D ate Recorded [...] 9:15 AM EDT Office Visit [facility] [place] [address] [phone] Max Gifford, DPM [address] [facility] [address] [place] [address] 05/02/2025 1:00 PM EDT Appointment [facility] [address] [place] [address] Preet Palomares MD [address] [place] [address] documented as of this encounter [...] documented as of this encounter Care Teams Healthcare Project Manager Relationship Specialty Start Date End Date Mervin Toribio MD [address] [place] [address] PCP - General Family Medicine 11/24/23 documented as of this encounter
--- OUTSIDE RECORDS SUMMARY | 2025-03-03 07:36 | XMS_ITS | Encounter Summary ---
Author [place] [address] Care Team Providers Care Pickling Solution Maker Name Role Phone Mervin Toribio MD Primary Care Provider Reason for Visit * Reason Onset Date Comments Other 01/09/2025 Infusions - no s hows Encounter Details Date Type Department Care Team (Late Contact Info) Description 01/09/2025 Telephone [facility] [address] [place] [address] Preet Palomares MD [address] [place] [address] Other (Infusions - no shows/) Social History Tobacco Use Types Packs/Day Years Used Date Smoking Tobacco: Never Smokeless Tobacco: Never Alcohol Use Standard Drinks/Week Comments Yes 0 (1 standard drink = 0.6 oz pur e alcohol) occasionally [facility] Utilities Answer Date Recorded In the past 12 months has e [employer], gas, oil, or water [employer] threatened to shut off services in your home? 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 No 12/13/2023 [facility] IP Transportation Answer D ate Recorded [...] Rohit Jeong RN documented in this encounter Miscellaneous Notes * Telephone Encounter - Almaz Forbes LPN - 01/14/2025 5:03 PM EDT Noted. * Telephone Encounter - Preet Palomares MD - 01/14/2025 12:08 PM EDT Thanks @Almaz -can you make a note of this. Thanks, * Telephone Encounter - Sagrario Carter MA - 01/09/2025 2:15 PM EDT Venofer infusions 1-5 were scheduled out starting on 12/12/24, once a week. Patient has no showed multiple appointments. Just FYI documented in this encounter Plan of Treatment Upcoming Encounters Date Type Department Care Team (Late st Contact Info) Description 03/11/2025 9:15 AM EDT Office Visit [facility] [place] [address] [place] [address] Max Gifford, DPVannesa [address] [place], [place] [id number] 05/02/2025 1:00 PM EDT Appointment [facility] [address] [place], [place] [id number] Preet Palomares MD [address] [place] [address] documented as of this encounter [...] documented as of this encounter Care Teams Pickling Solution Maker Relationship Specialty Start Date End Date Mervin Toribio MD [address] [place] [address] PCP - General Family Medicine 11/24/23 documented as of this encounter
--- OUTSIDE RECORDS SUMMARY | 2025-03-03 07:36 | XMS_ITS ---
Care Plan Created on: March 03, 2025 Keisha Sutton : 1980 Sex: Female Author Organization [facility] Address [address] [place], [place] [address] Phone Care Team Providers Care Spool Sorter Name Role Phone Mervin Toribio MD Primary Care Provider Active Problems * This document contains information received from the source organization and may not represent a complete record from that organization. Patient Care Coordination No te Formatting of this note migh t be different from the original. [facility] Press-[place] EXTENDED STAYSey Survey-Letter- 05/31/2024 LW Problem Noted Date Diagnosed [...] 07/25/2015 12/08/2023 Lower abdominal pain 07/25/2015 024 Additional Health Concerns Active Problems Noted Date [...] to improve the maintenance of optimal functioning. Goals Goal Patient Goal Type Associated Problems [...] Current Supports: family Legal Requirements: None identified. Interventions Care Plan Interventions Intervention Entry Date Outcome Patient will be compliant with MAT service 10/16/2024 Note:Clinical Intervention: MAT Provider will oversee their medication management, submit necessary orders, review pertinent labs, and monitor the patient's compliance with the drug treatment program. Patient will attend therapy bi-weekly to develop coping skills that are essential to maintaining sobriety. 10/16/2024 Note:Clinical Intervention: Using dialectal behavioral therapy to enhance the patient's distress tolerance skills, interpersonal skills, and mindfulness skills. Clinical Intervention: Using cognitive behavioral therapy to explore patient's schemas and high-risk self-talk that weaken their resolve to remain abstinent; challenge cognitive distortions; and assist them in establishing realistic self- talk that builds resilience. Implement behavioral and cognitive coping strategies for suicidal urges each week within session. 09/11/2024 Note:Clinical Intervention: Therapist will utilize Cognitive Behavioral Therapy for cognitive restructuring techniques to revise distorted negative core schemas. Clinical Intervention: Therapist will assist the patient in developing coping strategies for suicidal ideation that include physical exercise, reduced internal focus, increased social involvement, and increased expression of feelings. Clinical Intervention: Therapist will utilize dialectical behavioral therapy to enhance the patient's problem-solving skills to be applied to interpersonal crisis's. Identify the positive aspects, meaningful relationships, and achievements in life s each week within session. 09/11/2024 Note: Clinical Intervention: Therapist will use motivational interviewing to help the patient identify protective factors, successes he has had, and the sources of love that continue to exist in his life. Clinical Intervention: Therapist will utilize dialectal behavioral therapy to enhance the patient s interpersonal skills. Verbally report and demonstrate an increased sense of hope for self each week within session. 09/11/2024 Note:Clinical Intervention: Therapist will utilize Compassion-Focused Therapy techniques to enhance self-assurance and positive emotion. Therapist will utilize Cognitive Behavioral Therapy to assist the patient in developing an awareness of the cognitive messages that reinforce hopelessness and helplessness Patient will identify at least 3 factors related to their family dynamics, interpersonal, and situational stressors that are relapse triggers. 02/09/2024 New/Updated goal Note:Clinical Intervention: Assess the patient's understanding of their cognitive vulnerabilities, mental diagnostic symptoms, family factors, childhood experiences, and situational stressors that led to the development of chemical dependency through the drug/alcohol history collected at the initial assessment. Patient will identify at least 3 signs or symptoms of anxiety that predate their substance abuse. 02/09/2024 New/Update d goal Note:Clinical Intervention: Administer objective measures to help assess the nature and degree of anxiety and depressive symptoms utilizing the PCL-5, SCOT-7, and PHQ-9. Patient will truthfully acknowledge the deconstructive pattern and consequences related to their drug usage each week in therapy. 02/09/2024 New/Updated goal Note:Clinical Intervention: Utilize motivational interviewing to discuss the negative effects the patient's substance abuse has had on family, friends, and work relationships and encourage a plan for making amends to those who have been negatively affected by their substance abuse. Verbalize an understanding of the motives for self-destructive behavior patterns each week within session. 02/09/2024 New/Updated goal Note:Clinical Intervention: Therapist will utilize Psychodynamic therapy to explore and identify life factors that preceded the suicidal ideation. Create a safety contract on orientation. 02/09/2024 New/Updated g oal Note: Clinical Intervention: Using the C-SSRS Therapist will assess the patient's suicidal risk including the extent of his ideation, the presence and feasibility of a plan, past attempts, substance use, availability of means, and family history. Clinical Intervention: Therapist will regularly monitor the patient s suicidal potential on an ongoing basis at each appointment. Related Goals and Interventions Goal Associated Intervent ions In patient's own words, Yeyo braden states that her goal is: Not having problems with my addiction . Patient will be compliant with MAT servi ce; Patient will attend therapy bi-weekly to develop coping skills that are essential to maintaining sobriety.; Patient will identify at least 3 factors related to their family dynamics, interpersonal, and situational stressors that are relapse triggers.; Patient will identify at least 3 signs or symptoms of anxiety that predate their substance abuse.; Patient will truthfully acknowledge the deconstructive pattern and consequences related to their drug usage each week in therapy. In patient s own words, Keisha's goal for treatment is T o have better coping skills. Implement behavioral and cognitive copin g strategies for suicidal urges each week within session.; Identify the positive aspects, meaningful relationships, and achievements in life s each week within session.; Verbally report and demonstrate an increased sense of hope for self each week within session.; Verbalize an understanding of the motives for self-destructive behavior patterns each week within session.; Create a safety contract on orientation.
--- NOTE | 2025-03-03 08:00 | PC.NURSE ---
patient hard stick, stuck in left wrist recieved blood however vein blew. provider stated we only need labs as of now.
--- NOTE | 2025-03-03 08:13 | HMH.EDGENADL ---
Discharge Plan Disposition Patient Disposition: Home, Self-Care Condition: Good Prescriptions Prescriptions: No Action quetiapine 50 mg tablet 50 mg PO BID Patient Comments: TAKE 1 TABLET BY MOUTH TWICE A DAY nitrofurantoin monohyd/m-cryst [Macrobid] 100 mg capsule 100 mg PO Q12H 5 Days Qty: 10 0RF Rx Instructions: must administer with a meal/food methocarbamol 750 MG tablet 750 mg PO QID gabapentin 800 MG tablet 800 mg PO TID Patient Comments: TAKE 1 TABLET BY MOUTH THREE TIMES A DAY amitriptyline 150 mg tablet 150 mg PO HS Patient Comments: TAKE 1 TABLET BY MOUTH EVERY DAY AT BEDTIME FOR 90 DAYS chlorthalidone 25 mg tablet 25 mg PO DAILY levothyroxine 100 mcg tablet 100 mcg PO DAILY ondansetron 4 mg tablet,disintegrating 4 mg PO Q8HP PRN (Reason: nausea and vomiting) hydroxyzine pamoate 25 mg capsule 25 - 50 mg PO TID Patient Comments: TAKE 1 TO 2 CAPS BY MOUTH 3 TIMES A DAY potassium chloride [Klor-Con M20] 20 mEq tablet,ER particles/crystals 20 meq PO DAILY Patient Comments: TAKE 1 TABLET BY MOUTH EVERY DAY FOR 30 DAYS folic acid 1 mg tablet 1 mg PO DAILY Patient Comments: TAKE 1 TABLET BY MOUTH EVERY DAY cholecalciferol (vitamin D3) 125 mcg (5,000 unit) capsule 125 mcg PO DAILY Patient Comments: TAKE 1 CAPSULE BY MOUTH EVERY DAY buprenorphine-naloxone 8-2 mg tablet, sublingual 2 tab sublingual DAILY Patient Comments: PLACE 2 TABLETS UNDER THE TONGUE DAILY Activity Restrictions/Add. Instructions Additional Instructions/Restrictions: Please follow up with Vascular Surgery as we discussed. Please keep the dressing on your lower extremity throughout this evening and change the dressing in the morning with the supplies we have provided. If you have any new or worsening symptoms please return. Clinical Impressions Clinical Impression: Bleeding from varicose vein Instructions Patient Instructions: DI for Varicose Veins Print Language Print Language: Peruvian Discharge ED Provider: Shar Ray Adult HPI General Chief complaint: Wound/Laceration Stated complaint: Skin Time Seen by Provider: 03/03/25 07:34 History of Present Illness HPI narrative: This is a 44-year-old female patient, with past medical history of obesity, hypothyroidism, fibromyalgia, obstructive sleep apnea, and chronic lower extremity edema with varicose veins, who is presented to the emergency department today for evaluation of bleeding from her left lower extremity. She states that this morning she was scratching the back of her leg over the side of a varicose vein and the vein ruptured and she began bleeding. She placed a diaper over the leg to soak the blood but the bleeding would not stop. She called EMS and upon arrival to the scene EMS placed a compressive dressing on the leg and brought her here for further evaluation. She has not felt dyspneic, fatigued, or weak since the onset of symptoms. She is not on anticoagulant therapy. Related Data Home Medications ?Medication ?Instructions ?Recorded ?Confirmed methocarbamol 750 mg tablet 750 mg PO QID Muscle spasms 12/31/18 07/30/23 gabapentin 800 mg tablet 800 mg PO TID Pain 01/01/19 07/30/23 amitriptyline 150 mg tablet 150 mg PO HS Mood 06/23/23 07/30/23 chlorthalidone 25 mg tablet 25 mg PO DAILY Fluid 06/23/23 07/30/23 hydroxyzine pamoate 25 mg capsule 25 - 50 mg PO TID Anxiety 06/23/23 07/30/23 levothyroxine 100 mcg tablet 100 mcg PO DAILY Thyroid 06/23/23 07/30/23 ondansetron 4 mg disintegrating 4 mg PO Q8HP PRN nausea and 06/23/23 07/30/23 tablet vomiting buprenorphine 8 mg-naloxone 2 mg 2 tab sublingual DAILY Withdrawal 06/24/23 07/30/23 sublingual tablet cholecalciferol (vitamin D3) 125 125 mcg PO DAILY Supplement 06/24/23 07/30/23 mcg (5,000 unit) capsule folic acid 1 mg tablet 1 mg PO DAILY Supplement 06/24/23 07/30/23 potassium chloride 20 mEq 20 meq PO DAILY Supplement 06/24/23 07/30/23 tablet,extended release(part/cryst) (Klor-Con M) quetiapine 50 mg tablet 50 mg PO BID Mood 07/30/23 07/30/23 Previous Rx's ?Medication ?Instructions ?Recorded nitrofurantoin 100 mg PO Q12H 5 days #10 caps 07/30/23 monohydrate/macrocrystals 100 mg capsule (Macrobid) Allergies Allergy/AdvReac Type Severity Reaction Status Date / Time adhesive tape AdvReac Rash Verified 07/30/23 06:26 [facility] Disclaimer: The information contained in this section may have been updated after the patient was seen, as this information can be updated by other users. Medical History (Updated 03/03/25 @ 10:52 by Shar Ray DO) Non compliance w medication regimen Narcotic addiction Acquired hypothyroidism Gastroesophageal reflux disease Anxiety with depression Vitamin D deficiency Fibromyalgia Insomnia Cervical neuropathy History of IBS FORD on CPAP Morbid obesity with body mass index (BMI) of 40.0 to 49.9 Prolonged Q-T interval on ECG Surgical History History of bladder suspension procedure (~2012) History of vaginal hysterectomy (~2012) History of wisdom tooth extraction (~2009) Tubal ligation status Social History Smoking Status: Never smoker alcohol intake: never substance use type: opiates current occupational status: unemployed Travel in the last 8 weeks?: None household members: spouse and children housing: house caffeine: Yes Have you lived/traveled outside US in past 30 days?: No Contact w/someone who lives/traveled outside US past 30 days?: No Exposure to someone with infectious disease in past 14 days?: No Do you have a fever (greater than 100.4 F or 38 C)?: No Have you tested positive for COVID-19?: No Exposed to someone with COVID-19 in past 14 days?: No Do you have a sore throat?: No Do you have a cough?: No Do you have any weakness?: No Do you have any diarrhea?: No Are you experiencing any unusual bleeding?: No Do you have any muscle aches/pain?: No Do you have any abdominal pain?: No Are you experiencing loss of taste or smell?: No Other Medical History Have you received the Flu Vaccine for this season: No Have you received the Pneumonia Vaccine: No ROS Obtained: Yes Systems reviewed as appropriate & no additional complaints except as documented Physical Exam General General appearance: other (See MDM) Respiratory Respiratory exam: Present other (See MDM) Cardiovascular Cardiovascular exam: Present other (See MDM) Neurological Exam Neurological exam: Present other (See MDM) Medical Decision Making Medical Records Medical records reviewed: Yes I reviewed the patient's medical records. Screening: Per USPSTF and CDC recommendations, given the prevalence of disease in our region, it is our hospital?s policy to screen for HIV and viral Hepatitis for all patients aged 18 and over and those with ongoing risk factors. Harry Inquiry Pt receiving controlled substance: No Harry was queried for this patient: No Vital Signs: 03/03/25 07:31 03/03/25 07:45 03/03/25 08:00 Temperature 97.9 F Temperature Source Oral Pulse Rate 76 73 Pulse Rate [Right] 75 Respiratory Rate 16 Blood Pressure 94/42 L 96/53 L Blood Pressure [Right Arm] 104/89 L Blood Pressure Mean 67 Blood Pressure Mean [Right Arm] 94 Blood Pressure Source [Right Arm] Automatic Cuff Blood Pressure Position [Right Arm] Supine 02 Sat by Pulse Oximetry 98 95 91 L Oxygen Delivery Method Room Air 03/03/25 08:30 03/03/25 09:00 03/03/25 09:05 Temperature Temperature Source Pulse Rate 75 65 68 Pulse Rate [Right] Respiratory Rate Blood Pressure 98/48 L 90/44 L 95/47 L Blood Pressure [Right Arm] Blood Pressure Mean Blood Pressure Mean [Right Arm] Blood Pressure Source [Right Arm] Blood Pressure Position [Right Arm] 02 Sat by Pulse Oximetry 89 L 92 L 92 L Oxygen Delivery Method 03/03/25 09:30 03/03/25 10:00 Temperature Temperature Source Pulse Rate 65 70 Pulse Rate [Right] Respiratory Rate Blood Pressure 95/53 L 96/45 L Blood Pressure [Right Arm] Blood Pressure Mean Blood Pressure Mean [Right Arm] Blood Pressure Source [Right Arm] Blood Pressure Position [Right Arm] 02 Sat by Pulse Oximetry 93 L 92 L Oxygen Delivery Method Lab Data Lab Results 03/03/25 08:13: WBC 10.1, RBC 4.45, Hgb 9.4 L, Hct 31.5 L, MCV 70.8 L, MCH 21.1 L, MCHC 29.8 L, RDW 17.2, Plt Count 243, MPV 10.1, Neut % (Auto) 67.8, Lymph % (Auto) 19.8, [place] % (Auto) 6.9, Eos % (Auto) 4.4, Baso % (Auto) 0.6, Neut # (Auto) 6.9, Lymph # (Auto) 2.0, [place] # (Auto) 0.7, Eos # (Auto) 0.5 H, Baso # (Auto) 0.1, PT 11.0, INR 0.99 03/03/25 08:13 Orders (Tests/Meds): ED MEDICATIONS Discontinued Medications Generic Name Dose Route Start Last Admin Trade Name Red PRN Reason Stop Dose Admin Tranexamic Acid 1,000 mg/ 260 mls @ 32.5 mls/hr 03/03/25 08:06 03/03/25 08:18 Sodium Chloride IV 03/03/25 08:07 Not Given ONCE ONE Tranexamic Acid 1,000 mg 03/03/25 08:30 03/03/25 08:20 Tranexamic Acid 1,000 Mg/10 Ml Vial TP 03/03/25 08:31 1,000 mg ONCE ONE Administration ORDERS Category Date Time Status POCUS Point of Care (ER Only) Stat Exams 03/03/25 08:19 Ordered CBC w/Auto Diff [Complete Blood Count Auto Diff] Stat Lab 03/03/25 08:13 Completed PT INR [Prothrombin Time INR] Stat Lab 03/03/25 08:13 Completed Medical Decision Narrative: In summary this is a 44-year-old female patient who is presenting to the emergency department today for evaluation of hemorrhage from a varicose vein on her left lower extremity. Patient does have chronic lower extremity edema with varicose veins which Is certainly contributing to her symptoms today. On initial evaluation of the patient they were resting comfortably in no acute distress and nontoxic in appearance. They are hemodynamically stable, saturating well room air, and are neurologically intact. On physical examination she does have bilateral lower extremity edema that is pitting. There is varicose veins on her bilateral lower extremities. She arrives with a dressing in place on the left lower extremity. I have taken the dressing down and on the posterior medial aspect of the left upper calf there is a defect in the varicose vein with active hemorrhage present. Differential diagnosis to include varicose vein hemorrhage, anemia, coagulopathy, DVT, among others. I initially control the bleeding with direct compression. We then applied a compressive dressing with TXA soaked gauze and elevated the left lower extremity. Labs were obtained and personally turbid by me and demonstrated no actionable abnormalities. She does have anemia that is stable from prior. INR is within normal limits. I have a very low suspicion for deep vein thrombosis, however evaluate proceed with a bedside POCUS assessment and I did not appreciate any evidence of DVT in the left lower extremity. Please see procedure note for details. We allowed the patient to elevate her extremity over the course of the couple of hours and kept TXA soaked gauze on the lower extremity with compressive dressings during that time. We had the patient ambulate and after ambulation after the dressing down and her wound remains hemostatic. I have replaced the dressing on the lower extremity and have recommended that she keep keep this dressing on throughout the remainder of the evening at home. I have given her supplies to go home with for dressing changes. She tells me that she has an appointment coming up with a vascular surgeon. I have strongly urged that she keep this appointment. In addition to this, I had suggested that she invest in compression stockings to reduce swelling in her lower extremities. She acknowledges understanding. At this time all questions have been answered and all parties are agreeable to decision to discharge home Procedures Miscellaneous Procedure Procedure Performed: Limited DVT ultrasound notes Indication: Limited compression ultrasonography of the left lower extremity was performed to evaluate for noncompressibility of the deep veins of the patient. The ultrasound was performed with the following indications, as noted in the HPI: Left lower extremity edema: Left Identified structures: Left: Common femoral vein, femoral vein, popliteal vein Findings: Lower extremity: Left common femoral vein: Good compressibility Left femoral vein: Good compressibility Left popliteal vein: Good compressibility Impression: No left lower extremity DVT Images were saved to permanent archive This study was technically adequate CPT: 85906-19-[place] [id number] (complete bilateral study) This study was performed by me and I personally interpreted all images/videos. Based on my clinical judgment these images were adequate and did not necessitate further imaging. Critical Care Critical Care Time Critical Care Time: No
[2025-03-03 08:19] LABS: Hematocrit 31.5 % (37.0-47.0); Hemoglobin 9.4 g/dL (12.2-16.2); Immature Granulocytes % 0.5 %; Mean Corpuscular HGB Conc 29.8 g/dL (31.8-35.4); Mean Corpuscular Hemoglobin 21.1 pg (27.0-31.2); Mean Corpuscular Volume 70.8 fl (81-99); Nucleated Red Blood Cells % 0 %; Platelet Count 243 K/mm3 (142-424); Red Blood Count 4.45 M/mm3 (4.20-5.40); Red Cell Distribution Width-SD 42.6 fL; White Blood Count 10.1 K/mm3 (4.8-10.8)
[2025-03-03] MEDS: TRANEXAMIC ACID 1,000 MG/10 ML VIAL 1000 MG TP (08:20)
[2025-03-03 08:28] LABS: INR 0.99 (0.9-1.1); Prothrombin Time 11.0 seconds (10.1-12.5)
== END 2025-03-03 11:10 | disposition home or self-care (01) ==
PROVIDERS: Emergency Provider Student in an Organized Health Care Education/Training Program; PCP Family Medicine
DX: I83.899 Varicose veins of unspecified lower extremity with other complications (principal); R60.0 Localized edema; I50.9 Heart failure, unspecified
CPT/HCPCS: 85025; 85610; 99283; 99284

== ENCOUNTER 2025-06-23 09:11 | Observation (INO) | payer OTHER, SELFPAY ==
[2025-06-23] VITALS (21 sets, daily range): BP systolic 107–213; BP diastolic 51–161; PULSE 74–109; RESP 11–20; TEMP 36.8–38.3; O2SAT 90–99; BMI 48.2; BMI 44.9
--- OUTSIDE RECORDS SUMMARY | 2025-06-23 09:17 | XMS_ITS | Continuity of Care Document ---
Author Organization MARISA JACK OD Address [address] [place] [address] Phone Care Team Providers Care Safety Intern Name Role Phone Mervin Toribio MD Primary Care Provider Encounters Date Type Department Care Team Description 06/22/2025 Refill [facility] [address] [place] [address] Mervin Toribio MD Medication Refill 06/13/2025 Refill [facility] [address] [place] [address] Mervin Toribio MD Medication Refill 06/04/2025 Travel 05/28/2025 Telephone [facility] [address] [place] [address] Mervin Toribio MD Other (A1C result / statin med) 05/27/2025 Refill [facility] [address] [place] [address] Mervin Toribio MD Medication Refill 05/16/2025 Orders Only [facility] [address] [place] [address] Mervin Toribio MD 05/15/2025 Refill [facility] [address] [place] [address] Mervin Toribio MD Medication Refill 04/30/2025 Travel 04/26/2025 Travel 04/25/2025 Travel 04/18/2025 8:45 AM EDT Office Visit [facility] [place] [address] [facility] [address] [place] [id number] Max Gifford P, DPM Cellulitis of great toe of right foot (Primary Dx); Type 2 diabetes mellitus with diabetic polyneuropathy, unspecified whether penitentiary insulin use (HCC); Venous stasis ulcer of left lower leg (HCC); History of partial amputation of toe of left foot 04/18/2025 10:00 AM EDT Office Visit [facility] [address] [place] [address] [address] [place] [address] Kameron Coello DO Leg swelling (Primary Dx); Varicose veins of lower extremities with complications, left 04/15/2025 Travel 04/01/2025 10:45 AM EDT Office Visit [facility] [place] [facility] [address] [facility] [address] [place] [address] Max Gifford P, DPM Venous stasis ulcer of left lower leg (HCC) (Primary Dx); Partial traumatic amputation of two or more lesser toes, left, initial encounter; Type 2 diabetes mellitus with diabetic polyneuropathy, unspecified whether penitentiary insulin use (HCC); Open wound of right great toe without damage to nail, initial encounter 03/31/2025 Refill [facility] [address] [place] [address] Mervin Toribio MD Medication Refill 03/27/2025 Travel 03/26/2025 Telephone [facility] [place] [address] [facility] [address] [place] [address] Max Gifford P, DPM Other (Daughter is ok to authorize her new appt time) 03/20/2025 Travel 03/20/2025 7:30 AM EDT - 03/20/2025 9:20 AM EDT Surgery [facility] [place] [address] Max Gifford P, DPM TOE/METATARSAL OR HALLUX AMPUTATION 03/20/2025 7:40 AM EDT Anesthesia Event [facility] [place] [address] Hiral Hicks MD Collins, Angela, APRN 03/20/2025 6:47 AM EDT - 03/20/2025 10:00 AM EDT Hospital Encounter [facility] POST ANESTHESIA [facility] [place] [address] Diiulio, Max P, DPM Ingrown nail of great toe of right foot; Osteomyelitis of third toe of left foot (HCC); Hammertoe of second toe of left foot Discharge Disposition: Home or Self Care 03/15/2025 Travel 03/14/2025 Refill [facility] [address] [place] [address] Mervin Toribio MD Medication Refill 03/14/2025 Orders Only [facility] [address] [place] [address] Diiulio, Max P, DPM Ingrown nail of great toe of right foot (Primary Dx); Osteomyelitis of third toe of left foot (HCC); Hammertoe of second toe of left foot 03/14/2025 Telephone [facility] [place] [address] [facility] [address] [place] [address] Diiulio, Max P, DPM Other (surgery) 03/11/2025 9:50 AM EDT Ancillary Procedure [facility] [address] [address] Diiulio, Max P, DPM Ulcer of toe of left foot, with fat layer exposed (HCC); Ulcer of toe of right foot, with fat layer exposed (HCC) Discharge Disposition: Home or Self Care 03/11/2025 9:15 AM EDT Office Visit [facility] [address] [place] [address] Diiulio, Max P, DPM Ulcer of toe of left foot, with fat layer exposed (HCC) (Primary Dx); Ulcer of toe of right foot, with fat layer exposed (HCC); Osteomyelitis of third toe of left foot (HCC); Cellulitis of great toe of right foot; Diabetic polyneuropathy associated with type 2 diabetes mellitus (HCC); Hammertoe of second toe of left foot; Ingrown nail of great toe of right foot 02/28/2025 Refill [facility] [address] [place] [address] Mervin Toribio MD Medication Refill 02/27/2025 Refill [facility] [address] [place] [address] Mervin Toribio MD Medication Refill 02/21/2025 Travel 02/18/2025 Telephone [facility] [address] [place] [address] Preet Palomares MD Reschedule 02/13/2025 Results Follow-Up [facility] [address] [place] [address] Mervin Toribio MD URINALYSIS REFLEX, EXTRA HALL URINE CX, URINE CULTURE (NO STAIN) 02/12/2025 3:38 PM EDT - 02/12/2025 5:11 PM EDT Emergency [facility] [address] [place] [address] Harriet Quinn MD Rash (Primary Dx); Acute urinary tract infection; Hypokalemia Discharge Disposition: Home or Self Care 01/30/2025 Telephone [facility] [address] [place] [address] Mervin Toribio MD Medication Refill 01/29/2025 Travel 01/24/2025 Travel 01/09/2025 Telephone [facility] Cancer Care Center [facility] [address] [facility] [place] [address] Preet Palomares MD Other (Infusions - no shows/) 12/31/2024 Telephone [facility] [address], [address] [place] [address] Preet Palomares MD Other 12/28/2024 11:59 PM EDT Anesthesia Event [facility] [address], 3[place] [phone] Ramila Vera APRN 12/20/2024 Orders Only [facility] Sleep Disorder [facility] [place] [address] [facility] [address] [place] [address] Blaine Padilla MD Obstructive sleep apnea (Primary Dx) 12/20/2024 Refill [facility] [address] [place] [address] Mervin Toribio MD Medication Refill 12/20/2024 Travel 12/19/2024 Telephone [facility] Cancer [facility] [address] [place] [address] Sagrario Carter MA 12/17/2024 Refill [facility] [address] [place] [address] Mervin Toribio MD Medication Refill 12/06/2024 Telephone [facility] [address], [address] [place] [address] Almaz Forbes LPN Prior Authorization 11/27/2024 Orders [place] [address] Ghislaine Adams, PharmD Iron malabsorption (Primary Dx) 11/23/2024 Telephone [facility] [address], [address] [place] [address] Almaz Forbes LPN Other (Iron infusions) 11/23/2024 Refill [facility] [address] [place] [address] Mervin Toribio MD Medication Refill 11/22/2024 Results Follow-Up [facility] [address], [address]RD [place] [address] Preet Palomares MD IRON+TIBC, FERRITIN 11/22/2024 Telephone [facility] [address], 3[place] [address] Preet Palomares MD Medication Management (Colyte ) 11/22/2024 Results Follow-Up [facility] [address] [place] [address] Mervin Toribio MD HEMOGLOBIN A1C, COMPREHENSIVE METABOLIC PANEL, CBC WITH DIFF, Additional followed-up results: 4 11/22/2024 11:00 AM EDT Office Visit [facility] [address] [facility] [address]TRANCE, [address] [place] [address] Preet Palomares MD Iron deficiency anemia, unspecified iron deficiency anemia type (Primary Dx); Chronic idiopathic constipation 11/21/2024 11:00 AM EDT Office Visit [facility] Sleep Medicine [address] [place] [address] Blaine Padilla MD Metabolic syndrome (Primary Dx); Morbid obesity with body mass index (BMI) of 40.0 to 49.9 (HCC); Acquired hypothyroidism; Opioid use disorder, severe, on maintenance therapy (HCC); Gastroesophageal reflux disease, unspecified whether esophagitis present; Tired; Excessive sleepiness; Obstructive sleep apnea; Opioid use disorder; Obesity hypoventilation syndrome (HCC); Hypercarbia; RLS (restless legs syndrome) 11/20/2024 1:45 PM EDT Office Visit [facility] [address] [place] [address] Mervin Toribio MD Annual physical exam (Primary Dx); Fibromyalgia; Acquired hypothyroidism; Type 2 diabetes mellitus without complication, unspecified whether polarity tester insulin use (HCC); Right foot pain; Irritant dermatitis; Leg swelling; Iron deficiency anemia, unspecified iron deficiency anemia type 10/31/2024 Travel 10/28/2024 1:44 PM EDT - 10/28/2024 4:12 PM EDT Emergency [facility] [address] [place] [address] Ghislaine Crouch MD Strep pharyngitis (Primary Dx); Hypokalemia; Anemia, unspecified type; Dependent edema Discharge Disposition: Home or Self Care 10/15/2024 Travel 10/05/2024 Telephone [facility] [address] [place] [address] Mervin Toribio MD Refill (Methocarbamol) 10/03/2024 Travel 09/25/2024 Telephone [facility] [address] [place] [address] Mervin Toribio MD Refill (multi) 09/12/2024 Orders Only [facility] [address] [place] [address] Mervin Toribio MD 09/10/2024 Travel 09/06/2024 Refill [facility] [address] [place] [address] Mervin Toribio MD Refill (naloxegoL (MOVANTIK) [...] 09/05/2024 Travel 09/05/2024 11:45 AM EST Telemedicine [facility] [address] [place] [address] Mervin Toribio MD Fibromyalgia (Primary Dx); Leg swelling; Arthritis 08/27/2024 Travel 08/17/2024 Travel 08/16/2024 Refill [facility] [address] [place] [address] Mervin Toribio MD Refill ( Disp Refills Start End /methocarbamoL (ROBAXIN) 750 mg Oral Tablet 90 Tablet 0 07/20/2024 08/19/2024 /Sig - Route: Take 1 Tablet by mouth 3 times daily as needed for up to 30 days. - Oral //) 07/31/2024 Refill [facility] [address] [place] [address] Mervin Toribio MD Medication Refill 07/31/2024 Telephone [facility] [address] [place] [address] Mervin Toribio MD Refill (Gabapentin); Other (GABAPENTIN REFILL) 07/27/2024 Travel 07/26/2024 Refill [facility] [address] [place] [address] Mervin Toribio MD Medication Refill 07/20/2024 Telephone [facility] [address] [place] [address] Mervin Toribio MD Refill 07/13/2024 Refill [facility] [address] [place] [address] Mervin Toribio MD Medication Refill 06/22/2024 Travel 06/21/2024 Telephone [facility] [address] [place] [address] Mervin Toribio MD Refill ( Disp Refills Start End /ondansetron (ZOFRAN-ODT) 4 mg Oral Tablet, Rapid Dissolve 15 Tablet 0 01/10/2024 - /Sig - Route: Take 1 Tablet by mouth every 8 hours as needed for Nausea. - Oral /Sent to pharmacy as: ondansetron 4 mg disintegrating tablet (ZOFRAN-ODT) //) 06/17/2024 Refill [facility] [address] [place] [address] Mervin Toribio MD Medication Refill 05/21/2024 Telephone [facility] [address] [place] [address] Mervin Toribio MD Refill ( Disp Refills Start End /methocarbamoL (ROBAXIN) 750 mg Oral Tablet 90 Tablet 0 04/23/2024 05/23/2024 /Sig - Route: TAKE 1 TABLET BY MOUTH 3 TIMES DAILY NEEDED FOR UP TO 30 DAYS. - Oral /Sent to pharmacy as: methocarbamoL 750 mg tablet (ROBAXIN) //) 05/20/2024 Refill [facility] [address] [place] [address] Mervin Toribio MD Medication Refill 05/20/2024 Travel 05/20/2024 4:57 AM EST - 05/20/2024 7:15 AM EST Emergency [facility] [address] [facility] [place], [place] [id number] Harriet Quinn MD Bilateral lower extremity edema (Primary Dx) Discharge Disposition: Home or Self Care 05/20/2024 Nurse Triage [facility] Nurse Now [facility] [place] [address] Elicia Allen RN 05/18/2024 Refill [facility] [address] [place] [address] Mervin Toribio MD Medication Refill 05/18/2024 Telephone [facility] Nurse Now [facility] [place] [address] Kimberly Man RN Leg Swelling 05/18/2024 Travel 05/18/2024 9:30 AM EDT Telemedicine [facility] [address] [place] [address] Galen Bernard APRN Bilateral lower extremity edema (Primary Dx); Insomnia, persistent; Anxiety 05/17/2024 Travel 05/15/2024 Telephone [facility] [address] [place] [address] Mervin Toribio MD Refill ( Disp Refills Start End /amitriptyline (ELAVIL) 150 mg Oral Tablet 30 Tablet 2 11/24/2023 - /Sig - Route: Take 1 Tablet by mouth nightly. at bedtime - Oral /Sent to pharmacy as: amitriptyline 150 mg tablet (ELAVIL) //) 05/06/2024 Refill [facility] [address] [place] [address] Mervin Toribio MD Medication Refill 05/05/2024 Refill [facility] [address] [facility] [place] [address] Mervin Toribio MD Medication Refill 04/23/2024 Refill [facility] [address] [place] [address] Mervin Toribio MD Medication Refill 04/19/2024 Telephone [facility] [address] [place] [address] Mervin Toribio MD Medication Management 04/10/2024 Travel 04/10/2024 2:00 PM EDT Office Visit [facility] [address] [place] [address] Mervin Toribio MD Leg swelling (Primary Dx); Fibromyalgia 04/09/2024 Refill [facility] [address] [place] [address] Mervin Toribio MD Refill ( Disp Refills Start End /gabapentin (NEURONTIN) 800 mg Oral Tablet 90 Tablet 1 02/13/2024 - /Sig - Route: Take 1 Tablet by mouth 3 times daily. - Oral //) 04/04/2024 Travel 04/04/2024 12:20 PM EDT - 04/04/2024 5:21 PM EDT Emergency [facility] [address] [facility] [place] [address] Adelfo Hicks MD Generalized abdominal pain (Primary Dx); Constipation, unspecified constipation type; Hypokalemia Discharge Disposition: Home or Self Care 03/31/2024 12:46 PM EDT - 03/31/2024 2:49 PM EDT Emergency [facility] [address] [facility] [place] [address] Blaine Washington MD Viral URI with cough (Primary Dx) Discharge Disposition: Home or Self Care 03/29/2024 Telephone [facility] [address] [place] [address] Mervin Toriboi MD Refill (ondansetron (ZOFRAN-ODT) 4 mg Oral Tablet, Rapid Dissolve) 03/28/2024 Refill [facility] [address] [place] [address] Mervin Toribio MD Medication Refill 03/28/2024 Telephone [facility] [address] [facility] [place] [address] Mervin Toribio MD Refill 03/14/2024 Refill [facility] [address] [facility] [place] [address] Mervin Toribio MD Medication Refill 03/07/2024 Telephone [facility] [address], 3RD [place] [address] Preet Palomares MD Other 02/29/2024 Telephone [facility] [address] [facility] [place] [address] Mervin Toribio MD Other (lice shampoo) 02/29/2024 Telephone [facility] [address] [facility] [place] [address] Mervin Toribio MD Refill (methocarbamoL (ROBAXIN) 750 mg Oral Tablet) 02/28/2024 1:45 PM EDT Office Visit [facility] [address] [facility] [place] [address] Mervin Toribio MD Perioral dermatitis (Primary Dx); Leg swelling 02/13/2024 Telephone [facility] [address] [facility] [place] [address] Mervin Toribio MD Refill (multi meds) 01/29/2024 Refill [facility] [address] [place] [address] Mervin Toribio MD Medication Refill 01/14/2024 Telephone [facility] [address] [facility] [place] [address] Mervin Toribio MD Refill 01/10/2024 Telephone [facility] [address] [place] [address] Mervin Toribio MD Other 01/10/2024 1:00 PM EDT Telemedicine [facility] [address] [place] [address] Mervin Toribio MD Therapeutic opioid induced constipation (Primary Dx); Constipation, chronic; Nausea 01/03/2024 Telephone [facility] [address] [place] [address] Mervin Toribio MD Refill 12/20/2023 Patient Outreach [facility]a [facility] [address] [place] [address] Monie Stephen BS, COS Transportation 12/15/2023 2:00 PM EDT Office Visit [facility] [address] [place] [address] Mervin Toribio MD Type 2 diabetes mellitus without complication, unspecified whether penitentiary insulin use (HCC) (Primary Dx); Hypokalemia; Anemia due to acute blood loss; Fibromyalgia; Type 2 diabetes mellitus without complication, without long-term current use of insulin (HCC) 12/14/2023 Travel 12/13/2023 Patient Outreach [facility] [address] [place] [address] Monie Stephen BS, COS Transportation 12/13/2023 Orders Only [facility] [address] [place] [address] Mervin Toribio MD 12/13/2023 Patient Outreach [facility] [address] [place] [address] Heather Garrison, [employer] Referral 12/13/2023 Patient Outreach [facility] [address] [place] [address] Soila Rosas, [place] Hospital Follow Up; Care Transition; CM - Medication Reconciliation; CM-SDOH; CM- Consultation 12/07/2023 2:02 PM EDT - 12/09/2023 2:35 PM EDT Hospital Encounter [facility] 6D [facility] [place] [address] Valente Guo, Discharge Disposition: Home or Self Care 12/07/2023 Travel 12/06/2023 6:48 PM EDT - 12/07/2023 1:22 PM EDT Emergency [facility] [address] [place] [address] Farhad Grove MD Watson, James Brandon, DO Altered mental status, unspecified altered mental status type (Primary Dx); Hypokalemia Discharge Disposition: Short Term Hospital 11/29/2023 Telephone [place] [address] [place] [address] Tien Griffiths MA New Patient 11/24/2023 2:30 PM EDT Office Visit [facility] [address] [place] [address] Mervin Toribio MD Annual physical exam (Primary Dx); Continuous opioid dependence (HCC); Insomnia, persistent; Leg swelling; Acquired hypothyroidism 09/20/2023 2:15 PM EST Office Visit [facility] [place] [address] [place] [address] Max Gifford DPM Type 2 diabetes mellitus with diabetic polyneuropathy, unspecified whether penitentiary insulin use (HCC) (Primary Dx); Skin ulcer of right great toe with fat layer exposed (HCC); Open wound of fourth toe of left foot, subsequent encounter; Cellulitis of fourth toe of left foot 09/13/2023 Telephone [facility] [place] [address] [facility] [address] [place] [address] Max Gifford DPM Schedule Appointment 09/06/2023 11:30 AM EST Office Visit [facility] [place] [address] [facility] [address] [place] [address] Max Gifford DPM Type 2 diabetes mellitus with diabetic polyneuropathy, unspecified whether penitentiary insulin use (HCC) (Primary Dx); Cellulitis of great toe of right foot; Skin ulcer of right great toe with fat layer exposed (HCC); Open wound of fourth toe of left foot, initial encounter; Diabetic polyneuropathy associated with type 2 diabetes mellitus (HCC); History of partial amputation of toe of right foot; Ingrown nail of great toe of right foot 07/19/2023 Telephone [facility] [address] [facility] [address] [place] [address] Sagrario Hernandez MA Other (Appointment) 06/28/2023 10:00 AM EST Office Visit [facility] [address] [facility] [address] [place] [address] Max Gifford DPM History of partial amputation of toe of right foot (Primary Dx); Diabetic polyneuropathy associated with type 2 diabetes mellitus (HCC) 06/18/2023 9:48 PM EST - 06/22/2023 12:55 PM EST Hospital Encounter [facility] [address] [place] [address] Zelalem Kraus MD Osteomyelitis of second toe of right foot (HCC) Discharge Disposition: Home or Self Care 06/20/2023 5:20 PM EST Anesthesia Event [facility] [address] [place] [address] Gunner Saenz MD 06/20/2023 5:15 PM EST - 06/20/2023 6:03 PM EST Surgery [facility] [address] [place] [address] Max Gifford DPM TOE/METATARSAL OR HALLUX AMPUTATION 06/18/2023 Travel 06/18/2023 12:11 PM EST - 06/18/2023 9:18 PM EST Emergency [facility] [address] [facility] [place] [address] Jack Muhammad MD Motiani, Karan, MD Osteomyelitis of right foot, unspecified type (HCC) (Primary Dx); Cellulitis of right lower extremity Discharge Disposition: Short Term Hospital 04/28/2021 Orders Only [facility] [place] [address] Janet iPto [facility] COVID 04/28/2021 1:31 PM EDT - 04/28/2021 1:55 PM EDT Emergency [facility] Emergency [address] [place] [address] Merrick Palomares MD COVID-19 virus infection (Primary Dx) Discharge Disposition: Home or Self Care 11/15/2020 Travel 11/15/2020 6:44 PM EDT - 11/15/2020 8:49 PM EDT Emergency [facility] [place] [address] Kameron Fields MD Bilateral lower extremity edema (Primary Dx); Cellulitis of leg, right Discharge Disposition: Home or Self Care 07/20/2020 Travel 07/20/2020 1:06 PM EST - 07/20/2020 3:43 PM EST Emergency [facility] [place] [address] Yarelis Hdz DO Chronic nausea (Primary Dx); Chronic abdominal pain; Anxiety Discharge Disposition: Home or Self Care 07/14/2020 Travel 07/14/2020 10:14 AM EST - 07/14/2020 11:54 AM EST Emergency [facility] Emergency [address] [place] [address] Farhad Grove MD Palpitations (Primary Dx); Anxiety; Nausea; Diarrhea, unspecified type Discharge Disposition: Home or Self Care 06/17/2020 Travel 06/17/2020 9:54 AM EST - 06/17/2020 3:01 PM EST Emergency [facility] Emergency [address] [place] [address] Asael Yan MD Diarrhea, unspecified type (Primary Dx); Pleuritic chest pain Discharge Disposition: Home or Self Care 01/23/2020 Telephone [facility] [place] [address] [place] [address] HenryOctober DOMINGA Lopez Other (ins verification ) 12/31/2019 Telephone [facility] [employer] [address] [place] [address] [place] [address] Jermaine Eubanks MD Other (joanne ) 12/07/2019 Travel 12/06/2019 Telephone [facility] [address] [place] [address] Leann Pham, [place] Other (weight management) 12/04/2019 Travel 12/04/2019 7:30 AM EDT Telemedicine [facility] [address] [address] Jermaine Eubanks MD Class 3 severe obesity due to excess calories without serious comorbidity in adult, unspecified BMI (HCC) (Primary Dx); Bilateral leg edema; Fibromyalgia; Deep vein thrombosis (DVT) of both lower extremities, unspecified chronicity, unspecified vein (HCC); Depression, unspecified depression type 10/24/2019 Travel 10/04/2019 Travel 10/03/2019 Travel 10/02/2019 Travel 09/27/2019 Travel 09/27/2019 2:00 PM EDT Office Visit [facility] [place] [address] Javad [place] MD Essential hypertension (Primary Dx); Hypokalemia; Other iron deficiency anemia 09/19/2019 10:30 AM EST - 09/19/2019 11:59 PM EST Hospital Encounter [facility] [address] [place] [address] [place] [address] Jermaine Eubanks MD Leg swelling Discharge Disposition: Home or Self Care 09/12/2019 1:20 PM EST - 09/12/2019 11:59 PM EST Hospital Encounter [facility] [address] [facility] [place] [address] Leg swelling Discharge Disposition: Home or Self Care 09/12/2019 Travel 08/30/2019 Travel 08/30/2019 1:00 PM EST Office Visit [facility] H[facility]V [address] [phone] Jermaine Eubanks MD Leg swelling (Primary Dx); Mood change 09/02/2017 10:45 AM EST - 09/02/2017 11:59 PM EST Hospital Encounter [facility] D-WING XRAY [address] [facility] [place] [address] Acute pain of right knee Discharge Disposition: Home or Self Care 01/25/2017 Refill [facility] Surgery [facility]TT [address] [place] [address] Anne Rowe MD Medication Refill 03/29/2016 5:07 PM EDT - 03/29/2016 6:39 PM EDT Emergency [facility] Emergency [address] [facility] [place] [address] Gay Villa MD Favier, Benjamin, MD Lumbar strain, initial encounter (Primary Dx) Discharge Disposition: Home or Self Care 01/12/2016 8:45 AM EDT - 01/12/2016 11:59 PM EDT Hospital Encounter [facility] [address] [place] [address] Chin Mai Acid phosphatase elevated Discharge Disposition: Home or Self Care 09/26/2015 12:30 PM EST Office Visit ENT ENT [facility] [address] [phone] Kashif Pollock MD Headache, unspecified headache type (Primary Dx); Nasal turbinate hypertrophy; Nasal septal spur; Rhinorrhea; Other seasonal allergic rhinitis 09/15/2015 Telephone [facility] [address] [phone] Heather Villaseñor, RN Results 09/15/[address] [address] Heather Villaseñor, RN Results 09/08/2015 1:00 PM EST Clinical Support ENT [facility] [place] [address] [place] [phone] Nasal turbinate hypertrophy (Primary Dx) 09/03/2015 7:57 PM EST - 09/03/2015 8:33 PM EST Emergency [facility] [address] [place] [address] Naseem Hicks MD Cystitis (Primary Dx) Discharge Disposition: Home or Self Care 08/28/2015 3:00 PM EST Office Visit [facility] Gen Surgery FTT [address] [place] [address] Anne Rowe MD Post-operative state (Primary Dx) 08/25/2015 Telephone [facility] Gen Surgery FTT [address] [place] [phone] Anne Rowe MD Advice Only 08/22/2015 Telephone [facility] Gen Surgery FTT [address] [place] [phone] Anne Rowe MD Advice Only 08/19/2015 1:00 PM EST - 08/19/2015 2:15 PM EST Surgery FTT PERIOP [address] [place] [address] Anne Rowe MD LAPAROSCOPIC CHOLECYSTECTOMY POSSIBLE OPEN 08/19/2015 1:12 PM EST Anesthesia Event FTT PERIOP [address] [place] [address] Cory Steele MD Merkle Serey, Jennifer L, NP 08/19/2015 10:55 AM EST - 08/19/2015 4:32 PM EST Hospital Encounter FTT SAME DAY SURGERY [address] [place] [address] Anne Rowe MD Discharge Disposition: Home or Self Care 08/14/2015 Telephone SEP Gen Surg [facility] [address] [place] [address] [place] [phone] Anne Rowe MD Surgery 08/14/2015 12:45 PM EST Office Visit [facility]NTAS ENT [facility] 40 [facility] [address] [place] [address] Kashif Pollock MD Nasal turbinate hypertrophy (Primary Dx); Nasal septal spur; Rhinorrhea; Headache, unspecified headache type 08/14/2015 10:50 AM EST Office Visit [facility] Gen Surgery FTT [address] [place] [phone] Anne Rowe MD Symptomatic cholelithiasis (Primary Dx) 07/25/2015 9:45 AM EST - 07/25/2015 10:30 AM EST Surgery [facility] ENDOSCOPY [facility] [place] [address] Leda Theodore MD COLONOSCOPY 07/25/2015 8:38 AM EST - 07/25/2015 1:13 PM EST Hospital Encounter [facility] ENDOSCOPY [facility] [place] [address] Leda Theodore MD Discharge Disposition: Home or Self Care 07/07/2015 Telephone [facility]P Gastro [facility] [address] [facility] [address] [facility] [address] Leda Theodore MD Other 07/04/2015 4:29 PM EST - 07/04/2015 11:59 PM EST Hospital Encounter [facility] LAB PRESTON PROCESSING [facility] [place] [address] Irritable bowel syndrome without diarrhea Discharge Disposition: Home or Self Care 07/04/2015 11:00 AM EST - 07/04/2015 4:28 PM EST Hospital Encounter [facility] [place] [address] Chin Mai Abdominal pain, right upper quadrant Discharge Disposition: Home or Self Care 07/04/2015 12:00 PM EST Office Visit [facility] Gastro [place] [address] [place] [phone] Leda Theodore MD Constipation, chronic (Primary Dx); Hematochezia; Irritable bowel syndrome with diarrhea; Irritable bowel syndrome without diarrhea; Epigastric abdominal pain 06/15/2015 9:59 AM EST - 06/15/2015 1:53 PM EST Emergency [facility] [place] [address] Redd Padilla MD Right lower quadrant abdominal pain (Primary Dx); Chronic pain syndrome Discharge Disposition: Home or Self Care 09/06/2014 10:35 AM EST - 09/06/2014 11:59 PM EST Hospital Encounter [facility] LABORAT[facility] [place] [address] Screening for unspecified disorder of blood and blood-forming organs (Primary Dx); Screening for iron deficiency anemia Discharge Disposition: Home or Self Care 03/08/2014 10:30 AM EDT - 03/08/2014 11:59 PM EDT Hospital Encounter [facility] [address] [place] [address] Michael Rubio MD Abdominal pain, other specified site Discharge Disposition: Home or Self Care 11/22/2012 11:00 AM EDT - 11/22/2012 11:59 PM EDT Hospital Encounter [facility] MRI [address] [place] [address] Michael Rubio MD Chronic neck pain; Myalgia and myositis, unspecified Discharge Disposition: Home or Self Care 08/09/2012 8:20 AM EST - 08/10/2012 11:36 AM EST Hospital Encounter EDG 1B [place] [id number] Joel Gramajo MD Jackson, John R, MD Discharge Disposition: Home or Self Care 08/09/2012 10:15 AM EST - 08/09/2012 1:30 PM EST Surgery [facility]G PERIOP [facility] [place] [address] Michael Washington MD VAGINAL HYSTERECTOMY 08/01/2012 8:21 AM EST - 08/01/2012 11:59 PM EST Hospital Encounter EDG PRE-ADMIT TESTING [facility] [address] [place] [address] Discharge Disposition: Home or Self Care 08/31/2011 Refill [facility] [address] [place] [address] Redd Wynn MD Medication Refill 04/06/2011 Telephone [facility] [address] [place] [address] Redd Wynn MD Medication Refill 03/25/2011 9:00 AM EDT Office Visit [facility] [address] [place] [address] Redd Wynn MD Fibromyalgia (Primary Dx); Insomnia; Metabolic syndrome 03/12/2011 Refill [facility] [address] [place] [address] Kylee Denney MA Medication Refill 03/08/2011 Refill [facility] [address] [place] [address] Kylee Denney MA Medication Refill 03/05/2011 Telephone [facility] [address] [facility], [phone] Redd Wynn MD Medication Problem (PA denied) 03/03/2011 Telephone [facility] [address] [place] [phone] 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 Saxena 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 Medication Refill 03/03/2011 Telephone [facility] [address] [facility], [phone] Redd Wynn MD Medication Refill 02/25/2011 9:00 AM EDT Office Visit [facility] [address] [place] [phone] Redd Wynn MD Fibromyalgia; DDD (degenerative disc disease); Metabolic syndrome; Arthritis; Migraine; Insomnia 02/22/2011 Refill [facility] [address] [place] [address] Dale Hiralderek Plummer [facility] Medication Refill 02/16/2011 Refill [facility] [address] [place] [address] Kylee Denney MA Medication Refill 02/12/2011 Refill [facility] [address] [place] [address] Redd Wynn MD Medication Refill 02/08/2011 Refill [facility] [address] [place] [address] Efrem Amato MA Medication Refill 02/08/2011 Refill [facility] [address] [place] [address] Redd Wynn MD Medication Refill 01/28/2011 2:45 PM EDT Office Visit [facility] [address] [facility] [place] [address] Redd Wynn MD Fibromyalgia; Arthritis; DDD (degenerative disc disease); RLS (restless legs syndrome) 01/20/2011 9:30 AM EDT Office Visit [facility] [address] [place] [address] Redd Wynn MD Fibromyalgia; DDD (degenerative disc disease); Metabolic syndrome; Vitamin D deficiency; Anemia 01/19/2011 Telephone [facility] [address] [place] [address] Beata Boo Derek Results 01/14/2011 8:06 PM EDT - 01/14/2011 11:59 PM EDT Hospital Encounter [facility] LAB PRESTON [facility] [place] [address] Fibromyalgia; Arthritis; Migraine; RLS (restless legs syndrome); DDD (degenerative disc disease); Insomnia Discharge Disposition: Home or Self Care 01/14/2011 10:00 AM EDT Office Visit [facility] [address] [place] [address] Redd Wynn MD Fibromyalgia (Primary Dx); Arthritis; Migraine; RLS (restless legs syndrome); DDD (degenerative disc disease); Insomnia 01/07/2011 10:00 AM EDT Office Visit [address] [address] Redd Wynn MD Fibromyalgia; RLS (restless legs syndrome); DDD (degenerative disc disease); Migraine; Routine health maintenance; Fatigue; Weight gain 12/23/2010 10:30 AM EDT Office Visit [facility] [address] [place] [address] Redd Wynn MD Fibromyalgia; DDD (degenerative disc disease); Migraine; Bruises easily; Weight gain; Fatigue 12/17/2010 10:15 AM EDT Office Visit [facility] [address] [place] [address] Redd Wynn MD Fibromyalgia; Arthritis; Migraine; DDD (degenerative disc disease) 12/10/2010 10:15 AM EDT Office Visit [facility] [address] [place] [phone] Redd Wynn MD Fibromyalgia; Neck pain; DDD (degenerative disc disease); Migraine 03/27/2010 10:00 AM EDT - 03/27/2010 11:59 PM EDT Hospital Encounter [facility] MRI [address] [place] [address] Vitaly Gama MD Displacement of cervical intervertebral disc without myelopathy Discharge Disposition: Home or Self Care 05/14/2009 - 05/14/2009 11:59 PM EDT Hospital Encounter [facility] MEDICINE [facility]TT Discharge Disposition: Home or Self Care 05/08/2009 10:12 AM EDT - 05/08/2009 11:59 PM EDT Hospital Encounter [facility] EPIC CON UNK EDG Riya Hewitt 05/02/2009 9:46 AM EDT - 05/02/2009 11:59 [...] 11:59 PM EDT Hospital Encounter [facility]AR[facility]IG Sophie Desir MD 10/17/2008 8:13 PM EDT [...] daily. Active nalOXone (NARCAN) 4 mg/actuation Nasl [place], Non-AerosolIndica tions:Opioid dependence, continuous (HCC),Opioid dependence on agonist therapy (HCC),At risk for substance overdose 0.1 mL by INTRANASAL route as needed. 1 Each 024 Active hydroCHLOROthiazi de 50 mg Oral [...] Capsule by mouth daily. 60 Capsule 1 025 Active potassium chloride (KLOR-CON M) 20 mEq Oral Tab Sust.Rel. Particle/Crystal TAKE 1 TABLET BY MOUTH EVERY DAY 90 Tablet 2 025 Active gabapentin (NEURONTIN) 800 mg Oral TabletIndications :Fibromyalgia TAKE 1 TABLET BY MOUTH THREE TIMES A DAY 90 Tablet 1 025 Active DULoxetine (CYMBALTA) 20 mg Oral Capsule, Delayed Release(E.C.) Take 1 Capsule by mouth daily. 30 Capsule 2 025 Active amitriptyline (ELAVIL) 100 mg Oral TabletIndications :Insomnia, persistent Take 2 Tablets by mouth nightly. at bedtime 60 Tablet 2 025 Active methocarbamoL (ROBAXIN) 750 mg Oral TabletIndications :Arthritis TAKE 1 TABLET BY MOUTH THREE TIMES A DAY NEEDED 90 Tablet 1 025 Active hydrOXYzine (ATARAX) 25 mg Oral TabletIndications :Mood disorder TAKE 1 TO 2 TABLETS BY MOUTH EVERY 8 HOURS NEEDED FOR ANXIETY 180 Tablet 025 Active buprenorphine-nal oxone (ZUBSOLV) 5.7-1.4 mg SL Tablet, SublingualIndicat ions:Opioid dependence, continuous (HCC),Opioid dependence on agonist therapy (HCC) Place 1 1/2 tablets under the tongue daily. Ok to fill today 42 Tablet 025 Active fUROsemide (LASIX) 20 mg Oral TabletIndications :Leg swelling TAKE 1 TABLET BY MOUTH EVERY DAY NEEDED 90 Tablet 025 Active fUROsemide (LASIX) 20 mg Oral TabletIndications :Leg swelling TAKE 1 TABLET BY MOUTH EVERY DAY NEEDED 90 Tablet 025 2024 Discontinued methocarbamoL (ROBAXIN) 750 mg Oral TabletIndications :Arthritis TAKE 1 TABLET BY MOUTH THREE TIMES A DAY NEEDED 90 Tablet 1 025 2024 Discontinued hydrOXYzine (ATARAX) 25 mg Oral TabletIndications :Mood disorder TAKE 1 TO 2 TABLETS EVERY 8 HOURS NEEDED FOR ANXIETY 180 Tablet 025 2024 Discontinued buprenorphine-nal oxone (ZUBSOLV) 5.7-1.4 mg SL Tablet, SublingualIndicat ions:Opioid dependence, continuous (HCC),Opioid dependence on agonist therapy (HCC) Place 1 1/2 tablets under the tongue daily. Ok to fill today 42 Tablet 025 2024 Discontinued(R eorder) Active Problems Patient Care Coordination No te Formatting of this note migh t be different from the original. Ace addictionJ Press-Ganey Survey-Letter- 04/03/25 RS Problem Noted Date Diagnosed Date Ingrown nail of great toe of right foot 03/14/20 Osteomyelitis of third toe of left foot 03/14/20 Hammertoe of second toe of left foot 03/14/2025 Iron malabsorption 11/27/2024 Insomnia, persistent 10/15/2024 Chronic [...] Alive Social History Smoking Status as of 2025 Tobacco Use Types Packs/Day Years Used Date Smoking Tobacco: Never Assessed [facility] Utilities Answer Date Recorded In the past 12 months has e electric, gas, oil, or water [employer] threatened to shut off services in your home? Patient declined 12/08/2023 Social Connection and Isolation Panel Answer Date Recorded Frequency of Communication with Friends and Fami ly Not on file 12/13/2023 Frequency of Social Gatherings with Friends and Family Not on file 12/13/2023 Attends Mosque Services Not on file 12/12 Active Member [...] Date Recorded PHQ-2 Total Score 0 11/20/2024 [facility] - Occupational [...] for daily living? No 12/13/2023 [facility] IP Transportation Answer D ate Recorded [...] Sign Reading Time Taken Comments Blood Pressure 110/58 05/07/2025 9:58 AM EDT Pulse 92 05/07/2025 9:58 AM EDT Temperature 36.9 C (98.5 F) 05/07/2025 9:58 AM EDT Respiratory Rate 14 05/07/2025 9:58 AM EDT Oxygen Saturation 93% 05/07/2025 9:58 AM EDT Inhaled Oxygen Concentration - - Weight 122.9 kg (271 lb) 05/07/2025 9:58 AM EDT Height 165.1 cm (5' 5 ) 04/18/2025 10:01 AM EDT Body Mass Index 45.1 04/18/2025 10:01 AM EDT Plan of Treatment Upcoming Encounters Date Type Department Care Team (Late st Contact Info) Description 08/08/2025 10:30 AM EST Office Visit [facility] Vascular Surg Edg 20 [facility] [address] [place] [phone] Kameron Coello, DO 20 [facility] [address] [place] [address] Medical Devices Implanted Type Area Netting Weaver Device Identifier Shelf Expiration Date Model / Serial / Lot System Sling Transobturator Halo Obtryx - [id number] Implanted:Qty: 1 on 08/09/2012 by Joel Gramajo MD at [facility] N/A: Bladder [place] SCI:MICROVASIVE: UROLOGY 06/09/2015 [id number] / / [id number] Procedures Procedure Name Priority Date/Time Associated Diagnosis Comments DRUG CONFIRMATION, BUPRENORPHINE AND METAB - URINE Routine 06/05/2025 10:18 AM EST Opioid dependence, continuous (HCC) Encounter for monitoring of patient compliance in drug treatment program DRUG CONFIRMATION, AMPHETAMINES - URINE Routine 06/05/2025 10:18 AM EST Opioid dependence, continuous (HCC) Encounter for monitoring of patient compliance in drug treatment program ETHYL GLUCURONIDE SCREEN W/ REFLEX, URINE-REF LAB Routine 06/05/2025 10:18 AM EST Opioid dependence, continuous (HCC) Encounter for monitoring of patient compliance in drug treatment program DRUGS OF ABUSE WITH REFLEX TO CONFIRMATION, URINE Routine 06/05/2025 10:18 AM EST Opioid dependence, continuous (HCC) Encounter for monitoring of patient compliance in drug treatment program DRUG CONFIRMATION, BUPRENORPHINE AND METAB - URINE Routine 05/07/2025 10:23 AM EDT Opioid dependence, continuous (HCC) Opioid dependence on agonist therapy (HCC) Encounter for monitoring of patient compliance in drug treatment program GABAPENTIN, URINE Routine 05/07/2025 10:23 AM EDT Opioid dependence, continuous (HCC) Opioid dependence on agonist therapy (HCC) Encounter for monitoring of patient compliance in drug treatment program ETHYL GLUCURONIDE SCREEN W/ REFLEX, URINE-REF LAB Routine 05/07/2025 10:23 AM EDT Opioid dependence, continuous (HCC) Opioid dependence on agonist therapy (HCC) Encounter for monitoring of patient compliance in drug treatment program DRUGS OF ABUSE WITH REFLEX TO CONFIRMATION, URINE Routine 05/07/2025 10:23 AM EDT Opioid dependence, continuous (HCC) Opioid dependence on agonist therapy (HCC) Encounter for monitoring of patient compliance in drug treatment program DRUG CONFIRMATION, BUPRENORPHINE AND METAB - URINE Routine 04/17/2025 10:30 AM EDT Opioid dependence, continuous (HCC) Opioid dependence on agonist therapy (HCC) Encounter for monitoring of patient compliance in drug treatment program GABAPENTIN, URINE Routine 04/17/2025 10:30 AM EDT Opioid dependence, continuous (HCC) Opioid dependence on agonist therapy (HCC) Encounter for monitoring of patient compliance in drug treatment program ETHYL GLUCURONIDE SCREEN W/ REFLEX, URINE-REF LAB Routine 04/17/2025 10:30 AM EDT Opioid dependence, continuous (HCC) Opioid dependence on agonist therapy (HCC) Encounter for monitoring of patient compliance in drug treatment program DRUGS OF ABUSE WITH REFLEX TO CONFIRMATION, URINE Routine 04/17/2025 10:30 AM EDT Opioid dependence, continuous (HCC) Opioid dependence on agonist therapy (HCC) Encounter for monitoring of patient compliance in drug treatment program DRUG CONFIRMATION, BUPRENORPHINE AND METAB - URINE Routine 04/03/2025 9:36 AM EDT Opioid dependence, continuous (HCC) Opioid dependence on agonist therapy (HCC) Encounter for monitoring of patient compliance in drug treatment program GABAPENTIN, URINE Routine 04/03/2025 9:36 AM EDT Opioid dependence, continuous (HCC) Opioid dependence on agonist therapy (HCC) Encounter for monitoring of patient compliance in drug treatment program ETHYL GLUCURONIDE SCREEN W/ REFLEX, URINE-REF LAB Routine 04/03/2025 9:36 AM EDT Opioid dependence, continuous (HCC) Opioid dependence on agonist therapy (HCC) Encounter for monitoring of patient compliance in drug treatment program DRUGS OF ABUSE WITH REFLEX TO CONFIRMATION, URINE Routine 04/03/2025 9:36 AM EDT Opioid dependence, continuous (HCC) Opioid dependence on agonist therapy (HCC) Encounter for monitoring of patient compliance in drug treatment program PATHOLOGY TISSUE REQUEST Routine 8:12 AM EDT Ingrown nail of great toe of right foot Osteomyelitis of third toe of left foot (HCC) Hammertoe of second toe of left foot INTRAOP AIRWAY PLACEMENT Routine 7:41 AM EDT [facility] EXCISION NAIL MATRIX PERMANENT REMOVAL 03/20/2025 7:40 AM EDT Ingrown nail of great toe of right foot Osteomyelitis of third toe of left foot (HCC) Hammertoe of second toe of left foot Special Needs Mini C-arm th [facility] CORRECTION HAMMERTOE 03/20/20 7:40 AM EDT Ingrown nail of great toe of right foot Osteomyelitis of third toe of left foot (HCC) Hammertoe of second toe of left foot Special Needs Mini C-arm th [facility] AMPUTATION TOE INTERPHALANGEAL JOINT 03/20/2025 7:40 AM EDT Ingrown nail of great toe of right foot Osteomyelitis of third toe of left foot (HCC) Hammertoe of second toe of left foot Special Needs Mini C-arm th GLUCOSE METER POC Routine 03/20/2025 7:19 AM EDT XR FOOT BILATERAL AP LATERAL AND OBLIQUE STANDING Routine 03/11/2025 2:42 PM EDT Ulcer of toe of left foot, with fat layer exposed (HCC) Ulcer of toe of right foot, with fat layer exposed (HCC) DRUG CONFIRMATION, BUPRENORPHINE AND METAB - [...] 2 diabetes mellitus without complication, unspecified whether penitentiary insulin use (HCC) CBC WITH DIFF Routine 11/20/2024 2:49 PM EDT Type 2 diabetes mellitus without complication, unspecified whether penitentiary insulin use (HCC) COMPREHENSIVE METABOLIC PANEL Routine 11/20/2024 2:49 PM EDT Type 2 diabetes mellitus without complication, unspecified whether penitentiary insulin use (HCC) Leg swelling HEMOGLOBIN A1C Routine 11/20/2024 2:49 PM EDT Type 2 diabetes mellitus without complication, unspecified whether penitentiary insulin use (HCC) DRUG CONFIRMATION, BUPRENORPHINE AND [...] XR CHEST PA AND LATERAL PIPE 10/29/19 2:46 PM EDT [id number] Routine 10/28/2024 2:29 PM EDT STREP A [...] WITH DIFF STAT 04/04/2024 2:37 PM EDT [id number] A/B Routine 03/31/2024 2:05 PM EDT DRUG [...] PANEL Routine 12/15/2023 3:05 PM EDT Hypokalemia ALBUMIN/CREATININE RATIO, RANDOM URINE Routine 12/15/2023 3:05 PM EDT Type 2 diabetes mellitus without complication, unspecified whether penitentiary insulin use (HCC) IRIS DIABETIC RETINOPATHY EXAM Routine 12/15/2023 3:04 PM EDT Type 2 diabetes mellitus without complication, unspecified whether polarity tester insulin use (HCC) GLUCOSE METER POC Routine 12/09/2023 1:24 PM EDT GLUCOSE METER POC Routine 12/09/2023 7:52 AM EDT ECG AND WAVEFORMS - TELEMETRY Routine 12/09/2023 7:00 AM EDT BASIC METABOLIC PANEL Early AM 12/09/2023 6:05 AM EDT CBC WITH DIFF Early AM 12/09/2023 6:05 AM EDT GLUCOSE METER POC Routine 12/09/2023 5:19 AM EDT [id number] Routine 12/09/2023 1:14 AM EDT GLUCOSE METER [...] temperature is warmto warm proximal to distal, grinder brake lining <3 secs. Neuro- protective and vibratory sensations [...] METABOLIC PANEL STAT 06/17/2020 11:17 AM EST [id number] Routine 06/17/2020 11:11 AM EST CBC WITH [...] Unspecified urinary incontinence Special Needs [facility]IND[facility] CPT 42793 [id number] 07/31 PKREV SUR[address]ANGE FR DR FRANCIS PRIMARY TO DR WASHINGTON & DR GRAMAJO TO DO THE TOT CYSTO PER [facility] ANTERIOR AND POSTERIOR REPAIR (CYSTOCELE AND RECTOCELE REPAIR) 08/09/2012 11:27 AM EST Cystocele, midline Unspecified urinary incontinence Special Needs [facility] C[facility] 62941 [id number] 07/31 PKREV SURG CHANGE FR DR FRANCIS PRIMARY TO DR WASHINGTON & DR GRAMAJO TO DO THE TOT CYSTO PER [facility] RM1/16 TRANSOBTURATOR TAPE URETHROPEXY-TOT- SUBURETHRAL WITH CYSTOSCOPY 08/09/2012 11:27 AM EST Cystocele, midline Unspecified urinary incontinence Special Needs [facility] C[facility] 24390 [id number] 07/31 PKREV SURG CHANGE FR DR FRANCIS PRIMARY TO DR WASHINGTON & DR GRAMAJO TO DO THE TOT CYSTO PER [facility] RM1/16 VAGINAL HYSTERECTOMY 08/09/2012 11:27 AM EST Cystocele, midline Unspecified urinary incontinence Special Needs [facility] CPT 10385 [id number] 07/31 PKREV SURG CHANGE FR DR FRANCIS PRIMARY TO DR WASHINGTON & DR GRAMAJO TO DO THE TOT CYSTO PER [facility] RM1/16 PAT UPDATED SPECIMEN STAT 08/09/2012 9:48 AM EST POCT URINE Routine 08/09/2012 9:11 AM EST PREADMISSION TYPE AND SCREEN Routine 08/01/2012 10:10 AM EST ANTIBODY SCREEN IGG Routine 08/01/2012 9:30 AM EST ABORH Routine 08/01/2012 9:30 AM EST DIFFERENTIAL Routine 08/01/2012 9:30 AM EST BASIC METABOLIC PANEL Routine 08/01/2012 9:30 AM EST CBC WITH DIFF Routine 08/01/2012 9:30 AM EST VITAMIN D, [id number] Routine 01/14/2011 11:32 AM EDT Fibromyalgia Arthritis [...] 04/12/2006 12:00 AM EDT Results * (ABNORMAL) DRUG CONFIRMATION, BUPRENORPHINE AND METAB - URINE (06/05/2025 10:18 AM EST) Only the most recent of27 resultswithin the time period is included. Buprenorphine <5 Cutoff 5 ng/mL ng/mL 06/07/2025 1:31 PM EST [facility] Buprenorphine Glucuronide 168(H) Cutoff 10 ng/mL ng/mL 06/07/2025 1:31 PM EST [facility] Norbuprenorphine <5 Cutoff 5 ng/mL ng/mL 06/07/2025 1:31 PM EST [facility] Norbuprenorphine Glucuronide >400(H) Cutoff 10 ng/mL ng/mL 06/07/2025 1:31 PM EST [facility] Naloxone <25 Cutoff 25 ng/mL ng/mL 06/07/2025 1:31 PM EST [facility] Urine STRUCTURE OF URINARY TRACT PROPER / Unknown 06/05/2025 10:18 AM EST 06/05/2025 10:18 AM EST Sandra Blanco [employer] URINE ORDERABLES Final Res ult [facility] [address] [facility] , [place] [address] * DRUG CONFIRMATION, AMPHETAMINES - URINE (06/05/2025 10:18 AM EST) Amphetamine <50 Cutoff 50 ng/mL ng/mL 06/07/2025 1:31 PM EST [facility] Methamphetamine <50 Cutoff 50 ng/mL ng/mL 06/07/2025 1:31 PM EST [facility] MDA <50 Cutoff 50 ng/mL ng/mL 06/07/2025 1:31 PM EST [facility] MDMA <50 Cutoff 50 ng/mL ng/mL 06/07/2025 1:31 PM EST [facility] MDEA <50 Cutoff 50 ng/mL ng/mL 06/07/2025 1:31 PM EST [email or web address] Phentermine <50 Cutoff 50 ng/mL ng/mL 06/07/2025 1:31 PM EST [email or web address] Urine STRUCTURE OF URINARY TRACT PROPER / Unknown 06/05/2025 10:18 AM EST 06/05/2025 10:18 AM EST Sandra Blanco [employer] URINE ORDERABLES Final Res ult Performing Organization Address City/[facility] Co de Phone Number [facility] [address] [facility] , [place] [address] * ETHYL GLUCURONIDE SCREEN W/ REFLEX, URINE-REF LAB (06/05/2025 10:18 AM EST) Only the most recent of21 resultswithin the time period is included. U Ethyl Glucuronide Screen w/R Negative ng/mL 06/06/2025 8:53 PM EST [facility] Comment: Presumptively Negative by immunoassay. Testing by mass spectrometry is available on request. INTERPRETIVE INFORMATION: Ethyl Glucuronide Screen, Urine Methodology: Immunoassay Positive Cutoff: 500 ng/mL Performed By: [facility] [address] [place] [address] Housing And Residence Life Director: Mervin King MD, PhD CLIA Number: [id number] Urine STRUCTURE OF URINARY TRACT PROPER / Unknown 06/05/2025 10:18 AM EST 06/05/2025 10:18 AM EST Sandra Blanco [employer] URINE ORDERABLES Final Res ult Performing Organization Address [facility]/ZIP Co de Phone Number [facility] [address] [place], [place] [phone] * (ABNORMAL) DRUGS OF ABUSE WITH REFLEX TO CONFIRMATION, URINE (06/05/2025 10:18 AM EST) Only the most recent of27 resultswithin the time period is included. 6 AM (Heroin) Absent Cutoff 10 ng/mL 06/05/2025 9:45 PM EST [facility] Amphetamines Presumptive Pos(A) Cutoff 500 ng/mL 06/05/2025 9:45 PM EST [facility] Barbiturates Absent Cutoff 200 ng/mL 06/05/2025 9:45 PM EST [facility] Benzodiazepines Absent Cutoff 200 ng/mL 06/05/2025 9:45 PM EST [facility] Buprenorphine Presumptive Pos(A) Cutoff 5 ng/mL 06/05/2025 9:45 PM EST [facility] Cannabinoid Metabolite Absent Cutoff 50 ng/mL 06/05/2025 9:45 PM EST [facility] Cocaine Metabolite Absent Cutoff 150 ng/mL 06/05/2025 9:45 PM EST [facility] Fentanyl Absent Cutoff 5 ng/mL 06/05/2025 9:45 PM EST [facility] Methadone and Metabolite Absent Cutoff 300 ng/mL 06/05/2025 9:45 PM EST [facility] Opiate Absent Cutoff 300 ng/mL 06/05/2025 9:45 PM EST [facility] Oxycodone Lvl Absent Cutoff 100 ng/mL 06/05/2025 9:45 PM EST [facility] Urine Creatinine 71.1 mg/dL 06/05/20 25 9:45 PM EST [facility] Comment: Greater than 20: Consistent with valid sample Greater than 2 but less than 20: Possible dilution Less than 2: Questionable valid sample Urine STRUCTURE OF URINARY TRACT PROPER / Unknown 06/05/2025 10:18 AM EST 06/05/2025 10:18 AM EST Narrative [facility] - 06/05/2025 9:45 PM EST These drug classes have been qualitatively screened [...] could cause erroneous results. us Sandra Blanco [employer]ER URINE ORDERABLES Final Res ult [facility], [address] , [place] [address] * (ABNORMAL) GABAPENTIN, URINE (05/07/2025 10:23 AM EDT) Only the most recent of13 resultswithin the time period is included. Gabapentin >2,000(H) Cutoff 50 ng/mL ng/mL 05/09/2025 12:59 PM EDT [facility] Comment:e.g, Neurontin Urine Creatinine 77.2 mg/dL 05/09/20 12:59 PM EDT [facility] Comment: Greater than 20: Consistent with valid sample Greater than 2 but less than 20: Possible dilution Less than 2: Questionable valid sample Greater than 20: Consistent with valid sample Greater than 2 but less than 20: Possible dilution Less than 2: Questionable valid sample Urine STRUCTURE OF URINARY TRACT PROPER / Unknown 05/07/2025 10:23 AM EDT 05/07/2025 10:23 AM EDT Narrative [facility] - 05/09/2025 12:59 PM EDT The absence of expected drug(s), and/or drug metabolite(s), may indicate non-compliance, diluted or adulterated urine, poor drug absorption, concentration of drug below the cut-off, timing of specimen collection relative to administration of drug, or limitations of testing. Specimens are held for 7 days. This test was developed, and its performance characteristics determined by [facility] ([facility]). It has not been cleared or approved by the FDA. This test is used for clinical purposes. It should not be regarded as investigational or for research. [facility] is certified under the Clinical Laboratory Improvement Amendments (CLIA) as qualified to perform high complexity clinical laboratory testing. us Sandra Blanco APRN URINE ORDERABLES Final Res ult [facility] [address] [place] [address] [facility] [address] , [place] [address] * PATHOLOGY TISSUE REQUEST (03/20/2025 8:12 AM EDT) Only the most recent of2 resultswithin the time period is included. CASE REPORT Surgical Pathology Case: [id number] Authorizing Provider: Max Gifford DPM Collected: 03/20/2025 0812 Ordering Location: [facility] Received: 03/20/2025 1145 Pathologist: Johnny Crockett MD Specimen: Foot, Left, distal toes 2 and 3 03/22/2025 9:29 AM EDT [facility] FINAL DIAGNOSIS Left foot, distal and toes, 2nd and 3rd, amputation: - First toe: - Skin ulcer with underlying acute inflammation - Bone negative for acute osteomyelitis -Second toe: - Bone negative for acute osteomyelitis 03/22/2025 9:29 AM EDT [facility] at 0929 EDT GROSS DESCRIPTION A. Received in formalin, in a container labeled with the patient's name, hospital number, and Foot, Left, distal toes 2 and 3 , are two toe disarticulations. The first toe is 1.8 cm in length x 2.0 cm wide x 1.6 cm dorsal to plantar with an intact nail present and is inked blue. The second toe is 1.5 cm in length by 1.6 cm wide by 1.3 cm dorsal to plantar with an intact nail present and is inked orange. Toe 1: A 2.1 x 1.6 cm hidalgo-hall crusted lesion is present, and is within 0.1 cm from the skin and soft tissue margin. The underlying bone is hidalgo and trabeculated. The underlying soft tissue is hidalgo and fibrous. Toe 2: No distinct lesion is present along the second toe. The underlying bone is hidalgo trabeculated and the underlying soft tissue is hidalgo and unremarkable. Scrum Master sections are submitted as follows: A1: Longitudinal section of toe 1 to include lesion closest to skin and soft tissue margin and disarticulation surface, following Decal Stat A2: Longitudinal section of toe 2 to include lesion closest to skin and soft tissue margin and disarticulation surface, following Decal Stat Ana Riley MS, PA (ASCP) 03/21/2025 03/22/2025 9:29 AM EDT [facility] MICROSCOPIC DESCRIPTION The microscopic examination may have been rendered in whole, or in part, by analyzing high-resolution digital images (whole slide images) on the Table8ra Digital Pathology platform validated at [facility]. 03/22/2025 9:29 AM EDT [facility] EMBEDDED IMAGES 03/22/2025 9:29 AM EDT [facility] Tissue STRUCTURE OF LEFT FOOT / Unknown 03/20/2025 8:12 AM EDT 03/20/2025 11:45 AM EDT us Max Gifford DPM PATHOLOGY ORDERABLES Final Result [address] [phone] [facility] [address] [place] [id number] * INTRAOP AIRWAY PLACEMENT (03/20/2025 7:41 AM EDT) Narrative [facility] - 03/20/2025 7:41 AM EDT Arabella Raymond CRNA 03/20/2025 7:49 AM Intraop Airway Placement: Date/Time: 03/20/2025 7:41 AM Induction type: IV Airway type: Nasal cannula salter us Hiral Hicks MD [facility] Final Result Performing Organization Address City/[facility]/ZIP Co de Phone Number [facility] [address] [place] [phone] * (ABNORMAL) GLUCOSE METER POC (03/20/2025 7:19 AM EDT) Only the most recent of9 resultswithin the time period is included. Glucose Meter POC 110(H) 70 - 100 mg/dL 03/20/2025 7:21 AM EDT [facility] Sample Type Capillary 03/20/2025 7:21 AM EDT [facility] Patient Status Non-Critical Patient 03/20/2025 7:21 AM EDT [facility] Blood BLOOD SPECIMEN / Unknown 03/20/2025 7:19 AM EDT 03/20/2025 7:21 AM EDT Max Gifford DPM POINT OF CARE TEST ORDERABL ES Final Result [facility] [address] [place] [address] * XR FOOT BILATERAL AP LATERAL AND OBLIQUE STANDING (03/11/2025 2:42 PM EDT) Anatomical Region Laterality Modality Foot Radiographic Evonne ging Narrative 03/21/2025 10:13 PM EDT Reviewed three-view x-ray of both feet-noted erosive changes distal phalanx left third toe consistent with osteomyelitis. Noted previous partial amputation on the right second toe. 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 No gross arthritic changes noted. No fracture or dislocation. No other osseous lesions. Max Gifford DPM IMG DIAGNOSTIC IMAGING ORDE RABMARK Final Result * (ABNORMAL) URINALYSIS REFLEX (02/12/2025 4:33 PM EDT) Only the most recent of2 resultswithin the time period is included. UA Color Yellow 02/12/2025 4:45 PM EDT [facility] UA Appear Clear Clear 02/12/2025 4:45 PM EDT [facility] UA Glucose Negative Negative mg/dL 02/12/2025 4:45 PM EDT [facility] UA Ketones Negative Negative mg/dL 02/12/2025 4:45 PM EDT [facility] UA Blood Negative Negative 02/12/2025 4:45 PM EDT [facility] UA pH 6.5 5.0 - 8.0 pH 02/12/2025 4:45 PM EDT [facility] UA Protein 30(A) Negative mg/dL 02/12/2025 4:45 PM EDT [facility] UA Urobilinogen 0.2 <=1 mg/dL 4:45 PM EDT [facility] UA Bili Negative Negative 02/12/2025 4:45 PM EDT [facility] UA Nitrite Positive(A) Negative 02/12/2025 4:45 PM EDT [facility] UA Leuk Est Moderate(A) Negative 02/12/2025 4:45 PM EDT [facility] UA Spec Grav 1.025 1.001 - 1.035 no units 02/12/2025 4:45 PM EDT [facility] Comment:Reference range tigre d for random specimens only. UA WBC >100(H) 0 - 4 /HPF 02/12/2025 4:45 PM EDT [facility] UA RBC 2 0 - 3 /HPF 02/12/2025 4:45 PM EDT [facility] UA Squam Epi Rare /LPF 02/12/2025 4:45 PM EDT [facility] UA Mucus 1+ /LPF 02/12/2025 4:45 PM EDT [facility] UA Amorph 2+ /HPF 02/12/2025 4:45 PM EDT [facility] UA Bacteria 4+(A) Negative /HPF 02/12/2025 4:45 PM EDT [facility] Urine STRUCTURE OF URINARY TRACT PROPER / Unknown 02/12/2025 4:33 PM EDT 02/12/2025 4:39 PM EDT us Harriet Quinn MD URINE ORDERABLES Final Resu lt Performing Organization Address [facility] Co de Phone Number [facility] [address] [place] [address] * EXTRA HALL URINE CX (02/12/2025 4:33 PM EDT) Only the most recent of4 resultswithin the time period is included. Urine STRUCTURE OF URINARY TRACT PROPER / Unknown 02/12/2025 4:33 PM EDT 02/12/2025 4:39 PM EDT Harriet Quinn MD MICROBIOLOGY - GENERAL ORDE RABLES Final Result Performing Organization Address [facility] Co de Phone Number [facility] [address] [place], [place] [phone] * URINE CULTURE (NO STAIN) (02/12/2025 4:33 PM EDT) Only the most recent of3 resultswithin the time period is included. Culture Multiple bacterial species isolated from urine consistent with urogenital commensal organisms. 02/14/2025 2:05 AM EDT [facility] Urine STRUCTURE OF URINARY TRACT PROPER / Unknown 02/12/2025 4:33 PM EDT 02/12/2025 4:45 PM EDT Harriet Quinn MD MICROBIOLOGY - GENERAL LINDA HALLMAN Final Result [facility] [address] [facility] , [place] [address] * (ABNORMAL) CBC WITH DIFF (02/12/2025 4:05 PM EDT) Only the most recent of21 resultswithin the time period is included. Pathologist [facility] WBC 3.0(L) 3.7 - 10.3 x10(3)/mcL 02/12/2025 4:17 PM EDT [facility] RBC 5.13 3.90 - 5.20 x10(6)/mcL 02/12/2025 4:17 PM EDT [facility] Hgb 10.5(L) 11.2 - 15.7 g/dL 02/12/2025 4:17 PM EDT [facility] Hct 36.5 34.0 - 45.0 % 02/12/2025 4:17 PM EDT [facility] MCV 71.2(L) 80.0 - 100.0 fL 02/12/2025 4:17 PM EDT [facility] MCH 20.5(L) 26.0 - 34.0 pg 02/12/2025 4:17 PM EDT [facility] MCHC 28.8(L) 30.7 - 35.5 g/dL 02/12/2025 4:17 PM EDT [facility] RDW 16.9(H) <=14.9 % 02/12/2025 4:17 PM EDT [facility] Platelet 210 155 - 369 x10(3)/mcL 02/12/2025 4:17 PM EDT [facility] MPV 9.9 8.8 - 12.5 fL 02/12/2025 4:17 PM EDT [facility] Neut Percent 35.0 % 02/12/2025 4:17 PM [facility] Comment:Neutrophils equals s egs plus bands Imm Gran% 0.0 % 02/12/2025 4:17 PM [facility] Comment:Automated count of m etamyelocytes, myelocytes and promyelocytes. Lymph Percent 52.3 % 02/12/2025 4:17 PM EDT [facility] [place] Percent 9.7 % 02/12/2025 4:17 PM [facility] Eos Percent 2.7 % 02/12/2025 4:17 PM [facility] Baso Percent 0.3 % 02/12/2025 4:17 PM [facility] Neut # 1.1(L) 1.6 - 6.1 x10(3)/[facility] 02/12/2025 4:17 PM [facility] Comment:Neutrophils equals s egs plus bands IMMGRAN# 0.0 0.0 - 0.1 x10(3)/[facility] 02/12/2025 4:17 PM [facility] Comment:Automated count of m etamyelocytes, myelocytes and promyelocytes. An absolute IG <0.1 is reported as 0.0. Lymph # 1.6 1.2 - 3.9 x10(3)/[facility] 02/12/2025 4:17 PM EDT [facility] [place] # 0.3 0.3 - 0.9 x10(3)/[facility] 02/12/2025 4:17 PM [facility] Eos# 0.1 0.0 - 0.5 x10(3)/[facility] 02/12/2025 4:17 PM [facility] Baso # 0.0 0.0 - 0.1 x10(3)/[facility] 02/12/2025 4:17 PM [facility] Blood VENOUS BLOOD / Unknown Venipuncture / Unknown 02/12/2025 4:05 PM EDT 02/12/2025 4:07 PM EDT Harriet Quinn MD HEMATOLOGY ORDERABLES Final Result [facility] [address] [place] [phone] * (ABNORMAL) COMPREHENSIVE METABOLIC PANEL (02/12/2025 4:05 PM EDT) Only the most recent of9 resultswithin the time period is included. Sodium 139 136 - 145 mmol/L 02/12/2025 4:22 PM EDT [facility] Potassium 3.1(L) 3.5 - 5.0 mmol/L 02/12/2025 4:22 PM EDT [facility] Chloride 101 98 - 107 mmol/L 02/12/2025 4:22 PM EDT [facility] Total CO2 27 22 - 29 mmol/L 02/12/2025 4:22 PM EDT [facility] Anion Gap 11 7 - 16 mmol/L 02/12/2025 4:22 PM EDT [facility] Calcium 8.6 8.6 - 10.4 mg/dL 02/12/2025 4:22 PM EDT [facility] Glucose Lvl 98 70 - 99 mg/dL 02/12/2025 4:22 PM EDT [facility] BUN 13 6 - 20 mg/dL 02/12/2025 4:22 PM EDT [facility] Creatinine 0.60 0.51 - 1.30 mg/dL 02/12/2025 4:22 PM EDT [facility] Albumin 4.0 3.5 - 5.2 gm/dL 02/12/2025 4:22 PM EDT [facility] Total Protein 7.7 6.4 - 8.3 gm/dL 02/12/2025 4:22 PM EDT [facility] Bili Total 0.2 0.2 - 1.3 mg/dL 02/12/2025 4:22 PM EDT [facility] ALT 22 <=41 U/L 02/12/2025 4:22 PM T [facility] AST 25 <=40 U/L 02/12/2025 4:22 PM T [facility] Alk Phos 129(H) 36 - 123 U/L 02/12/2025 4:22 PM EDT [facility] eGFR (CKD-EPIcr 2020) 112 >=60 mL/min/1.7 3 m2 02/12/2025 4:22 PM EDT [facility] Comment:Estimated GFR was ca lculated using the CKD-EPIcr (2020) equation refit without race. The equation is recommended by the National Kidney Foundation - [place] [employer] Nephrology Task Force. Blood VENOUS BLOOD / Unknown Venipuncture / Unknown 02/12/2025 4:05 PM EDT 02/12/2025 4:07 PM EDT us Harriet Quinn MD CHEMISTRY ORDERABLES Final Result Performing Organization Address City/[facility]/ZIP Co de Phone Number [facility] [address] [place] [address] * (ABNORMAL) IRON+TIBC (11/20/2024 2:49 PM EDT) Only the most recent of3 resultswithin the time period is included. Pathologist [facility] Iron 36 30 - 160 mcg/dL 11/22/2024 12:18 PM EDT [facility] Transferrin 434(H) 200 - 360 mg/dL 11/22/2024 12:18 PM EDT [facility] [employer] Saturation 6(L) 20 - 50 % 11/22/2024 12:18 PM EDT [facility] TIBC 608(H) 250 - 400 mcg/dL 11/22/2024 12:18 PM EDT [facility], [facility] Blood VENOUS BLOOD / Unknown Venipuncture / Unknown 11/20/2024 2:49 PM EDT 11/20/2024 2:49 PM EDT Preet Palomares MD CHEMISTRY ORDERABLES Final R esult Performing Organization Address City/[facility]/ZIP Co de Phone Number [facility] [address] [facility] , [place] [address] * (ABNORMAL) THYROID STIMULATING HORMONE (11/20/2024 2:49 PM EDT) Only the most recent of4 resultswithin the time period is included. Pathologist [facility] TSH 5.010(H) 0.270 - 4.200 mcIU/mL 11/20/2024 8:57 PM EDT [facility] Blood VENOUS BLOOD / Unknown Venipuncture / Unknown 11/20/2024 2:49 PM EDT 11/20/2024 2:49 PM EDT Narrative [facility] - 11/20/2024 8:57 PM EDT Ingestion of kwasi doses of biotin (>5 mg/day) taken within 8 hours of drawing blood sample can interfere with this immunoassay test. Mervin Toribio MD CHEMISTRY ORDERABLES Fi nal Result Performing Organization Address [facility] de Phone Number [facility] [employer] [address] , [place] [address] * T4, FREE (THYROXINE) (11/20/2024 2:49 PM EDT) Only the most recent of4 resultswithin the time period is included. [facility] Free T4 1.04 0.80 - 1.80 ng/dL 11/20/2024 8:57 PM EDT [email or web address] Blood VENOUS BLOOD / Unknown Venipuncture / Unknown 11/20/2024 2:49 PM EDT 11/20/2024 2:49 PM EDT Narrative [facility] [employer] [facility] - 11/20/2024 8:57 PM EDT Ingestion of kwasi doses of biotin (>5 mg/day) taken within 8 hours of drawing blood sample can interfere with this immunoassay test. Mervin Toribio MD CHEMISTRY ORDERABLES Fi nal Result Performing Organization Address [facility] Co de Phone Number [facility] [employer] [address] , [place] [address] * (ABNORMAL) NT PROBNP (11/20/2024 2:49 PM EDT) Only the most recent of3 resultswithin the time period is included. [facility] NT Pro-BNP 339(H) <=192 pg/mL 11/20/2024 8:47 PM EDT [facility] Blood VENOUS BLOOD / Unknown Venipuncture / Unknown 11/20/2024 2:49 PM EDT 11/20/2024 2:49 PM EDT [facility] - 11/20/2024 8:47 PM EDT An NT pro-BNP level less than 300 pg/mL in any patient, regardless of age, effectively rules out acute CHF with a 99% negative predictive value. Ingestion of kwasi doses of biotin (>5 mg/day) taken within 8 hours of drawing blood sample can interfere with this immunoassay test. Mervin Toribio MD CHEMISTRY ORDERABLES Fi nal Result Performing Organization Address [facility]/ZIP Co de Phone Number [facility] [address] [place] [address] , [place] [address] * (ABNORMAL) HEMOGLOBIN A1C (11/20/2024 2:49 PM EDT) Only the most recent of4 resultswithin the time period is included. Hgb A1C 6.1(H) 4.2 - 5.6 % 11/20/2024 9:21 PM EDT [facility] Est. Avg Glucose 128 mg/dL 11/20/2024 9:21 PM EDT [facility] Blood VENOUS BLOOD / Unknown Venipuncture / Unknown 11/20/2024 2:49 PM EDT 11/20/2024 2:49 PM EDT [facility] - 11/20/2024 9:21 PM EDT REFERENCE RANGE: Normal: 4.0-5.6% Pre-diabetes: 5.7-6.4% Provisional diagnosis of diabetes: >6.4% Hgb F>10% and anything which shortens red cell survival, such as hemolytic anemia, or unstable hemoglobin variants such as HbSS, HbSC, or HbCC, will lower the HbA1c value associated with a given level of glycemic control. us Mervin Toribio MD CHEMISTRY ORDERABLES Fi nal Result Performing Organization Address [facility]/ZIP Co de Phone Number [facility] [address] [place] [address] , [place] [address] * (ABNORMAL) FERRITIN (11/20/2024 2:49 PM EDT) Only the most recent of2 resultswithin the time period is included. Ferritin 14(L) 30 - 150 ng/mL 11/22/2024 12:18 PM EDT [email or web address] Comment:The lower threshold of 30 is not statistically defined, nor internally validated. The threshold has been updated to more closely reflect a physiologic basis. Niki Carballo, et al. Physiologically based serum ferritin thresholds for iron deficiency in children and non- women: a [place] National Health and Nutrition Examination Surveys (NHANES) serial cross-sectional study. Lancet Haematol 2021;8:e572-82. Blood VENOUS BLOOD / Unknown Venipuncture / Unknown 11/20/2024 2:49 PM EDT 11/20/2024 2:49 PM EDT Narrative [facility] [employer] [facility] - 11/22/2024 12:18 PM EDT Ingestion of kwasi doses of biotin (>5 mg/day) taken within 8 hours of drawing blood sample can interfere with this immunoassay test. Preet Palomares MD CHEMISTRY ORDERABLES Final R esult [facility] [address] [facility] , [place] [address] * (ABNORMAL) LIPID SCREEN (11/20/2024 2:49 PM EDT) Only the most recent of3 resultswithin the time period is included. Cholesterol 186 <200 mg/dL 11/20/2024 8:57 PM EDT [facility] Comment: < 200 Desirable 200 - 239 Borderline High >= 240 High Triglyceride 86 <150 mg/dL 11/20/2024 8:57 PM EDT [email or web address] Comment: < 150 Normal 150 - 199 Borderline High 200 - 499 High >= 500 Very High HDL 66 >=40 mg/dL 11/20/2024 8:57 PM EDT [email or web address] Comment: > 60 Optimal 40 - 60 Acceptable < 40 Low LDL Calculated 104(H) <100 mg/dL 11/20/2024 8:57 PM EDT [facility] Comment: < 100 Optimal 100 - 129 Near or above optimal 130 - 159 Borderline High 160 - 189 High >= 190 Very High The National Institutes of Health (NIH) equation is used for all lipid panels that report calculated LDL (LDL-C). Non-HDL-C Calculated 120 <=129 mg/dL 11/20/2024 8:57 PM EDT [facility] Comment: <130 Desirable 130-159 Above Desirable 160-189 Borderline High 190-219 High >= 220 Very High Fasting Specimen? Unknown None 025 8:57 PM EDT [facility] Blood VENOUS BLOOD / Unknown Venipuncture / Unknown 11/20/2024 2:49 PM EDT 11/20/2024 2:49 PM EDT us Mervin Toribio MD CHEMISTRY ORDERABLES [facility] Result [email or web address] [address] , [place] [address] * (ABNORMAL) BASIC METABOLIC PANEL (10/28/2024 2:52 PM EDT) Only the most recent of17 resultswithin the time period is included. Sodium 134(L) 136 - 145 mmol/L 10/28/2024 3:29 PM EDT [facility] Potassium 2.9(LL) 3.5 - 5.0 mmol/L 10/28/2024 3:29 PM EDT [facility] Chloride 91(L) 98 - 107 mmol/L 10/28/2024 3:29 PM EDT [facility] Total CO2 30(H) 22 - 29 mmol/L 10/28/2024 3:29 PM T [facility] Anion Gap 13 7 - 16 mmol/L 10/28/2024 3:29 PM T [facility] Calcium 9.3 8.6 - 10.4 mg/dL 10/28/2024 3:29 PM T [facility] Glucose Lvl 93 70 - 99 mg/dL 10/28/2024 3:29 PM EDT [facility] BUN 13 6 - 20 mg/dL 10/28/2024 3:29 PM EDT [facility] Creatinine 0.69 0.51 - 1.30 mg/dL 10/28/2024 3:29 PM EDT [facility] eGFR (CKD-EPIcr 2020) 108 >=60 mL/min/1.7 3 m2 10/28/2024 3:29 PM EDT [facility] Comment:Estimated GFR was ca lculated using the CKD-EPIcr (2020) equation refit without race. The equation is recommended by the National Kidney Foundation - [place] [employer] of Nephrology Task Force. Blood VENOUS BLOOD / Unknown Venipuncture / Unknown 10/28/2024 2:52 PM EDT 10/28/2024 3:02 PM EDT us Shaye Gibson WEB PRESS ROLL TENDER CHEMISTRY ORDERABLES Final Result [facility] [address] [place], [place] [id number] * XR CHEST PA AND LATERAL (10/28/2024 [...] please contactthe office of the ordering clinician. Shaye Gibson APRN IMG DIAGNOSTIC IMAGING ORDE RABLES Final Result * [id number] (10/28/2024 2:29 PM EDT) Only the most recent of3 resultswithin the time period is included. [facility] CORONAVIRUS [id number] Not Detected Not Detected 10/28/2024 2:59 PM EDT [facility] Influenza A DNA Not Detected Not Detected 10/28/2024 2:59 PM EDT [facility] Influenza B DNA Not Detected Not Detected 10/28/2024 2:59 PM EDT [facility] RSV DNA Not Detected Not Detected 10/28/2024 2:59 PM EDT [facility] Swab BOTH ANTERIOR NARES / Unknown 10/28/2024 2:29 PM EDT 10/28/2024 2:38 PM EDT Narrative [facility] - 10/28/2024 2:59 PM EDT This test is performed using the Chichi christine gerardo system and is for use under the FDA s Emergency Use Authorization. Shaye Gibson APRN MICROBIOLOGY - GENERAL ORDE RABLES Final Result [facility] [address] [place] [address] * (ABNORMAL) STREP A DNA (10/28/2024 2:29 PM EDT) [facility] Strep A DNA Detected(A ) Not Detected 10/28/2024 2:58 PM EDT [facility] Swab STRUCTURE OF ANTERIOR REGION OF NECK / Unknown 10/28/2024 2:29 PM EDT 10/28/2024 2:38 PM EDT Narrative [facility] - 10/28/2024 2:58 PM EDT The Chichi GERARDO Strep A assay utilizes nucleic acid purification and polymerase chain reaction (PCR) technology to detect Streptococcus pyogenes by targeting a segment of the Streptococcus pyogenes genome. Shaye Gibson APRN MICROBIOLOGY - GENERAL ORDRohit HALLMAN Final Result [facility] [address] [place] [address] * XR CHEST AP PORTABLE (05/20/2024 5:13 [...] lungs. Procedure Note Valente Lechuga MD - 05/20/2024 XR CHEST AP PORTABLE, 05/20/2024 5:13 AM [...] of the ordering clinician. Harriet Quinn MD IMG DIAGNOSTIC IMAGING LINDA HALLMAN Final Result * CT ABD PEL ED [...] please contactthe office of the ordering clinician. Sophie Richardson PA-C IM CT ORDERABLES Final Resul t * LIPASE LEVEL (04/04/2024 2:37 PM EDT) Only the most recent of5 resultswithin the time period is included. Lipase Lvl 18 13 - 60 U/L 04/04/2024 2:56 PM EDT [facility] Blood VENOUS BLOOD / Unknown Venipuncture / Unknown 04/04/2024 2:37 PM EDT 04/04/2024 2:40 PM EDT Sophie Richardson PA-C CHEMISTRY ORDERABLES Final Re sult Performing Organization Address [facility]/ZIP Co de Phone Number [facility] [address] [place] [address] * [id number] A/B (03/31/2024 2:05 PM EDT) CORONAVIRUS [id number] Not Detected Not Detected 03/31/2024 2:33 PM EDT [facility] Influenza A DNA Not Detected Not Detected 03/31/2024 2:33 PM EDT [facility] Influenza B DNA Not Detected Not Detected 03/31/2024 2:33 PM EDT [facility] Swab BOTH ANTERIOR NARES / Unknown 03/31/2024 2:05 PM EDT 03/31/2024 2:08 PM EDT Narrative [facility] - 03/31/2024 2:33 PM [...] Beata Zambrano APRN MICROBIOLOGY - GENERAL ORDE RABLES Final Result Performing Organization Address City/[facility]/ZIP Co de Phone Number [facility] [address] [place] [address] * MICROALBUMIN/CREATININE RATIO URINE (12/15/2023 3:05 PM EDT) Pathologist [facility] Urine Albumin <12.0 mg/L 12/15/2023 10:36 PM EDT [facility] Urine Creatinine 63.3 mg/dL 12/15/19 24 10:36 PM EDT [facility] Ur Albumin/Creat Ratio 12/15/2023 10:36 PM EDT [facility] Comment: Because the albumin level is below [...] Mervin Toribio MD URINE ORDERABLES Final Result [facility] [address] , [place] [address] * IRIS DIABETIC RETINOPATHY EXAM (12/15/2023 3:04 PM EDT) Pathologist [facility] Retinopathy Exam Severity NORMAL [facility] Right Diabetic Retinopathy None [facility] Right Macular Edema None [facility] Right Other Retina None [facility] Right Eye Image Quality Gradable Image [facility] Left Diabetic Retinopathy None [facility] Left Macular Edema None [facility] Left Other Retina None [facility] Left Eye Image Quality Gradable Image [facility] 12/15/2023 3:04 PM EDT 12/15/2023 3:04 PM EDT Imp[facility] - 12/15/2023 9:36 PM EDT Retinal Study Result for KEISHA SUTTON, a 43 y/o, F (: 1980, ) presented to [facility] on 12-15-2023 for a retinal imaging [...] signed by Sagrario Lopez MD, , Taxonomy: [id number] on 12-16-2023 01:36 [facility]. NOTE: Any pathology noted on this diabetic retinal evaluation should be confirmed by an appropriate ophthalmic examination. us Mervin Toribio MD OPHTHALMOLOGY SERVICES ORDERABLES Final Result Performing Organization Address [facility] Co de Phone Number [facility] [address] [place] [address] * ECG AND WAVEFORMS - TELEMETRY (12/08/2023 7:00 PM EDT) Only the most recent of5 resultswithin the time period is included. ECG INTERPRET NSR with PVCs [facility] 12/08/2023 7:00 PM EDT Narrative [facility] - 12/08/2023 9:38 PM EDT /AC/HICUITY ROUTINE VA 0.20 QRS 0.08 QT 0.39 See Clinical Report link for waveform capture us Unknown Provider POINT OF CARE CARDIOLOGY Final Result Performing Organization Address [facility] de Phone Number [facility] [address] [place] [address] * (ABNORMAL) TRANSFERRIN (12/08/2023 4:39 AM EDT) Transferrin 366(H) 200 - 360 mg/dL 12/08/2023 9:52 AM EDT [facility], [facility] Blood VENOUS BLOOD / Unknown Venipuncture / Unknown 12/08/2023 4:39 AM EDT 12/08/2023 6:04 AM EDT Vitaly Marsh Jr., MD IMMUNOLOGY ORDERABLES Final Result [facility] [address] , [place] [address] * MONONUCLEOSIS SCREEN (12/08/2023 4:39 AM EDT) Pathologist [facility] [place] Screen Negative Negative 12/09/2023 8:51 AM EDT [facility] Blood VENOUS BLOOD / Unknown Venipuncture / Unknown 12/08/2023 4:39 AM EDT 12/08/2023 6:04 AM EDT Susan Radic WEB [employer]ESS ROLL TENDER CHEMISTRY ORDERABLES Final Re sult Performing Organization Address [facility]/ZIP Co de Phone Number [facility] [address] , [place] [address] * SCANNED EKG (12/07/2023 10:37 AM EDT) Only the most recent of3 resultswithin the time period is included. Anatomical Region Laterality Modality Other 12/07/2023 10:3 7 AM EDT Unknown Provider IMG ECG ORDERABLES Final Result * (ABNORMAL) DRUG SCREEN RAPID PANEL, URINE (GRT,COV ONLY) (12/06/2023 8:54 PM EDT) Only the most recent of2 resultswithin the time period is included. Pathologist [facility] Cannabinoid Rapid Absent Absent 024 9:13 PM EDT [facility] Cocaine Rapid Absent Absent 12/06/2023 9:13 PM EDT [facility] Methamphetamine Rapid Absent Absent 12/06/2023 9:13 PM EDT [facility] Opiate Rapid Absent Absent 12/06/2023 9:13 PM EDT [facility] Amphetamine Rapid Absent Absent 024 9:13 PM EDT [facility] Benzodiazepines Rapid Absent Absent 12/06/2023 9:13 PM EDT [facility] Tricyclic Rapid Presumptive Pos(A) Absent 12/06/2023 9:13 PM EDT [facility] Methadone Rapid Absent Absent 4 9:13 PM EDT [facility] Barbiturate Rapid Absent Absent 024 9:13 PM EDT [facility] Oxycodone Rapid Absent Absent 4 9:13 PM EDT [facility] Urine URINE SPECIMEN COLLECTION / Unknown 12/06/2023 8:54 PM EDT 12/06/2023 9:00 PM EDT Narrative [facility] - 12/06/2023 9:13 PM [...] could cause erroneous results. 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 Not recommended to evaluate patient's oxygenation status. Base Excess Nicolas 9.0 mmol/L 4 7:46 PM EDT [facility] Hco3 Venous 36.6(H) 24.0 - 28.0 mmol/L 12/06/2023 7:46 PM EDT [facility] CO2 Total Nicolas 79(H) 25 - 29 mmol/L 12/06/2023 7:46 PM EDT [facility] O2 Sat. Venous 30.2(L) 40.0 - 70.0 % 12/06/2023 7:46 PM EDT [facility] Inspired O2 Room Air 12/06/2023 7:46 PM EDT [facility] Blood VENOUS BLOOD / Unknown Venipuncture / Unknown 12/06/2023 7:40 PM EDT 12/06/2023 7:44 PM EDT Cirilo Canseco APRN CHEMISTRY ORDERABLES Fin al Result Performing Organization Address [facility] de Phone Number [facility] [address] [place] [address] * (ABNORMAL) ACETAMINOPHEN LEVEL (12/06/2023 7:40 PM EDT) Acetaminophen Lvl <5.0(L) 10.0 - 30.0 mcg/mL 12/06/2023 8:24 PM EDT [facility] Blood VENOUS BLOOD / Unknown Venipuncture / Unknown 12/06/2023 7:40 PM EDT 12/06/2023 8:13 PM EDT Narrative [facility] - 12/06/2023 8:24 PM EDT Supratherapeutic: > 35 mcg/ml Toxic: > 200 mcg/ml (4h post ingestion) > 100 mcg/ml (8h post ingestion) > 50 mcg/ml (12h post ingestion) Cirilo Canseco APRN CHEMISTRY ORDERABLES Fin al Result Performing Organization Address [facility] de Phone Number [facility] [address] [place] [address] * SALICYLATE LEVEL (12/06/2023 7:40 PM EDT) Salicylate <0.5 <=30.0 mg/dL 12/06/2023 8:24 PM EDT [facility] Comment: Therapeutic range for anti-pyretic/analgesic conditions 3-10 mg/dL Therapeutic range for anti-inflammatory/rheumatic fever conditions 15-30 mg/dL Toxic range >30 mg/dL Blood VENOUS BLOOD / Unknown Venipuncture / Unknown 12/06/2023 7:40 PM EDT 12/06/2023 8:13 PM EDT us Cirilo Canseco WEB [employer]ESS ROLL TENDER CHEMISTRY ORDERABLES Fin al Result [facility] [address] [place] [address] * CT HEAD WO CONTRAST (12/06/2023 7:24 [...] - 1.9 mmol/L 12/06/2023 7:32 PM EDT [facility] Blood VENOUS BLOOD / Unknown Venipuncture / Unknown 12/06/2023 7:10 PM EDT 12/06/2023 7:23 PM EDT Cirilo Canseco APRN CHEMISTRY ORDERABLES Fin al Result [facility] [address] [place] [address] * ALCOHOL MEDICAL (12/06/2023 7:10 PM EDT) Alcohol Medical <10 <=10 mg/dL 7:36 PM EDT [facility] Comment: 50-100 mg/dL - [place]ushing, slowing of reflexes, impaired visual acuity > 100 mg/dL - Depression of DECKHAND CRAB BOAT > 400 mg/dL - Fatalities reported Blood VENOUS BLOOD / Unknown Venipuncture / Unknown 12/06/2023 7:10 PM EDT 12/06/2023 7:23 PM EDT us Cirilo Canseco WEB PRESS ROLL TENDER CHEMISTRY ORDERABLES Fin al Result [facility] [address] [place] [address] * EK EKG 12 LEAD (12/06/2023 6:52 PM EDT) Only the most recent of4 resultswithin the time period is included. Anatomical Region Laterality Modality Electrocardiogra phy 12/06/2023 6:53 PM EDT Impressions 12/06/2023 9:[address] [facility] Test Date: 2023-12-06 Pat Name: KEISHA SUTTON Department: DEPID Room: 01 Gender: Female Design Intern: : 1980 Requested By: FARHAD Bee Order Number: [id number] Reading MD: Jerrell Strickland Measurements Intervals Star Rate: 96 P: 30 VA: 172 QRS: 17 QRSD: 104 T: 21 QT: 286 QTc: 361 Interpretive Statements SINUS RHYTHM WITH OCCASIONAL VENTRICULAR PREMATURE COMPLEXES NONSPECIFIC T-WAVE ABNORMALITY Electronically Signed On 12-06-2023 21:43:46 EDT by Jerrell Strickland Narrative Procedure Note Jerrell Strickland MD - 12/06/2023 IMPRESSION [facility] [facility] Test Date: 2023-12-06 Pat Name: KEISHA SUTTON Department: DEPID Room: 01 Gender: Female Design Intern: : 1980 Requested By: FARHAD Bee Order Number: [id number] Reading : Jerrell Strickland Measurements Intervals Star Rate: 96 P: 30 VA: 172 QRS: 17 QRSD: 104 T: 21 QT: 286 QTc: 361 Interpretive Statements SINUS RHYTHM WITH OCCASIONAL VENTRICULAR PREMATURE COMPLEXES NONSPECIFIC T-WAVE ABNORMALITY Electronically Signed On 12-06-2023 21:43:46 EDT by Jerrell Strickland us Farhad Grove MD IMG ECG ORDERABLES Final Resu lt * HIV AG/AB (11/29/2023 4:27 PM EDT) Pathologist [facility] HIV Ag/AB Non-Reactiv e Non-Reacti ve 11/29/2023 9:47 PM EDT [facility] Blood VENOUS BLOOD / Unknown Venipuncture / Unknown 11/29/2023 4:27 PM EDT 11/29/2023 4:27 PM EDT Sandra Blanco WEB PRESS ROLL TENDER IMMUNOLOGY ORDERABLES Barbara l Result Performing Organization Address [facility] Co de Phone Number [facility] , [place] [phone] * SYPHILIS SCREEN WITH REFLEX RPR QUANT (11/29/2023 4:27 PM EDT) Pathologist [facility] Trep Ab Index 0.13 <=0.99 Index Value 11/29/2023 9:46 PM EDT [facility] Comment: < 1.00 - Non-Reactive >=1.00 - Reactive NOTE: All reactive results will be reflexed to Quantitative Non-Treponemal(RPR)test. Blood VENOUS BLOOD / Unknown Venipuncture / Unknown 11/29/2023 4:27 PM EDT 11/29/2023 4:27 PM EDT Sandra Blanco WEB PRESS ROLL TENDER CHEMISTRY ORDERABLES Final Result Performing Organization Address [facility] Co de Phone Number [facility] , [place] [address] * ACUTE HEPATITIS PANEL (11/29/2023 4:27 PM EDT) Pathologist [facility] Hep Bs Ag Non-Reacti ve Non-Reacti ve 11/29/2023 11:39 PM EDT [facility] Hep B Core IgM Non-Reacti ve Non-Reacti ve 11/29/2023 11:39 PM EDT [facility] Hep A IgM Non-Reacti ve Non-Reacti ve 11/29/2023 11:39 PM EDT [facility] Hep C Ab Non-Reacti ve Non-Reacti ve 11/29/2023 11:39 PM EDT [facility] Blood VENOUS BLOOD / Unknown Venipuncture / Unknown 11/29/2023 4:27 PM EDT 11/29/2023 4:27 PM EDT Sandra Blanco WEB PRESS ROLL TENDER CHEMISTRY ORDERABLES Final Result Performing Organization Address [facility] Phone Number [facility] [employer] [address] , [place] [address] * HEPATITIS B SURFACE ANTIBODY (11/29/2023 4:27 PM EDT) Hep Bs Ab <3.08 mIU/mL 11/29/2023 9:47 PM EDT [facility] Comment: < 8.00 mIU/mL - NON REACTIVE [...] EDT 11/29/2023 4:27 PM EDT Sandra Blanco WEB PRESS ROLL TENDER IMMUNOLOGY ORDERABLES Barbara l Result Performing Organization Address [facility] de Phone Number [facility] [address] , [place] [address] * HUMAN CHORIONIC GONADOTROPIN QUANTITATIVE (11/29/2023 4:27 PM EDT) Pathologist [facility] Hcg Quant <1 <5 mIU/mL 11/29/2023 9:4 3 PM EDT [facility] Blood VENOUS BLOOD / Unknown Venipuncture / Unknown 11/29/2023 4:27 PM EDT 11/29/2023 4:27 PM EDT Narrative [email or web address] - 11/29/2023 9:43 PM EDT Ingestion of kwasi doses of biotin (>5 mg/day) taken within 8 hours of drawing blood sample can interfere with this immunoassay test. Female (non-): 0-4.9 mIU/mL Female (postmenopausal): 0-8.1 mIU/mL Indeterminate values for (e.g., 5-25 mIU/mL) may be confirmed with a repeat test in 48-72 hours. Values in should double every 2-3 days for the first six weeks. Sandra Blanco APRN CHEMISTRY ORDERABLES Final Result Performing Organization Address [facility]/ZIP Co de Phone Number [facility] [address] , [place] [address] * GAMMA GLUTAMYL TRANSFERASE (11/29/2023 4:27 PM EDT) GGT 33 5 - 36 U/L 11/30/2023 9:30 AM EDT [facility] Blood VENOUS BLOOD / Unknown Venipuncture / Unknown 11/29/2023 4:27 PM EDT 11/29/2023 4:27 PM EDT Sandra Blanco WEB PRESS ROLL TENDER CHEMISTRY ORDERABLES Final Result Performing Organization Address [facility] Co de Phone Number [facility] [place] [address] * CREATININE (11/29/2023 4:27 PM EDT) Creatinine 0.75 0.51 - 1.30 mg/dL 11/29/2023 9:05 PM EDT [facility] eGFR (CKD-EPIcr 2020) 100 >=60 mL/min/1.7 3 m2 11/29/2023 9:05 PM EDT [facility] Comment:Estimated GFR was ca lculated using the CKD-EPIcr (2020) equation refit without race. The equation is recommended by the National Kidney Foundation - [place] [employer] of Nephrology Task Force. Blood VENOUS BLOOD / Unknown Venipuncture / Unknown 11/29/2023 4:27 PM EDT 11/29/2023 4:27 PM EDT Sandra Blanco WEB PRESS ROLL TENDER CHEMISTRY ORDERABLES Final Result Performing Organization Address City/[facility]/ZIP Co de Phone Number [facility] [address] , [place] [address] [facility] [address] [place] [phone] * (ABNORMAL) HEPATIC FUNCTION PANEL (11/29/2023 4:27 PM EDT) Only the most recent of5 resultswithin the time period is included. Pathologist [facility] Total Protein 8.2 6.4 - 8.3 gm/dL 11/29/2023 9:05 PM EDT [facility] Albumin 4.5 3.5 - 5.2 gm/dL 11/29/2023 9:05 PM EDT [facility] Bili Direct <0.2 0.0 - 0.3 mg/dL 11/29/2023 9:05 PM EDT [facility] Bili Total 0.2 0.2 - 1.3 mg/dL 11/29/2023 9:05 PM EDT [facility] AST 12 <=40 U/L 11/29/2023 9:05 PM EDT [facility] ALT 14 <=41 U/L 11/29/2023 9:05 PM EDT [facility] Alk Phos 129(H) 36 - 123 U/L 11/29/2023 9:05 PM EDT [facility] Blood VENOUS BLOOD / Unknown Venipuncture / Unknown 11/29/2023 4:27 PM EDT 11/29/2023 4:27 PM EDT Sandra Blanco WEB PRESS ROLL TENDER CHEMISTRY ORDERABLES Final Result Performing Organization Address City/[facility]/ZIP Co de Phone Number [facility] [address] , [place] [address] * KRATOM SCREEN WITH CONFIRMATION, URINE-REF LAB (11/29/2023 3:08 PM EDT) Ana Laura, Screen NEGATIVE NEGATIVE 12/04/2023 1:29 PM EDT [facility] Comment: Screening Threshold: 5.0 ng/mL Analysis performed by immunoassay. This test was developed and its performance characteristics determined by [email or web address]. It has not been cleared or approved by the Food and Drug Administration. Performed by: [facility] [address] [place] [id number] Odalys Barnes Urine URINE SPECIMEN COLLECTION / Unknown 11/29/2023 3:08 PM EDT 11/29/2023 7:56 PM EDT us Sandra Blanco WEB PRESS ROLL TENDER CHEMISTRY ORDERABLES Final Result [email or web address] [address] [place] [address] * SCANNED RHYTHM STRIPS (2023 10:01 AM EST) Only the most recent of3 resultswithin the time period is included. Anatomical Region Laterality Modality Other 2023 10:0 1 AM EST us Unknown Provider IMG ECG ORDERABLES Final Result * (ABNORMAL) WOUND CULTURE (STAIN INCLUDED) (06/20/2023 5:35 PM EST) Culture Positive Growth(A) 06/25/2023 8:49 AM EST [facility] Culture Sparse growth of Streptococcus agalactiae (Group B) SUSCEPTIB ILITY RESULT 06/25/2023 8:49 AM EST [facility] Comment: Penicillin and Ampicillin are antibiotics of choice for treatment of beta- hemolytic streptococcal infections. No further workup. Stain Abundant WBCs(A) 06/25/20 8:49 AM EST [facility] Stain Rare Gram positive cocci(A) 06/25/2023 8:49 AM EST [facility], [facility] Swab TOE STRUCTURE / Unknown 06/20/2023 5:35 PM EST 06/20/2023 5:56 PM EST [facility] MICROBIOLOGY - GENERAL ORDE RABLES Final Result Performing Organization Address [facility] Co de Phone Number [employer] [facility] CENTER , [address] [place] [id number] * ANAEROBIC CULTURE (NO STAIN) (06/20/2023 5:35 PM EST) Culture No anaerobic growth at 5 days. 06/25/2023 8:11 PM EST [facility] Swab TOE STRUCTURE / Unknown 06/20/2023 5:35 PM EST 06/20/2023 5:56 PM EST Max Aceo TIKI MICROBIOLOGY - GENERAL ORDE RABLES Final Result Performing Organization Address [facility] Co de Phone Number [facility] [address] [facility] , [place] [address] * INTRAOP AIRWAY PLACEMENT (06/20/2023 5:22 PM EST) Narrative [facility] - 06/20/2023 5:22 PM EST Jenna Gonzales CRNA 06/20/2023 5:27 PM Intraop Airway Placement: Date/Time: 06/20/2023 5:22 PM Airway type: Nasal cannula salter Gunner Saenz MD [facility] ANESTHESIA Final Res ult Performing Organization Address [facility] de Phone Number [facility] [address] [place] [address] * VANCOMYCIN LEVEL AUC2 (06/20/2023 1:42 PM EST) Vancomycin AUC2 26.8 mcg/mL 2:05 PM EST [facility] Blood VENOUS BLOOD / Unknown Venipuncture / Unknown 06/20/2023 1:42 PM EST 06/20/2023 1:47 PM EST Max Gifford DPM CHEMISTRY ORDERABLES Final Result Performing Organization Address City/[facility] Co de Phone Number [facility] [address] [place] [address] * VANCOMYCIN LEVEL AUC1 (06/20/2023 8:53 AM EST) [facility] Vancom[facility] AUC1 39.4 mcg/mL 9:55 AM EST [facility] Blood VENOUS BLOOD / Unknown Venipuncture / Unknown 06/20/2023 8:53 AM EST 06/20/2023 9:37 AM EST Max ELIZABETHM CHEMISTRY ORDERABLES Final Result Performing Organization Address [facility] de Phone Number [facility] [address] [place] [address] * VITAMIN B12/ FOLIC ACID (06/19/2023 11:20 AM EST) [facility] Vitamin B12 374 232 - 1,245 pg/mL 06/19/2023 2:35 PM EST [email or web address] Folate >16.00 >=4.80 ng/mL 06/19/2023 2:35 PM EST [facility] Blood VENOUS BLOOD / Unknown Venipuncture / Unknown 06/19/2023 11:20 AM EST 06/19/2023 11:29 AM EST Narrative [facility] - 06/19/2023 2:35 PM EST Ingestion of kwasi doses of biotin (>5 mg/day) taken within 8 hours of drawing blood sample can interfere with this immunoassay test. us Charity Aguilar MD CHEMISTRY ORDERABLES Final Resu lt Performing Organization Address [facility] Co de Phone Number [facility] [address] [facility] , [place] [address] * BLOOD CULTURE (NO STAIN) (06/18/2023 3:12 PM EST) Only the most recent of2 resultswithin the time period is included. [facility] Culture Result No Growth at 120 hours. BLOOD CULTURE (NO STAIN) 06/24/2023 12:01 AM EST [email or web address] Blood VENOUS BLOOD / Unknown Venipuncture / Unknown 06/18/2023 3:12 PM EST 06/18/2023 3:14 PM EST us Joel Becerra ROSALBA MICROBIOLOGY - GENERAL JANETRohit HALLMAN Final Result [email or web address] [address] [facility] , [place] [address] * XR FOOT RIGHT AP LATERAL AND [...] Procedure Note Charles Davison III, MD - 06/18/2023 XR FOOT RIGHT AP LATERAL AND OBLIQUE, [...] <=0.49 ng/mL 06/19/2023 4:39 AM EST [email or web address] Blood VENOUS BLOOD / Unknown Venipuncture / Unknown 06/18/2023 1:26 PM EST 06/18/2023 1:28 PM EST Narrative [email or web address] - 06/19/2023 4:39 AM EST Procalcitonin <0.50 [...] ORDERABLES Final Resu lt Performing Organization Address City/[facility] Co de Phone Number [facility] [address] [place] [address] , [place] [address] * (ABNORMAL) SEDIMENTATION RATE AUTOMATED (06/18/2023 1:26 PM EST) Sed Rate 76(H) 0 - 20 mm/hr 06/18/2023 2:07 PM EST [facility] Blood VENOUS BLOOD / Unknown Venipuncture / Unknown 06/18/2023 1:26 PM EST 06/18/2023 1:28 PM EST Joel Becerra APRN HEMATOLOGY ORDERABLES Final Result Performing Organization Address [facility] Co de Phone Number [facility] [address] [place] [address] * (ABNORMAL) C-REACTIVE PROTEIN (06/18/2023 1:26 PM EST) CRP 17.26(H) <=5.00 mg/L 06/18/2023 7:11 PM EST [facility] Blood VENOUS BLOOD / Unknown Venipuncture / Unknown 06/18/2023 1:26 PM EST 06/18/2023 1:28 PM EST Joel Becerra APRN CHEMISTRY ORDERABLES Final Result Performing Organization Address [facility] Co de Phone Number [facility] [address] [place] [address] [address] , [address] [place], [place] [id number] * (ABNORMAL) CORONAVIRUS 2019 POCT (04/28/2021 12:57 PM EDT) Pathologist [facility] COV19 RNA POCT Positive(A A) Negative 04/28/2021 1:16 PM EDT [facility] Swab NASAL / Unknown 04/28/2021 1 2:57 PM EDT 04/28/2021 1:02 PM EDT Narrative [facility] - 04/28/2021 1:16 PM EDT The [...] management. Fu ID NOW Provider Fact Sheet: https://www.fda.gov/media/491000/download Fu ID NOW Patient Fact Sheet: https://www.fda.gov/media/861883/download Merrick Palomares MD MICROBIOLOGY - GENERAL ORDERABLE S Final Result [facility] [address] [address] * TROPONIN-T HIGH SENSITIVITY BASELINE W/ REFLEX (11/15/2020 7:42 PM EDT) Only the most recent of3 resultswithin the time period is included. Pathologist [facility] uc-aMhpjorai-F <6 <14 ng/L 11/15/2020 8:05 PM EDT [facility] Comment:See the website belo w for rule out [place] care pathway, conditions other than AMI that can cause elevated hs cTnT, and comparison of values from the 4th and 5th generation Fely tests. https://askmayoexpert.mayoclinic.org/topic/clinical-answers/gnt-41559058/cpm-203 58172 Blood VENOUS BLOOD / Unknown Venipuncture / Unknown 11/15/2020 7:42 PM EDT 11/15/2020 7:45 PM EDT Narrative [facility] - 11/15/2020 8:05 PM EDT Ingestion of kwasi doses of biotin (>5 mg/day) taken within 8 hours of drawing blood sample can interfere with this immunoassay test. us Kameron Fields MD CHEMISTRY ORDERABLES Final Result [facility] [address] [place] [id number] * URINALYSIS (07/20/2020 2:56 PM EST) Only the most recent of3 resultswithin the time period is included. UA Color Colorless 07/20/2020 3:13 PM EST [facility] UA Appear Clear Clear 07/20/2020 3:13 PM EST [facility] UA Glucose Negative Negative mg/dL 07/20/2020 3:13 PM EST [facility] UA Ketones Negative Negative mg/dL 07/20/2020 3:13 PM EST [facility] UA Blood Negative Negative 07/20/2020 3:13 PM EST [facility] UA pH 7.5 5.0 - 8.0 pH 07/20/2020 3:13 PM EST [facility] UA Protein Negative Negative mg/dL 07/20/2020 3:13 PM EST [facility] UA Urobilinogen Normal <=1 mg/dL 3:13 PM EST [facility] UA Bili Negative Negative 07/20/2020 3:13 PM EST [facility] UA Nitrite Negative Negative 07/20/2020 3:13 PM EST [facility] UA Leuk Est Negative Negative 07/20/2020 3:13 PM EST [facility] UA Spec Grav 1.009 1.001 - 1.035 no units 07/20/2020 3:13 PM EST [facility] Comment:Reference range tigre d for random specimens only. Urine URINE SPECIMEN COLLECTION, CLEAN CATCH / Unknown 07/20/2020 2:56 PM EST 07/20/2020 3:05 PM EST us Vitaly Neff [employer]ESS ROLL TENDER URINE ORDERABLES Final Res ult [email or web address] [address] [facility] , [place] [address] * (ABNORMAL) CBC (07/20/2020 1:53 PM EST) Only the most recent of5 resultswithin the time period is included. WBC 10.0 3.7 - 10.3 x10(3)/mcL 07/20/2020 2:05 PM EST [facility] RBC 5.57(H) 3.90 - 5.20 x10(6)/mcL 07/20/2020 2:05 PM [facility] Hgb 12.4 11.2 - 15.7 g/dL 07/20/2020 2:05 PM [facility] Hct 40.6 34.0 - 45.0 % 07/20/2020 2:05 PM [facility] MCV 72.9(L) 80.0 - 100.0 fL 07/20/2020 2:05 PM [facility] MCH 22.3(L) 26.0 - 34.0 pg 07/20/2020 2:05 PM [facility] MCHC 30.5(L) 30.7 - 35.5 g/dL 07/20/2020 2:05 PM [facility] RDW 15.2(H) <=14.9 % 07/20/2020 2:05 PM [facility] Platelet 307 155 - 369 x10(3)/mcL 07/20/2020 2:05 PM [facility] MPV 9.4 8.8 - 12.5 fL 07/20/2020 2:05 PM [facility] Blood VENOUS BLOOD / Unknown Venipuncture / Unknown 07/20/2020 1:53 PM EST 07/20/2020 2:03 PM EST us Vitaly Morgancristofer WE[employer]ESS ROLL TENDER HEMATOLOGY ORDERABLES Barbara melgoza Result [facility] [address] [place] [phone] * CT CHEST ABDOMEN PELVIS W CONTRAST [...] <=230 ng/mL D-DU 06/17/2020 12:21 PM EST [facility] Comment: This test has been clinically validated by the intelligence research specialist and approved by the FDA for exclusion [...] Yan MD HEMATOLOGY ORDERABLES Final Res ult [facility] [address] [place] [address] * EC ECHOCARDIOGRAM COMPLETE W DOPPLER AND COLOR FLOW MAPPING (09/19/2019 11:49 AM EST) Pathologist [facility] Ejection Fraction 65-70 % [place] Anatomical Region [...] <200 mg/dL 09/12/2019 3:22 PM EST [email or web address] Comment: < 200 Desirable 200 - 239 Borderline High >= 240 High Triglyceride 167(H) <150 mg/dL 09/12/2019 3:22 PM EST [facility] Comment: < 150 Normal 150 - 199 Borderline High 200 - 499 High >= 500 Very High HDL 46 >=40 mg/dL 09/12/2019 3:22 PM EST [facility] Comment: > 60 Optimal 40 - 60 Acceptable < 40 Low LDL Calculated 118(H) <100 mg/dL 09/12/2019 3:22 PM EST [facility] Non-HDL-C Calculated 151(H) <=129 mg/dL 09/12/2019 3:22 PM EST [facility] Comment: <130 Desirable 130-159 Above Desirable 160-189 Borderline High 190-219 High >= 220 Very High Fasting Specimen? No None 020 3:22 PM EST [email or web address] Blood Venipuncture / Unknown 09/12/2019 1:30 PM EST 09/12/2019 1:41 PM EST us Jermaine Eubanks MD CHEMISTRY ORDERABLES Final Resul t [email or web address] [address] [facility] , [place] [address] * (ABNORMAL) TSH REFLEX (09/12/2019 1:30 PM EST) TSH Reflex 6.940(H) 0.270 - 4.200 mcIU/mL 09/12/2019 3:22 PM EST [email or web address] Blood Venipuncture / Unknown 09/12/2019 1:30 PM EST 09/12/2019 1:41 PM EST Narrative [facility] - 09/12/2019 3:22 PM EST Ingestion of kwasi doses of biotin (>5 mg/day) taken within 8 hours of drawing blood sample can interfere with this immunoassay test. us Jermaine Eubanks MD CHEMISTRY ORDERABLES Final Resul t Performing Organization Address [facility] Phone Number [facility] [address] [facility] , [address] [place] [id number] * MAGNESIUM LEVEL (09/12/2019 1:30 PM EST) Magnesium 2.2 1.6 - 2.4 mg/dL 09/12/2019 3:22 PM EST [email or web address] Blood Venipuncture / Unknown 09/12/2019 1:30 PM EST 09/12/2019 1:41 PM EST us Jermaine Eubanks MD CHEMISTRY ORDERABLES Final Resul t Performing Organization Address [facility] Phone Number [facility] [address] [facility] , [place] [address] * (ABNORMAL) POCT EKG (08/30/2019 1:02 PM EST) 08/30/2019 1:02 PM EST [facility] - 08/30/2019 1:02 PM EST NSR, no dynamic ST changes. us Jermaine Eubanks MD POINT OF CARE CARDIOLOGY Final R esult Performing Organization Address [facility] Phone Number SEP OFFICE * SCANNED RADIOLOGY [...] PM EST CLINICAL HISTORY: M25.561-Pain in right [id number]-PHT-[id number]-CM. COMPARISON: None. TECHNIQUE: XR KNEE RIGHT AP LAT INT EXT OBLIQUES AND SUNRISE on 09/02/2017 11:05 AM FINDINGS: The bone mineralization is normal. There is no fracture. The joint spaces are well maintained with normal alignment. There are no degenerative changes. There is a small joint effusion. Procedure Note Michael Vaughn MD - 09/02/2017 CLINICAL HISTORY: M25.561-Pain in right [id number]-CM. COMPARISON: None. TECHNIQUE: XR KNEE RIGHT AP LAT INT EXT OBLIQUES AND SUNRISE on 09/02/201711:05 AM FINDINGS: The bone mineralization is normal. There is no fracture. Thejoint spaces are well maintained with normal alignment. There are nodegenerative changes. There is a small joint effusion. IMPRESSION: Small joint effusion without fracture or dislocation. Chin Mai IMG DIAGNOSTIC IMAGING ORDERABL ES Final Result * [...] IMPRESSION Normal radiographs of the lumbar spine. us Roel Mcadams MD IMG DIAGNOSTIC IMAGING ORDERA [...] hepatomegaly. Rightupper quadrant ultrasound is otherwise negative. us Chin Mai [facility] US ORDERABLES Final Result * [...] a hypoplastic or malformed left vidian canal. us Kashif Pollock MD POINT OF CARE IMAGING Final Re sult ENT * PATHOLOGY TISSUE REPORT (08/19/2015 1:53 PM EST) Only the most recent of3 resultswithin the time period is included. Surgical Pathology Report PATIENT NAME:KEISHA SUTTON Surgical Pathology Report Accession Number Collected Date/Time Received Date/Time [id number] 08/19/15 13:53 EST 08/20/15 09:17 EST Diagnosis [...] of the gallbladder is smooth without masses. Scrum Master sections are submitted in one cassette. /MR MR /BR Microscopic Description Microscopic examination is performed and the findings corroborate the diagnosis. [facility] 08/19/2015 1:53 PM EST us Anne Rowe MD PATHOLOGY ORDERABLES Final Resul t Performing Organization Address [facility] de Phone Number [facility] [address] [place] [address] * GMED EGD (07/25/2015 9:45 AM EST) 07/25/2015 9:45 AM EST Impressions [facility] - 07/25/2015 12:08 [...] PROCEDURE ORDERABLES Final Result Performing Organization Address [facility] de Phone Number [facility] [address] [place] [address] * GMED COLONOSCOPY (07/25/2015 9:45 AM EST) 07/25/2015 9:45 AM EST Impressions [facility] - 07/25/2015 12:10 PM EST Normal mucosa in the whole colon. Plan: Colonoscopy at age 49 for screening or otherwise different if change in personal or family history. This section is an excerpt of the full report. Leda Theodore MD GI PROCEDURE ORDERABLES Final Result Performing Organization Address [facility] de Phone Number [facility] [address] [place] [address] * (ABNORMAL) DIFFERENTIAL (06/15/2015 10:37 AM EST) Only the most recent of3 resultswithin the time period is included. Neut Percent 56.5 % [facility] Lymph Percent 25.8 % [facility] [place] Percent 9.9 % [facility] Eos Percent 7.0 % [facility] Baso Percent 0.8 % [facility] Neut# 4.9 1.8 - 7.7 x10(3)/mcL [facility] Lymph# 2.2 0.6 - 4.8 x10(3)/[facility] [place]# 0.9 0.0 - 1.3 x10(3)/[facility] Eos# 0.6(H) 0.0 - 0.5 x10(3)/[facility] Baso# 0.1 0.0 - 0.2 x10(3)/[facility] Blood specimen (specimen) 06/15/2015 10:37 AM EST 06/15/2015 10:42 AM EST us Redd Padilla MD HEMATOLOGY ORDERABLES Final Result [facility] [address] [place] [address] * AMYLASE LEVEL (06/15/2015 10:37 AM EST) Pathologist [facility] Amylase Lvl 28 28 - 100 IU/L [facility] Blood specimen (specimen) UPPER LIMB STRUCTURE / Unknown 06/15/2015 10:37 AM EST 06/15/2015 10:42 AM EST us Redd Padilla MD CHEMISTRY ORDERABLES Final Result [facility] [address] [place] [address] * IRON LEVEL (09/06/2014 10:43 AM EST) Iron 122 30 - 160 mcg/dL [facility] Blood specimen (specimen) UPPER LIMB STRUCTURE / Unknown 09/06/2014 10:43 AM EST 09/06/2014 10:43 AM EST Narrative [facility] - 09/06/2014 11:41 AM EST FAX [phone] us Hollis Martinez MD CHEMISTRY ORDERABLES Final Result [facility] [address] [place] [address] * CT ABDOMEN PELVIS WO CONTRAST (03/08/2014 [...] * POCT URINE (08/09/2012 9:11 AM EST) Pathologist [facility] Preg Test, Ur negative Pos/Neg [facility] Lot Number [id number] [facility] Expiration Date [facility] SeriAl # [facility] Control Line yes Yes/No [facility] Urine specimen (specimen) 08/09/2012 9:11 AM EST Ramila Vera WE[employer]ESS ROLL TENDER POINT OF CARE TEST ORDERABLE S Final Result [facility] [address] [place] [address] * ABORH (08/01/2012 9:30 AM EST) Pathologist [facility] ABOR Int A POS [facility] Blood specimen (specimen) 08/01/2012 9:30 AM EST 08/01/2012 9:42 AM EST Ramila Vera WE[employer] ROLL T[employer]ER BLOOD BANK ORDERABLES Final Result Performing Organization Address City/[facility]/ZIP Co de Phone Number [facility] [address] [place] [address] * ANTIBODY SCREEN IGG (08/01/2012 9:30 AM EST) Pathologist [facility] ABSC IgG Int Negative [facility] Blood specimen (specimen) 08/01/2012 9:30 AM EST 08/01/2012 9:42 AM EST Ramila Vera WE[employer] ROLL T[employer]ER BLOOD BANK ORDERABLES Final Result Performing Organization Address [facility] Co de Phone Number [facility] [address] [place] [address] * (ABNORMAL) VITAMIN D, [id number] (01/14/2011 11:32 AM EDT) [facility] Vit D 25 OH 21(L) 30 - 80 ng/mL [facility] Comment: REFERENCE INTERVAL: [...] ORDERABLES Final Resu lt Performing Organization Address City/[facility] Co de Phone Number [facility] [address] [place] [address] * T3 FREE (01/14/2011 11:32 AM EDT) [facility] T3 Free 3.59 2.77 - 5.27 pg/mL [facility] Blood specimen (specimen) UPPER LIMB STRUCTURE / Unknown 01/14/2011 11:32 AM EDT 01/14/2011 8:17 PM EDT us Redd Wynn MD CHEMISTRY ORDERABLES Final Resu lt Performing Organization Address City/[facility]/ZIP Co de Phone Number [facility] [address] [place] [address] * (ABNORMAL) VITAMIN B12 LEVEL (01/14/2011 11:32 AM EDT) Vitamin B12 946(H) 239 - 931 pg/mL [facility] Blood specimen (specimen) UPPER LIMB STRUCTURE / Unknown 01/14/2011 11:32 AM EDT 01/14/2011 8:17 PM EDT Redd Wynn MD CHEMISTRY ORDERABLES Final Resu lt Performing Organization Address [facility] de Phone Number [facility] [address] [place] [address] * CT PELVIS W CONTRAST (06/18/2006 12:00 AM EST) Anatomical Region Laterality Modality Other 06/18/2006 06/18/2006 Narrative 06/18/2006 12:00 AM EST VERIFIED [facility] Reason: RLQ PAIN Dict.Staff: MARISA PINEDA Verified [...] Procedure Note Unknown, U - 10/30/2009 VERIFIED [facility] Reason: RLQ PAIN Dict.Staff: MARISA PINEDA Verified [...] MIRIAM/madelyn end of result us U Unknown [facility] RAD HISTORICAL Final Result * CT ABDOMEN W CONTRAST (06/18/2006 12:00 AM EST) Anatomical Region Laterality Modality Other 06/18/2006 06/18/2006 Narrative 06/18/2006 12:00 AM EST [facility] Reason: RLQ PAIN Dict.Staff: MARISA PINEDA Verified [...] Procedure Note Unknown, U - 10/30/2009 VERIFIED [facility] Reason: RLQ PAIN Dict.Staff: MARISA PINEDA Verified [...] end of result us U Unknown IMG SE LW RAD HISTORICAL Final Result * US PELVIS NON-OB COMPLETE (04/12/2006 12:00 AM EDT) Anatomical Region Laterality Modality Other 04/12/2006 04/12/2006 Narrative 04/12/2006 12:00 AM EDT [facility]IED [facility] Reason: PELVIC PAIN / PELVIC US Dict.Staff: [...] Procedure Note Unknown, U - 10/30/2009 VERIFIED [facility] Reason: PELVIC PAIN / PELVIC US Dict.Staff: [...] AM/pp end of result us U Unknown IMG SE LW RAD HISTORICAL Final Result Visit Diagnoses [...] serious comorbidity in adult, unspecified BMI (HCC) 12/04/2019 Deep vein thrombosis (DVT) of both [...] diabetes mellitus with diabetic polyneuropathy, unspecified whether penitentiary insulin use (HCC) 09/06/2023 Cellulitis of great [...] diabetes mellitus with diabetic polyneuropathy, unspecified whether penitentiary insulin use (HCC) 09/20/2023 Skin ulcer of [...] 2 diabetes mellitus without complication, unspecified whether polarity tester insulin use 12/15/2023 Hypokalemia Hypopotassemia 12/15/2023 Anemia due to acute blood loss Acute posthemorrhagic anemia 12/15/2023 Fibromyalgia Mylagia and myositis, unspecified 12/15/2023 Type 2 diabetes mellitus without complication, without long-term current use of insulin (HCC) 12/15/2023 Therapeutic opioid induced constipation 01/10/2024 Constipation, [...] 2 diabetes mellitus without complication, unspecified whether penitentiary insulin use 11/20/2024 Right foot pain Pain in limb [...] 02/18/2025 Leg swelling Swelling of limb 02/27/2025 Ulcer of toe of left foot, with fat layer exposed (HCC) 03/11/2025 Ulcer of toe of right foot, with fat layer exposed (HCC) 03/11/2025 Ulcer of toe of left foot, with fat layer exposed (HCC) 03/11/2025 Ulcer of toe of right foot, with fat layer exposed (HCC) 03/11/2025 Osteomyelitis of third toe of left foot (HCC) 03/11/2025 Cellulitis of great toe of right foot Cellulitis and abscess of toe, unspecified 03/11/2025 Diabetic polyneuropathy associated with type 2 diabetes mellitus (HCC) 03/11/2025 Hammertoe of second toe of left foot 03/11/2025 Ingrown nail of great toe of right foot 03/11/2025 Fibromyalgia Mylagia and myositis, unspecified 03/14/2025 Ingrown nail of great toe of right foot 03/14/2025 Osteomyelitis of third toe of left foot (HCC) 03/14/2025 Hammertoe of second toe of left foot 03/14/2025 Ingrown nail of great toe of right foot 03/20/2025 Osteomyelitis of third toe of left foot (HCC) 03/20/2025 Hammertoe of second toe of left foot 03/20/2025 Ingrown nail of great toe of right foot 03/20/2025 Osteomyelitis of third toe of left foot (HCC) 03/20/2025 Hammertoe of second toe of left foot 03/20/2025 Arthritis Arthropathy, unspecified, site unspecified 03/31/2025 Venous stasis ulcer of left lower leg (HCC) 04/01/2025 Partial traumatic amputation of two or more lesser toes, left, initial encounter 04/01/2025 Type 2 diabetes mellitus with diabetic polyneuropathy, unspecified whether polarity tester insulin use (HCC) 04/01/2025 Open wound of right great toe without damage to nail, initial encounter 04/01/2025 Cellulitis of great toe of right foot Cellulitis and abscess of toe, unspecified 04/18/2025 Type 2 diabetes mellitus with diabetic polyneuropathy, unspecified whether penitentiary insulin use (HCC) 04/18/2025 Venous stasis ulcer of left lower leg (HCC) 04/18/2025 History of partial amputation of toe of left foot 04/18/2025 Leg swelling Swelling of limb 04/18/2025 Varicose veins of lower extremities with complications, left 04/18/2025 Fibromyalgia Mylagia and myositis, unspecified 05/15/2025 Arthritis Arthropathy, unspecified, site unspecified 05/27/2025 Leg swelling Swelling of limb 06/13/2025 Acquired hypothyroidism Unspecified hypothyroidism 06/22/2025 Epigastric pain Abdominal pain, epigastric 07/25/2015 Lower [...] associated with type 2 diabetes mellitus (HCC) 12/07/2023 Fibromyalgia Mylagia and myositis, unspecified 12/07/2023 Gastroesophageal reflux disease Esophageal reflux 12/07/2023 Morbid obesity with body mass index (BMI) of 40.0 to 49.9 ([facility]) 12/07/2023 Neuropathy Mononeuritis of unspecified site 12/07/2023 Opioid use disorder, severe, on maintenance therapy ([facility]) 12/07/2023 FORD on CPAP Obstructive sleep apnea [...] Author Blood Pressure < 140/90 Blood Pressure 110/58(05/07 9:58 AM EDT) No Jenna Mckeon RMA Maintain a healthy diet, exercise regularly and maintain an ideal body weight General No Tien Tellez MA BMI (Calculated) < 30 General 44.9( 025 10:01 AM EDT) No Jenna Mckeon RMA HEMOGLOBIN [...] Current Supports: family Legal Requirements: None identified. Autogenerated Goal Care Plan Autogenerated Problem No NiravAnupama Additional Health Concerns Active Problems Noted Date [...] to improve the maintenance of optimal functioning. Autogenerated Problem 03/14/2025 Care Teams Safety Intern Relationship Specialty Start Date End Date Mervin Toribio MD [address] [place] [address] PCP - General Family Medicine 11/24/23
--- OUTSIDE RECORDS SUMMARY | 2025-06-23 09:17 | XMS_ITS | Clinical Summary ---
Author Organization [facility] Address [address] [place] [address] Care Team Providers Care Graduate Recruiter Name Role Phone Unavailable Primary Care Provider [...] therelease of HIV test results or diagnoses. [id number] Social History Tobacco Use Types Packs/Day Years Used Date Smoking Tobacco: Never Assessed Comments Unknown Sex and Gender Information Value Date Recorded Sex Assigned at Not on file Legal Sex Female 7:50 PM EST Gender Identity Not on file Sexual Orientation Not on file Plan of Treatment Not on file
--- OUTSIDE RECORDS SUMMARY | 2025-06-23 09:18 | XMS_ITS | Encounter Summary ---
Author Organization [place] [address] Care Team Providers Care Analysis Engineer Name Role Phone Mervin Toribio MD Primary Care Provider Encounter Details Date Type Department Care Team (Late st Contact Info) Description 05/16/2025 Orders Only [facility] [address] [place], [place] [id number] Mervin Toribio MD [address] [place] [address] Social History Tobacco Use Types Packs/Day Years Used Date Smoking Tobacco: Never Smokeless Tobacco: Never Alcohol Use Standard Drinks/Week Comments Yes 0 (1 standard drink = 0.6 oz pur e alcohol) occasionally, once monthly [facility] Utilities Answer Date Recorded In the past 12 months has e [employer], gas, oil, or water [employer] threatened to shut off services in your home? Patient declined 12/08/2023 Social Connection and Isolation Panel Answer Date Recorded Frequency of Communication with Friends and Fami ly Not on file 12/13/2023 Frequency of Social Gatherings with Friends and Family Not on file 12/13/2023 Attends Sikhism Services Not on file 12/12 Active Member [...] Date Recorded PHQ-2 Total Score 0 11/20/2024 [facility] - Occupational Stress [...] things needed for daily living? No 12/13/2023 [facility] IP Transportation Answer D ate Recorded In [...] EST Office Visit [facility] [address] [place] [phone] Kameron Coello DO [address] [place] [address] Scheduled Orders Name Type Priority Associated Diagnoses Orde r Schedule ALBUMIN/CREATININE RATIO, RANDOM URINE Lab Routine 1 Occurrence s starting 05/16/2025 until 05/16/2026 ALBUMIN/CREATININE RATIO, RANDOM URINE Lab Routine 1 Occurrence s starting 05/16/2025 until 05/16/2026 documented as of this encounter Goals Goal Patient Goal Type Associated Problems Recent Progress Patient-Stated? Author Blood Pressure < 140/90 Blood Pressure 110/58(05/07 9:58 AM EDT) No Jenna Mckeon RMA Maintain a healthy diet, exercise regularly and maintain an ideal body weight General No Rosalinda, Tien, MA BMI (Calculated) < 30 General 44.9( [...] Autogenerated Goal Care Plan Autogenerated Problem No Anupama Gastelum documented as of this encounter Visit Diagnoses [...] maintenance of optimal functioning. Autogenerated Problem 03/14/2025 documented as of this encounter Care Teams Analysis Engineer Relationship Specialty Start Date End Date Mervin Toribio MD [address] [place] [address] PCP - General Family Medicine 11/24/23 documented as of this encounter
--- OUTSIDE RECORDS SUMMARY | 2025-06-23 09:18 | XMS_ITS | Patient Health Record ---
Author Organization [facility] Address [address] [place] [facility] [address] [id number] Care Team Providers Care Material Handler Name Role Phone Chin Mai Primary Care Provider Allergies Allergen (clinical drug ingredient) Drug/Non Drug Allergy documented on EMR Reaction Allergy Type Onset Date Status carisoprodol Soma too sleepy Drug Allergy Act [place] tizanidine Zanaflex dizzy Drug Allergy Active Medications Medication SIG (Take, Route, Frequency, Duration) Notes Start Date End Date Status metOLazone 5 MG 1 tab(s) orally once a day Not-Taking Triamcinolone Acetonide 0.1 % APPLY TOPICALLY TO AFFECTED AREA 3 TIMES A DAY; Duration: 30 Active CPAP machine and supplies - as directed as directed Active prednisoLONE Sodium Phosphate 15 MG/5ML swish and spit 5 ml in the morning with food or milk Orally Three times a day 01/11/2023 Active Folic Acid 1 MG TAKE 1 TABLET BY MOUTH EVERY DAY; Duration: 90 Active Levothyroxine Sodium 100 MCG TAKE 1 TABLET BY MOUTH EVERY DAY; Duration: 90 Active Perphenazine 8 MG 1 tab(s) orally 2 times a day; Duration: 90 days Active Spironolactone 25 MG 1 tab(s) orally once a day; Duration: 30 days Active hydrOXYzine Pamoate 25 MG TAKE 1 TO 2 CAPS BY MOUTH 3 TIMES A DAY FOR 30 DAYS; Duration: 90 Active Ondansetron HCl 4 MG 1 tab(s) orally every 8 hours as needed for nausea or vomiting Active Nebulizer System All-In-One - as directed Active Chlorthalidone 25 MG TAKE 1 TABLET BY MOUTH EVERY DAY FOR 30 DAYS; Duration: 90 Active Albuterol Sulfate (2.5 MG/3ML) 0.083% 3 ml Inhalation every 6 hrs, prn Active Vitamin D3 125 MCG (5000 UT) TAKE 1 CAPSULE BY MOUTH EVERY DAY FOR 30 DAYS; Duration: 30 Active Methocarbamol 750 MG TAKE 1 TABLET ORALLY FOUR TIMES PER DAY 30 DAYS; Duration: 30 days Active Klor-Con M20 20 MEQ TAKE 1 TABLET BY MOUTH EVERY DAY; Duration: 90 Active Amitriptyline HCl 150 MG TAKE 1 TABLET BY MOUTH EVERY DAY AT BEDTIME FOR 90 DAYS; Duration: 90 Active Furosemide 40 MG TAKE 1 TABLET BY MOUTH TWICE A DAY FOR 30 DAYS; Duration: 90 Active Melatonin 2.5 MG 1-4 CAPS ORALLY ONCE A DAY (AT BEDTIME) *Please review and pick correct strength-formulat ion from [employer] options. If intended option is not shown, discontinue and re-order from Quick Search* 02/25/2021 Active Trintellix 10 MG 1 tab(s) orally once a day; Duration: 30 day(s) 02/25/2021 Not-Taking Cefdinir 300 MG 1 cap(s) Orally bid; Duration: 10 day(s) 04/20/2023 Active Benzonatate 200 MG 1 capsule Orally Three times a day, prn for cough 04/20/2023 Active Medrol 4 MG as directed orally daily; Duration: 6 days 04/20/2023 Active QUEtiapine Fumarate 50 MG TAKE 1 TABLET BY MOUTH TWICE A DAY FOR 30 DAYS; Duration: 30 days Active Vitamin D3 125 MCG (5000 UT) 1 tab(s) orally once a day; Duration: 90 Active Gabapentin 800 MG 1 tab(s) orally 3 times a day Active Problems Problem Type SNOMED Code ICD Code Onset Dates Problem Status W/U Status Risk Notes Problem Gastroesophageal reflux disease (177102255) GERD (gastroesophageal reflux disease) (K21.9) Active confirmed Problem Insomnia (412352570) Insomnia (G47.00) Active confirmed Problem Vitamin D deficiency (94739039) Vitamin D deficiency (E55.9) Active confirmed Problem Anxiety (04607481) Anxiety (F41.9) Active confi rmed Problem Body mass index 40+ - severely obese (989594314) BMI 50.0-59.9, adult (Z68.43) Active confirmed Problem Somnolence (35358046) Somnolence (R40.0) Active confirmed Problem Mixed anxiety and depressive disorder (602356524) Depression with anxiety (F41.8) Active confirmed Problem Fibromyalgia (915438555) Fibromyalgia (M79.7) Active confirmed Problem Dysthymia (91317151) Dysthymic disorder (F34.1) Active confirmed Problem Insomnia disorder related to another mental disorder (43684265) Insomnia due to other mental disorder (F51.05) Active confirmed Problem Acquired hypothyroidism (623386357) Acquired hypothyroidism (E03.9) Active confirmed Problem Body mass index 40+ - morbidly obese (078217981) BMI 60.0-69.9, adult (Z68.44) Active confirmed Problem Insomnia disorder related to another mental disorder (70326250) Psychophysiological insomnia (F51.04) Active confirmed Problem Obstructive sleep apnea syndrome (01010600) FORD (obstructive sleep apnea) (G47.33) Active confirmed Problem Panic attack (676364805) Panic attack (F41.0) Active confirmed Problem Cervical radiculopathy (00756732) Cervical neuropathy (G54.2) Active confirmed Problem Morbid obesity (120702820) Morbid obesity with body mass index of 50 or higher (E66.01) Active confirmed Plan Of Treatment No Information Insurance Providers Payer Name Payer Address Payer Phone Subscriber Number Group Number Insured Name Patient Relationship to Insured Coverage Start Date Coverage End Date [employer] [address] [address] [place] [address] [id number] Jaylen Sutton Spouse - patient is the spouse of the insured Medical (General) History Medical History History ICD Code irritable bowel syndrome Fibromyalgia Cerviclagia-bulging disc on MRI Depression with anxiety FORD - on CPAP Surgical History Surgery Date(Month/Year) tubal ligation wisdom teeth extractions 2009 hysterectomy vaginal 08/09/2012 bladder suspension, unspecified 08/09/19 13 Hospitalization History Reason Date(Month/Year) child 01/02/09 [facility]-anxiety, sweating 11/02 [facility] ER-fell and injured nose and mouth 08/2019
--- OUTSIDE RECORDS SUMMARY | 2025-06-23 09:18 | XMS_ITS | Encounter Summary ---
Author Organization [facility] [place] [address] Care Team Providers Care Neurosurgical Physician Assistant Name Role Phone Mervin Toribio MD Primary Care Provider Encounter Details Date Type Department Care Team (Latest Contact Info) Description 04/30/2025 Travel Social History Tobacco Use Types Packs/Day Years Used Date Smoking Tobacco: Never Smokeless Tobacco: Never Alcohol Use Standard Drinks/Week Comments Yes 0 (1 standard drink = 0.6 oz pur e alcohol) occasionally, once monthly [facility] Utilities Answer Date Recorded In the past 12 months has [employer] electric, gas, oil, or water company threatened to shut off services in your home? Patient declined 12/08/2023 Social Connection and Isolation Panel Answer Date Recorded Frequency of Communication with Friends and Fami ly Not on file 12/13/2023 Frequency of Social Gatherings with Friends and Family Not on file 12/13/2023 Attends Restorationism Services Not on file 12/12 Active Member [...] Score 0 11/20/2024 [facility] - Occupational Stress Questionnaire Answer Date Recorded [...] things needed for daily living? No 12/13/2023 [facility] IP Transportation Answer D ate Recorded In [...] EST Office Visit [facility] [address] [place] [address] [address] [place] [phone] Kameron Coello DO [address] [place] [address] [place] [address] documented as of this encounter Goals Goal [...] documented as of this encounter Care Teams Neurosurgical Physician Assistant Relationship Specialty Start Date End Date Mervin Toribio MD [address] [place] [address] PCP - General Family Medicine 11/24/23 documented as of this encounter
--- OUTSIDE RECORDS SUMMARY | 2025-06-23 09:18 | XMS_ITS | Encounter Summary ---
Author Organization [facility] [place] [address] Care Team Providers Care Hide Tanner Name Role Phone Mervin Toribio MD Primary Care Provider Encounter Details Date Type Department Care Team (Latest Contact Info) Description 04/25/2025 Travel Social History Tobacco Use Types Packs/Day Years Used Date Smoking Tobacco: Never Smokeless Tobacco: Never Alcohol Use Standard Drinks/Week Comments Yes 0 (1 standard drink = 0.6 oz pur e alcohol) occasionally, once monthly [facility] Utilities Answer Date Recorded In the past 12 months has [employer] electric, gas, oil, or water company threatened to shut off services in your home? Patient declined 12/08/2023 Social Connection and Isolation Panel Answer Date Recorded Frequency of Communication with Friends and Fami ly Not on file 12/13/2023 Frequency of Social Gatherings with Friends and Family Not on file 12/13/2023 Attends Latter-Day Services Not on file 12/12 Active Member [...] Recorded PHQ-2 Total Score 0 11/20/2024 [facility] - Occupational Stress Questionnaire Answer Date Recorded [...] things needed for daily living? No 12/13/2023 [facility] IP Transportation Answer D ate [...] EST Office Visit [facility] [address] [place] [address] Drive [address] [place] [phone] Kameron Coello DO [address] [place] [address] [place] [address] documented as of this encounter Goals [...] documented as of this encounter Care Teams Hide Tanner Relationship Specialty Start Date End Date Mervin Toribio MD [address] [place] [address] PCP - General Family Medicine 11/24/23 documented as of this encounter
--- OUTSIDE RECORDS SUMMARY | 2025-06-23 09:18 | XMS_ITS | Encounter Summary ---
Author Organization [facility] [place] [place] [address] Care Team Providers Care Legal Support Manager Name Role Phone Mervin Toribio MD Primary Care Provider Reason for Visit * Reason Comments Medication Refill Encounter Details Date Type Department Care Team (Late st Contact Info) Description 05/15/2025 Refill [facility] [address] [place] [address] Mervin Toribio MD [address] [place] [address] Medication Refill Social History Tobacco Use Types Packs/Day Years Used Date Smoking Tobacco: Never Smokeless Tobacco: Never Alcohol Use Standard Drinks/Week Comments Yes 0 (1 standard drink = 0.6 oz pur e alcohol) occasionally, once monthly [facility] Utilities Answer Date Recorded In the past 12 months has [facility] [employer], [employer], oil, or water [employer] threatened to shut off services in your home? Patient declined 12/08/2023 Social Connection and Isolation Panel Answer Date Recorded Frequency of Communication with Friends and Fami ly Not on file 12/13/2023 Frequency of Social Gatherings with Friends and Family Not on file 12/13/2023 Attends Latter Day Services Not on file 12/12 Active Member [...] things needed for daily living? No 12/13/2023 [facility] IP Transportation Answer D ate Recorded [...] Refills Last Filled Start Date End Date gabapentin (NEURONTIN) 800 mg Oral TabletIndications:F ibromyalgia TAKE 1 TABLET BY MOUTH THREE TIMES A DAY 90 Tablet 1 05/15/2025 documented in this encounter Miscellaneous Notes * Telephone Encounter - Jenna Mckeon RMA - 05/15/2025 9:38 AM EDT Last visit:11/20/24 documented in this encounter Plan of Treatment Upcoming Encounters Date Type Department Care Team (Late st Contact Info) Description 08/08/2025 10:30 AM EST Office Visit [facility] [address] [place] [address] [place] [phone] Kameron Coello DO [address] [place] [address] [address] [place] [phone] documented as of this encounter Goals Goal [...] Goal Care Plan Autogenerated Problem No NiravAnupama documented as of this encounter Visit Diagnoses Diagnosis Fibromyalgia Mylagia and myositis, unspecified documented in this encounter Discontinued Medications Medication Sig Discontinue Reason Start Date End Da te gabapentin (NEURONTIN) 800 mg Oral TabletIndications:Fibrom yalgia TAKE 1 TABLET BY MOUTH THREE TIMES A DAY 03/14/2025 05/15/2025 documented as of this encounter Additional Health [...] documented as of this encounter Care Teams Legal Support Manager Relationship Specialty Start Date End Date Mervin Toribio MD [address] [place] [address] PCP - General Family Medicine 11/24/23 documented as of this encounter
--- OUTSIDE RECORDS SUMMARY | 2025-06-23 09:18 | XMS_ITS | Encounter Summary ---
Author Organization [place] [address] Care Team Providers Care Recruiting Manager Name Role Phone Mervin Toribio MD Primary Care Provider Reason for Visit * Reason Comments Medication Refill Encounter Details Date Type Department Care Team (Late st Contact Info) Description 06/22/2025 Refill [facility] [address] [place] [address] Mervin Toribio MD [address] [place] [address] Medication Refill Social History Tobacco Use Types Packs/Day Years Used Date Smoking Tobacco: Never Smokeless Tobacco: Never Alcohol Use Standard Drinks/Week Comments Yes 0 (1 standard drink = 0.6 oz pur e alcohol) occasionally, once monthly [facility] Utilities Answer Date Recorded In the past 12 months has [facility] [employer], gas, oil, or water [employer] threatened to shut off services in your home? Patient declined 12/08/2023 Social Connection and Isolation Panel Answer Date Recorded Frequency of Communication with Friends and Fami ly Not on file 12/13/2023 Frequency of Social Gatherings with Friends and Family Not on file 12/13/2023 Attends Restorationist Services Not on file 12/12 Active Member [...] Date Recorded PHQ-2 Total Score 0 11/20/2024 [facility] Occupat ional Health - [...] things needed for daily living? No 12/13/2023 [facility] IP Transportation Answer D ate [...] Assessment Author No 06/22/2023 11:12 AM Rohit Jeogn RN * Does this person have serious [...] EST Office Visit [facility] [address] [place] [phone] Kameron Coello DO [address] [place] [address] documented as of this encounter Goals Goal [...] as of this encounter Visit Diagnoses Diagnosis Acquired hypothyroidism Unspecified hypothyroidism documented in this encounter Additional Health Concerns [...] documented as of this encounter Care Teams Recruiting Manager Relationship Specialty Start Date End Date Mervin Toribio MD [address] [place] [address] PCP - General Family Medicine 11/24/23 documented as of this encounter
--- OUTSIDE RECORDS SUMMARY | 2025-06-23 09:18 | XMS_ITS | Encounter Summary ---
Author Organization [facility] [place] [address] Care Team Providers Care Supervisor Roving Name Role Phone Mervin Toribio MD Primary Care Provider Encounter Details Date Type Department Care Team (Latest Contact Info) Description 04/26/2025 Travel Social History Tobacco Use Types Packs/Day Years Used Date Smoking Tobacco: Never Smokeless Tobacco: Never Alcohol Use Standard Drinks/Week Comments Yes 0 (1 standard drink = 0.6 oz pur e alcohol) occasionally, once monthly [facility] Utilities Answer Date Recorded In the past 12 months has [employer] electric, gas, oil, or water company threatened to shut off services in your home? Patient declined 12/08/2023 Social Connection and Isolation Panel Answer Date Recorded Frequency of Communication with Friends and Fami ly Not on file 12/13/2023 Frequency of Social Gatherings with Friends and Family Not on file 12/13/2023 Attends Yarsani Services Not on file 12/12 Active Member [...] Date Recorded PHQ-2 Total Score 0 11/20/2024 [facility] - Occupational Stress Questionnaire Answer Date Recorded [...] needed for daily living? No 12/13/2023 [facility] IP Transportation Answer D ate Recorded In [...] EST Office Visit [facility] [address] [place] [address] [address] [place] [phone] Kameron Coello DO [address] [place] [address] [place] [phone] documented as of this encounter Goals [...] as of this encounter Care Teams Supervisor Roving Relationship Specialty Start Date End Date Mervin Toribio MD [address] [place] [address] PCP - General Family Medicine 11/24/23 documented as of this encounter
--- OUTSIDE RECORDS SUMMARY | 2025-06-23 09:18 | XMS_ITS ---
Care Plan Created on: 2025 Keisha Sutton : 1980 Sex: Female Author Organization [facility] Address [address] [place] [address] Phone Care Team Providers Care Manager Express Name Role Phone Mervin Toribio MD Primary [...] of great toe of right foot 03/14/20 25 Osteomyelitis of third toe of left foot 03/14/20 25 Hammertoe of second toe of left foot [...] Diagnosed Date In patient's own words, Yeyo braden states that her most pressing problem is [...] maintenance of optimal functioning. Autogenerated Problem 03/14/2025 Goals Goal Patient Goal Type Associated Problems [...] Care Plan Autogenerated Problem No Anupama Gastelum Interventions Care Plan Interventions Intervention Entry Date [...] Intervent ions In patient's own words, Yeyo feliciano states that her goal is: Not having [...]
--- OUTSIDE RECORDS SUMMARY | 2025-06-23 09:18 | XMS_ITS | Encounter Summary ---
Author Organization [place] [address] Care Team Providers Care Supervisor Cab Name Role Phone Mervin Toribio MD Primary Care Provider Reason for Visit * Reason Comments Medication Refill Encounter Details Date Type Department Care Team (Late st Contact Info) Description 05/27/2025 Refill [facility] [address] [place] [address] Mervin Toribio MD [address] [place] [address] Medication Refill Social History Tobacco Use Types Packs/Day Years Used Date Smoking Tobacco: Never Smokeless Tobacco: Never Alcohol Use Standard Drinks/Week Comments Yes 0 (1 standard drink = 0.6 oz pur e alcohol) occasionally, once monthly [facility] Utilities Answer Date Recorded In the past 12 months has [facility] [employer], [employer], oil, or water [employer] threatened to shut off services in your [...] Date Recorded PHQ-2 Total Score 0 11/20/2024 [facility] - Occupational [...] things needed for daily living? No 12/13/2023 [facility] IP Transportation Answer D ate Recorded [...] methocarbamoL (ROBAXIN) 750 mg Oral TabletIndications:A rthritis TAKE 1 TABLET BY MOUTH THREE TIMES A DAY NEEDED 90 Tablet 1 05/27/2025 documented in this encounter Plan of Treatment Upcoming Encounters Date Type Department Care Team (Late st Contact Info) Description 08/08/2025 10:30 AM EST Office Visit [facility] [address] [place] [phone] Kameron Coello DO [address] [place] [address] [address] [place] [address] documented as of this encounter Goals [...] as of this encounter Visit Diagnoses Diagnosis Arthritis Arthropathy, unspecified, site unspecified documented in this encounter Discontinued Medications Medication Sig Discontinue Reason Start Date End Da te methocarbamoL (ROBAXIN) 750 mg Oral TabletIndications:Arthri tis TAKE 1 TABLET BY MOUTH THREE TIMES A DAY NEEDED 04/01/2025 05/27/2025 documented as of this encounter Additional Health [...] as of this encounter Care Teams Supervisor Cab Relationship Specialty Start Date End Date Mervin Toribio MD [address] [place] [address] PCP - General Family Medicine 11/24/23 documented as of this encounter
--- OUTSIDE RECORDS SUMMARY | 2025-06-23 09:18 | XMS_ITS | Encounter Summary ---
Author Organization [place] [address] Care Team Providers Care Server Systems Administrator Name Role Phone Mervin Toribio MD Primary Care Provider Reason for Visit * Reason Onset Date Comments Other 05/28/2025 A1C result / sta tin med Encounter Details Date Type Department Care Team ([facility] Contact Info) Description 05/28/2025 Telephone [facility] [address] [place] [address] Mervin Toribio MD [address] [place], [place] [id number] Other (A1C result / statin med) Social History Tobacco Use Types Packs/Day Years Used Date Smoking Tobacco: Never Smokeless Tobacco: Never Alcohol Use Standard Drinks/Week Comments Yes 0 (1 standard drink = 0.6 oz pur e alcohol) occasionally, once monthly [facility] Utilities Answer Date Recorded In the past 12 months has [employer], [employer], oil, or water [employer] threatened to shut off services in your home? Patient declined 12/08/2023 Social Connection and Isolation Panel Answer Date Recorded Frequency of Communication with Friends and Fami ly Not on file 12/13/2023 Frequency of Social Gatherings with Friends and Family Not on file 12/13/2023 Attends [employer] Not on file 12/12 Active Member [...] Date Recorded PHQ-2 Total Score 0 11/20/2024 [facility] [place] [facility] - Occupational Stress [...] things needed for daily living? No 12/13/2023 [facility] IP Transportation [...] encounter Miscellaneous Notes * Telephone Encounter - Mervin Toribio MD - 05/28/2025 5:13 PM EST Advised patient to follow-up to discuss medication options. Video visit is fine. * Telephone Encounter - Marjorie Guerrero MA - 05/28/2025 4:24 PM EST Stephany called to speak with someone in the office to see what pt's last A1C result was and to advthat pt may benefit from adding another medication. Stephany stated she would benefit from being edith statin possibly. Please adv * Telephone Encounter - Marjorie Guerrero MA - 05/28/2025 4:23 PM EST Informed [facility] that A1C was 6.1. * Telephone Encounter - Gibson Yanez - 05/28/2025 3:26 PM EST Select the most appropriate reason for this telephone message: Other Who is calling: Other [facility] Return Method of Communication: Phone Call What is needed OR why are they calling: Stephany called to speak with someone in the office to see what pt's last A1C result was and to adv that pt may benefit from adding another medication. Stephany stated she would benefit from being on a statin possibly. Please adv When is this needed by: n/a Where does this information need to go: Dr Toribio Additional information:N/A documented in this encounter Plan of Treatment Upcoming Encounters Date Type Department Care Team (Late st Contact Info) Description 08/08/2025 10:30 AM EST Office Visit [facility] [address] [place] [address] [address] [place] [phone] Kameron Coello DO [address] [place] [address] [place], [place] [id number] documented as of this encounter Goals Goal [...] documented as of this encounter Care Teams Server Systems Administrator Relationship Specialty Start Date End Date Mervin Toribio MD [address] [place] [address] PCP - General Family Medicine 11/24/23 documented as of this encounter
--- OUTSIDE RECORDS SUMMARY | 2025-06-23 09:18 | XMS_ITS | Encounter Summary ---
Author Organization [place] [address] Care Team Providers Care Checker Bakery Products Name Role Phone Mervin Toribio MD Primary Care Provider Reason for Visit * Reason Comments Medication Refill Encounter Details Date Type Department Care Team (Late st Contact Info) Description 06/13/2025 Refill [facility] [address] [place] [address] Mervin Toribio MD [address] [place] [address] Medication Refill Social History Tobacco Use Types Packs/Day Years Used Date Smoking Tobacco: Never Smokeless Tobacco: Never Alcohol Use Standard Drinks/Week Comments Yes 0 (1 standard drink = 0.6 oz pur e alcohol) occasionally, once monthly [facility] Utilities Answer Date Recorded In the past 12 months has [facility] [employer], [employer], oil, or water [employer] threatened to shut off services in your home? Patient declined 12/08/2023 Social Connection and Isolation Panel Answer Date Recorded Frequency of Communication with Friends and Fami ly Not on file 12/13/2023 Frequency of Social Gatherings with Friends and Family Not on file 12/13/2023 Attends [employer] Not on file 12/12 Active Member [...] Date Recorded PHQ-2 Total Score 0 11/20/2024 [facility] - Occupational [...] things needed for daily living? No 12/13/2023 [facility] IP Transportation Answer D ate Recorded [...] of Assessment Author No 06/22/2023 11:12 AM Rhoit Jeong RN * Is the person blind [...] BY MOUTH EVERY DAY NEEDED 90 Tablet 06/14/2025 documented in this encounter Miscellaneous Notes * Telephone Encounter - Tu Lyle CPhT - 06/14/2025 12:32 PM EST fUROsemide Future Visit: na Last Assessed Visit: 11/20/24 Follow-Up: 11/20/25 This patient requires the following labs/vitals. Routing to the office. Abnormal serum potassium OR potassium not on file within 6 months documented in this encounter Plan of Treatment Upcoming Encounters Date Type Department Care Team (Late st Contact Info) Description 08/08/2025 10:30 AM EST Office Visit [facility] [address] [place] [phone] Kameron Coello, DO [address] [place] [address] documented as of this encounter Goals Goal [...] 1 TABLET BY MOUTH EVERY DAY NEEDED 02/28/2025 06/14/2025 documented as of this encounter Additional Health [...] documented as of this encounter Care Teams Checker Bakery Products Relationship Specialty Start Date End Date Mervin Toribio MD [address] [place] [address] PCP - General Family Medicine 11/24/23 documented as of this encounter
--- OUTSIDE RECORDS SUMMARY | 2025-06-23 09:18 | XMS_ITS | Encounter Summary ---
Author Organization [facility] [place] [address] Care Team Providers Care Welder Fabricator Name Role Phone Mervin Toribio MD Primary Care Provider Encounter Details Date Type Department Care Team (Latest Contact Info) Description 06/04/2025 Travel Social History Tobacco Use Types Packs/Day Years Used Date Smoking Tobacco: Never Smokeless Tobacco: Never Alcohol Use Standard Drinks/Week Comments Yes 0 (1 standard drink = 0.6 oz pur e alcohol) occasionally, once monthly [facility] Utilities Answer Date Recorded In the past 12 months has [employer], gas, oil, or water company threatened to shut off services in your home? Patient declined 12/08/2023 Social Connection and Isolation Panel Answer Date Recorded Frequency of Communication with Friends and Fami ly Not on file 12/13/2023 Frequency of Social Gatherings with Friends and Family Not on file 12/13/2023 Attends [employer] Services Not on file 12/12 Active Member [...] Date Recorded PHQ-2 Total Score 0 11/20/2024 [facility] - Occupational Stress Questionnaire Answer Date [...] things needed for daily living? No 12/13/2023 [facility] IP Transportation Answer D ate Recorded In [...] EST Office Visit [facility] [address] [place] [address] Drive [address] [place] [phone] Kameron Coello DO [address] [place] [address] [place] [phone] documented as of this encounter Goals [...] documented as of this encounter Care Teams Welder Fabricator Relationship Specialty Start Date End Date Mervin Toribio MD [address] [place] [address] PCP - General Family Medicine 11/24/23 documented as of this encounter
--- NOTE | 2025-06-23 09:26 | CT_ITS ---
PROCEDURE INFORMATION: Exam: CT Abdomen And Pelvis With Contrast Exam date and time: 06/23/2025 11:01 AM Age: 45 years old Clinical indication: Abdominal pain; Localized; Right lower quadrant (rlq); Additional info: Rlq pain TECHNIQUE: Imaging protocol: Computed tomography of the abdomen and pelvis with contrast. 3D rendering (Not supervised by radiologist): MIP and/or 3D reconstructed images were created by the technologist. Radiation optimization: All CT scans at this facility use at least one of these dose optimization techniques: automated exposure control; mA and/or kV adjustment per patient size (includes targeted exams where dose is matched to clinical indication); or iterative reconstruction. Contrast material: ISOVUE; Contrast volume: 75 ml; Contrast route: IV; COMPARISON: CT ANGIO CHEST PE PROTOCOL 06/23/2025 11:01 AM FINDINGS: Diaphragm: There is a small hiatal hernia. Liver: Normal. No mass. Gallbladder and biliary ducts: Gallbladder is surgically absent. Pancreas: There is normal enhancement of the pancreas. Spleen: Spleen is not enlarged. Adrenal glands: Normal. Kidneys and ureters: Normal. No hydronephrosis. Stomach and bowel: There is no bowel obstruction. Appendix: Appendix is not visualized. Intraperitoneal space: There are no inflammatory changes in the right lower quadrant of the abdomen. Vasculature: Unremarkable. No abdominal aortic aneurysm. Lymph nodes: There are enlarged lymph nodes in the inguinal regions (left greater than right). There are few mildly prominent lymph nodes in the para-aortic region. Urinary bladder: Unremarkable as visualized. Reproductive: Uterus is not well visualized. No abnormal adnexal mass lesions. Bones/joints: The osseous structures demonstrate no acute abnormalities. Soft tissues: Unremarkable. IMPRESSION: 1. Mildly prominent lymph nodes in the para-aortic region along with enlarged lymph nodes in the inguinal regions (left greater than right). Correlate clinically. 2. Appendix is not visualized. Constipation. No bowel obstruction.
--- NOTE | 2025-06-23 09:31 | ED_ITS ---
Discharge Plan Disposition Patient Disposition: Admitted Discharge ED Provider: Justin Perez Adult HPI General Chief complaint: Abdominal Pain Stated complaint: ABD pain Time Seen by Provider: 06/23/25 09:20 Mode of Arrival: EMS Source of Information: Patient Description of Symptoms (Recalled from ER Triage Doc. by RN): patient states she has had nausea vomiting for 2 days with RLQ pain. she also reports she has been running fevers. patient 76 had to apply NC at 2liters History of Present Illness HPI narrative: Patient is states that she has similar symptoms several weeks ago she has diagnosis of bladder infection and constipation. Denies being on antibiotics since. She describes her pain as right sided radiating around her lower back. Denies measured fever. Related Data Home Medications ?Medication ?Instructions ?Recorded ?Confirmed methocarbamol 750 mg tablet 750 mg PO QID Muscle spasm s 12/31/18 06/23/25 gabapentin 800 mg tablet 800 mg PO TID Pain 01/01/19 06/23/25 amitriptyline 150 mg tablet 150 mg PO HS Mood 06/23/23 06/23/25 chlorthalidone 25 mg tablet 25 mg PO DAILY Fluid 06/2306/23/25 hydroxyzine pamoate 25 mg capsule 25 - 50 mg PO TID An xiety 06/23/23 06/23/25 levothyroxine 100 mcg tablet 100 mcg PO DAILY Thyroid 06/23/23 06/23/25 ondansetron 4 mg disintegrating 4 mg PO Q8HP PRN nause a and 06/23/23 06/23/25 tablet vomiting buprenorphine 8 mg-naloxone 2 mg 2 tab sublingual KATY Y Withdrawal 06/24/23 06/23/25 sublingual tablet potassium chloride 20 mEq 20 meq PO DAILY Supplement 1 08/25/22 06/23/25 tablet,extended release(part/cryst) (Klor-Con M) Allergies Allergy/AdvReac Type Severity Reaction Status Date / Time adhesive tape AdvReac Rash Verified 07/30/23 06:26 [facility] Disclaimer: The information contained in this section may have been updated after the patient was seen, as this information can be updated by other users. Medical History (Updated 03/03/25 @ 10:52 by Shar Ray DO) Non compliance w medication regimen Narcotic addiction Acquired hypothyroidism Gastroesophageal reflux disease Anxiety with depression Vitamin D deficiency Fibromyalgia Insomnia Cervical neuropathy History of IBS FORD on CPAP Morbid obesity with body mass index (BMI) of 40.0 to 49.9 Prolonged Q-T interval on ECG Surgical History History of bladder suspension procedure (~2012) History of vaginal hysterectomy (~2012) History of wisdom tooth extraction (~2009) Tubal ligation status Social History Smoking Status: Unknown if ever smoked alcohol intake: never substance use type: opiates current occupational status: unemployed Travel in the last 8 weeks?: None household members: spouse and children housing: house caffeine: Yes Have you lived/traveled outside [place] in past 30 days?: No Contact w/someone who lives/traveled outside US past 30 days?: No Exposure to someone with infectious disease in past 14 days?: No Do you have a fever (greater than 100.4 F or 38 C)?: No Have you tested positive for COVID-19?: No Exposed to someone with COVID-19 in past 14 days?: No Do you have a sore throat?: No Do you have a cough?: No Do you have any weakness?: No Do you have any diarrhea?: No Are you experiencing any unusual bleeding?: No Do you have any muscle aches/pain?: No Do you have any abdominal pain?: No Are you experiencing loss of taste or smell?: No Other Medical History Have you received the Flu Vaccine for this season: No Have you received the Pneumonia Vaccine: No ROS Obtained: Yes Systems reviewed as appropriate & no additional complaints except as documented Physical Exam General General appearance: alert Comment: Appears to be periodically falling asleep during exam Head Head exam: atraumatic Eye Eye exam: Present other (Bilaterally reactive and approximately 5 mm) ENT ENT exam: Present normal exam Neck Neck exam: Present normal inspection Chest Chest inspection: Present normal inspection Respiratory Respiratory exam: Present other (Saturating appropriately on 2 L nasal cannula with appropriate effort) Cardiovascular Cardiovascular exam: Present regular rate and normal rhythm Abdominal Exam Abdominal exam: Present soft, tenderness (Mildly tender right lower quadrant) and other (Obese, but appears to be blisters on bilateral aspects of the anterior abdomen around the umbilicus) Extremities Exam Extremities exam: Present other (Left lower extremity redness and blistering) Neurological Exam Neurological exam: Present alert and other (Alert and oriented able to give her history however periodically falls asleep. No focal deficits noted) Skin Skin exam: Present warm Lymphatic Lymphatic Findings: no adenopathy Medical Decision Making Medical Records Screening: Per USPSTF and CDC recommendations, given the prevalence of disease in our region, it is our hospital?s policy to screen for HIV and viral Hepatitis for all patients aged 18 and over and those with ongoing risk factors. Harry Inquiry Pt receiving controlled substance: No Vital Signs: 06/23/25 09:06 06/23/25 09:07 06/23/25 09:30 Temperature 100 F H Temperature Source Oral Pulse Rate 85 78 Pulse Rate [Right Radial] 87 Respiratory Rate 18 Blood Pressure 119/62 107/65 L Blood Pressure [Right Arm] 119/62 Blood Pressure Mean 76 Blood Pressure Mean [Right Arm] 81 Blood Pressure Source [Right Arm] Automatic Cuff Blood Pressure Position [Right Arm] Supine 02 Sat by Pulse Oximetry 98 92 L 94 L Oxygen Delivery Method Nasal Cannula Nasal Cannula Nasal Cannula Oxygen Flow Rate (LPM) 2 2 2 06/23/25 10:00 06/23/25 10:31 06/23/25 10:45 Temperature Temperature Source Pulse Rate 75 74 Pulse Rate [Right Radial] Respiratory Rate 14 11 L Blood Pressure 120/97 H 181/103 H Blood Pressure [Right Arm] Blood Pressure Mean 99 Blood Pressure Mean [Right Arm] Blood Pressure Source [Right Arm] Blood Pressure Position [Right Arm] 02 Sat by Pulse Oximetry 94 L 98 Oxygen Delivery Method Nasal Cannula Nasal Cannula Oxygen Flow Rate (LPM) 2 2 06/23/25 11:12 06/23/25 11:30 06/23/25 11:38 Temperature Temperature Source Pulse Rate Pulse Rate [Right Radial] Respiratory Rate 17 20 16 Blood Pressure 111/69 130/114 H 144/80 H Blood Pressure [Right Arm] Blood Pressure Mean Blood Pressure Mean [Right Arm] Blood Pressure Source [Right Arm] Blood Pressure Position [Right Arm] 02 Sat by Pulse Oximetry 92 L 90 L 90 L Oxygen Delivery Method Nasal Cannula Nasal Cannula Oxygen Flow Rate (LPM) 2 2 06/23/25 12:00 06/23/25 12:30 06/23/25 12:31 Temperature Temperature Source Pulse Rate 87 85 82 Pulse Rate [Right Radial] Respiratory Rate 16 15 15 Blood Pressure 119/74 139/94 H 139/94 H Blood Pressure [Right Arm] Blood Pressure Mean Blood Pressure Mean [Right Arm] Blood Pressure Source [Right Arm] Blood Pressure Position [Right Arm] 02 Sat by Pulse Oximetry 91 L 97 99 Oxygen Delivery Method Nasal Cannula Nasal Cannula Nasal Cannula Oxygen Flow Rate (LPM) 2 2 2 06/23/25 13:02 06/23/25 13:31 06/23/25 13:35 Temperature Temperature Source Pulse Rate 84 94 H 86 Pulse Rate [Right Radial] Respiratory Rate 15 16 18 Blood Pressure 177/96 H 213/161 H 113/65 Blood Pressure [Right Arm] Blood Pressure Mean Blood Pressure Mean [Right Arm] Blood Pressure Source [Right Arm] Blood Pressure Position [Right Arm] 02 Sat by Pulse Oximetry 98 91 L 96 Oxygen Delivery Method Nasal Cannula Nasal Cannula Oxygen Flow Rate (LPM) 2 2 06/23/25 14:00 06/23/25 14:30 06/23/25 14:47 Temperature Temperature Source Pulse Rate 91 H 93 H Pulse Rate [Right Radial] Respiratory Rate 20 19 Blood Pressure 111/66 Blood Pressure [Right Arm] Blood Pressure Mean Blood Pressure Mean [Right Arm] Blood Pressure Source [Right Arm] Blood Pressure Position [Right Arm] 02 Sat by Pulse Oximetry 90 L 91 L Oxygen Delivery Method Nasal Cannula Nasal Cannula Oxygen Flow Rate (LPM) 2 2 06/23/25 15:20 Temperature 100 F H Temperature Source Oral Pulse Rate 93 H Pulse Rate [Right Radial] Respiratory Rate 18 Blood Pressure 111/66 Blood Pressure [Right Arm] Blood Pressure Mean Blood Pressure Mean [Right Arm] Blood Pressure Source [Right Arm] Blood Pressure Position [Right Arm] 02 Sat by Pulse Oximetry Oxygen Delivery Method Nasal Cannula Oxygen Flow Rate (LPM) 2 Lab Data Lab Results 06/23/25 09:10: WBC 22.2 H*, RBC 5.62 H, Hgb 11.0 L, Hct 37.4, MCV 66.5 L, MCH 19.6 L, MCHC 29.4 L, RDW 15.7, Plt Count 316, MPV 10.5 H, Neut % (Auto) 89.2 H, Lymph % (Auto) 3.5 L, [place] % (Auto) 6.0, Eos % (Auto) 0.0 L, Baso % (Auto) 0.5, Neut # (Auto) 19.8 H, Lymph # (Auto) 0.8, [place] # (Auto) 1.3 H, Eos # (Auto) 0.0, Baso # (Auto) 0.1, Sodium 131 L, Potassium 2.7 L*, Chloride 86 L, Carbon Dioxide 35 H, Anion Gap 12.7, BUN 20 H, Creatinine 1.00, Estimated Creat Clear 63, Estimated GFR 60, Est GFR ( Amer) 72, Glucose 181 H, Hemoglobin A1c 6.2 H , Calcium 9.6, Magnesium 2.0, Total Bilirubin 0.6, AST 32, ALT 30, Alkaline Phosphatase 120, C-Reactive Protein 142.2 H, Total Protein 9.3 H, Albumin 4.7, G lobulin 4.6 H, Albumin/Globulin Ratio 1.0 L 06/23/25 09:40: VBG pH 7.38, VBG pCO2 53.8 H, VBG pO2 49.7 H, VBG HCO3 31.3 H, V BG Total CO2 33.0 H, VBG O2 Saturation 83.1 H, VBG Base Excess 6.3 H, VBG Lactic Acid 3.6 H 06/23/25 12:06: Urine Color Yellow, Urine Appearance Clear, Urine pH 7.0, Ur Specific Kennard 1.010, Urine Protein Trace, Urine Glucose (UA) Negative, Urine Ketones Negative, Urine Blood Negative, Urine Nitrate Negative, Urine Bilirubin Negative, Urine Urobilinogen 0.2, Ur Leukocyte Esterase Negative, Urine RBC Occasional, Urine WBC None, Ur Squamous Epith Cells Occasional, Urine Bacteria None 06/23/25 13:37: VBG pH 7.39, VBG pCO2 49.8, VBG pO2 129.6 H, VBG HCO3 29.3, VBG Total CO2 30.8 H, VBG O2 Saturation 98.6 H, VBG Base Excess 4.3 H, VBG Lactic Acid 2.3 H 06/23/25 09:10 06/23/25 09:10 Orders (Tests/Meds): ED MEDICATIONS Generic Name Dose Route Start Last Admin Trade Name Freq PRN Reason Stop Dose Admin Acetaminophen 650 mg 06/23/25 14:55 06/23/25 15:34 Acetaminophen 325mg Tab PO 07/23/25 14:54 650 mg Q4HP PRN Administration Fever or Mild Pain (1-3) Hydrocodone Bitart/Acetaminophen 1 tab 06/23/25 14:55 Hydrocodone/Apap 5/325 Mg Tablet PO 07/23/25 14:54 Q4HP PRN Moderate Pain (4-6) Enoxaparin Sodium 40 mg 06/23/25 21:00 Enoxaparin 40mg/0.4ml Syringe SUBCUT 07/23/25 20:59 BID ADAN Ketorolac Tromethamine 30 mg 06/23/25 14:55 Ketorolac 30mg/Ml Vial IV 06/28/25 14:54 Q6HP PRN Moderate to Severe Pain (4-10) Morphine Sulfate 4 mg 06/23/25 14:55 Morphine 4mg/Ml Syringe IV 07/23/25 14:54 Q4HP PRN Severe Pain (7-10) Ondansetron HCl 4 mg 06/23/25 14:55 Ondansetron 4mg/2ml Vial IV 07/23/25 14:54 Q8HP PRN Nausea Discontinued Medications Generic Name Dose Route Start Last Admin Trade Name Freq PRN Reason Stop Dose Admin Cefepime HCl 2 gm/ Sodium 100 mls @ 200 mls/hr 06/23/25 10:03 06/23/25 11:15 Chloride IV 06/23/25 10:32 Infused ONCE ONE Infusion Lactated Ringer's 500 mls @ 999 mls/hr 06/23/25 10:04 06/23/25 11:20 Lactated Ringer's 1000 Ml Bag IV 06/23/25 10:34 Infused .Q31M ONE Infusion Vancomycin HCl 2,500 mg/ 500 mls @ 250 mls/hr 06/23/25 10:15 06/23/25 13:28 Sodium Chloride IV 06/23/25 12:14 Infused ONCE ONE Infusion Potassium Chloride/Water 100 mls @ 100 mls/hr 06/23/25 10:19 06/23/25 11:37 Potassium Chloride 10meq/100ml Ivpb IV 06/23/25 11:18 Infused ONCE ONE Infusion Iopamidol 80 ml 06/23/25 11:01 06/23/25 11:02 Iopamidol-370 (76%);100ml Bottle IV 06/23/25 11:02 80 ml ONCE ONE Administration Iopamidol 90 ml 06/23/25 13:22 06/23/25 13:23 Iopamidol-370 (76%);100ml Bottle IV 06/23/25 13:23 90 ml ONCE ONE Administration Miscellaneous 1 each 06/23/25 10:15 Vancomycin Consult Request NOTAPPLIC 07/23/25 10:14 CONSULT PHARMACY ADAN Sodium Chloride 10 ml 06/23/25 11:01 06/23/25 11:02 Sodium Chloride 0.9% 10ml Syr (Rad Only) IV 07/23/25 11:00 10 ml NEEDED PRN Administration Maintain IV Site Sodium Chloride 50 ml 06/23/25 11:01 06/23/25 11:02 0.9 % Sodium Chloride 50 Ml Vial IV 06/23/25 11:02 50 ml ONCE ONE Administration Sodium Chloride 10 ml 06/23/25 13:22 06/23/25 13:23 Sodium Chloride 0.9% 10ml Syr (Rad Only) IV 07/23/25 13:21 10 ml NEEDED PRN Administration Maintain IV Site ORDERS Category Date Time Status CT Tib/Fib LT w con Stat Cat Scan 06/23/25 12:[address] abdomen pelvis w con Stat Cat Scan 06/23/25 09:[address] cervical spine wo con Stat Cat Scan 06/23/25 10:[address] head/brain wo con Stat Cat Scan 06/23/25 10:01 Completed CTA Chest [CT angio chest PE protocol] Stat Cat Scan 06/23/25 09:32 Completed Tibia/fibula XR left 2 views [XR tibia fibula LT 2V] Exams 06/23/25 10:02 Completed Stat CBC w/Auto Diff [Complete Blood Count Auto Diff] Stat Lab 06/23/25 09:10 Completed CMP [Comprehensive Metabolic Panel] Stat Lab 06/23/25 09:10 Completed CRP [C-Reactive Protein] Stat Lab 06/23/25 09:10 Completed Magnesium Stat Lab 06/23/25 09:10 Completed Urinalysis and Microscopic Stat Lab 06/23/25 12:06 Completed Blood Culture Stat Micro 06/23/25 10:07 Received VBG [Venous Blood Gas] Stat RT 06/23/25 09:40 Completed VBG [Venous Blood Gas] Stat RT 06/23/25 13:37 Completed Medical Decision Narrative: CBC with significant leukocytosis and CRP significantly elevated started sepsis management with a bolus of fluids given your lack of significant peripheral edema or evidence of fluid overload on exam and her evident infection process with mental status as well as laboratory evaluation. Uncertain if this is an intra-abdominal process or related to her skin exam as documented above started with broad-spectrum antibiotics after blood cultures obtained. Ordered potassium replacement given hyperkalemia documented 2.7. Due to additional history of CHF administered 1 L bolus as opposed to the standard sepsis bolus of 30 mL/kg LRINEC is 5, ct lle without abscess or gas colleciton discused with hm who agreed to evaluate for admission for suspected sepsis caused by cellulitis patient did have improvement of lactate on repeat vbg and improvement in mental status after bolus and abx Critical Care Critical Care Time Critical Care Time: No
--- NOTE | 2025-06-23 09:32 | CT_ITS ---
PROCEDURE INFORMATION: Exam: CTA Chest With Contrast Exam date and time: 06/23/2025 11:01 AM Age: 45 years old Clinical indication: Other: Hypoxia TECHNIQUE: Imaging protocol: Computed tomographic angiography of the chest with contrast. Exam focused on the arteries. 3D rendering (Not supervised by radiologist): MIP and/or 3D reconstructed images were created by the technologist. Radiation optimization: All CT scans at this facility use at least one of these dose optimization techniques: automated exposure control; mA and/or kV adjustment per patient size (includes targeted exams where dose is matched to clinical indication); or iterative reconstruction. Contrast material: ISO 370; Contrast volume: 80 ml; Contrast route: INTRAVENOUS (IV); COMPARISON: CR XR CHEST PORTABLE 07/30/2023 2:40 AM FINDINGS: Pulmonary arteries: Main pulmonary artery is not dilated. Aorta: There is left aortic arch. Trachea: Trachea and proximal airways are patent. Lungs: There are mild hypoventilatory changes in the dependent portions of the lungs. Pleural spaces: There is no pneumothorax or pleural effusion. Heart: There is no cardiomegaly or pericardial effusion. Lymph nodes: Unremarkable. No enlarged lymph nodes. Bones/joints: Unremarkable. No acute fracture. Soft tissues: Unremarkable. IMPRESSION: 1. No evidence of pulmonary embolism. 2. Mild hypoventilatory changes in the dependent portions of the lungs.
[2025-06-23 09:42] LABS: Hematocrit 37.4 % (37.0-47.0); Hemoglobin 11.0 g/dL (12.2-16.2); Immature Granulocytes % 0.8 %; Mean Corpuscular HGB Conc 29.4 g/dL (31.8-35.4); Mean Corpuscular Hemoglobin 19.6 pg (27.0-31.2); Mean Corpuscular Volume 66.5 fl (81-99); Nucleated Red Blood Cells % 0 %; Platelet Count 316 K/mm3 (142-424); Red Blood Count 5.62 M/mm3 (4.20-5.40); Red Cell Distribution Width-SD 36.5 fL; White Blood Count 22.2 K/mm3 (4.8-10.8)
[2025-06-23 09:47] LABS: Alanine Aminotransferase 30 U/L (12-78); Albumin Level 4.7 g/dl (3.5-5.0); Albumin/Globulin Ratio 1.0 (1.1-1.8); Alkaline Phosphatase 120 U/L (38-126); Anion Gap 12.7 mEq/L (5-15); Aspartate Amino Transferase 32 U/L (14-36); Bilirubin,Total 0.6 mg/dl (0.2-1.3); Blood Urea Nitrogen 20 mg/dl (7-17); Calcium 9.6 mg/dl (8.4-10.2); Carbon Dioxide 35 mmol/L (22.0-30.0); Chloride 86 mmol/L (98-107); Creatinine Clearance Estimated 63 mL/min (50-200); Creatinine,Serum 1.00 mg/dl (0.52-1.04); Estimated Glomerular Filt Rate 60 ml/min (>60); GFR (African American) 72 ML/MIN (>60); Globulin 4.6 g/dL (1.3-3.2); Glucose 181 mg/dl (74-100); Magnesium 2.0 mg/dl (1.6-2.3); Sodium 131 mmol/L (136-145); Total Protein,Serum 9.3 g/dl (6.3-8.2)
[2025-06-23 09:50] LABS: VBG HCO3 31.3 mmol/L (23-30); VBG PH 7.38 mmol/L (7.31-7.41); VBG PO2 49.7 mmol/L (28-40)
[2025-06-23 09:50] LABS: Potassium 2.7 mmoL/L (3.5-5.1)
[2025-06-23 09:52] LABS: C-Reactive Protein 142.2 mg/L (0-4)
[2025-06-23 09:53] LABS: Lactate Venous 3.6 mmol/L (0.4-2.0); VBG PCO2 53.8 mmol/L (35-51)
--- NOTE | 2025-06-23 10:01 | CT_ITS ---
PROCEDURE INFORMATION: Exam: CT Head Without Contrast Exam date and time: 06/23/2025 10:57 AM Age: 45 years old Clinical indication: Injury or trauma; Fall; Blunt trauma (contusions or hematomas) TECHNIQUE: Imaging protocol: Computed tomography of the head without contrast. Radiation optimization: All CT scans at this facility use at least one of these dose optimization techniques: automated exposure control; mA and/or kV adjustment per patient size (includes targeted exams where dose is matched to clinical indication); or iterative reconstruction. COMPARISON: CT HEAD/BRAIN WO CON 07/30/2023 4:42 AM FINDINGS: Brain: Paulson-white matter differentiation and sulcation pattern is normal. There is normal density in the basal ganglia and thalamus. There is no intracranial hemorrhage. There are no pathologic extra-axial fluid collections. Cerebral ventricles: No ventriculomegaly. Paranasal sinuses: There is mild mucosal thickening in the paranasal sinuses. Mastoid air cells: Visualized mastoid air cells are well aerated. Bones: There are no calvarial fractures. Soft tissues: Unremarkable. IMPRESSION: No acute intracranial pathology.
--- NOTE | 2025-06-23 10:01 | CT_ITS ---
PROCEDURE INFORMATION: Exam: CT Cervical Spine Without Contrast Exam date and time: 06/23/2025 10:59 AM Age: 45 years old Clinical indication: Injury or trauma; Fall; Blunt trauma TECHNIQUE: Imaging protocol: Computed tomography of the cervical spine without contrast. Radiation optimization: All CT scans at this facility use at least one of these dose optimization techniques: automated exposure control; mA and/or kV adjustment per patient size (includes targeted exams where dose is matched to clinical indication); or iterative reconstruction. [facility] [place] [facility] [place]/31/[place] 1:52 PM FINDINGS: Bones: There is normal alignment of the cervical spine. The vertebral body heights are maintained. There is no spondylolisthesis. Craniocervical relationship is maintained. There are no fractures or dislocations. Lungs: Lung apices are normal. Soft tissues: Unremarkable. IMPRESSION: No evidence of osseous injury to the cervical spine.
--- NOTE | 2025-06-23 10:02 | XR_ITS ---
PROCEDURE INFORMATION: Exam: XR Left Tibia and Fibula Exam date and time: 06/23/2025 11:27 AM Age: 45 years old Clinical indication: Pain; Lower leg; Left TECHNIQUE: Imaging protocol: Radiologic exam of the left tibia and fibula. Views: 2 views. COMPARISON: CR XR FOOT WT BEARING LT 3V 06/26/2020 1:17 PM FINDINGS: Bones/joints: There are no fractures or dislocations. There are no significant bony degenerative changes. Soft tissues: The soft tissues appear unremarkable. IMPRESSION: There are no fractures or dislocations.
--- NOTE | 2025-06-23 10:30 | PC.NURSE ---
No sepsis bolus per due to CHF and concern for fluid overload.
--- NOTE | 2025-06-23 10:30 | ECG_ITS ---
APPROVED REPORT Exam: Resting ECG HR:74 bpm ECG Measurements Heart Rate 74 AXES VA 160 P 4 QRSd 104 QRS 43 QT 427 T 15 QTc 454 Conclusion SINUS RHYTHM NORMAL ECG No STEMI Electronically signed by : CASSANDRA VIRAMONTES, 06/27/2025 03:02:28
[2025-06-23] MEDS: CEFEPIME HCL 2 GM in 0.9 % SODIUM CHLORIDE 100 ML IV (10:34)
[2025-06-23] MEDS: LACTATED RINGERS 1000ML 500 ML 999 ML IV (10:37)
[2025-06-23] MEDS: SODIUM CHLORIDE 0.9% 10ML SYR (RAD ONLY) 10 ML IV ×2 (11:02→13:23)
[2025-06-23] MEDS: 0.9 % SODIUM CHLORIDE 50 ML VIAL IV (11:02)
[2025-06-23] MEDS: IOPAMIDOL-370 (76%);100ML BOTTLE 80 ML IV (11:02)
[2025-06-23] MEDS: VANCOMYCIN HCL 2,500 MG in 0.9 % SODIUM CHLORIDE 500 ML 250 MG IV (11:25)
[2025-06-23 12:13] LABS: Microscopic, Urine URINE MICROSCOPIC (MICROSCOPIC)
[2025-06-23 12:28] LABS: Bilirubin,Urine Negative (Negative); Color,Urine YELLOW (Yellow); Glucose,Urine (UA) Negative (Negative); Ketones,Urine Negative (Negative); Leukocyte Esterase,Urine Negative (Negative); PH,Urine 7.0 (5.0-8.5); Protein,Urine TRACE (Negative); Specific Gravity, Urine 1.010 (1.005-1.030); Urobilinogen,Urine 0.2 EU/dl (0.2)
[2025-06-23 12:45] LABS: RBC,Urine Occasional #/hpf (0-3); Squamous Epithelial Cell,Urine Occasional #/hpf (0-5)
--- NOTE | 2025-06-23 12:55 | CT_ITS ---
PROCEDURE INFORMATION: Exam: CT Left Lower Extremity With Contrast, Leg Exam date and time: 06/23/2025 1:22 PM Age: 45 years old Clinical indication: Other: Infection TECHNIQUE: Imaging protocol: CT of the left lower extremity with intravenous contrast was performed. Exam focused on the lower leg. Radiation optimization: All CT scans at this facility use at least one of these dose optimization techniques: automated exposure control; mA and/or kV adjustment per patient size (includes targeted exams where dose is matched to clinical indication); or iterative reconstruction. Contrast material: ISOVUE; Contrast volume: 90 ml; Contrast route: IV; COMPARISON: CR XR TIBIA FIBULA LT 2V 06/23/2025 11:27 AM FINDINGS: Bones/joints: Degenerative changes knee. small suprapatellar effusion. Evaluation for acute osteomyelitis is limited by CT technique without definite destructive osseous lesion. Soft tissues: Subcutaneous varicosities. No soft tissue emphysema. Other findings: No fluid collection to suggest abscess. IMPRESSION: 1. Subcutaneous varicosities. If there is clinical concern for thrombophlebitis this will be better evaluated with ultrasound. 2. No fluid collection to suggest abscess. 3. Evaluation for acute osteomyelitis is limited by CT technique without definite destructive osseous lesion. If there is clinical concern for acute osteomyelitis, this could be better evaluated with MR.
[2025-06-23] MEDS: IOPAMIDOL-370 (76%);100ML BOTTLE 90 ML IV (13:23)
--- NOTE | 2025-06-23 13:37 | PC.NURSE ---
respriatory aware of vbg and blood work in the lab
[2025-06-23 13:52] LABS: Reflex Lactic Add Lactic Reflex
[2025-06-23 14:01] LABS: Lactate Venous 2.3 mmol/L (0.4-2.0); VBG HCO3 29.3 mmol/L (23-30); VBG PCO2 49.8 mmol/L (35-51); VBG PH 7.39 mmol/L (7.31-7.41); VBG PO2 129.6 mmol/L (28-40)
--- NOTE | 2025-06-23 14:55 | P.HP_ITS ---
History of Present Illness *Admission Date: 06/23/25 *Reason for visit:: Nausea/vomiting, abdominal pain *History of present illness: Anupama Sutton is a 45-year-old female with a medical history significant for mood disorder, opioid use disorder in remission, hypertension, anxiety/depress ion, hypothyroidism who presented with nausea/vomiting, abdominal pain. Patient states she had abdominal pain about a week ago that improved with bowel movement. Over the past 2 days, she has had nausea/vomiting with again abdominal pain. She states lower abdominal pain is right lower quadrant with radiation to her right flank. It resolved this morning. Denies diarrhea. Last bowel movement 1 week ago. She had a fever of 103 Fahrenheit at home last night. Denies chest pain, shortness of breath. Of note, her daughter at home has been sick with flulike symptoms. No recent changes in medications. Patient does have lower extremity erythematous lesions with open blisters, and a history of varicose veins and venous insufficiency. Patient and family state this is a chronic issue which is not actually better today than it has been in the past. Erythema, tenderness is chronic and more consistent with his venous stasis dermatitis. Workup in the ED significant for WBC 22.2, hemoglobin 11, MCV 66.5, potassium 2.7, CRP 142, UA normal. She was apparently saturating 77% arrival, requiring 2 L nasal cannula. Broad workup including CT chest/abdomen/pelvis, lower extremity CT noninfectious. Head CT also unremarkable. She had a fever 101 in the ED. Given this presentation, ED provider discussed case with me I decided to admit patient for further evaluation management. [facility] Disclaimer: The information contained in this section may have been updated after the patient was seen, as this information can be updated by other users. Medical History (Updated 06/23/25 @ 18:54 by Michael Galdamez MD) Non compliance w medication regimen Narcotic addiction Acquired hypothyroidism Gastroesophageal reflux disease Anxiety with depression Vitamin D deficiency Fibromyalgia Insomnia Cervical neuropathy History of IBS FORD on CPAP Morbid obesity with body mass index (BMI) of 40.0 to 49.9 Prolonged Q-T interval on ECG Surgical History History of bladder suspension procedure (~2012) History of vaginal hysterectomy (~2012) History of wisdom tooth extraction (~2009) Tubal ligation status Social History Smoking Status: Unknown if ever smoked alcohol intake: never substance use type: opiates current occupational status: unemployed Travel in the last 8 weeks?: None household members: spouse and children housing: house caffeine: Yes Have you lived/traveled outside [place] in past 30 days?: No Contact w/someone who lives/traveled outside US past 30 days?: No Exposure to someone with infectious disease in past 14 days?: No Do you have a fever (greater than 100.4 F or 38 C)?: No Have you tested positive for COVID-19?: No Exposed to someone with COVID-19 in past 14 days?: No Do you have a sore throat?: No Do you have a cough?: No Do you have any weakness?: No Do you have any diarrhea?: No Are you experiencing any unusual bleeding?: No Do you have any muscle aches/pain?: No Do you have any abdominal pain?: No Are you experiencing loss of taste or smell?: No Other Medical History Have you received the Flu Vaccine for this season: No Have you received the Pneumonia Vaccine: No Meds Home Medications and Allergies Home Medications ?Medication ?Instructions ?Recorded ?Confirmed ?Type methocarbamol 750 mg tablet 750 mg PO QID Muscle spasm s 12/31/18 06/23/25 History gabapentin 800 mg tablet 800 mg PO TID Pain 01/01/19 06/23/25 History amitriptyline 150 mg tablet 150 mg PO HS Mood 06/23/23 06/23/25 History chlorthalidone 25 mg tablet 25 mg PO DAILY Fluid 06/2306/23/25 History hydroxyzine pamoate 25 mg capsule 25 - 50 mg PO TID An xiety 06/23/23 06/23/25 History levothyroxine 100 mcg tablet 100 mcg PO DAILY Thyroid 06/23/23 06/23/25 History ondansetron 4 mg disintegrating 4 mg PO Q8HP PRN nause a and 06/23/23 06/23/25 History tablet vomiting buprenorphine 8 mg-naloxone 2 mg 2 tab sublingual KATY Y Withdrawal 06/24/23 06/23/25 History sublingual tablet potassium chloride 20 mEq 20 meq PO DAILY Supplement 1 08/25/22 06/23/25 History tablet,extended release(part/cryst) ([place]-Con M) New Prescriptions to Start Prescriptions: Allergies Allergy/AdvReac Type Severity Reaction Status Date / Time adhesive tape AdvReac Rash Verified 07/30/23 06:26 Exam Data for Last 24 hours Vital signs and Labs for Last 24 Hours: Temp Pulse Resp BP Pulse Ox O2 Del Method O2 Flow Rate 100 F H 93 H 19 111/66 91 L Nasal Cannula 2 06/23/25 09:07 06/23/25 14:30 06/23/25 14:30 06/23/25 14:30 06/23/25 14:30 06/23/25 14:00 06/23/25 14:00 Laboratory Results - last 24 hr 06/23/25 09:10: WBC 22.2 H*, RBC 5.62 H, Hgb 11.0 L, Hct 37.4, MCV 66.5 L, MCH 19.6 L, MCHC 29.4 L, RDW 15.7, Plt Count 316, MPV 10.5 H, Neut % (Auto) 89.2 H, Lymph % (Auto) 3.5 L, [place] % (Auto) 6.0, Eos % (Auto) 0.0 L, Baso % (Auto) 0.5, Neut # (Auto) 19.8 H, Lymph # (Auto) 0.8, [place] # (Auto) 1.3 H, Eos # (Auto) 0.0, Baso # (Auto) 0.1, Sodium 131 L, Potassium 2.7 L*, Chloride 86 L, Carbon Dioxide 35 H, Anion Gap 12.7, BUN 20 H, Creatinine 1.00, Estimated Creat Clear 63, Estimated GFR 60, Est GFR ( Amer) 72, Glucose 181 H, Calcium 9.6, Magnesium 2.0, Total Bilirubin 0.6, AST 32, ALT 30, Alkaline Phosphatase 120, C- Reactive Protein 142.2 H, Total Protein 9.3 H, Albumin 4.7, Globulin 4.6 H, Albumin/Globulin Ratio 1.0 L 06/23/25 09:40: VBG pH 7.38, VBG pCO2 53.8 H, VBG pO2 49.7 H, VBG HCO3 31.3 H, VBG Total CO2 33.0 H, VBG O2 Saturation 83.1 H, VBG Base Excess 6.3 H, VBG Lactic Acid 3.6 H 06/23/25 12:06: Urine Color Yellow, Urine Appearance Clear, Urine pH 7.0, Ur Specific [place] 1.010, Urine Protein Trace, Urine Glucose (UA) Negative, Urine Ketones Negative, Urine Blood Negative, Urine Nitrate Negative, Urine Bilirubin Negative, Urine Urobilinogen 0.2, Ur Leukocyte Esterase Negative, Urine RBC Occasional, Urine WBC None, Ur Squamous Epith Cells Occasional, Urine Bacteria None 06/23/25 13:37: VBG pH 7.39, VBG pCO2 49.8, VBG pO2 129.6 H, VBG HCO3 29.3, VBG Total CO2 30.8 H, VBG O2 Saturation 98.6 H, VBG Base Excess 4.3 H, VBG Lactic Acid 2.3 H I & O for Last 24 hours: Intake & Output 06/20/25 06/21/25 06/22/25 06/23/25 23:59 23:59 23:59 23:59 Intake Total 1200 / 1200 Balance 1200 / 1200 Weight 131.542 kg Constitutional Constitutional: no acute distress, obese and chronically ill appearing *Routine HEENT Exam Head: Present normocephalic Eye: Present EOMI and PERRL ENT: Present mucous membranes moist *Routine Neck Exam Neck: Present supple; Absent lymphadenopathy *Routine Respiratory Exam Respiratory: Present CTA bilaterally *Routine Cardiovascular Exam Cardiovascular: Present RRR *Routine Abdominal Exam Abdominal: Present soft and normoactive bowel sounds; Absent tenderness *Routine Rectal Exam Rectal:: deferred *Routine Genitalia Exam Genitalia:: deferred *Routine Extremities Exam Extremities: Absent cyanosis, clubbing or edema Comments: Scattered lower extremity erythematous lesions without active drainage. *Routine Skin Exam Skin: Present warm; Absent rash *Routine Neurological Exam Neurological: Present alert and oriented X3 Assessment and Plan *Assessment and plan (1) Acute viral syndrome: Status: Acute Category: Medical Code(s): B34.9 - Viral infection, unspecified Plan Anupama Sutton is a 45-year-old female with a medical history significant for mood disorder, opioid use disorder in remission, hypertension, anxiety/depression, hypothyroidism who presented with nausea/vomiting, abdominal pain. Patient states she had abdominal pain about a week ago that improved with bowel movement. Over the past 2 days, she has had nausea/vomiting with again abdominal pain. She states lower abdominal pain is right lower quadrant with radiation to her right flank. It resolved this morning. Denies diarrhea. Last bowel movement 1 week ago. She had a fever of 103 Fahrenheit at home last night. Denies chest pain, shortness of breath. Of note, her daughter at home has been sick with flulike symptoms. No recent changes in medications. Patient does have lower extremity erythematous lesions with open blisters, and a history of varicose veins and venous insufficiency. Patient and family state this is a chronic issue which is not actually better today than it has been in the past. Erythema, tenderness is chronic and more consistent with his venous stasis dermatitis. Workup in the ED significant for WBC 22.2, hemoglobin 11, MCV 66.5, potassium 2.7, CRP 142, UA normal. She was apparently saturating 77% arrival, requiring 2 L nasal cannula. Broad workup including CT chest/abdomen/pelvis, lower extremity CT noninfectious. Head CT also unremarkable. She had a fever 101 in the ED. Given this presentation, ED provider discussed case with me I decided to admit patient for further evaluation management. #Acute hypoxic respiratory failure #Suspected acute viral syndrome #SIRS ? Presented with nausea/vomiting, abdominal pain and found to be hypoxic in the 77% requiring 2 L nasal cannula. Fever at home 103 Fahrenheit. ? Met SIRS criteria with fever 101 Fahrenheit, tachycardia, WBC 22.2. At this time, no focal infection identified. Very low suspicion for meningitis at this time. Patient has baseline confusion, restlessness. ? No focal infection found on imaging. Seems to be viral syndrome at this time. Leukocytosis may be contraction from nausea/vomiting. ? Continue Zosyn 3.37 g every 6 hours. ? Started DuoNebs every 6 hours scheduled. ? Follow-up BNP. ? Follow-up full respiratory panel, blood cultures. ? Follow-up morning CBC, CRP. #Hypokalemia ? Potassium 2.7, replace per protocol. #Microcytic anemia #Suspected restless leg syndrome ? Initial hemoglobin 11, MCV 66.5. ? Follow-up iron studies, B12, folate. #Opioid use disorder in remission ? Continue home Suboxone once reconciled. #Mood disorder ? Continue home medications once reconciled. #Hypothyroidism ? Continue home levothyroxine 100 mcg. Follow-up TFTs. Full code DVT prophylaxis: Lovenox 40 mg
--- NOTE | 2025-06-23 14:58 | PC.NURSE ---
report given to Norma
[2025-06-23] MEDS: ACETAMINOPHEN 325MG TAB 650 MG PO ×2 (15:34→22:45)
[2025-06-23 15:44] LABS: Hemoglobin A1C 6.2 % (4.0-6.0)
--- NOTE | 2025-06-23 15:47 | PC.WOUNDNOTE ---
OPEN/SCABBED AREAS NOTED TO LLE. NO DRAINAGE NOTED, WARMTH AND REDNESS PRESENT OPEN AND SCABBED AREAS TO RLE. NO DRAINAGE, WARMTH AND REDNESS NOTED MULTIPLE OPEN AREAS TO LOWER ABD. PATIENT HAS COVERED WITH BAND-AIDS, OTHERWISE SHE CAN'T STOP PICKING AT THEM. REDNESS AND WARMTH NOTED. UNABLE TO VIEW WOUNDS, PT DOES NOT WANT BANDAGES REMOVED.
[2025-06-23 17:44] LABS: Adenovirus,PCR Not Detected (NotDetected); Chlamydophila Pneumoniae, PCR Not Detected (NotDetected); Coronavirus 19, PCR Not Detected (NotDetected); Coronovirus HKU1,PCR Not Detected (NotDetected); Influenza A, PCR Not Detected (NotDetected); Influenza AH1, 2009 Not Detected (NotDetected); Influenza AH1, PCR Not Detected (NotDetected); Influenza AH3,PCR Not Detected (NotDetected); Influenza B, PCR Not Detected (NotDetected); Mycoplasma Pneumoniae, PCR Not Detected (NotDetected); Parainfluenza 1, PCR Not Detected (NotDetected); Parainfluenza 2, PCR Not Detected (NotDetected); Parainfluenza 3, PCR Not Detected (NotDetected); Parainfluenza 4, PCR Not Detected (NotDetected)
[2025-06-23] MEDS: POTASSIUM CHLORIDE 20MEQ TAB 40 MEQ PO ×2 (18:12→21:23)
[2025-06-23 20:35] LABS: Folate 7.26 ng/mL
[2025-06-23] MEDS: KETOROLAC 30MG/ML VIAL 30 MG IV (21:23)
[2025-06-23] MEDS: IPRATROPIUM/ALBUTEROL 3 ML NEB IH (23:36)
[2025-06-24] VITALS (12 sets, daily range): BP systolic 98–151; BP diastolic 50–85; PULSE 72–102; RESP 16–18; TEMP 36.6–37.3; O2SAT 86–100; BMI 42.6
[2025-06-24] MEDS: GABAPENTIN 800MG TABLET 800 MG PO ×3 (00:45→20:51)
[2025-06-24] MEDS: BUPRENORPHINE/NALOXONE 8MG/2MG ODT 2 EACH SL ×2 (00:45→08:58)
[2025-06-24] MEDS: METHOCARBAMOL 500MG TABLET 750 MG PO ×2 (00:45→08:59)
--- NOTE | 2025-06-24 05:45 | PC.NURSE ---
Addendum entered by Sheela Tavarez RN 06/24/25 06:50: Patient has remained on 2 L of oxygen via nasal cannula. Original Note: Patient is alert and oriented x4. She was observed to be awake throughout the majority of the night. Has expressed restlessness. Patient has had persistent complaints of [id number] headaches, eye aches, neck aches, and shoulder aches. Toradol and Tylenol were administered per MAR for the patient's pain complaints, but she stated that the medications have not helped. A new order for Benadryl was obtained by Dom VALERA; the medication was reported to have not helped with her pain either. No additional orders for pain relief have been obtained per Dom VALERA. *See provider notification interventions for 21:34, 22:21, 23:42, 00:25, 03:44, and 05:23. Scheduled medications were administered per MAR. A few home medications were also restarted this shift by the ACNP and given per MAR. Breathing treatments given by RTs. Physical assessment (see nursing shift biophysical intervention) was performed as appropriately this shift. Lower extremities were assessed; left leg has scabbed and reddened areas (outlined with marker) with swelling. No draining noticed from the wounds. Lower part of left leg is hot and painful to the touch. Scattered scabs noted across abdomen. Reports feeling congested, has a dry cough. Patient ambulates independently with standby assistance in her room/to the bathroom. At this time, the patient is resting upright in bed. Call light within reach.
[2025-06-24] MEDS: IPRATROPIUM/ALBUTEROL 3 ML NEB IH ×4 (06:03→23:03)
[2025-06-24 07:11] LABS: Hematocrit 36.8 % (37.0-47.0); Hemoglobin 10.3 g/dL (12.2-16.2); Immature Granulocytes % 0.9 %; Mean Corpuscular HGB Conc 28.0 g/dL (31.8-35.4); Mean Corpuscular Hemoglobin 19.0 pg (27.0-31.2); Mean Corpuscular Volume 67.9 fl (81-99); Nucleated Red Blood Cells % 0 %; Platelet Count 245 K/mm3 (142-424); Red Blood Count 5.42 M/mm3 (4.20-5.40); Red Cell Distribution Width-SD 38.3 fL; White Blood Count 15.5 K/mm3 (4.8-10.8)
[2025-06-24 07:19] LABS: Albumin Level 4.7 g/dl (3.5-5.0); Chloride 88 mmol/L (98-107); Sodium 135 mmol/L (136-145)
[2025-06-24 07:22] LABS: Alanine Aminotransferase 23 U/L (12-78); Alkaline Phosphatase 124 U/L (38-126); Aspartate Amino Transferase 32 U/L (14-36); Bilirubin,Total 0.5 mg/dl (0.2-1.3); Blood Urea Nitrogen 18 mg/dl (7-17); Calcium 8.7 mg/dl (8.4-10.2); Carbon Dioxide 35 mmol/L (22.0-30.0); Creatinine Clearance Estimated 76 mL/min (50-200); Creatinine,Serum 0.80 mg/dl (0.52-1.04); Estimated Glomerular Filt Rate 77 ml/min (>60); GFR (African American) 93 ML/MIN (>60); Glucose 128 mg/dl (74-100); Total Protein,Serum 9.3 g/dl (6.3-8.2)
[2025-06-24 07:23] LABS: Potassium 2.9 mmoL/L (3.5-5.1)
[2025-06-24 07:25] LABS: Albumin/Globulin Ratio 1.0 (1.1-1.8); Anion Gap 14.9 mEq/L (5-15); Globulin 4.6 g/dL (1.3-3.2)
--- NOTE | 2025-06-24 08:04 | HMH.PHAINT1 ---
Pharmacy Intervention Comments: Home medication list verified using list from outpatient pharmacy
--- NOTE | 2025-06-24 08:08 | CA_ITS ---
FINAL REPORT TECHNIQUE: Bilateral lower extremity venous duplex was performed with augmentation and compression. CLINICAL HISTORY: redness and pain in calves, HTN, open blisters on left leg, numerous varicose veins. obesity. venous stasis dermatitis. denies trauma FINDINGS: Proper flow is seen throughout the deep venous systems bilaterally. There is no evidence of deep venous thrombosis. IMPRESSION: No evidence of deep venous thrombosis. Reviewed, Interpreted and Dictated by Adelfo Brady MD Transcribed by Eli Mejia Authenticated and [facility]
[2025-06-24] MEDS: POTASSIUM CHLORIDE 20MEQ TAB 40 MEQ PO ×3 (08:59→16:47)
[2025-06-24] MEDS: LEVOTHYROXINE 100MCG (0.1MG) TAB 100 MCG PO (08:59)
[2025-06-24 09:41] LABS: Iron 35 ug/dL (37-170)
[2025-06-24 09:52] LABS: Total Iron Binding Capacity 433 ug/dL (265-497)
[2025-06-24 09:54] LABS: NT Pro Brain Natriuretic Pep. 3620 pg/mL (0-125)
--- NOTE | 2025-06-24 09:59 | EXP.PHA.CONS ---
Pharmacy Consult Date: 06/24/25 Time: 09:59 Referring provider: DR. GALVAN Reason for Consult:: VANCOMYCIN DOSING Allergies Allergy/AdvReac Type Severity Reaction Status Date / Time adhesive tape AdvReac Rash Verified 07/30/23 06:26 Home Medications ?Medication ?Instructions ?Recorded ?Confirmed ?Type methocarbamol 750 mg tablet 750 mg PO TID Muscle spasms 12/31/18 06/24/25 History gabapentin 800 mg tablet 800 mg PO TID Pain 01/01/19 06/23/25 History hydroxyzine pamoate 25 mg capsule 25 - 50 mg PO TID PRN Anxiety 06/23/23 06/23/25 History levothyroxine 100 mcg tablet 100 mcg PO DAILY 06/23/23 06/23/25 History buprenorphine 8 mg-naloxone 2 mg 1.5 tab sublingual HS Withdrawal 06/24/23 06/24/25 History sublingual tablet potassium chloride 20 mEq 20 meq PO DAILY 06/24/23 06/23/25 History tablet,extended release(part/cryst) ([place]-Con M) amitriptyline 100 mg tablet 200 mg PO HS 06/24/25 06/24/25 History duloxetine 20 mg capsule,delayed 20 mg PO DAILY 06/24/25 06/24/25 History release furosemide 20 mg tablet 20 mg PO DAILY PRN Edema 06/24/25 06/24/25 History hydrochlorothiazide 50 mg tablet 100 mg PO DAILY 06/24/25 06/24/25 History New Prescriptions to Start Prescriptions: Height: 1.65 m Weight: 116.12 kg Laboratory Results:: Laboratory Results - last 24 hr 06/23/25 09:10: Hemoglobin A1c 6.2 H, C-Reactive Protein 142.2 H, Folate 7.26 06/23/25 12:06: Urine Color Yellow, Urine Appearance Clear, Urine pH 7.0, Ur Specific [place] 1.010, Urine Protein Trace, Urine Glucose (UA) Negative, Urine Ketones Negative, Urine Blood Negative, Urine Nitrate Negative, Urine Bilirubin Negative, Urine Urobilinogen 0.2, Ur Leukocyte Esterase Negative, Urine RBC Occasional, Urine WBC None, Ur Squamous Epith Cells Occasional, Urine Bacteria None 06/23/25 13:37: VBG pH 7.39, VBG pCO2 49.8, VBG pO2 129.6 H, VBG HCO3 29.3, VBG Total CO2 30.8 H, VBG O2 Saturation 98.6 H, VBG Base Excess 4.3 H, VBG Lactic Acid 2.3 H 06/23/25 17:40: Chlamy pneumoniae PCR Not detected, Adenovirus (PCR) Not detected, B. pertussis DNA (PCR) Not detected, Coronavirus OC43 (PCR) Not detected, Coronavirus HKU1 (PCR) Not detected, Coronavirus 229E (PCR) Not detected, SARS-CoV-2 (PCR) Not detected, Coronavirus NL63 (PCR) Not detected, Human Metapneumovir PCR Not detected, Influenza A (H1) PCR Not detected, Influ A (H1N1/09) PCR Not detected, Influenza A (H3) PCR Not detected, Influenza Type A (PCR) Not detected, Influenza Type B (PCR) Not detected, M. pneumoniae (PCR) Not detected, Parainfluenza 1 (PCR) Not detected, Parainfluenza 2 (PCR) Not detected, Parainfluenza 3 (PCR) Not detected, Parainfluenza 4 (PCR) Not detected, RSV (PCR) Not detected, Entero/Rhino (PCR) Not detected 06/24/25 06:46: WBC 15.5 H D, RBC 5.42 H, Hgb 10.3 L, Hct 36.8 L, MCV 67.9 L, MCH 19.0 L, MCHC 28.0 L, RDW 16.0, Plt Count 245, MPV 10.4, Neut % (Auto) 85.0 H, Lymph % (Auto) 8.5 L, [place] % (Auto) 4.9, Eos % (Auto) 0.1, Baso % (Auto) 0.6, Neut # (Auto) 13.2 H, Lymph # (Auto) 1.3, [place] # (Auto) 0.8, Eos # (Auto) 0.0, Baso # (Auto) 0.1, Sodium 135 L, Potassium 2.9 L*, Chloride 88 L, Carbon Dioxide 35 H, Anion Gap 14.9, BUN 18 H, Creatinine 0.80, Estimated Creat Clear 76, Estimated GFR 77, Est GFR ( Amer) 93 D, Glucose 128 H D, Calcium 8.7, Iron 35 L, TIBC 433, Iron Saturation 8.27095 L, Total Bilirubin 0.5, AST 32, ALT 23, Alkaline Phosphatase 124, NT-Pro-B Natriuret Pep 3620 H, Total Protein 9.3 H, Albumin 4.7, Globulin 4.6 H, Albumin/Globulin Ratio 1.0 L Medical History: Medical History (Updated 06/23/25 @ 18:54 by Michael Galvan MD) Non compliance w medication regimen Narcotic addiction Acquired hypothyroidism Gastroesophageal reflux disease Anxiety with depression Vitamin D deficiency Fibromyalgia Insomnia Cervical neuropathy History of IBS FORD on CPAP Morbid obesity with body mass index (BMI) of 40.0 to 49.9 Prolonged Q-T interval on ECG Assessment and Plan Assessment and plan all Dx Assessment and Plan for all problems:: Pharmacokinetic dosing service Objective: Patient: Floor: Age: 45 yo Serum creatinine: 0.8 mg/dL Height: 65.0 Inches Weight (kg): 116 Assessment: IBW (kg): 57.00 Dosing wt(kg): 116 Estimated Creatinine clearance (ml/min): 79.1 CRCL method: Cockcroft and Gault using ibw(default). Drug selected: Vancomycin Loading dose (mg): 0 Vd (liters): 92.8 (factor used: 0.8 L/kg) Vamsi (hr-1): 0.070 Half life (hrs): 9.90 Recommended dose: 1750 mg Interval: 12 hrs Infusion time (hrs): 2.0 Predicted peak (mcg/mL): 31.0 Predicted trough (mcg/mL): 15.39 Total body weight is being used for vancomycin dosing. Recommendations: Give Vancomycin 1750 mg q 12 hrs with an expected Cpeak of 31.0 mcg/ml and an expected Ctrough of 15.39 mcg/ml ----Vanco only - ignore for aminoglycosides----- CLvanco= 6.50 L/hr AUC 0-24 /DARION Data: DARION 0.5 mcg/mL: AUC/DARION: 1076.9 DARION 1.0 mcg/mL: AUC/DARION: 538.5 --------- DARION 1.5 mcg/mL: AUC/DARION: 359.0 DARION 2.0 mcg/mL: AUC/DARION: 269.2
[2025-06-24 10:15] LABS: Thyroid Stimulating Hormone 2.51 uIU/mL (0.465-4.68)
[2025-06-24 10:19] LABS: Ferritin 44.2 ng/ml (6.24-137)
[2025-06-24 10:35] LABS: Vitamin B12 325 pg/mL (239-931)
[2025-06-24] MEDS: AMITRIPTYLINE 50MG TABLET 100 MG PO ×2 (10:37→20:51)
[2025-06-24] MEDS: LACTATED RINGERS 1000ML 500 ML IV (11:13)
[2025-06-24] MEDS: KETOROLAC 30MG/ML VIAL 30 MG IV (12:07)
[2025-06-24] MEDS: VANCOMYCIN/WATER FOR INJ (PEG) 1.75 GM/350 ML PIGGYBACK IV ×2 (12:07→20:51)
--- NOTE | 2025-06-24 12:28 | P.PN_ITS ---
Subjective *Date: 06/24/25 *Time: 12:28 Interval history: Today, patient states she is been having posterior neck pain with nuchal rigidity, worse with bending forward and headaches for the past few days. Headaches have been refractory to Toradol, Tylenol, ice packs. Avoiding opioids due to Zubsolv. Will try dexamethasone. Will need to rule out meningitis. Given flulike symptoms, could be aseptic meningitis. LP tomorrow as patient received Lovenox today. Exam Data for Last 24 hours Vital signs and Labs for Last 24 Hours: Temp Pulse Resp BP Pulse Ox O2 Del Method O2 Flow Rate 98.1 F 77 16 117/62 100 Nasal Cannula 2 06/24/25 08:00 06/24/25 11:46 06/24/25 08:00 06/24/25 08:00 06/24/25 08:00 06/24/25 09:00 06/24/25 08:00 FiO2 28 06/24/25 06:04 Laboratory Results - last 24 hr 06/23/25 09:10: Hemoglobin A1c 6.2 H, Folate 7.26 06/23/25 12:06: Urine Color Yellow, Urine Appearance Clear, Urine pH 7.0, Ur Specific [place] 1.010, Urine Protein Trace, Urine Glucose (UA) Negative, Urine Ketones Negative, Urine Blood Negative, Urine Nitrate Negative, Urine Bilirubin Negative, Urine Urobilinogen 0.2, Ur Leukocyte Esterase Negative, Urine RBC Occasional, Urine WBC None, Ur Squamous Epith Cells Occasional, Urine Bacteria None 06/23/25 13:37: VBG pH 7.39, VBG pCO2 49.8, VBG pO2 129.6 H, VBG HCO3 29.3, VBG Total CO2 30.8 H, VBG O2 Saturation 98.6 H, VBG Base Excess 4.3 H, VBG Lactic Acid 2.3 H 06/23/25 17:40: Chlamy pneumoniae PCR Not detected, Adenovirus (PCR) Not detected, B. pertussis DNA (PCR) Not detected, Coronavirus OC43 (PCR) Not detected, Coronavirus HKU1 (PCR) Not detected, Coronavirus 229E (PCR) Not detected, SARS-CoV-2 (PCR) Not detected, Coronavirus NL63 (PCR) Not detected, Human Metapneumovir PCR Not detected, Influenza A (H1) PCR Not detected, Influ A (H1N1/09) PCR Not detected, Influenza A (H3) PCR Not detected, Influenza Type A (PCR) Not detected, Influenza Type B (PCR) Not detected, M. pneumoniae (PCR) Not detected, Parainfluenza 1 (PCR) Not detected, Parainfluenza 2 (PCR) Not detected, Parainfluenza 3 (PCR) Not detected, Parainfluenza 4 (PCR) Not detected, RSV (PCR) Not detected, Entero/Rhino (PCR) Not detected 06/24/25 06:46: WBC 15.5 H D, RBC 5.42 H, Hgb 10.3 L, Hct 36.8 L, MCV 67.9 L, MCH 19.0 L, MCHC 28.0 L, RDW 16.0, Plt Count 245, MPV 10.4, Neut % (Auto) 85.0 H , Lymph % (Auto) 8.5 L, [place] % (Auto) 4.9, Eos % (Auto) 0.1, Baso % (Auto) 0.6, Neut # (Auto) 13.2 H, Lymph # (Auto) 1.3, [place] # (Auto) 0.8, Eos # (Auto) 0.0, Baso # (Auto) 0.1, Sodium 135 L, Potassium 2.9 L*, Chloride 88 L, Carbon Dioxide 35 H, Anion Gap 14.9, BUN 18 H, Creatinine 0.80, Estimated Creat Clear 76, Estimated GFR 77, Est GFR ( Amer) 93 D, Glucose 128 H D, Calcium 8.7, Iron 35 L, TIBC 433, Iron Saturation 8.61868 L, Ferritin 44.2, Total Bilirubin 0.5, AST 32, ALT 23, Alkaline Phosphatase 124, NT-Pro-B Natriuret Pep 3620 H, Total Protein 9.3 H, Albumin 4.7, Globulin 4.6 H, Albumin/Globulin Ratio 1.0 L, Vitamin B12 325, TSH 2.51 I & O for Last 24 hours: Intake & Output 06/21/25 06/22/25 06/23/25 06/24/25 23:59 23:59 23:59 23:59 Intake Total 1560 / 2625 1065 / 1065 Output Total 400 / 600 350 / 350 Balance 1159 715 / 715 Weight 122.47 kg 116.12 kg Microbiology Reports for the Last 24 Hours: Microbiology 06/23/25 10:07 Blood Blood Culture - Preliminary NO GROWTH AFTER 24 HOURS 06/23/25 10:02 Blood Blood Culture - Preliminary NO GROWTH AFTER 24 HOURS Constitutional Constitutional: no acute distress and obese *Routine HEENT Exam Head: Present normocephalic Eye: Present EOMI and PERRL ENT: Present mucous membranes moist *Routine Neck Exam Neck: Present supple; Absent lymphadenopathy *Routine Respiratory Exam Respiratory: Present CTA bilaterally *Routine Cardiovascular Exam Cardiovascular: Present RRR *Routine Abdominal Exam Abdominal: Present soft and normoactive bowel sounds; Absent tenderness *Routine Extremities Exam Extremities: Present edema; Absent cyanosis or clubbing Comments: Scattered lower extremity erythematous lesions with healing blisters. *Routine Skin Exam Skin: Present warm; Absent rash *Routine Neurological Exam Neurological: Present alert and oriented X3 Assessment and Plan *Assessment and plan (1) Acute viral syndrome: Status: Acute Category: Medical Code(s): B34.9 - Viral infection, unspecified Plan Anupama Sutton is a 45-year-old female with a medical history significant for mood disorder, opioid use disorder in remission, hypertension, anxiety/depression, hypothyroidism who presented with nausea/vomiting, abdominal pain. Patient states she had abdominal pain about a week ago that improved with bowel movement. Over the past 2 days, she has had nausea/vomiting with again abdominal pain. She states lower abdominal pain is right lower quadrant with radiation to her right flank. It resolved this morning. Denies diarrhea. Last bowel movement 1 week ago. She had a fever of 103 Fahrenheit at home last night. Denies chest pain, shortness of breath. Of note, her daughter at home has been sick with flulike symptoms. No recent changes in medications. Patient does have lower extremity erythematous lesions with open blisters, and a history of varicose veins and venous insufficiency. Patient and family state this is a chronic issue which is not actually better today than it has been in the past. Erythema, tenderness is chronic and more consistent with his venous stasis dermatitis. Workup in the ED significant for WBC 22.2, hemoglobin 11, MCV 66.5, potassium 2.7, CRP 142, UA normal. She was apparently saturating 77% arrival, requiring 2 L nasal cannula. Broad workup including CT chest/abdomen/pelvis, lower extremity CT noninfectious. Head CT also unremarkable. She had a fever 101 in the ED. Given this presentation, ED provider discussed case with me I decided to admit patient for further evaluation management. #Acute hypoxic respiratory failure #Sepsis #Suspected aseptic versus bacterial meningitis #Acute viral syndrome #Headache, nuchal rigidity ? Presented with nausea/vomiting, abdominal pain and found to be hypoxic in the 77% requiring 2 L nasal cannula. Unclear if this is a chronic need. Fever at home 103 Fahrenheit. ? Met SIRS criteria with fever 101 Fahrenheit, tachycardia, WBC 22.2 here. ? Today, patient states she is been having posterior neck pain with nuchal rigidity, worse with bending forward and headaches for the past few days. Will need to rule out meningitis. Given flulike symptoms, could be aseptic meningitis. Patient has baseline intermittent confusion, restlessness per family. ? No focal infection found on imaging thus far, normal respiratory panel, UA. Follow-up blood cultures. ? WBC improved to 15.5 today, vital signs stable. Had a fever yesterday, none today so far. ? Started vancomycin, ceftriaxone 2 g twice daily, acyclovir 10 mg/kg 800 mg. Discontinue Zosyn. Vancomycin, cefepime given in the ED initially. ? Started dexamethasone 10 mg every 6 hours in the setting of bacterial meningitis, refractory headaches. Dexamethasone can be discontinued after bacterial meningitis ruled out tomorrow with LP. ? Discussed with anesthesia, received Lovenox today. Will perform LP in the morning. ? Continue DuoNebs every 6 hours scheduled. ? Follow-up blood cultures ? Follow-up morning CBC, CRP. #Lower extremity venous stasis dermatitis ? Chronic scattered erythematous lesions with healing blisters in lower extremities, especially left lower extremity. This is a chronic issue, most consistent with venous stasis dermatitis at this time. ? Follow-up venous Doppler studies. Rule out DVT. #Hypokalemia ? Potassium 2.9 today, replace per protocol. #Microcytic anemia #Suspected restless leg syndrome ? Initial hemoglobin 11, MCV 66.5. ? Borderline low iron, plan to start ferrous sulfate after illness. ? Started multivitamin for borderline low B12, folate. ? Gabapentin restarted, restless leg seems to have improved today, continue to monitor. #Opioid use disorder in remission ? Continue home Zubsolv. #Mood disorder ? Duloxetine, amitriptyline continue home. #Hypothyroidism ? Continue home levothyroxine 100 mcg. TSH normal. Full code DVT prophylaxis: Hold chemical prophylaxis for LP in the morning. IPCs contraindicated due to lower extremity lesions.
[2025-06-24] MEDS: ACYCLOVIR SODIUM IV ×2 (13:27→20:52)
[2025-06-24] MEDS: SODIUM CHLORIDE 0.9% IV ×2 (13:27→20:52)
[2025-06-24] MEDS: DEXAMETHASONE 4MG/ML 5ML MDV 10 MG IV ×2 (13:27→20:51)
[2025-06-24] MEDS: MULTIVITAMIN TABLET 1 EACH PO (16:44)
[2025-06-24] MEDS: ONDANSETRON 4MG/2ML VIAL 4 MG IV (22:40)
[2025-06-25] MEDS: DEXAMETHASONE 4MG/ML 5ML MDV 10 MG IV ×4 (01:43→20:08)
[2025-06-25 04:00] VITALS: BP 138/90; PULSE 83; RESP 18; TEMP 36.7; O2SAT 99; BMI 42.6
[2025-06-25] MEDS: SODIUM CHLORIDE 0.9% IV (05:35)
[2025-06-25] MEDS: ACYCLOVIR SODIUM IV (05:35)
[2025-06-25 06:14] VITALS: PULSE 82; PULSE 86; O2SAT 94
[2025-06-25] MEDS: IPRATROPIUM/ALBUTEROL 3 ML NEB IH ×3 (06:14→18:44)
[2025-06-25] MEDS: LEVOTHYROXINE 100MCG (0.1MG) TAB 100 MCG PO (06:51)
[2025-06-25 07:11] LABS: Hematocrit 31.0 % (37.0-47.0); Immature Granulocytes % 1.5 %; Mean Corpuscular HGB Conc 29.0 g/dL (31.8-35.4); Mean Corpuscular Hemoglobin 19.7 pg (27.0-31.2); Mean Corpuscular Volume 67.8 fl (81-99); Nucleated Red Blood Cells % 0 %; Platelet Count 293 K/mm3 (142-424); Red Blood Count 4.57 M/mm3 (4.20-5.40); Red Cell Distribution Width-SD 38.8 fL; White Blood Count 17.8 K/mm3 (4.8-10.8)
[2025-06-25 07:21] LABS: Albumin Level 4.2 g/dl (3.5-5.0); Chloride 96 mmol/L (98-107); Potassium 4.1 mmoL/L (3.5-5.1); Sodium 139 mmol/L (136-145)
[2025-06-25 07:24] LABS: Alanine Aminotransferase 23 U/L (12-78); Albumin/Globulin Ratio 1.1 (1.1-1.8); Alkaline Phosphatase 112 U/L (38-126); Anion Gap 15.1 mEq/L (5-15); Aspartate Amino Transferase 22 U/L (14-36); Bilirubin,Total 0.2 mg/dl (0.2-1.3); Blood Urea Nitrogen 14 mg/dl (7-17); Carbon Dioxide 32 mmol/L (22.0-30.0); Creatinine Clearance Estimated 101 mL/min (50-200); Creatinine,Serum 0.60 mg/dl (0.52-1.04); Estimated Glomerular Filt Rate 108 ml/min (>60); GFR (African American) 130 ML/MIN (>60); Globulin 3.9 g/dL (1.3-3.2); Total Protein,Serum 8.1 g/dl (6.3-8.2)
[2025-06-25 07:25] LABS: Calcium 8.6 mg/dl (8.4-10.2); Glucose 176 mg/dl (74-100)
[2025-06-25 07:51] LABS: Hemoglobin 9.0 g/dL (12.2-16.2)
[2025-06-25 08:00] VITALS: BP 109/69; PULSE 91; RESP 16; TEMP 36.7; O2SAT 99
--- NOTE | 2025-06-25 08:37 | HMH.PHAAMS2 ---
- Antimicrobial Stewardship Review culture & sensitivity review Stewardship interventions: culture & sensitivity review, reviewed - no change Comments: PATIENT ON ACYCLOVIR, ROCEPHIN, VANCOMYCIN EMPIRICALLY FOR SUSPECTED MENINGITIS. BLOOD CX NO GROWTH AT 24 HR, MENINGITIS PANEL PENDING COLLECTION, AFEBRILE OVER 24 HR.
[2025-06-25] MEDS: AMITRIPTYLINE 50MG TABLET 100 MG PO ×2 (09:32→20:07)
[2025-06-25] MEDS: GABAPENTIN 800MG TABLET 800 MG PO ×3 (09:33→20:07)
[2025-06-25] MEDS: BUPRENORPHINE/NALOXONE 8MG/2MG ODT 1.5 EACH SL (09:33)
[2025-06-25] MEDS: METHOCARBAMOL 500MG TABLET 750 MG PO ×2 (11:11→20:07)
[2025-06-25] MEDS: VANCOMYCIN/WATER FOR INJ (PEG) 1.75 GM/350 ML PIGGYBACK IV (11:12)
[2025-06-25 11:14] VITALS: PULSE 80
--- NOTE | 2025-06-25 13:09 | EXP.ANES.CKL ---
[facility] Disclaimer: The information contained in this section may have been updated after the patient was seen, as this information can be updated by other users. Medical History (Updated 06/23/25 @ 18:54 by Michael Galdamez MD) Non compliance w medication regimen Narcotic addiction Acquired hypothyroidism Gastroesophageal reflux disease Anxiety with depression Vitamin D deficiency Fibromyalgia Insomnia Cervical neuropathy History of IBS FORD on CPAP Morbid obesity with body mass index (BMI) of 40.0 to 49.9 Prolonged Q-T interval on ECG Surgical History History of bladder suspension procedure (~2012) History of vaginal hysterectomy (~2012) History of wisdom tooth extraction (~2009) Tubal ligation status Social History Smoking Status: Unknown if ever smoked alcohol intake: never substance use type: opiates current occupational status: unemployed Travel in the last 8 weeks?: None household members: spouse and children housing: house caffeine: Yes Have you lived/traveled outside [place] in past 30 days?: No Contact w/someone who lives/traveled outside US past 30 days?: No Exposure to someone with infectious disease in past 14 days?: No Do you have a fever (greater than 100.4 F or 38 C)?: No Have you tested positive for COVID-19?: No Exposed to someone with COVID-19 in past 14 days?: No Do you have a sore throat?: No Do you have a cough?: No Do you have any weakness?: No Do you have any diarrhea?: No Are you experiencing any unusual bleeding?: No Do you have any muscle aches/pain?: No Do you have any abdominal pain?: No Are you experiencing loss of taste or smell?: No [facility] Anesthesia Checklist Patient Identification Patient Identification: Arm Band and Verbal (Name & ) Structural Data Admitted From: Home Planned Operative Procedure/s: Lumbar Puncture Consent for Planned Operative Procedure(s) Verified: Yes Verified Documents: Surgical Consent NPO Status Verified Time NPO: 00:00 Chart Verification Results Verified: CBC and BMP Additional verifications Patient : No Anesthesia Reactions: No Airway Assessment Mallampati Score:: Class II C-Spine Mobility Assessed: Yes TMJ Mobility Assessed: Yes Dentition: Good Dentition Neurological Assessment Level of Consciousness: Awake, Alert and Appropriate Anesthesia Plan Anesthesia Risk discussed: Yes Anesthesia Plan: Verified ASA Class: II Anesthesia Type: None (Lumbar puncture)
--- NOTE | 2025-06-25 13:10 | HMH.PROCNOTE ---
[facility] Procedure Note Date: 06/25/25 Time: 12:50 Procedure Note:: Pt seen in room 202, bedside RN present, RBA's discussed about lumbar puncture Consent form signed. Patient positioned sitting, L4-L5 interspace located, patient prepped w/ betadine and allowed to dry, 1% Lidocaine 3 ml infiltrated at site. 22g Sprotte spinal needle inserted until CSF observed, good flow, no opening pressure was taken. Four vials were filled with 2ml's of CSF and sealed. Needle removed and bandaid placed on patient's back. Patient advised to increase fluid intake if possible. Patient assisted to bathroom by RN and then back into bed.
--- NOTE | 2025-06-25 13:22 | P.PN_ITS ---
Subjective *Date: 06/25/25 *Time: 22:22 Interval history: Stable on room air. No fever overnight. No nausea or vomiting. Headache feeling better. Alert and oriented x 4. Awaiting LP today Medical Exam Vital signs and Labs for Last 24 Hours: Vital Signs Temp Pulse Pulse Resp BP Pulse Ox O2 Del Method 06/25/25 11:14 80 06/25/25 11:14 80 06/25/25 10:23 Room Air 06/25/25 09:00 Room Air 06/25/25 08:00 98.0 F 91 H 16 109/69 L 99 Room Air 06/25/25 07:00 Nasal Cannula 06/25/25 06:14 82 06/25/25 06:14 86 06/25/25 06:14 94 L Nasal Cannula 06/25/25 05:00 Nasal Cannula 06/25/25 04:00 98.0 F 83 18 138/90 99 Nasal Cannula 06/25/25 03:00 Nasal Cannula 06/25/25 01:00 Nasal Cannula 06/24/25 23:04 85 06/24/25 23:04 89 06/24/25 23:04 95 Nasal Cannula 06/24/25 23:00 Nasal Cannula 06/24/25 21:00 Nasal Cannula 06/24/25 20:00 98.4 F 90 16 118/63 96 Nasal Cannula 06/24/25 20:00 Room Air 06/24/25 19:00 Nasal Cannula 06/24/25 18:35 85 06/24/25 18:22 86 06/24/25 17:00 Room Air 06/24/25 16:00 98.6 F 89 18 117/67 94 L Nasal Cannula 06/24/25 15:00 Nasal Cannula O2 Flow Rate FiO2 06/25/25 11:14 06/25/25 11:14 06/25/25 10:23 06/25/25 09:00 06/25/25 08:00 06/25/25 07:00 2 06/25/25 06:14 06/25/25 06:14 06/25/25 06:14 2 28 06/25/25 05:00 2 06/25/25 04:00 3 06/25/25 03:00 2 06/25/25 01:00 2 06/24/25 23:04 06/24/25 23:04 06/24/25 23:04 2 06/24/25 23:00 2 06/24/25 21:00 2 06/24/25 20:00 2.5 06/24/25 20:00 06/24/25 19:00 06/24/25 18:35 06/24/25 18:22 06/24/25 17:00 06/24/25 16:00 2 06/24/25 15:00 Intake and Output 06/24/25 06/25/25 06/25/25 23:59 07:59 15:59 Intake Total 700 / 3385 250 / 1120 870 / 1120 Output Total 1100 / 1100 Balance 700 / 3035 -850 / 20 870 / 20 Intake: Intake, Oral Amount 870 / 870 Intake, Total IV Amount 700 / 1900 250 / 250 Acyclovir Sodium 900 mg In 0.9 250 / 500 250 / 250 % Sodium Chloride 250 ml @ 250 mls/hr IV Q8H [facility] Rx#:[id number] Ceftriaxone Sodium 2 gm In 0.9 100 / 200 % Sodium Chloride 100 ml @ 200 mls/hr IV BID [facility] Rx#:[id number] Vancomycin/Water For Inj (Peg) 350 / 700 1.75 gm In 350 ml @ 175 mls/hr IV BID [facility] Rx#:[id number] Output: Output, Urine Amount 1100 / 1100 Other: Number of Bowel Movements 1 Weight 116.12 kg Patient Weight 06/25/25 23:59 Weight 116.12 kg Laboratory Results - last 24 hr 06/25/25 06:38: WBC 17.8 H, RBC 4.57, Hgb 9.0 L D, Hct 31.0 L, MCV 67.8 L, MCH 19.7 L, MCHC 29.0 L, RDW 16.0, Plt Count 293, MPV 10.3, Neut % (Auto) 86.7 H, Lymph % (Auto) 7.2 L, [place] % (Auto) 4.2, Eos % (Auto) 0.2, Baso % (Auto) 0.2, Neut # (Auto) 15.5 H, Lymph # (Auto) 1.3, [place] # (Auto) 0.8, Eos # (Auto) 0.0, Baso # (Auto) 0.0, Sodium 139, Potassium 4.1 D, Chloride 96 L, Carbon Dioxide 32 H, Anion Gap 15.1 H, BUN 14, Creatinine 0.60 D, Estimated Creat Clear 101, Estimated GFR 108, Est GFR ( Amer) 130 D, Glucose 176 H D, Calcium 8.6, Total Bilirubin 0.2, AST 22 D, ALT 23, Alkaline Phosphatase 112, Total Protein 8.1, Albumin 4.2 D, Globulin 3.9 H, Albumin/Globulin Ratio 1.1 I & O for Labs for Last 24 Hours: Intake & Output 06/22/25 06/23/25 06/24/25 06/25/25 23:59 23:59 23:59 23:59 Intake Total 1560 / 2625 3385 / 3385 1120 / 1120 Output Total 400 / 600 350 / 350 1100 / 1100 Balance 116 / 2024 3035 / 3035 Weight 122.47 kg 116.12 kg 116.12 kg Microbiology Reports for the Last 24 Hours: Microbiology 06/23/25 10:07 Blood Blood Culture - Preliminary NO GROWTH AFTER 48 HOURS 06/23/25 10:02 Blood Blood Culture - Preliminary NO GROWTH AFTER 48 HOURS Constitutional: Present no acute distress, morbidly obese and cooperative Head: Present atraumatic and normocephalic Comment:: No nuchal rigidity today Neck: Absent tenderness Respiratory: Present normal respiratory effort; Absent rhonchi, wheezes or crackles Cardiac: Present Reg Rate and Rhythm GI: Present soft and normal bowel sounds; Absent tenderness Extremities: Present normal inspection and full ROM Skin: Present intact; Absent erythema Neuro: Present Grossly Intact, alert, awake, oriented x 3 and moves all extremities Assessment and Plan *Assessment and plan (1) Acute viral syndrome: Status: Acute Category: Medical Code(s): B34.9 - Viral infection, unspecified (2) Morbid obesity with body mass index (BMI) of 40.0 to 49.9: Status: Chronic Category: Medical Code(s): E66.01 - Morbid (severe) obesity due to excess calories (3) FORD (obstructive sleep apnea): Status: Acute Category: Medical Code(s): G47.33 - Obstructive sleep apnea (adult) (pediatric) (4) Anxiety with depression: Status: Chronic Category: Medical Code(s): F41.8 - Other specified anxiety disorders (5) Acquired hypothyroidism: Status: Chronic Category: Medical Code(s): E03.9 - Hypothyroidism, unspecified (6) Opioid dependence on agonist therapy: Status: Chronic Category: Medical Code(s): F11.20 - Opioid dependence, uncomplicated Plan Anupama Sutton is a 45-year-old female with a medical history significant for mood disorder, opioid use disorder in remission, hypertension, anxiety/depression, hypothyroidism who presented with nausea/vomiting, abdominal pain. Patient states she had abdominal pain about a week ago that improved with bowel movement. Over the past 2 days, she has had nausea/vomiting with again abdominal pain. She states lower abdominal pain is right lower quadrant with radiation to her right flank. It resolved this morning. Denies diarrhea. Last bowel movement 1 week ago. She had a fever of 103 Fahrenheit at home last night. Denies chest pain, shortness of breath. Of note, her daughter at home has been sick with flulike symptoms. No recent changes in medications. Patient does have lower extremity erythematous lesions with open blisters, and a history of varicose veins and venous insufficiency. Patient and family state this is a chronic issue which is not actually better today than it has been in the past. Erythema, tenderness is chronic and more consistent with his venous stasis dermatitis. Workup in the ED significant for WBC 22.2, hemoglobin 11, MCV 66.5, potassium 2.7, CRP 142, UA normal. She was apparently saturating 77% arrival, requiring 2 L nasal cannula. Broad workup including CT chest/abdomen/pelvis, lower extremity CT noninfectious. Head CT also unremarkable. She had a fever 101 in the ED. Given this presentation, ED provider discussed case with me I decided to admit patient for further evaluation management. Afebrile overnight. Awaiting LP today. Showing improvement clinically. White count still elevated at 17. Continues to require patient management. Problems addressed as follows: #Acute hypoxic respiratory failure #Sepsis #Suspected aseptic versus bacterial meningitis #Acute viral syndrome #Headache, nuchal rigidity ? Presented with nausea/vomiting, abdominal pain and found to be hypoxic in the 77% requiring 2 L nasal cannula. Unclear if this is a chronic need. Fever at home 103 Fahrenheit. ? Met SIRS criteria with fever 101 Fahrenheit, tachycardia, WBC 22.2 here. ? Posterior neck pain yesterday. Initiated on empiric antibiotics and treatment for meningitis. LP performed today. CSF white count of 4. Meningitis encephalitis panel negative for all analytes via PCR - De-escalate acyclovir and vancomycin. Continue ceftriaxone decreased to 2 g daily. ? No focal infection found on imaging thus far, normal respiratory panel, UA. Follow-up blood cultures. ? White count 17. No fever in 24 hours. Repeat CBC, CMP, magnesium ordered for the morning - Headache better after dexamethasone. Discontinue today given negative PCR - Continue Toradol 30 mg IV every 6 hours as needed for pain. - Continue DuoNebs every 6 hours scheduled. ? Follow-up blood cultures. #Lower extremity venous stasis dermatitis ? Chronic scattered erythematous lesions with healing blisters in lower extremities, especially left lower extremity. This is a chronic issue, most consistent with venous stasis dermatitis at this time. - Venous Doppler study negative for DVT #Hypokalemia: Potassium better at 4.1, kidney function normal BUN 14, creatinine 0.6. Magnesium 2.2. #Microcytic anemia #Suspected restless leg syndrome ? Initial hemoglobin 11, MCV 66.5. ? Borderline low iron, plan to start ferrous sulfate after illness. ? Started multivitamin for borderline low B12, folate. ? Gabapentin restarted, restless leg seems to have improved today, continue to monitor. #Opioid use disorder in remission ? Continue home Zubsolv. #Mood disorder ? Duloxetine, amitriptyline continue home. #Hypothyroidism ? Continue home levothyroxine 100 mcg. TSH normal. Full code DVT prophylaxis: Resume Lovenox after LP
[2025-06-25 13:35] LABS: Glucose,CSF 120 mg/dl (40-70)
[2025-06-25 13:43] LABS: Volume,CSF 2 mL
[2025-06-25 13:44] LABS: Red Blood Cell,CSF 0 cells/uL (0); Tube Number: Tube 3; White Blood Cell,CSF 4 cells/uL (0-5)
[2025-06-25] MEDS: ACYCLOVIR SODIUM 800 MG in 0.9 % SODIUM CHLORIDE 250 ML 250 MG IV (13:50)
[2025-06-25 16:00] VITALS: BP 104/53; PULSE 81; RESP 16; TEMP 36.4; O2SAT 93
[2025-06-25 16:10] LABS: Mononuclear WBCs,CSF 0 %; Polynuclear WBCs,CSF 0 %
[2025-06-25] MEDS: MULTIVITAMIN TABLET 1 EACH PO (17:13)
[2025-06-25 20:00] VITALS: BP 115/65; PULSE 80; RESP 18; TEMP 36.8; O2SAT 93
[2025-06-25] MEDS: SENNOSIDES 8.6MG/DOCUSATE 50MG TABLET 1 TAB PO (20:07)
[2025-06-25] MEDS: POLYETHYLENE GLYCOL 3350 17 GM PACKET PO (20:08)
[2025-06-25 20:37] LABS: Vancomycin,Trough 15.6 ug/mL (5.0-10.0)
[2025-06-25 20:39] LABS: Magnesium 2.2 mg/dl (1.6-2.3)
[2025-06-26] VITALS: BP 123/70; PULSE 71; RESP 16; TEMP 36.6; O2SAT 91
[2025-06-26] MEDS: ONDANSETRON 4MG/2ML VIAL 4 MG IV (01:51)
[2025-06-26 04:00] VITALS: BP 134/73; PULSE 78; RESP 16; TEMP 36.6; O2SAT 93; BMI 43.3
[2025-06-26] MEDS: LEVOTHYROXINE 100MCG (0.1MG) TAB 100 MCG PO (06:13)
[2025-06-26] MEDS: IPRATROPIUM/ALBUTEROL 3 ML NEB IH (06:40)
[2025-06-26 08:00] VITALS: BP 132/74; PULSE 88; RESP 18; TEMP 36.6; O2SAT 98
--- NOTE | 2025-06-26 08:34 | EXP.DC.SUM ---
General Admission date:: 06/23/25 Discharge date: 06/26/25 HPI HPI HPI: Anupama Sutton is a 45-year-old female with a medical history significant for mood disorder, opioid use disorder in remission, hypertension, anxiety/depression, hypothyroidism who presented with nausea/vomiting, abdominal pain. Patient states she had abdominal pain about a week ago that improved with bowel movement. Over the past 2 days, she has had nausea/vomiting with again abdominal pain. She states lower abdominal pain is right lower quadrant with radiation to her right flank. It resolved this morning. Denies diarrhea. Last bowel movement 1 week ago. She had a fever of 103 Fahrenheit at home last night. Denies chest pain, shortness of breath. Of note, her daughter at home has been sick with flulike symptoms. No recent changes in medications. Patient does have lower extremity erythematous lesions with open blisters, and a history of varicose veins and venous insufficiency. Patient and family state this is a chronic issue which is not actually better today than it has been in the past. Erythema, tenderness is chronic and more consistent with his venous stasis dermatitis. Workup in the ED significant for WBC 22.2, hemoglobin 11, MCV 66.5, potassium 2.7, CRP 142, UA normal. She was apparently saturating 77% arrival, requiring 2 L nasal cannula. Broad workup including CT chest/abdomen/pelvis, lower extremity CT noninfectious. Head CT also unremarkable. She had a fever 101 in the ED. Given this presentation, ED provider discussed case with me I decided to admit patient for further evaluation management. Hospital Course Hospital Course Hospital Course: Anupama Sutton is a 45-year-old female with a medical history significant for mood disorder, opioid use disorder in remission, hypertension, anxiety/depression, hypothyroidism who presented with nausea/vomiting, abdominal pain. Patient states she had abdominal pain about a week ago that improved with bowel movement. Over the past 2 days, she has had nausea/vomiting with again abdominal pain. She states lower abdominal pain is right lower quadrant with radiation to her right flank. It resolved this morning. Denies diarrhea. Last bowel movement 1 week ago. She had a fever of 103 Fahrenheit at home last night. Denies chest pain, shortness of breath. Of note, her daughter at home has been sick with flulike symptoms. No recent changes in medications. Patient does have lower extremity erythematous lesions with open blisters, and a history of varicose veins and venous insufficiency. Patient and family state this is a chronic issue which is not actually better today than it has been in the past. Erythema, tenderness is chronic and more consistent with his venous stasis dermatitis. Workup in the ED significant for WBC 22.2, hemoglobin 11, MCV 66.5, potassium 2.7, CRP 142, UA normal. She was apparently saturating 77% arrival, requiring 2 L nasal cannula. Broad workup including CT chest/abdomen/pelvis, lower extremity CT noninfectious. Head CT also unremarkable. She had a fever 101 in the ED. Given this presentation, ED provider discussed case with me I decided to admit patient for further evaluation management. Afebrile overnight. Awaiting LP today. Showing improvement clinically. White count remained elevated however clinically patient showing improvement. Infection appears to be identified as cellulitis on leg. Meningitis ruled out. Stable discharge home to complete antibiotics via oral course. Problems addressed as follows: #Acute hypoxic respiratory failure #Sepsis #Suspected aseptic versus bacterial meningitis #Acute viral syndrome #Headache, nuchal rigidity ? Presented with nausea/vomiting, abdominal pain and found to be hypoxic in the 77% requiring 2 L nasal cannula. Unclear if this is a chronic need. Fever at home 103 Fahrenheit. Met SIRS criteria with fever 101 Fahrenheit, tachycardia, WBC 22.2 here. Given that source of infection was identified with cellulitis as below, technically met sepsis criteria, present on admission. Was initiated on broad-spectrum antibiotics out of concern for possible meningitis. This included acyclovir, vancomycin, ceftriaxone. LP was performed, negative meningitis encephalitis panel for all analytes. CSF normal with white count of 4. Antibiotics and antivirals were de-escalated. Continued ceftriaxone 2 g daily until day of discharge when she was transition to Bactrim for cellulitis on left leg. Headache resolved with dexamethasone. Blood cultures remain negative during admission. Improved to room air by day of discharge. #Lower extremity venous stasis dermatitis Left lower extremity cellulitis/erysipelas ? Chronic scattered erythematous lesions with healing blisters in lower extremities, especially left lower extremity. This is a chronic issue, most consistent with venous stasis dermatitis at this time. Concern for some cellulitis as the source of her white count. Showed improvement with antibiotics. Will complete course of Bactrim at discharge for cellulitis of left lower extremity. Venous Doppler study negative for DVT #Hypokalemia: Potassium low during admission. Improved with treatment. Normal on day of discharge. #Microcytic anemia #Suspected restless leg syndrome ? Initial hemoglobin 11, MCV 66.5. Borderline low iron. Recommend [id number] vitamin with iron daily at discharge. Gabapentin restarted, restless leg seems to have improved today, continue to monitor. #Opioid use disorder in remission: Continue home Zubsolv. #Mood disorder: Continue home regimen with duloxetine, amitriptyline. #Hypothyroidism: Continue home levothyroxine 100 mcg. TSH normal. Total time spent on discharge 32 minutes in counseling, documentation, chart review, and direct care with patient. Exam Data for Last 24 hours Vital signs and Labs for Last 24 Hours: Temp Pulse Resp BP Pulse Ox O2 Del Method O2 Flow Rate 97.9 F 78 16 134/73 93 L Room Air 3 06/26/25 04:00 06/26/25 04:00 06/26/25 04:00 06/26/25 04:00 06/26/25 04:00 06/26/25 06:49 06/25/25 16:00 FiO2 28 06/25/25 06:14 Laboratory Results - last 24 hr 06/25/25 13:00: CSF Volume 2, CSF Appearance Clear, CSF WBC 4, CSF RBC 0, CSF Mononuclear WBCs % 0, CSF Polynuclear WBCs % 0, CSF Glucose 120 H, CSF C.neoform/gat PCR Not detected, CSF CMV DNA (PCR) Not detected, CSF Enterovirus (PCR) Not detected, CSF E. coli K1 (PCR) Not detected, CSF H. influenzae (PCR) Not detected, CSF HSV I (PCR) Not detected, CSF HSV II (PCR) Not detected, CSF HHV 6 (PCR) Not detected, CSF L.monocytogenes PCR Not detected, CSF N. meningitidis PCR Not detected, CSF Parechovirus (PCR) Not detected, CSF S. agalactiae (PCR) Not detected, CSF S. pneumoniae (PCR) Not detected, CSF VZV (PCR) Not detected 06/25/25 19:59: Magnesium 2.2, Vancomycin Trough 15.6 H I & O for Last 24 hours: Intake & Output 06/23/25 06/24/25 06/25/25 06/26/25 23:59 23:59 23:59 23:59 Intake Total 1560 / 2625 3385 / 3385 2650 / 2650 Output Total 400 / 600 350 / 350 1100 / 1100 0 / 0 Balance 1159 / 2024 3035 / 3035 1550 / 1550 0 / 0 Weight 122.47 kg 116.12 kg 116.12 kg 117.934 kg Microbiology Reports for the Last 24 Hours: Microbiology 06/25/25 13:00 Cerebral Spinal Fluid Gram Stain - Final 06/23/25 10:07 Blood Blood Culture - Preliminary NO GROWTH AFTER 48 HOURS 06/23/25 10:02 Blood Blood Culture - Preliminary NO GROWTH AFTER 48 HOURS Constitutional Constitutional: no acute distress and obese *Routine HEENT Exam Head: Present normocephalic Eye: Present EOMI and PERRL ENT: Present mucous membranes moist *Routine Neck Exam Neck: Present supple; Absent lymphadenopathy *Routine Respiratory Exam Respiratory: Present CTA bilaterally *Routine Cardiovascular Exam Cardiovascular: Present RRR *Routine Abdominal Exam Abdominal: Present soft and normoactive bowel sounds; Absent tenderness *Routine Rectal Exam Patient deferred: visual exam *Routine Exam Patient deferred: external exam *Routine Extremities Exam Extremities: Present edema; Absent cyanosis or clubbing Comments: Scattered lower extremity erythematous lesions with healing blisters. *Routine Skin Exam Skin: Present erythema (Erythematous wound posterior left calf with well-defined border that appears to originate from one of the ulcerated lesions. No fluctuance. Redness appears to be somewhat improved.) and warm; Absent rash *Routine Neurological Exam Neurological: Present alert, oriented X3 and moving all extremities; Absent altered mental status Comments: No light sensitivity or nuchal rigidity Results Data Completed and Pending Labs on day of discharge: Labs from last 24 hours 06/25/25 06/25/25 19:59 13:00 Magnesium 2.2 CSF Volume 2 CSF Appearance Clear CSF WBC 4 CSF RBC 0 CSF Mononuclear WBCs % 0 CSF Polynuclear WBCs % 0 CSF Glucose 120 H CSF C.neoform/gat PCR Not detected CSF CMV DNA (PCR) Not detected CSF Enterovirus (PCR) Not detected CSF E. coli K1 (PCR) Not detected CSF H. influenzae (PCR) Not detected CSF HSV I (PCR) Not detected CSF HSV II (PCR) Not detected CSF HHV 6 (PCR) Not detected CSF L.monocytogenes PCR Not detected CSF N. meningitidis PCR Not detected CSF Parechovirus (PCR) Not detected CSF S. agalactiae (PCR) Not detected CSF S. pneumoniae (PCR) Not detected CSF VZV (PCR) Not detected Vancomycin Trough 15.6 H Preliminary micro results at discharge 06/23/25 10:07 Blood Culture - Preliminary Blood NO GROWTH AFTER 48 HOURS 06/23/25 10:02 Blood Culture - Preliminary Blood NO GROWTH AFTER 48 HOURS DS: Diagnosis Discharge Diagnosis (1) Acute viral syndrome: Status: Acute Code(s): B34.9 - Viral infection, unspecified (2) Morbid obesity with body mass index (BMI) of 40.0 to 49.9: Status: Chronic Code(s): E66.01 - Morbid (severe) obesity due to excess calories (3) FORD (obstructive sleep apnea): Status: Acute Code(s): G47.33 - Obstructive sleep apnea (adult) (pediatric) (4) Anxiety with depression: Status: Chronic Code(s): F41.8 - Other specified anxiety disorders (5) Acquired hypothyroidism: Status: Chronic Code(s): E03.9 - Hypothyroidism, unspecified (6) Opioid dependence on agonist therapy: Status: Chronic Code(s): F11.20 - Opioid dependence, uncomplicated (7) Cellulitis: Status: Acute Code(s): L03.90 - Cellulitis, unspecified Problem details: left lower extremity Meds Home Medications and Allergies Home Medications ?Medication ?Instructions ?Recorded ?Confirmed ?Type gabapentin 800 mg tablet 800 mg PO TID Pain 01/01/19 06/23/25 History hydroxyzine pamoate 25 mg capsule 25 - 50 mg PO TID PRN Anxiety 06/23/23 06/23/25 History levothyroxine 100 mcg tablet 100 mcg PO DAILY 06/23/23 06/23/25 History potassium chloride 20 mEq 20 meq PO DAILY 06/24/23 06/23/25 History tablet,extended release(part/cryst) (Klor-Con M) Held on 06/26/25. Instructions: pending completion of Antibiotics amitriptyline 100 mg tablet 200 mg PO HS 06/24/25 06/24/25 History buprenorphine 5.7 mg-naloxone 1.4 1.5 tab sublingual DAILY 06/24/25 06/24/25 History mg sublingual tablet (Zubsolv) duloxetine 20 mg capsule,delayed 20 mg PO DAILY 06/24/25 06/24/25 History release furosemide 20 mg tablet 20 mg PO DAILY PRN Edema 06/24/25 06/24/25 History hydrochlorothiazide 50 mg tablet 100 mg PO DAILY 06/24/25 06/24/25 History methocarbamol 750 mg tablet 750 mg PO TID Muscle spasms 30 06/26/25 Rx days #90 tabs sulfamethoxazole 800 1 tab PO BID 5 days #9 tabs 06/26/25 Rx mg-trimethoprim 160 mg tablet New Prescriptions to Start Prescriptions: Valente Pace sulfamethoxazole-trimethoprim Valente Nathan Allergies Allergy/AdvReac Type Severity Reaction Status Date / Time adhesive tape AdvReac Rash Verified 07/30/23 06:26 Discharge Plan Disposition Patient Disposition: Home, Self-Care Condition: Fair Discharge Order Discharge Orders: Discharge Order (Routine); Ordered 06/26/25 Ordered By: Valente Nathan Follow up Plan Follow up with: Mervin Toribio MD [Primary Care Provider, Medical] - 07/01/25 10:00 am Prescriptions/Medication Reconciliation: New sulfamethoxazole-trimethoprim 800-160 mg Tablet 1 tab PO BID 5 Days Qty: 9 0RF Continued hydrochlorothiazide 50 mg tablet 100 mg PO DAILY furosemide 20 mg tablet 20 mg PO DAILY PRN (Reason: Edema) amitriptyline 100 mg tablet 200 mg PO HS duloxetine 20 mg capsule,delayed release(DR/EC) 20 mg PO DAILY Zubsolv 5.7-1.4 mg Tablet, Sublingual 1.5 tab SUBLINGUAL DAILY methocarbamol 750 MG tablet 750 mg PO TID 30 Days Qty: 90 0RF gabapentin 800 MG tablet 800 mg PO TID Patient Comments: TAKE 1 TABLET BY MOUTH THREE TIMES A DAY levothyroxine 100 mcg tablet 100 mcg PO DAILY hydroxyzine pamoate 25 mg capsule 25 - 50 mg PO TID PRN (Reason: Anxiety) Patient Comments: TAKE 1 TO 2 CAPS BY MOUTH 3 TIMES A DAY Held potassium chloride [Klor-Con M20] 20 mEq tablet,ER particles/crystals 20 meq PO DAILY Hold Instructions: pending completion of Antibiotics Patient Comments: TAKE 1 TABLET BY MOUTH EVERY DAY FOR 30 DAYS Problem Reconciliation Problems Reviewed?: Yes Patient Discharge Instructions ACTIVITY: Continue current activity DIET: continue same diet Patient Instructions: DI for Sepsis in Adults, Stop Light Heart Failure, Stop Light Infection Print Language: Persian Providers Primary Care Provider: Mervin Toribio Admit Provider: Michael Galdamez Attending Provider: Michael Galdamez
[2025-06-26] MEDS: AMITRIPTYLINE 50MG TABLET 100 MG PO (08:39)
[2025-06-26] MEDS: BUPRENORPHINE/NALOXONE 8MG/2MG ODT 1.5 EACH SL (08:39)
[2025-06-26] MEDS: DOXYCYCLINE HYCL 100 MG TABLET PO (08:43)
[2025-06-26] MEDS: GABAPENTIN 800MG TABLET 800 MG PO (08:43)
[2025-06-26] MEDS: METHOCARBAMOL 500MG TABLET 750 MG PO (08:43)
[2025-06-26 08:46] LABS: Hematocrit 33.2 % (37.0-47.0); Hemoglobin 9.3 g/dL (12.2-16.2); Immature Granulocytes % 4.2 %; Mean Corpuscular HGB Conc 28.0 g/dL (31.8-35.4); Mean Corpuscular Hemoglobin 19.1 pg (27.0-31.2); Mean Corpuscular Volume 68.3 fl (81-99); Nucleated Red Blood Cells % 0.1 %; Platelet Count 321 K/mm3 (142-424); Red Blood Count 4.86 M/mm3 (4.20-5.40); Red Cell Distribution Width-SD 39.6 fL; White Blood Count 20.5 K/mm3 (4.8-10.8)
[2025-06-26 08:47] LABS: Albumin Level 4.2 g/dl (3.5-5.0); Chloride 99 mmol/L (98-107); Sodium 140 mmol/L (136-145)
[2025-06-26 08:48] LABS: Potassium 3.7 mmoL/L (3.5-5.1)
[2025-06-26 08:50] LABS: Alanine Aminotransferase 30 U/L (12-78); Albumin/Globulin Ratio 1.1 (1.1-1.8); Anion Gap 12.7 mEq/L (5-15); Aspartate Amino Transferase 34 U/L (14-36); Blood Urea Nitrogen 22 mg/dl (7-17); Carbon Dioxide 32 mmol/L (22.0-30.0); Creatinine Clearance Estimated 87 mL/min (50-200); Creatinine,Serum 0.70 mg/dl (0.52-1.04); Estimated Glomerular Filt Rate 90 ml/min (>60); GFR (African American) 109 ML/MIN (>60); Globulin 3.8 g/dL (1.3-3.2); Total Protein,Serum 8.0 g/dl (6.3-8.2)
[2025-06-26 08:51] LABS: Alkaline Phosphatase 105 U/L (38-126); Bilirubin,Total 0.2 mg/dl (0.2-1.3); Calcium 8.5 mg/dl (8.4-10.2); Glucose 193 mg/dl (74-100)
--- NOTE | 2025-06-26 09:25 | HMH.PHAAMS2 ---
- Antimicrobial Stewardship Review culture & sensitivity review Stewardship interventions: culture & sensitivity review, reviewed - no change Comments: PATIENT ON ROCEPHIN, CSF NO CELLS SEEN BUT STILL PENDING, BLOOD CX NO GROWTH AT 48 HR, AFEBRILE OVER 24 HR.
[2025-06-26] MEDS: SULFA/TRIMETHOPRIM 1 TABLET 1 EACH PO (11:18)
[2025-06-26 11:53] LABS: Total Cells Counted 100
[2025-06-26 11:54] LABS: Hypochromasia 2+; Ovalocytes 1+
== END 2025-06-26 11:51 | disposition home or self-care (01) ==
LOC: ER 09:40 → 2ND 14:50
PROVIDERS: Internal Medicine Adolescent Medicine; Admitting Provider Student in an Organized Health Care Education/Training Program; Emergency Provider Student in an Organized Health Care Education/Training Program; PCP Family Medicine; Visit Provider Student in an Organized Health Care Education/Training Program
DX: A41.9 Sepsis, unspecified organism (principal); J96.01 Acute respiratory failure with hypoxia; Z68.41 Body mass index [BMI] 40.0-44.9, adult; L03.116 Cellulitis of left lower limb; E66.01 Morbid (severe) obesity due to excess calories; G47.33 Obstructive sleep apnea (adult) (pediatric); F41.9 Anxiety disorder, unspecified; F32.A Depression, unspecified; E03.9 Hypothyroidism, unspecified; K21.9 Gastro-esophageal reflux disease without esophagitis; G62.9 Polyneuropathy, unspecified; I10 Essential (primary) hypertension; E87.6 Hypokalemia; D50.9 Iron deficiency anemia, unspecified; I87.2 Venous insufficiency (chronic) (peripheral); F11.21 Opioid dependence, in remission; R51.9 Headache, unspecified; Z79.890 Hormone replacement therapy; Z91.148 Patient's other noncompliance with medication regimen for other reason
CPT/HCPCS: 62270; 0223U; 36415; 70450; 71275; 72125; 73590; 73701; 74177; 80053; 80202; 81001; 82607; 82728; 82746; 82803; 82945; 83036; 83540; 83550; 83735; 83880; 84443; 85007; 85025; 85027; 86140; 87040; 87070; 87205; 87483; 89051; 93005; 93970; 94640; 94761; 96365; 96366; 96367; 96368; 96372; 96375; 96376; 99285; G0378; J0133; J0574; J0692; J0696; J1100; J1650; J1885; J2405; J3373; J3375; J3480; J7040; J7050; J7120; Q9967